=== PATIENT | female | born 1980 | race Caucasian/White ===

== ENCOUNTER 2023-08-18 09:13 | Outpatient (OUT) | payer BC, SELFPAY ==
--- NOTE | 2023-08-18 09:16 | MM_ITS ---
Patient Name: AFRICA DHILLON MR#: [id number] : 1980 Exam Date: 08/18/2023 Ordering Doctor: REJI DUNAWAY . RADIOLOGY REPORT PROCEDURE: MM TOMOSYNTHESIS SCREENING BI COMPARISON: MG MAMM SCREEN 3D YUDI CAD, 06/19/2022. INDICATIONS: screening Calculator Name NCI Breast Cancer Risk Assessment Tool 5 Year Breast Cancer Risk 0.70% Lifetime Breast Cancer Risk 10.90% Personal Breast Cancer No Personal Ovarian Cancer No Treatments None Family Cancers None LOCATION: [facility] BREAST COMPOSITION: Heterogeneously dense,which may obscure small masses. FINDINGS: DIAGNOSTIC CATEGORY 1--NEGATIVE. NO CHANGE FROM COMPARISON ASSESSMENT. RIGHT BREAST: No significant suspicious finding. LEFT BREAST: No significant suspicious finding. RECOMMENDATIONS: ROUTINE MAMMOGRAM AND CLINICAL EVALUATION IN 12 MONTHS. PLEASE NOTE: A NORMAL MAMMOGRAM DOES NOT EXCLUDE THE POSSIBILITY OF BREAST CANCER. A CLINICALLY SUSPICIOUS PALPABLE LUMP SHOULD BE BIOPSIED. Dictated by: Dennis Hinds MD on 08/18/2023 at 13:25 Approved by: Dennis Hinds MD on 08/18/2023 at 13:27
== END 2023-08-18 09:14 | disposition home or self-care (01) ==
LOC: MAMMO 09:13
PROVIDERS: PCP Nurse Practitioner; Visit Provider Nurse Practitioner
DX: Z12.31 Encounter for screening mammogram for malignant neoplasm of breast (principal)
CPT/HCPCS: 77063; 77067

== ENCOUNTER 2024-04-12 11:18 | Outpatient (OUT) | payer BC, SELFPAY ==
--- NOTE | 2024-04-12 11:29 | XR_ITS ---
The [address] [address] Patient Name: AFRICA DHILLON MRN: [id number] date: 1980 Sex: F Assigned Patient Location: [facility] Current Patient Location: [facility] Accession/Order Number: [id number] Exam Date: 04/12/2024 11:35 Report Date: 04/13/2024 15:05 At the request of: REJI DUNAWAY Procedure: XR cervical spine 5V EXAMINATION: XR cervical spine 5V HISTORY: Left Shoulder Pain , Left sided Neck Pain COMPARISON: No relevant comparison available. FINDINGS: BONES: Reversal of normal cervical lordosis. No acute fracture or spondylolisthesis. No significant degenerative change DISC SPACES: Normal. No significant disc height narrowing, subluxation, or endplate abnormality. PARASPINOUS: Negative. No paraspinous abnormality is seen. OTHER: Negative. XR/XR cervical spine 5V IMPRESSION: Reversal cervical lordosis Electronically authenticated by: TEE CARVER Date: 04/13/2024 15:05
--- NOTE | 2024-04-12 11:29 | XR_ITS ---
[address] [address] Patient Name: AFRICA DHILLON MRN: [id number] date: 1980 Sex: F Assigned Patient Location: [facility] Current Patient Location: Accession/Order Number: [id number] Exam Date: 04/12/2024 11:35 Report Date: 04/13/2024 15:03 At the request of: REJI DUNAWAY Procedure: XR shoulder LT min 2V PROCEDURE: XR shoulder LT min 2V COMPARISON: None. HISTORY: Left Shoulder Pain , Left sided Neck Pain FINDINGS: BONES:No acute fracture or dislocation. Mild acromioclavicular joint osteoarthropathy SOFT TISSUES:Negative. No visible soft tissue swelling. EFFUSION:None visible. OTHER: Negative. XR/XR shoulder LT min 2V IMPRESSION: Mild osteoarthritis Electronically authenticated by: TEE CARVER Date: 04/13/2024 15:03
== END 2024-04-12 11:19 | disposition home or self-care (01) ==
LOC: RAD 11:20
PROVIDERS: PCP Nurse Practitioner; Visit Provider Nurse Practitioner
DX: M25.512 Pain in left shoulder (principal); M54.2 Cervicalgia
CPT/HCPCS: 72050; 73030

== ENCOUNTER 2024-04-24 08:39 | Outpatient (OUT) | payer BC, SELFPAY ==
--- OUTSIDE RECORDS SUMMARY | 2024-04-24 08:43 | XMS_ITS | CCD ---
Author Organization [facility] [place] Clini[facility] Care Team Providers Care Dietary Cook Name Role Phone Gino Liang Unavailable ROCK, DR CHRISTIAN Attending Unavailable KUNJenny, DR CHRISTIAN Consulting Unavailable KUNJenny, DR CHRISTIAN Primary Care Unavailable KUNJenny, DR CHRISTIAN Admitting Unavailable RAFAEL ., DR VILLAR Attending Unavailable RAFAEL ., DR VILLAR Consulting Unavailable RAFAEL ., DR VILLAR Admitting Unavailable KUNS, DR CHRISTIAN Primary Care Unavailable RAFAEL ., DR VILLAR Attending Unavailable RAFAEL ., DR VILLAR Consulting Unavailable RAFAEL ., DR VILLAR Admitting Unavailable KUNS, DR CHRISTIAN Primary Care Unavailable RAFAEL ., DR VILLAR Consulting Unavailable RAFAEL ., DR VILLAR Admitting Unavailable KUNS, DR CHRISTIAN Primary Care Unavailable RAFAEL ., DR VILLAR Attending Unavailable ZIEBER, DR KASHMIR [place] Consulting Unavailable ROCK, DR CHRISTIAN Consulting Unavailable ROCK, DR CHRISTIAN Primary Care Unavailable ROCK, DR CHRISTIAN Admitting Unavailable ROCK, DR CHRISTIAN Attending Unavailable JOEL, DR MICAH [facility] Admitting Unavailable JOEL, DR MICAH Sanford Attending Unavailable JOEL, DR MICAH [place] Consulting Unavailable ROCK, DR CHRISTIAN Primary Care Unavailable ROCK, DR CHRISTIAN Primary Care Unavailable MATHEUS ., DR BLACK Attending Unavailable MATHEUS ., DR BLACK Consulting Unavailable MATHEUS ., DR LBACK Admitting Unavailable NELL PELAEZ Admitting Unavailable NELL PELAEZ Attending Unavailable ROCK, DR CHRISTIAN Primary Care Unavailable NELL PELAEZ Consulting Unavailable Gino Liang Unavailable Unavailable Unavailable Rock, Dr. Gino Sánchez Referring Unavailselene e Rock, Dr. Gino Sánchez Primary Care Unavailselene Velez, Dr. Oj Kuhn Attending Unavailable Nabila Du Primary Care Physician [phone] Ana Laura, Nabila L Attending Unavailable Ana Laura, Nabila L Attending Unavailable Ana Laura, Nabila L Attending Unavailable Ana Laura, Nabila L Attending Unavailable Ana Laura, Nabila L Attending Unavailable Ana Laura, Nabila L Attending Unavailable Ana Laura, Nabila L Attending Unavailable Ana Laura, Nabila L Attending Unavailable Ana Laura, Nabila L Attending Unavailable Ana Laura, Nabila L Admitting Unavailable Ana Laura, Nabila L Attending Unavailable Ana Laura, Nabila L Attending Unavailable Ana Laura, Nabila L Attending Unavailable Ana Laura, Nabila L Attending Unavailable Allergies Allergy Classification Reported Allergen(s) Allergy Type Date of Onset Reaction(s) Facility (2 sources) No Known Medication Allergies; Translations: [No Known Medication Allergies] Propensity to adverse reactions (disorder) [facility] Repository Medications Current Medications Medication Drug Class(es) Dates Sig (Normalized) Sig (Original) amoxicillin 875 mg / clavulanate 125 mg oral tablet (2 sources) Penicillin-class Antibacterial Start: 11-07-2021 take 1 tablet by mouth every twelve hours Amoxicillin-Pot Clavulanate 875-125 MG 1 tablet Orally every 12 hrs for 10 day(s) Nov, Active fluconazole 150 mg oral tablet (3 sources) Azole Antifungal Start: 11-04-2023 take 1 tablet by mouth once fluconazole 150 mg Tab 150 mg = 1 tab(s), Oral, Once, # 1 tab(s), Refills(s) 1, Pharmacy: [facility]/pharmacy #[id number], 159, cm, 11/04/23 8:43:00 EDT, Height/Length Dosing, 84.7, kg, 11/04/23 8:43:00 EDT, Weight Dosing Start Date: 11/04/23 Status: Ordered Start: 11-07-2021 Fluconazole 15 0 MG 1 tablet Orally every 3 days prn Nov, Active 1 ml ixekizumab 80 mg/ml auto-injector (1 source) Interleukin-17A Antagonist Start: 08-07-2023 Ozempic (1 mg dose) (1 source) Start: 01-28-2023 Ozempic (1 mg dose) See Instructions, once a week 1.8mg, Refills(s) 0 Start Date: 01/28/23 Status: Ordered Problems Active Problems Problem Classification Problem Date Documented Da te Episodic/Chronic Anxiety disorders (8 sources) Mixed anxiety and depressive disorder; Translations: [Other specified anxiety disorders] Chronic Diabetes mellitus without complication (8 sources) Hyperglycemia; Translations: [Hyperglycemia, unspecified] Episodic Disorders of lipid metabolism (16 sources) Hyperlipidemia; Translations: [Hyperlipidemia, unspecified] Onset: 04-16-2021 Resolved: 04-16-2021 Chronic E Codes: Fall (7 sources) Fall; Translations: [Unspecified fall, initial encounter] Onset: 10-16-2021 Resolved: 10-26-2021 Episodic Headache; including migraine (5 sources) Frontal headache ; Translations: [Frontal headache] Episodic Headache; including migraine (6 sources) Headache; including migraine; Translations: [HEADACHE UNSPECIFIED] Onset: 10-16-2021 Resolved: 10-26-2021 Immunizations and screening for infectious disease (1 source) Contact with and (suspected) exposure to infections with a predominantly sexual mode of transmission; Translations: [CONTCT W EXPOS INFECT SEXUAL TRNSMS] Onset: 07-29-2022 Episodic Inflammation; infection of eye (except that caused by tuberculosis or sexually transmitteddisease) (1 source) Allergic conjunctivitis 11-29-2022 Episodic Mycoses (1 source) Candidiasis of vagina 03-25-2023 Episodic Other circulatory disease (1 source) Feeling of lump in throat; Translations: [Other symptoms involving head and neck] Episodic Other female genital disorders (1 source) Other specified noninflammatory disorders of vagina; Translations: [OTH SPEC NONINFLAMMATORY D/O VAGINA] Onset: 07-29-2022 Episodic Other gastrointestinal disorders (1 source) Dysphagia; Translations: [Dysphagia, unspecified] Episodic Other gastrointestinal disorders (1 source) Dysphagia, unspecified Episodic Other gastrointestinal disorders (1 source) Heartburn Episodic Other inflammatory condition of skin (4 sources) Psoriasis vulgaris; Translations: [PSORIASIS VULGARIS] Onset: 09-09-2022 Chronic Other inflammatory condition of skin (1 source) Psoriasis 02-25-2023 Chronic Other inflammatory condition of skin (5 sources) Pruritus, unspecified; Translations: [PRURITUS UNSPECIFIED] Onset: 07-26-2022 Episodic Other inflammatory condition of skin (1 source) Pruritus of vagina 02-25-2023 Episodic Other non-traumatic joint disorders (8 sources) Shoulder joint pain; Translations: [Pain in left shoulder] Episodic Other non-traumatic joint disorders (8 sources) Pain in right hip joint; Translations: [Pain in right hip] Episodic Other non-traumatic joint disorders (5 sources) Arthralgia of the upper arm; Translations: [Pain in left elbow] Episodic Other nutritional; endocrine; and metabolic disorders (8 sources) Obesity; Translations: [Obesity, unspecified] Chronic Other nutritional; endocrine; and metabolic disorders (8 sources) Obese class II; Translations: [Body mass index (BMI) 38.0-38.9, adult] Chronic Other nutritional; endocrine; and metabolic disorders (1 source) Body mass index 30+ - obesity 11-06-2023 Chronic Other nutritional; endocrine; and metabolic disorders (1 source) Calorie overload 11-29-2022 Chronic Other nutritional; endocrine; and metabolic disorders (1 source) Weight gain 11-29-2022 Episodic Other screening for suspected conditions (not mental disorders or infectious disease) (8 sources) Encounter for screening for malignant neoplasm of cervix; Translations: [Encounter for screening mammogram for malignant neoplasm of breast] Onset: 06-19-2022 Episodic Other upper respiratory infections (20 sources) Sore throat symptom; Translations: [Acute pharyngitis, unspecified] Onset: 05-26-2022 Episodic Otitis media and related conditions (1 source) Finding of fluid behind tympanic membrane 03-25-2023 Episodic Spondylosis; intervertebral disc disorders; other back problems (8 sources) Sciatica; Translations: [Sciatica, right side] Episodic Unclassified (1 source) Cancer cervix screening status 11-06-2023 Unclassified (3 sources) Patient encounter status 12-25-2022 Past or Other Problems Problem Classification Problem Date Documented Da te Episodic/Chronic Acute bronchitis (1 source) Acute bronchitis, unspecified; Translations: [ACUTE BRONCHITIS UNSPECIFIED] Onset: 06-11-2022 Episodic Allergic reactions (1 source) Unspecified contact dermatitis, unspecified cause; Translations: [UNS CONTACT DERMATITIS UNS CAUSE] Onset: 03-12-2022 Episodic Chronic obstructive pulmonary disease and bronchiectasis (1 source) Bronchitis, not specified as acute or chronic; Translations: [BRONCHITIS NOT SPEC ACUTE/CHRON] Onset: 06-11-2022 Episodic Intracranial injury (1 source) Concussion without loss of consciousness, initial encounter Onset: 10-16-2021 Resolved: 10-16-2021 Episodic Other injuries and conditions due to external causes (2 sources) Unspecified injury of head, initial encounter; Translations: [UNSPECIFIED INJURY HEAD INITIAL ENC] Onset: 10-16-2021 Resolved: 10-16-2021 Episodic Other non-traumatic joint disorders (2 sources) Pain in left elbow Onset: 10-16-2021 Resolved: 10-26-2021 Episodic Other skin disorders (3 sources) Rash and other nonspecific skin eruption; Translations: [RASH OTH NONSPECIFIC SKIN ERUPTION] Onset: 03-08-2022 Episodic Results Test Name Value Interpretation Reference Range Facil ity Ambulatory Visit Summaryon 1 06-15-2023 Ambulatory Visit Summary Ambulatory Visit Summary AFRICA PARHAM :1980 Visit Date:04/15/2024 Ambulatory Visit Instructions Your Diagnosis Encounter for weight management BMI 31.0-31.9,adult Non-smoker Obesity (BMI 30-39.9) Your Care Team Attending Physician - Nabila Farley Primary Care Physician - Nabila Farley This Is Your Medications List fluconazole (fluconazole 150 mg Tab) semaglutide (Ozempic (1 mg dose)) Procedures Performed Hysterectomy (2018), Surgery (10/2015), LASIK (2011), Cholecystectomy (2008). Discharge Vitals Temperature (Tympanic) 36.1 ???C Heart Rate (Peripheral) 76 Respiratory Rate 18 Blood Pressure 128/74 Height 160 cm Height 63 in Weight 79.65 kg Weight 175.23 lb BMI 31.11 What to do next Scheduled Follow-Up Appointments Friday 4:40 PM EST With: Nabila Farley Where: [address] [address]- Medications What How Much When Instructions Unchanged fluconazole (fluconazole 150 mg Tab) 1 Tablets By Mouth Once Unchanged semaglutide (Ozempic (1 mg dose)) See instructions once a week 1.8mg Allergies No Known Medication Allergies Problems Ongoing - Any problem that you are currently receiving treatment for. Allergic conjunctivitis, left eye BMI 33.0-33.9,adult Breast cancer screening by mammogram Cervical cancer screening Encounter for weight management Excessive dietary caloric intake Fluid level behind tympanic membrane of both ears Left shoulder pain Neck pain Obesity (BMI 30-39.9) Psoriasis Sore throat Vaginal itching Vaginal yeast infection Weight gain Well woman exam Patient Survey You may receive a survey via text or e-mail asking about your office visit. Please share your experience with us by completing your survey. We appreciate your feedback and thank you for choosing us for your care. Olivier [facility] Family Medicine Office/Clini c Noteon 04-15-2024 Family Medicine Office/Clinic Note Family Medicine Office/Clinic Note Chief Complaint Weight Management & Pain follow up HPI Staff Pt presents today for follow up with labs Started on semaglutide 11/29/22 Sleeping well:Yes, 6-8 hours Chest pain:No Tremors:No Headaches:No Heart fluttering:No Blurred Vision:No Starting Weight:212.31 Weight last visit:179.8 Weight this visit: 175 SARAH 04/05/24- Ordered Xray [facility] for shoulder and cervical spine will order MRI if there is no improvement XRays are in chart for review Still having Lt shoulder/upper arm pain. or 11/16 Other concerns: Mood swings History of Present Illness pt presents today for weight management Review of Systems PHQ Score Initial Depression Screen Score: 0 SCORE Physical Exam Vitals & Measurements T: 36.1 ???C(Tympanic) HR: 76(Peripheral) RR: 18 BP: 128/74 SpO2: 96% HT: 63 in HT: 160 cm WT: 79.65 kg WT: 175.23 lb BMI: 31.11 General: alert, no acute distress ENMT: oral mucosa moist, no pharyngeal erythema or exudate Cardiovascular: regular rate and rhythm, normal peripheral perfusion Respiratory: Lungs CTA, respirations non labored Extremities: no deformity, no trauma Neurological: oriented x 4, LOC appropriate for age, CN II-XII intact, motor strength equal & normal bilaterally, speech normal Assessment/Plan 1. Encounter for weight management (Z76.89: Persons encountering health services in other specified circumstances) pt presents today for weight management. pt is down to 175lbs. would like to go up to highest dose. will send to [facility]. RTC 3 months Ordered: fluconazole, 150 mg = 1 tab(s), Oral, Once, take 1 tab on day one and 1 tab on day four, # 2 tab(s), Refills(s) 2, Pharmacy: [facility]/pharmacy #[id number], 160, cm, 02/03/24 9:52:00 EDT, Height/Length Dosing, 81.6, kg, 02/03/24 9:52:00 EDT, Weight Dosing 2. Hot flashes (R23.2: [place]) pt will buy estroven OTC to see if this helps 3. Decreased libido (R68.82: Decreased libido) will check labs today 4. BMI 31.0-31.9,adult (Z68.31: Body mass index [BMI] 31.0-31.9, adult) BMI education Ordered: fluconazole, 150 mg = 1 tab(s), Oral, Once, take 1 tab on day one and 1 tab on day four, # 2 tab(s), Refills(s) 2, [id number], 160, cm, 02/03/24 9:52:00 EDT, Height/Length Dosing, 81.6, kg, 02/03/24 9:52:00 EDT, Weight Dosing 5. Non-smoker (Z78.9: Other specified health status) continue not smoking Ordered: fluconazole, 150 mg = 1 tab(s), Oral, Once, take 1 tab on day one and 1 tab on day four, # 2 tab(s), Refills(s) 2, [id number], 160, cm, 02/03/24 9:52:00 EDT, Height/Length Dosing, 81.6, kg, 02/03/24 9:52:00 EDT, Weight Dosing 6. Obesity (BMI 30-39.9) (E66.9: Obesity, unspecified) see above 7. Left shoulder pain (M25.512: Pain in left shoulder) reviewed x ray resutls mild osteosrthritis. pt still having limited ROM when raising left arm laterally. has continued exercises at home. waas prescribed meloxicam and steroid at last visit. will order MRI at [facility] 8. Neck pain (M54.2: Cervicalgia) reviewed x ray results. reverse cervical lordosis Follow-up No qualifying data available Problem List/Past Medical History Ongoing Allergic conjunctivitis, left eye BMI 33.0-33.9,adult Breast cancer screening by mammogram Cervical cancer screening Decreased libido Encounter for weight management Excessive dietary caloric intake Fluid level behind tympanic membrane of both ears Hot flashes Left shoulder pain Neck pain Obesity (BMI 30-39.9) Psoriasis Sore throat Vaginal itching Vaginal yeast infection Weight gain Well woman exam Historical No qualifying data Procedure/Surgical History Hysterectomy (2018), Surgery (10/2015), LASIK (2011), Cholecystectomy (2009). Medications fluconazole 150 mg Tab, 150 mg= 1 tab(s), Oral, Once, 1 refills Ozempic (1 mg dose), See Instructions Allergies No Known Medication Allergies Social History Alcohol Never., 04/02/2024 Substance Abuse Never., 04/02/2024 Tobacco Never (less than 100 in lifetime) Tobacco Use:. Never Smokeless Tobacco Use:. Cigarettes, Ready to change: No. Household tobacco concerns: No. Yes, 04/15/2024 Family History Alcoholism: Mother. Cardiac arrhythmia: Mother. Diabetes mellitus type 2: Father. Immunizations Vaccine Date Status Comments influenza virus vaccine, inactivated 04/22/2023 Given influenza virus vaccine, inactivated - Not Given Postpone due to refusal influenza virus vaccine, inactivated 04/06/2021 Recorded influenza virus vaccine, inactivated 02/16/2020 Recorded influenza virus vaccine, inactivated 03/23/2019 Recorded influenza virus vaccine, inactivated 03/24/2018 Recorded diphtheria/pertussis , acel/tetanus adult 02/28/2017 Recorded influenza virus vaccine, inactivated 02/28/2017 Recorded influenza virus vaccine, inactivated 03/01/2016 Recorded Normal [facility] Comment on above: Result Comment: Elec tronically Signed By: Nabila Farley\.br\Date and Time Signed: 04/15/24 14:14 EST Ambulatory Visit Summaryon Ambulatory Visit Summary Ambulatory Visit Summary AFRICA PARHAM :1980 Visit Date:04/05/2024 Ambulatory Visit Instructions Your Diagnosis Non-smoker BMI 30.0-30.9,adult Exogenous obesity Your Care Team Attending Physician - Nabila Farley Primary Care Physician - Nabila Farley This Is Your Medications List azithromycin (azithromycin 250 mg Tab) azithromycin (azithromycin 250 mg Tab) fluconazole (Diflucan 150 mg Tab) fluconazole (fluconazole 150 mg Tab) semaglutide (Ozempic (1 mg dose)) Procedures Performed Hysterectomy (2018), Surgery (10/2015), LASIK (2012), Cholecystectomy (2009). Discharge Vitals Temperature (Temporal Artery) 36.4 ???C Heart Rate (Peripheral) 76 Respiratory Rate 20 Blood Pressure 124/84 Height 160.0 cm Height 63 in Weight 79.3 kg Weight 174.46 lb BMI 30.98 What to do next Scheduled Follow-Up Appointments Friday 8:40 AM EST With: Nabila Farley Where: [address] [address]- Medications What How Much When Why Instructions Unchanged azithromycin (azithromycin 250 mg Tab) 1 Packets By Mouth As Directed Unchanged azithromycin (azithromycin 250 mg Tab) 1 Packets By Mouth As Directed Unchanged fluconazole (Diflucan 150 mg Tab) 1 Tablets By Mouth Once Encounter for weight management Vaginal yeast infection Non-smoker BMI 31.0-31.9,adult Class 1 obesity due to excess calories in adult take 1 tab on day one and 1 tab on day four Unchanged fluconazole (fluconazole 150 mg Tab) 1 Tablets By Mouth Once Unchanged semaglutide (Ozempic (1 mg dose)) See instructions once a week 1.8mg Allergies No Known Medication Allergies Problems Ongoing - Any problem that you are currently receiving treatment for. Allergic conjunctivitis, left eye BMI 33.0-33.9,adult Breast cancer screening by mammogram Cervical cancer screening Encounter for weight management Excessive dietary caloric intake Fluid level behind tympanic membrane of both ears Psoriasis Sore throat Vaginal itching Vaginal yeast infection Weight gain Well woman exam Patient Survey You may receive a survey via text or e-mail asking about your office visit. Please share your experience with us by completing your survey. We appreciate your feedback and thank you for choosing us for your care. Normal [facility] Medicine Office/Clini c Noteon 04-05-2024 Family Medicine Office/Clinic Note Family Medicine Office/Clinic Note HPI Staff [place] is a 43 year old female presenting with left arm pain radiating from her neck Onset: for awhile, does not remember it pulling or Location: left arm Characteristics: feels like weight, shooting pain sometimes throbbing sometimes it pulls on the side of her neck Aggravated by: can not lift all the way Relieved by: nothing radiates from her neck History of Present Illness pt c/o left shoulder pain Review of Systems PHQ Score Initial Depression Screen Score: 0 SCORE Physical Exam Vitals & Measurements T: 36.4 ???C(Temporal Artery) HR: 76(Peripheral) RR: 20 BP: 124/84 SpO2: 97% HT: 63 in HT: 160.0 cm WT: 79.3 kg WT: 174.46 lb BMI: 30.98 General: alert, no acute distress ENMT: oral mucosa moist, no pharyngeal erythema or exudate Cardiovascular: regular rate and rhythm, normal peripheral perfusion Respiratory: Lungs CTA, respirations non labored Extremities: no deformity, no trauma Neurological: oriented x 4, LOC appropriate for age, CN II-XII intact, motor strength equal & normal bilaterally, speech normal limited ROM laterally pain start at about 90 degrees when raising arm laterally Assessment/Plan 1. Left shoulder pain (M25.512: Pain in left shoulder) pt c/o left shoulder pain. ROM limited when raising her arm laterally. pain starts at 90 degrees. pt has been doing stretches at home, taking OTC anti inflammatory. and using heat and ice. will order x ray. toradol and kenalog given in office today. x ray order sent to [facility] for shoulder and cervical spine. pt will continue doing exercises at home. RTC 2 weeks. may consider MRI if no improvement. 2. Neck pain (M54.2: Cervicalgia) x ray order of cervical spine ordered 3. Non-smoker (Z78.9: Other specified health status) continue not smoking Ordered: ketorolac, 30 mg = 1 mL, Injection, IntraMuscular, Once, Stop date 04/05/24 12:20:00 EDT, Routine, Start date 04/05/24 12:20:00 EDT, 04/05/24 12:20:00 EDT triamcinolone, 40 mg = 1 mL, Injection, IntraARTICULAR, Once, Stop date 04/05/24 12:19:00 EDT, Routine, Start date 04/05/24 12:19:00 EDT, 04/05/24 12:19:00 EDT 4. BMI 30.0-30.9,adult (Z68.30: Body mass index [BMI] 30.0-30.9, adult) BMI education given Ordered: ketorolac, 30 mg = 1 mL, Injection, IntraMuscular, Once, Stop date 04/05/24 12:20:00 EDT, Routine, Start date 04/05/24 12:20:00 EDT, 04/05/24 12:20:00 EDT triamcinolone, 40 mg = 1 mL, Injection, IntraARTICULAR, Once, Stop date 04/05/24 12:19:00 EDT, Routine, Start date 04/05/24 12:19:00 EDT, 04/05/24 12:19:00 EDT 5. Exogenous obesity (E66.09: Other obesity due to excess calories) see above Ordered: ketorolac, 30 mg = 1 mL, Injection, IntraMuscular, Once, Stop date 04/05/24 12:20:00 EDT, Routine, Start date 04/05/24 12:20:00 EDT, 04/05/24 12:20:00 EDT triamcinolone, 40 mg = 1 mL, Injection, IntraARTICULAR, Once, Stop date 04/05/24 12:19:00 EDT, Routine, Start date 04/05/24 12:19:00 EDT, 04/05/24 12:19:00 EDT Follow-up No qualifying data available Patient Education Shoulder Range of Motion Exercises Problem List/Past Medical History Ongoing Allergic conjunctivitis, left eye BMI 33.0-33.9,adult Breast cancer screening by mammogram Cervical cancer screening Encounter for weight management Excessive dietary caloric intake Fluid level behind tympanic membrane of both ears Left shoulder pain Neck pain Psoriasis Sore throat Vaginal itching Vaginal yeast infection Weight gain Well woman exam Historical No qualifying data Procedure/Surgical History Hysterectomy (2018), Surgery (10/2015), LASIK (2012), Cholecystectomy (2008). Medications azithromycin 250 mg Tab, 1 packet(s), Oral, As Directed azithromycin 250 mg Tab, 1 packet(s), Oral, As Directed Diflucan 150 mg Tab, 150 mg= 1 tab(s), Oral, Once, 2 refills fluconazole 150 mg Tab, 150 mg= 1 tab(s), Oral, Once, 1 refills Ozempic (1 mg dose), See Instructions Allergies No Known Medication Allergies Social History Alcohol Never., 04/02/2024 Substance Abuse Never., 04/02/2024 Tobacco Never (less than 100 in lifetime) Tobacco Use:. Never Smokeless Tobacco Use:. Cigarettes, 04/05/2024 Family History Alcoholism: Mother. Cardiac arrhythmia: Mother. Diabetes mellitus type 2: Father. Immunizations Vaccine Date Status Comments influenza virus vaccine, inactivated 04/22/2023 Given influenza virus vaccine, inactivated - Not Given Postpone due to refusal influenza virus vaccine, inactivated 04/06/2021 Recorded influenza virus vaccine, inactivated 02/16/2020 Recorded influenza virus vaccine, inactivated 03/23/2019 Recorded influenza virus vaccine, inactivated 03/24/2018 Recorded diphtheria/pertussis , acel/tetanus adult 02/28/2017 Recorded influenza virus vaccine, inactivated 02/28/2017 Recorded influenza virus vaccine, inactivated 03/01/2016 [address]ed [address] [facility] Comment on above: Result Comment: Elec tronically Signed By: Ana Laura العراقي, Nabila Wilks\.br\Date and Time Signed: 04/05/24 13:09 EDT Family Medicine Office/Clini c Noteon 02-03-2024 Family Medicine Office/Clinic Note Family Medicine Office/Clinic Note HPI Staff [place] is a 43 year old female presenting with Weight management Ozempic on 11/29/22 Sleeping well:Yes, 6-8 hours Chest pain:No Tremors:No Headaches:No Heart fluttering:No Blurred Vision:No Starting Weight: 212.31 Weight last visit: 184.9 Weight this visit: 179.8 History of Present Illness pt presents today for weight management Review of Systems PHQ Score Initial Depression Screen Score: 0 SCORE Physical Exam Vitals & Measurements T: 37.4 ?C(Oral) HR: 70(Peripheral) RR: 18 BP: 124/86 SpO2: 97% HT: 63 in HT: 160.0 cm WT: 81.6 kg WT: 179.52 lb BMI: 31.88 General: alert, no acute distress ENMT: oral mucosa moist, no pharyngeal erythema or exudate Cardiovascular: regular rate and rhythm, normal peripheral perfusion Respiratory: Lungs CTA, respirations non labored Extremities: no deformity, no trauma Neurological: oriented x 4, LOC appropriate for age, CN II-XII intact, motor strength equal & normal bilaterally, speech normal Assessment/Plan 1. Encounter for weight management (Z76.89: Persons encountering health services in other specified circumstances) pt is down 10 pounds. is doing well denies needs. [facility] 3 months Ordered: fluconazole, 150 mg = 1 tab(s), Oral, Once, take 1 tab on day one and 1 tab on day four, # 2 tab(s), Refills(s) 2, [id number] 160, cm, 02/03/24 9:52:00 EDT, Height/Length Dosing, 81.6, kg, 02/03/24 9:52:00 EDT, Weight Dosing 2. Vaginal yeast infection (B37.31: Acute candidiasis of vulva and vagina) diflucan sent to pharmacy Ordered: fluconazole, 150 mg = 1 tab(s), Oral, Once, take 1 tab on day one and 1 tab on day four, # 2 tab(s), Refills(s) 2, Pharmacy: [facility]/pharmacy #[id number], 160, cm, 02/03/24 9:52:00 EDT, Height/Length Dosing, 81.6, kg, 02/03/24 9:52:00 EDT, Weight Dosing 3. Non-smoker (Z78.9: Other specified health status) continue not smoking Ordered: fluconazole, 150 mg = 1 tab(s), Oral, Once, take 1 tab on day one and 1 tab on day four, # 2 tab(s), Refills(s) 2, Pharmacy: [facility]/pharmacy #[id number], 160, cm, 02/03/24 9:52:00 EDT, Height/Length Dosing, 81.6, kg, 02/03/24 9:52:00 EDT, Weight Dosing 4. BMI 31.0-31.9,adult (Z68.31: Body mass index [BMI] 31.0-31.9, adult) BMI education given Ordered: fluconazole, 150 mg = 1 tab(s), Oral, Once, take 1 tab on day one and 1 tab on day four, # 2 tab(s), Refills(s) 2, Pharmacy: [facility]/pharmacy #[id number], 160, cm, 02/03/24 9:52:00 EDT, Height/Length Dosing, 81.6, kg, 02/03/24 9:52:00 EDT, Weight Dosing 5. Class 1 obesity due to excess calories in adult (E66.09: Other obesity due to excess calories) see above Ordered: fluconazole, 150 mg = 1 tab(s), Oral, Once, take 1 tab on day one and 1 tab on day four, # 2 tab(s), Refills(s) 2, Pharmacy: [facility]/pharmacy #[id number], 160, cm, 02/03/24 9:52:00 EDT, Height/Length Dosing, 81.6, kg, 02/03/24 9:52:00 EDT, Weight Dosing Follow-up No qualifying data available Problem List/Past Medical History Ongoing Allergic conjunctivitis, left eye BMI 33.0-33.9,adult Breast cancer screening by mammogram Cervical cancer screening Encounter for weight management Excessive dietary caloric intake Fluid level behind tympanic membrane of both ears Psoriasis Sore throat Vaginal itching Vaginal yeast infection Weight gain Well woman exam Historical No qualifying data Procedure/Surgical History Hysterectomy (2018), Surgery (10/2015), LASIK (2011), Cholecystectomy (2008). Medications Diflucan 150 mg Tab, 150 mg= 1 tab(s), Oral, Once, 2 refills fluconazole 150 mg Tab, 150 mg= 1 tab(s), Oral, Once, 1 refills Ozempic (1 mg dose), See Instructions Tasha Autoinjector 80 mg/mL subcutaneous solution Allergies No Known Medication Allergies Social History Tobacco Never (less than 100 in lifetime) Tobacco Use:. Never Smokeless Tobacco Use:. Cigarettes, Household tobacco concerns: No. Yes, 02/03/2024 Family History Alcoholism: Mother. Cardiac arrhythmia: Mother. Diabetes mellitus type 2: Father. Immunizations Vaccine Date Status Comments influenza virus vaccine, inactivated 04/22/2023 Given influenza virus vaccine, inactivated - Not Given Postpone due to refusal influenza virus vaccine, inactivated 04/06/2021 Recorded influenza virus vaccine, inactivated 02/16/2020 Recorded influenza virus vaccine, inactivated 03/23/2019 Recorded influenza virus vaccine, inactivated 03/24/2018 Recorded diphtheria/pertussis , acel/tetanus adult 02/28/2017 Recorded influenza virus vaccine, inactivated 02/28/2017 Recorded influenza virus vaccine, inactivated 03/01/[address] [facility] Comment on above: Result Comment: Elec tronically Signed By: Nabila Farley\.br\Date and Time Signed: 02/03/24 11:05 EDT PAP [id number] 11-11-2023 Cytology report Cyto stain Doc (Cvx/Vag) Note Invalid Interpretation Code [facility] Comment on above: Result Comment: TEST S RESULT FLAG UNITS REF RANGE LAB Clinician Provided Cytology Information Source.............Cervix No. of containers..01 ThinPrep Vial DIAGNOSIS: 01 NEGATIVE FOR INTRAEPITHELIAL LESION OR MALIGNANCY. FUNGAL ORGANISMS MORPHOLOGICALLY CONSISTENT WITH SAIDA SPECIES ARE PRESENT. Specimen adequacy: 01 Satisfactory for evaluation. No endocervical component is identified. Performed by: 01 Sabina Campbell, Corn Picker ([facility]) . 01 Note: Note 01 The Pap smear is a screening test designed to aid in the detection of premalignant and malignant conditions of the uterine cervix. It is not a diagnostic procedure and should not be used as the sole means of detecting cervical cancer. Both false-positive and false-negative reports do occur. Test Methodology: Note 01 This liquid based ThinPrep(R) pap test was screened with the use of an image guided system. HPV Genotype Reflex Note 01 Criteria not met, HPV Genotype not performed. FLAG LEGEND: L-Low Normal,H-High Normal,LL-Alert Low,HH-Alert High <-Panic Low,>-Panic High,A-Abnormal,AA-Critical Abnormal Performed at: [address] [facility] [place] [address] Enid Miller MD, Performed By: #### 1 [id number] #### [facility] [address] [place] [address] HPV 16+18+31+33+35+39+4 5+51+52+56+58+59+66 +68 DNA Probe+sig amp Ql (Cvx) Negative Invalid Interpretation Code Negative [facility] Comment on above: Result Comment: This nucleic acid amplification test detects fourteen high-risk HPV types (16,18,31,33,35,39,45,51,52,56,58,59,66,68) without differentiation. Performed at: [facility] [address], [place] [id number] MD Paul Rossi Performed at: =[facility] [address], [place] [id number] MD Paul Rossi Performed By: #### 1 [id number] #### [facility] [address] [place] [address] Reminderson 11-11-2023 Reminders - From: Nabila Farley To: [facility] - Clinical; Sent: 11/11/2023 10:40:29 EDT Show up: 11/11/2023 10:41:00 EDT Subject: Ambulatory Reminder Due Date/Time: 11/12/2023 10:40:00 EDT Pap was negative. it did show yeast, which we are treating her for Results: Date Result Name Value Ref Range 11/06/2023 9:50 HPV Aptima Negative (Negative - ) 11/06/2023 9:50 PAP Note left detailed message for patient of message below Normal [facility] Ambulatory Visit Summaryon 0 11-06-2023 Ambulatory Visit Summary AFRICA PARHAM :1980 Visit Date:11/06/2023 Ambulatory Visit Instructions Your Diagnosis Well woman exam Breast cancer screening by mammogram Cervical cancer screening BMI 33.0-33.9,adult Your Care Team Attending Physician - Nabila Farley Primary Care Physician - Nabila Farley This Is Your Medications List fluconazole (fluconazole 150 mg Tab) ixekizumab (Taltz Autoinjector 80 mg/mL subcutaneous solution) semaglutide (Ozempic (1 mg dose)) Procedures Performed Hysterectomy (2018), Surgery (10/2015), LASIK (2012), Cholecystectomy (2008). Discharge Vitals Heart Rate (Peripheral) 72 Respiratory Rate 16 Blood Pressure 122/74 Height 160 cm Height 63 in Weight 86 kg Weight 189.2 lb BMI 33.59 What to do next Scheduled Follow-Up Appointments Friday 10:00 AM EDT With: Nabila Farley Where: [facility] Normal Cervical cancer screening, Print Label By Order Location, VAGINA, SPATULA-ALONE\. br\ Medications\.br \ What How Much When Instructions\.b r\ Unchanged fluconazole (fluconazole 150 mg Tab) 1 Tablets By Mouth Once\.br\ Unchanged ixekizumab (Taltz Autoinjector 80 mg/ mL subcutaneous solution) 3 Unspecified/ Unknown, 0 Refill(s) \.br\ Unchanged semaglutide (Ozempic (1 mg dose)) See instructions once a week 1.8mg \.br\ Allergies\.br\ No Known Medication Allergies\.br\ Problems\.br\ Ongoing - Any problem that you are currently receiving treatment for.\.br\ Allergic conjunctivitis, left eye\.br\ BMI 33.0-33.9,adult \.br\ Breast cancer screening by mammogram\.br\ Cervical cancer screening\.br\ Encounter for weight management\.br\ Excessive dietary caloric intake\.br\ Fluid level behind tympanic membrane of both ears\.br\ Psoriasis\.br\ Sore throat\.br\ Vaginal itching\.br\ Vaginal yeast infection\.br\ Weight gain\.br\ Well woman exam\.br\ Patient Survey\.br\ You may receive a survey via text or e-mail asking about your office visit. Please share your experience with us by completing your survey. We appreciate your feedback and thank you for choosing us for your care.\.br\ \.br\ [facility] Medicine Office/Clini c Noteon 11-06-2023 Family Medicine Office/Clinic Note Chief Complaint PAP HPI Staff [place] is a 43 year old female presenting for 3 month follow up Woman check up: Last pap: 07/2022 Last [place]: 06/2023 Results of lap pap: Where was it done: hx: # of pregnancies 4 abortions 0 live births 3 living children 3 menstrual cycle (normal,heavy,ect): Hysterectomy in 2019 History of STD: no Do you want tested for STD today: no Vaginal discharge, odor, itching: no Self breast exam at home? yes Hx of breast, cervical or uterine cancer in the family: no Weight management: Started Ozempic on 11/29/22 Sleeping well:Yes, 6-8 hours Chest pain:No Tremors:No Headaches:No Heart fluttering:No Blurred Vision:No Beginning weight: 212.31 Previous weight: 188.0 Today's weight: 184.9 Questions/Concerns: Swelling at injection site of Taltz. Would like to get it looked at today. History of Present Illness pt presents today for well woman exam Review of Systems PHQ Score Initial Depression Screen Score: 0 SCORE Physical Exam Vitals & Measurements HR: 72(Peripheral) RR: 16 BP: 122/74 HT: 63 in HT: 160 cm WT: 86 kg WT: 189.2 lb BMI: 33.59 General: alert, no acute distress ENMT: oral mucosa moist, no pharyngeal erythema or exudate Cardiovascular: regular rate and rhythm, normal peripheral perfusion Respiratory: Lungs CTA, respirations non labored Extremities: no deformity, no trauma Neurological: oriented x 4, LOC appropriate for age, CN II-XII intact, motor strength equal & normal bilaterally, speech normal Assessment/Plan 1. Well woman exam (Z01.419: Encounter for gynecological examination (general) (routine) without abnormal findings) pt present today for well woman exam. pap obtained. BSE discussed. mammogram was done in June. RTC as needed Ordered: Body Mass Index (BMI) documented 3008F Current tobacco non-user 1036F Depression Screening Negative 3352F Discharge medications reconciled with current medications in outpatient record 1111F Influenza immunization status assessed 1030F Medication list documented in medical record 1159F Most recent diastolic blood pressure <80 mm Hg 3078F PAP w/ HPV and Genotype rflx Patient screen for fall risk: no falls in last year or 1 fall with no injury in last year 1101F Review of all meds by a prescribing practitioner or clinical pharmacist documented in EHR 1160F Systolic BP <130 mm Hg (Most Recent) 3074F 2. Breast cancer screening by mammogram (Z12.31: Encounter for screening mammogram for malignant neoplasm of breast) mammogram in June 2023 3. Cervical cancer screening (Z12.4: Encounter for screening for malignant neoplasm of cervix) pap obtained. pt had hyst so only spatula was used Ordered: PAP w/ HPV and Genotype rflx 4. BMI 33.0-33.9,adult (Z68.33: Body mass index [BMI] 33.0-33.9, adult) BMI education Follow-up No qualifying data available Problem List/Past Medical History Ongoing Allergic conjunctivitis, left eye BMI 33.0-33.9,adult Breast cancer screening by mammogram Cervical cancer screening Encounter for weight management Excessive dietary caloric intake Fluid level behind tympanic membrane of both ears Psoriasis Sore throat Vaginal itching Vaginal yeast infection Weight gain Well woman exam Historical No qualifying data Procedure/Surgical History Hysterectomy (2018), Surgery (10/2015), LASIK (2011), Cholecystectomy (2008). Medications fluconazole 150 mg Tab, 150 mg= 1 tab(s), Oral, Once, 1 refills Ozempic (1 mg dose), See Instructions Tasha Autoinjector 80 mg/mL subcutaneous solution Allergies No Known Medication Allergies Social History Tobacco Never (less than 100 in lifetime) Tobacco Use:. Never Smokeless Tobacco Use:. Household tobacco concerns: No. Yes, 11/06/2023 Family History Alcoholism: Mother. Cardiac arrhythmia: Mother. Diabetes mellitus type 2: Father. Immunizations Vaccine Date Status Comments influenza virus vaccine, inactivated 04/22/2023 Given influenza virus vaccine, inactivated - Not Given Postpone due to refusal influenza virus vaccine, inactivated 04/06/2021 Recorded influenza virus vaccine, inactivated 02/16/2020 Recorded influenza virus vaccine, inactivated 03/23/2019 Recorded influenza virus vaccine, inactivated 03/24/2018 Recorded diphtheria/pertussis , acel/tetanus adult 02/28/2017 Recorded influenza virus vaccine, inactivated 02/28/2017 Recorded influenza virus vaccine, inactivated 03/01/2016 Recorded Normal [facility] Comment on above: Result Comment: Elec tronically Signed By: Nabila Farley\.br\Date and Time Signed: 11/06/23 11:13 EDT PAP [id number] 11-06-2023 Gynecological Body Site CERVIX Normal [facility] Comment on above: Performed By: #### 1 [id number] #### [facility] [address] [place] [address] Family Medicine Office/Clini c Noteon 11-04-2023 Family Medicine Office/Clinic Note HPI Staff [place] is a 43 year old female presenting for 3 month follow up Weight management: Started on Ozempic 11/30/23 Sleeping well:Yes, 6-8 hours Chest pain:No Tremors:No Headaches:No Heart fluttering:No Blurred Vision:No Beginning weight: 212.3 Previous weight: 183 Today's weight: 186 Questions/Concerns: Pt states she has yeast infection would like rx for Diflucan. History of Present Illness pt presents for weight management. also has yeast infection Review of Systems PHQ Score Initial Depression Screen Score: 0 SCORE Physical Exam Vitals & Measurements HR: 78(Peripheral) RR: 18 BP: 126/80 SpO2: 99% HT: 63 in HT: 159.0 cm WT: 84.70 kg WT: 186.34 lb BMI: 33.5 General: alert, no acute distress ENMT: oral mucosa moist, no pharyngeal erythema or exudate Cardiovascular: regular rate and rhythm, normal peripheral perfusion Respiratory: Lungs CTA, respirations non labored Extremities: no deformity, no trauma Neurological: oriented x 4, LOC appropriate for age, CN II-XII intact, motor strength equal & normal bilaterally, speech normal Assessment/Plan 1. Encounter for weight management (Z76.89: Persons encountering health services in other specified circumstances) pt is up 3 pounds but is still happy with her weight. will send refill to [facility]. [facility] 3 months 2. Vaginal yeast infection (B37.31: Acute candidiasis of vulva and vagina) Diflucan sent to pharmacy 3. BMI 33.0-33.9,adult (Z68.33: Body mass index [BMI] 33.0-33.9, adult) bmi education complete 4. Non-smoker (Z78.9: Other specified health status) continue not smoking Ordered: fluconazole, 150 mg = 1 tab(s), Oral, Once, # 1 tab(s), Refills(s) 0, Pharmacy: [facility]/pharmacy #[id number], 159, cm, 09/08/23 11:39:00 EDT, Height/Length Dosing, 83.3, kg, 09/08/23 11:39:00 EDT, Weight Dosing Orders: fluconazole, 150 mg = 1 tab(s), Oral, Once, # 1 tab(s), Refills(s) 1, Pharmacy: [facility]/pharmacy #[id number], 159, cm, 11/04/23 8:43:00 EDT, Height/Length Dosing, 84.7, kg, 11/04/23 8:43:00 EDT, Weight Dosing Follow-up No qualifying data available Problem List/Past Medical History Ongoing Allergic conjunctivitis, left eye Encounter for weight management Excessive dietary caloric intake Fluid level behind tympanic membrane of both ears Psoriasis Sore throat Vaginal itching Vaginal yeast infection Weight gain Historical No qualifying data Procedure/Surgical History Hysterectomy (2018), Surgery (10/2015), LASIK (2011), Cholecystectomy (2008). Medications fluconazole 150 mg Tab, 150 mg= 1 tab(s), Oral, Once, 1 refills Ozempic (1 mg dose), See Instructions Tasha Autoinjector 80 mg/mL subcutaneous solution Allergies No Known Medication Allergies Social History Tobacco Never (less than 100 in lifetime) Tobacco Use:. Never Smokeless Tobacco Use:. Household tobacco concerns: No., 11/04/2023 Family History Alcoholism: Mother. Cardiac arrhythmia: Mother. Diabetes mellitus type 2: Father. Immunizations Vaccine Date Status Comments influenza virus vaccine, inactivated 04/22/2023 Given influenza virus vaccine, inactivated - Not Given Postpone due to refusal influenza virus vaccine, inactivated 04/06/2021 Recorded influenza virus vaccine, inactivated 02/16/2020 Recorded influenza virus vaccine, inactivated 03/23/2019 Recorded influenza virus vaccine, inactivated 03/24/2018 Recorded diphtheria/pertussis , acel/tetanus adult 02/28/2017 Recorded influenza virus vaccine, inactivated 02/28/2017 Recorded influenza virus vaccine, inactivated 03/01/2016 Recorded Normal [facility] Comment on above: Result Comment: Elec tronically Signed By: Nabila Farley\.tanya\Date and Time Signed: 11/04/23 09:11 EDT Retail - Clinical Noteon Retail - Clinical Note [id number] #1.00TIFF Normal [facility] [place] 09-08-2023 Consent [id number] #1.00TIFF Normal [facility] Family Medicine Office/Clini c Noteon 09-08-2023 Family Medicine Office/Clinic Note HPI Staff [place] is a 43 year old female presenting for acute sick visit Respiratory C/O: Onset: 6 days Body aches: no Chest congestion: yes Chills: no Cough: no Sputum production: yes Sore throat: yes started , thick post nasals drainage Ear complaints: yes bilateral ears hurt dull pain outside Eye itching/watering: no Fever: no Headache: no Nasal congestion: no Nasal discharge: no Poor appetite: no Reduced activity: yes Sinus pain/pressure: no Sneezing: no Wheezing: no Ill contacts: no Remedies tried: Questions/Concerns: started with body aches, high fever. Lymph node of left side swelled. History of Present Illness pt presents today with sore throat, ear pressure swollen lymph node Review of Systems PHQ Score Initial Depression Screen Score: 0 SCORE Physical Exam Vitals & Measurements T: 36.7 ?C(Oral) HR: 78(Peripheral) RR: 18 BP: 122/80 SpO2: 98% HT: 63 in HT: 159.0 cm WT: 83.3 kg WT: 183.26 lb BMI: 32.95 General: alert, no acute distress ENMT: oral mucosa moist, no pharyngeal erythema or exudate, YUDI TM full of clear fluid, left lymph node sweollen under ear Cardiovascular: regular rate and rhythm, normal peripheral perfusion Respiratory: Lungs CTA, respirations non labored Extremities: no deformity, no trauma Neurological: oriented x 4, LOC appropriate for age, CN II-XII intact, motor strength equal & normal bilaterally, speech normal Assessment/Plan 1. Sore throat (J02.9: Acute pharyngitis, unspecified) throat is very red and painful, left lymph node of neck is swollen. Ordered: amoxicillin, 800 mg = 10 mL, Oral, q12hr, X 7 day(s), # 140 mL, Refills(s) 0, Pharmacy: [id number], 159, cm, 09/08/23 11:39:00 EDT, Height/Length Dosing, 83.3, kg, 09/08/23 11:39:00 EDT, Weight Dosing fluconazole, 150 mg = 1 tab(s), Oral, Once, # 1 tab(s), Refills(s) 0, [id number], cm, 09/08/23 11:39:00 EDT, Height/Length Dosing, 83.3, kg, 09/08/23 11:39:00 EDT, Weight Dosing triamcinolone, 40 mg = 1 mL, Injection, IntraMuscular, Once, Stop date 09/08/23 12:36:00 EDT, Routine, Start date 09/08/23 12:36:00 EDT, 09/08/23 12:36:00 EDT 2. Fluid level behind tympanic membrane of both ears (H65.93: Unspecified nonsuppurative otitis media, bilateral) YUDI TM full of clear fluid Ordered: amoxicillin, 800 mg = 10 mL, Oral, q12hr, X 7 day(s), # 140 mL, Refills(s) 0, [id number] 159, cm, 09/08/23 11:39:00 EDT, Height/Length Dosing, 83.3, kg, 09/08/23 11:39:00 EDT, Weight Dosing fluconazole, 150 mg = 1 tab(s), Oral, Once, # 1 tab(s), Refills(s) 0, [id number] 159, cm, 09/08/23 11:39:00 EDT, Height/Length Dosing, 83.3, kg, 09/08/23 11:39:00 EDT, Weight Dosing triamcinolone, 40 mg = 1 mL, Injection, IntraMuscular, Once, Stop date 09/08/23 12:36:00 EDT, Routine, Start date 09/08/23 12:36:00 EDT, 09/08/23 12:36:00 EDT 3. BMI 34.0-34.9,adult (Z68.34: Body mass index [BMI] 34.0-34.9, adult) BMI education complete Ordered: amoxicillin, 800 mg = 10 mL, Oral, q12hr, X 7 day(s), # 140 mL, Refills(s) 0, [id number], 159, cm, 09/08/23 11:39:00 EDT, Height/Length Dosing, 83.3, kg, 09/08/23 11:39:00 EDT, Weight Dosing fluconazole, 150 mg = 1 tab(s), Oral, Once, # 1 tab(s), Refills(s) 0, [id number], 159, cm, 09/08/23 11:39:00 EDT, Height/Length Dosing, 83.3, kg, 09/08/23 11:39:00 EDT, Weight Dosing triamcinolone, 40 mg = 1 mL, Injection, IntraMuscular, Once, Stop date 09/08/23 12:36:00 EDT, Routine, Start date 09/08/23 12:36:00 EDT, 09/08/23 12:36:00 EDT 4. Non-smoker (Z78.9: Other specified health status) continue not smoking Ordered: amoxicillin, 800 mg = 10 mL, Oral, q12hr, X 7 day(s), # 140 mL, Refills(s) 0, [id number] 159, cm, 09/08/23 11:39:00 EDT, Height/Length Dosing, 83.3, kg, 09/08/23 11:39:00 EDT, Weight Dosing fluconazole, 150 mg = 1 tab(s), Oral, Once, # 1 tab(s), Refills(s) 0, [id number], 159, cm, 09/08/23 11:39:00 EDT, Height/Length Dosing, 83.3, kg, 09/08/23 11:39:00 EDT, Weight Dosing triamcinolone, 40 mg = 1 mL, Injection, IntraMuscular, Once, Stop date 09/08/23 12:36:00 EDT, Routine, Start date 09/08/23 12:36:00 EDT, 09/08/23 12:36:00 EDT Orders: fluconazole, 150 mg = 1 tab(s), Oral, Once, # 1 tab(s), Refills(s) 0, Pharmacy: [facility]/pharmacy #[id number], 159, cm, 05/20/23 10:45:00 EST, Height/Length Dosing, 86.3, kg, 05/20/23 10:45:00 EST, Weight Dosing Follow-up No qualifying data available Problem List/Past Medical History Ongoing Allergic conjunctivitis, left eye Encounter for weight management Excessive dietary caloric intake Fluid level behind tympanic membrane of both ears Psoriasis Sore throat Vaginal itching Vaginal yeast infection Weight gain Historical No qualifying data Procedure/Surgical History Hysterectomy (2019), Surgery (10/2015), LASIK (2011), Cholecystectomy (2009). Medications amoxicillin 400 mg/5 mL Oral Li (more content not included)... Normal [facility] Comment on above: Result Comment: Elec tronically Signed By: Nabila Farley\.br\Date and Time Signed: 09/08/23 12:39 EDT Ambulatory Visit Summaryon 0 08-07-2023 Ambulatory Visit Summary AFRICA PARHAM :1980 Visit Date:08/07/2023 Ambulatory Visit Instructions Your Diagnosis Encounter for weight management BMI 33.0-33.9,adult Non-smoker Your Care Team Attending Physician - Nabila Farley Primary Care Physician - Nabila Farley This Is Your Medications List fluconazole (Diflucan 150 mg Tab) ixekizumab (Taltz Autoinjector 80 mg/mL subcutaneous solution) semaglutide (Ozempic (1 mg dose)) Procedures Performed Hysterectomy (2018), Surgery (10/2015), LASIK (2011), Cholecystectomy (2009). Discharge Vitals Heart Rate (Peripheral) 72 Respiratory Rate 18 Blood Pressure 112/68 Height 159 cm Height 63 in Weight 85.6 kg Weight 188.32 lb BMI 33.86 What to do next Scheduled Follow-Up Appointments Friday 8:40 AM EDT With: Nabila Farley Where: [facility] Family Medicine Office/Clini c Noteon 08-07-2023 Family Medicine Office/Clinic Note HPI Staff [place] is a 43 year old female presenting weight check Weight management: Started Ozempic on 11/29/22 Sleeping well:Yes, 6-8 hours Chest pain:No Tremors:No Headaches:No Heart fluttering:No Blurred Vision:No Beginning weight: 212.31 Previous weight: 189.86 Ibs Today's weight: 188Ibs Questions/Concerns: none History of Present Illness pt presents today for weight management. Review of Systems PHQ Score Initial Depression Screen Score: 0 SCORE ROS - Provider Constitutional: no fever, no chills, no sweats, no fatigue Respiratory: no shortness of breath, no cough, no orthopnea, no wheezing. Cardiovascular: no chest pain, no palpitations, no edema. Neurologic: no headache, no dizziness, no numbness, no weakness. Physical Exam Vitals & Measurements HR: 72(Peripheral) RR: 18 BP: 112/68 SpO2: 98% HT: 63 in HT: 159 cm WT: 85.6 kg WT: 188.32 lb BMI: 33.86 General: alert, no acute distress ENMT: oral mucosa moist, no pharyngeal erythema or exudate Cardiovascular: regular rate and rhythm, normal peripheral perfusion Respiratory: Lungs CTA, respirations non labored Extremities: no deformity, no trauma Neurological: oriented x 4, LOC appropriate for age, CN II-XII intact, motor strength equal & normal bilaterally, speech normal Assessment/Plan 1. Encounter for weight management (Z76.89: Persons encountering health services in other specified circumstances) pt presents today for weight management. will refill ozempic through [facility] for another 3 months 2. BMI 33.0-33.9,adult (Z68.33: Body mass index [BMI] 33.0-33.9, adult) pt is hoping to start walking again with nicer weather coming 3. Non-smoker (Z78.9: Other specified health status) continue not smoking Follow-up No qualifying data available Problem List/Past Medical History Ongoing Allergic conjunctivitis, left eye Encounter for weight management Excessive dietary caloric intake Fluid level behind tympanic membrane of both ears Psoriasis Vaginal itching Vaginal yeast infection Weight gain Historical No qualifying data Procedure/Surgical History Hysterectomy (2018), Surgery (10/2015), LASIK (2012), Cholecystectomy (2008). Medications Diflucan 150 mg Tab, 150 mg= 1 tab(s), Oral, Once Ozempic (1 mg dose), See Instructions Tasha Autoinjector 80 mg/mL subcutaneous solution Allergies No Known Medication Allergies Social History Tobacco Never (less than 100 in lifetime) Tobacco Use:. Never Smokeless Tobacco Use:. Household tobacco concerns: No., 08/07/2023 Family History Alcoholism: Mother. Cardiac arrhythmia: Mother. Diabetes mellitus type 2: Father. Immunizations Vaccine Date Status Comments influenza virus vaccine, inactivated 04/22/2023 Given influenza virus vaccine, inactivated - Not Given Postpone due to refusal influenza virus vaccine, inactivated 04/06/2021 Recorded influenza virus vaccine, inactivated 02/16/2020 Recorded influenza virus vaccine, inactivated 03/23/2019 Recorded influenza virus vaccine, inactivated 03/24/2018 Recorded diphtheria/pertussis , acel/tetanus adult 02/28/2017 Recorded influenza virus vaccine, inactivated 02/28/2017 Recorded influenza virus vaccine, inactivated 03/01/2016 Recorded [facility] Comment on above: Result Comment: Elec tronically Signed By: Ana Laura العراقي, Nabila Wilks\.br\Date and Time Signed: 08/07/23 10:36 EST Retail - Clinical Noteon Retail - Clinical Note [id number] #1.00TIFF [facility] Family Medicine Office/Clini c Noteon 05-20-2023 Family Medicine Office/Clinic Note HPI Staff [place] is a 42 year old female presenting for 1 month follow up Weight management: Started Ozempic on 11/29/22 , SARAH 04/22/23 dose increased to 1.8mg [facility] Sleeping well:Yes, 6-8 hours Chest pain:No Tremors:No Headaches:No Heart fluttering:No Blurred Vision:No Beginning weight: 212.3Ibs/96.8Kg Previous weight: 195.5Ibs/88.90Kg Today's weight: 86.3kg/ Questions/Concerns: denies any side effects from increased History of Present Illness pt presents today for weight management Review of Systems PHQ Score Initial Depression Screen Score: 0 SCORE ROS - Provider Constitutional: no fever, no chills, no sweats, no fatigue Respiratory: no shortness of breath, no cough, no orthopnea, no wheezing. Cardiovascular: no chest pain, no palpitations, no edema. Neurologic: no headache, no dizziness, no numbness, no weakness. Physical Exam Vitals & Measurements HR: 80(Peripheral) RR: 18 BP: 138/78 SpO2: 98% HT: 63 in HT: 159 cm WT: 86.3 kg WT: 189.86 lb BMI: 34.14 General: alert, no acute distress ENMT: oral mucosa moist, no pharyngeal erythema or exudate Cardiovascular: regular rate and rhythm, normal peripheral perfusion Respiratory: Lungs CTA, respirations non labored Extremities: no deformity, no trauma Neurological: oriented x 4, LOC appropriate for age, CN II-XII intact, motor strength equal & normal bilaterally, speech normal Assessment/Plan 1. Encounter for weight management (Z76.89: Persons encountering health services in other specified circumstances) pt presents today for weight management. pt is down another 6 pounds. is doing well with increased dose of ozempic. no side effects. will send 3 months worth of refills to [facility]. all questions answered . RTC as needed 2. BMI 34.0-34.9,adult (Z68.34: Body mass index [BMI] 34.0-34.9, adult) bmi education complete 3. Non-smoker (Z78.9: Other specified health status) continue not smoking Follow-up No qualifying data available Problem List/Past Medical History Ongoing Allergic conjunctivitis, left eye Encounter for weight management Excessive dietary caloric intake Fluid level behind tympanic membrane of both ears Psoriasis Vaginal itching Vaginal yeast infection Weight gain Historical No qualifying data Procedure/Surgical History Hysterectomy (2018), Surgery (10/2015), LASIK (2011), Cholecystectomy (2008). Medications Ozempic (1 mg dose), See Instructions Allergies No Known Medication Allergies Social History Tobacco Never (less than 100 in lifetime) Tobacco Use:. Never Smokeless Tobacco Use:. Household tobacco concerns: No., 05/20/2023 Family History Alcoholism: Mother. Cardiac arrhythmia: Mother. Diabetes mellitus type 2: Father. Immunizations Vaccine Date Status Comments influenza virus vaccine, inactivated 04/22/2023 Given influenza virus vaccine, inactivated - Not Given Postpone due to refusal influenza virus vaccine, inactivated 04/06/2021 Recorded influenza virus vaccine, inactivated 02/16/2020 Recorded influenza virus vaccine, inactivated 03/23/2019 Recorded influenza virus vaccine, inactivated 03/24/2018 Recorded diphtheria/pertussis , acel/tetanus adult 02/28/2017 Recorded influenza virus vaccine, inactivated 02/28/2017 Recorded influenza virus vaccine, inactivated 03/01/2016 Recorded [facility] Comment on above: Result Comment: Elec tronically Signed By: Ana Laura INSURANCE ACCOUNT EXECUTIVE, Nabila L\.br\Date and Time Signed: 05/20/23 10:59 EST Physician Orderon 05-20-2023 Physician Order [id number] #1.00TIFF [facility] Retail - Clinical Noteon Retail - Clinical Note [id number] #1.00TIFF [facility] Ambulatory Visit Summaryon 1 06-22-2022 Ambulatory Visit Summary AFRICA PARHAM :1980 Visit Date:04/22/2023 Ambulatory Visit Instructions Your Diagnosis BMI 35.0-35.9,adult Non-smoker Your Care Team Attending Physician - Nabila Farley Primary Care Physician - Nabila Farley This Is Your Medications List semaglutide (Ozempic (1 mg dose)) Procedures Performed Hysterectomy (2018), Surgery (10/2015), LASIK (2011), Cholecystectomy (2008). Discharge Vitals Heart Rate (Peripheral) 68 Respiratory Rate 18 Blood Pressure 122/72 Height 159 cm Height 63 in Weight 88.90 kg Weight 195.58 lb BMI 35.16 What to do next Scheduled Follow-Up Appointments Friday 11:00 AM EST With: Nabila Farley Where: [facility] Consent for Flu Vaccineon Consent for Flu Vaccine [id number]# 1.00TIFF [facility] Family Medicine Office/Clini c Noteon 04-22-2023 Family Medicine Office/Clinic Note HPI Staff Africa is a 42yo f presenting for a weight check today. Weight management: Started Ozempic on 11/29/22 Sleeping well:Yes, 6-8 hours Beginning weight:212.3 lbs/96.8 kg Previous weight: 196.6lb/89.4kg Today's weight: 195.5Ibs/88.90ibs Flu shot today. Questions/Concerns: History of Present Illness pt presents today for weight management. Review of Systems PHQ Score Initial Depression Screen Score: 0 SCORE ROS - Provider Constitutional: no fever, no chills, no sweats, no fatigue Respiratory: no shortness of breath, no cough, no orthopnea, no wheezing. Cardiovascular: no chest pain, no palpitations, no edema. Neurologic: no headache, no dizziness, no numbness, no weakness. Physical Exam Vitals & Measurements HR: 68(Peripheral) RR: 18 BP: 122/72 SpO2: 98% HT: 63 in HT: 159 cm WT: 88.90 kg WT: 195.58 lb BMI: 35.16 General: alert, no acute distress ENMT: oral mucosa moist, no pharyngeal erythema or exudate Cardiovascular: regular rate and rhythm, normal peripheral perfusion Respiratory: Lungs CTA, respirations non labored Extremities: no deformity, no trauma Neurological: oriented x 4, LOC appropriate for age, CN II-XII intact, motor strength equal & normal bilaterally, speech normal Assessment/Plan 1. Encounter for weight management (Z76.89: Persons encountering health services in other specified circumstances) pt presents today for weight management. pt lost 1 pound. pt sttes she feels this dose is not helping with appetite suppression. will increase dose to 1.8mg. [facility] all questions answered. encouraged healthy food choices. RTC 4 weeks 2. BMI 35.0-35.9,adult (Z68.35: Body mass index [BMI] 35.0-35.9, adult) bmi education complete Ordered: fluconazole, 150 mg = 1 tab(s), Oral, Once, # 1 tab(s), Refills(s) 0, Pharmacy: [facility]/pharmacy #[id number], 159, cm, 03/25/23 8:53:00 EDT, Height/Length Dosing, 89.4, kg, 03/25/23 8:53:00 EDT, Weight Dosing influenza virus vaccine, inactivated, 0.5 mL, Injection, IntraMuscular, Once, Stop date 04/22/23 10:00:00 EST, Routine, Start date 04/22/23 10:00:00 EST 3. Non-smoker (Z78.9: Other specified health status) continue not smoking Ordered: influenza virus vaccine, inactivated, 0.5 mL, Injection, IntraMuscular, Once, Stop date 04/22/23 10:00:00 EST, Routine, Start date 04/22/23 10:00:00 EST Encounter for immunization (Z23: Encounter for immunization) flu vaccine given Ordered: FIRST VACCINE w/o Business Information Analyst Admin Charge [id number] Follow-up No qualifying data available Problem List/Past Medical History Ongoing Allergic conjunctivitis, left eye Encounter for weight management Excessive dietary caloric intake Fluid level behind tympanic membrane of both ears Psoriasis Vaginal itching Vaginal yeast infection Weight gain Historical No qualifying data Procedure/Surgical History Hysterectomy (2018), Surgery (10/2015), LASIK (2011), Cholecystectomy (2008). Medications Ozempic (1 mg dose), See Instructions Allergies No Known Medication Allergies Social History Tobacco Never (less than 100 in lifetime) Tobacco Use:. Never Smokeless Tobacco Use:. Household tobacco concerns: No., 04/22/2023 Family History Alcoholism: Mother. Cardiac arrhythmia: Mother. Diabetes mellitus type 2: Father. Immunizations Vaccine Date Status Comments influenza virus vaccine, inactivated 04/22/2023 Given influenza virus vaccine, inactivated - Not Given Postpone due to refusal influenza virus vaccine, inactivated 04/06/2021 Recorded influenza virus vaccine, inactivated 02/16/2020 Recorded influenza virus vaccine, inactivated 03/23/2019 Recorded influenza virus vaccine, inactivated 03/24/2018 Recorded diphtheria/pertussis , acel/tetanus adult 02/28/2017 Recorded influenza virus vaccine, inactivated 02/28/2017 Recorded influenza virus vaccine, inactivated 03/01/2016 Recorded [facility] Comment on above: Result Comment: Elec tronically Signed By: Nabila Farley\.br\Date and Time Signed: 04/22/23 10:42 EST Retail - Clinical Noteon Retail - Clinical Note [id number]# 1.00TIFF [facility] Ambulatory Visit Summaryon 1 Ambulatory Visit Summary AFRICA PARHAM :1980 Visit Date:03/25/2023 Ambulatory Visit Instructions Your Diagnosis BMI 35.0-35.9,adult Class 1 obesity due to excess calories in adult Your Care Team Attending Physician - Nabila Farley Primary Care Physician - Nabila Farley This Is Your Medications List semaglutide (Ozempic (1 mg dose)) Procedures Performed Hysterectomy (2018), Surgery (10/2015), LASIK (2012), Cholecystectomy (2008). Discharge Vitals Temperature (Oral) 36.6 ?C Heart Rate (Peripheral) 72 Respiratory Rate 14 Blood Pressure 122/80 Height 159 cm Height 63 in Weight 89.4 kg Weight 196.68 lb BMI 35.36 What to do next Scheduled Follow-Up Appointments Friday 9:00 AM EST With: Nabila Farley Where: [facility] Consenton 03-25-2023 Consent [id number] #1.00TIFF Normal [facility] Medicine Office/Clini c Noteon 03-25-2023 Family Medicine Office/Clinic Note HPI Staff [place] is a 42 year old female presenting for 1 month follow up Weight management: Started Ozempic on 11/29/22 Sleeping well:Yes, 6-8 hours Chest pain:No Tremors:No Headaches:No Heart fluttering:No Blurred Vision:No Beginning weight: 212.3ibs/96.8kg Previous weight: 201.52Ibs/91.6Kg Today's weight: 196.6lbs/89.4kg flu: refused will do at next visit Questions/Concerns: none will need her ozempic refilled History of Present Illness pt presents today for weight management Review of Systems PHQ Score Initial Depression Screen Score: 0 ROS - Provider Constitutional: no fever, no chills, no sweats, no fatigue Respiratory: no shortness of breath, no cough, no orthopnea, no wheezing. Cardiovascular: no chest pain, no palpitations, no edema. Neurologic: no headache, no dizziness, no numbness, no weakness. Physical Exam Vitals & Measurements T: 36.6 ?C(Oral) HR: 72(Peripheral) RR: 14 BP: 122/80 SpO2: 98% HT: 63 in HT: 159 cm WT: 89.4 kg WT: 196.68 lb BMI: 35.36 General: alert, no acute distress ENMT: oral mucosa moist, no pharyngeal erythema or exudate Cardiovascular: regular rate and rhythm, normal peripheral perfusion Respiratory: Lungs CTA, respirations non labored Extremities: no deformity, no trauma Neurological: oriented x 4, LOC appropriate for age, CN II-XII intact, motor strength equal & normal bilaterally, speech normal Assessment/Plan 1. Encounter for weight management (Z76.89: Persons encountering health services in other specified circumstances) pt present for weight management. total weight loss 16 pounds. pt is doing well. denies complaints. will send order to [facility]. RTC 4 weeks 2. Vaginal yeast infection (B37.31: Acute candidiasis of vulva and vagina) diflucan sent to pharmacy 3. BMI 35.0-35.9,adult (Z68.35: Body mass index [BMI] 35.0-35.9, adult) BMI education complete Ordered: fluconazole, 150 mg = 1 tab(s), Oral, Once, # 1 tab(s), Refills(s) 0, [id number] 159, cm, 03/25/23 8:53:00 EDT, Height/Length Dosing, 89.4, kg, 03/25/23 8:53:00 EDT, Weight Dosing triamcinolone, 40 mg = 1 mL, Injection, IntraMuscular, Once, Stop date 03/25/23 9:12:00 EDT, Routine, Start date 03/25/23 9:12:00 EDT, 03/25/23 9:12:00 EDT 4. Class 1 obesity due to excess calories in adult (E66.09: Other obesity due to excess calories) see above Ordered: fluconazole, 150 mg = 1 tab(s), Oral, Once, # 1 tab(s), Refills(s) 0, [id number], 159, cm, 03/25/23 8:53:00 EDT, Height/Length Dosing, 89.4, kg, 03/25/23 8:53:00 EDT, Weight Dosing triamcinolone, 40 mg = 1 mL, Injection, IntraMuscular, Once, Stop date 03/25/23 9:12:00 EDT, Routine, Start date 03/25/23 9:12:00 EDT, 03/25/23 9:12:00 EDT 5. Fluid level behind tympanic membrane of both ears (H65.93: Unspecified nonsuppurative otitis media, bilateral) kenalog injection given in office today Orders: azithromycin, 250 mg, Oral, As Directed, # 6 tab(s), Refills(s) 0, Pharmacy: [facility]/pharmacy #[id number], 159, cm, 02/25/23 8:58:00 EDT, Height/Length Dosing, 91.6, kg, 02/25/23 8:58:00 EDT, Weight Dosing Follow-up No qualifying data available Problem List/Past Medical History Ongoing Allergic conjunctivitis, left eye Encounter for weight management Excessive dietary caloric intake Fluid level behind tympanic membrane of both ears Psoriasis Vaginal itching Vaginal yeast infection Weight gain Historical No qualifying data Procedure/Surgical History Hysterectomy (2018), Surgery (10/2015), LASIK (2011), Cholecystectomy (2008). Medications Diflucan 150 mg Tab, 150 mg= 1 tab(s), Oral, Once Ozempic (1 mg dose), See Instructions Allergies No Known Medication Allergies Social History Tobacco Never (less than 100 in lifetime) Tobacco Use:. Never Smokeless Tobacco Use:. Household tobacco concerns: No., 03/25/2023 Family History Alcoholism: Mother. Cardiac arrhythmia: Mother. Diabetes mellitus type 2: Father. Immunizations Vaccine Date Status Comments influenza virus vaccine, inactivated - Not Given Postpone due to refusal influenza virus vaccine, inactivated 04/06/2021 Recorded influenza virus vaccine, inactivated 02/16/2020 Recorded influenza virus vaccine, inactivated 03/23/2019 Recorded influenza virus vaccine, inactivated 03/24/2018 Recorded diphtheria/pertussis , acel/tetanus adult 02/28/2017 Recorded influenza virus vaccine, inactivated 02/28/2017 Recorded influenza virus vaccine, inactivated 03/01/2016 Recorded [facility] Comment on above: Result Comment: Elec tronically Signed By: Nabila Farley\.br\Date and Time Signed: 03/25/23 11:01 EDT Retail - Clinical Noteon Retail - Clinical Note [id number] #1.00TIFF [facility] Ambulatory Visit Summaryon 0 02-25-2023 Ambulatory Visit Summary AFRICA PARHAM :1980 Visit Date:02/25/2023 Ambulatory Visit Instructions Your Diagnosis BMI 36.0-36.9,adult Non-smoker Your Care Team Attending Physician - Nabila Farley Primary Care Physician - Nabila Farley This Is Your Medications List semaglutide (Ozempic (1 mg dose)) Procedures Performed Hysterectomy (2018), Surgery (10/2015), LASIK (2011), Cholecystectomy (2008). Discharge Vitals Heart Rate (Peripheral) 70 Respiratory Rate 18 Blood Pressure 124/72 Height 159 cm Height 63 in Weight 91.6 kg Weight 201.52 lb BMI 36.23 What to do next Scheduled Follow-Up Appointments Friday 9:00 AM EDT With: Nabila Farley Where: [facility] Family Medicine Office/Clini c Noteon 02-25-2023 Family Medicine Office/Clinic Note HPI Staff [place] is a 42 year old female presenting for 1 month follow up Started Ozempic 11/29/22 OV 01/28/23 weight 94.7kg/208.34Ibs Todays weight: 91.6kg/ Weight management: Today's weight: Sleeping well:Yes, 6-8 hours Chest pain:No Tremors:No Headaches:No Heart fluttering:No Blurred Vision:No History of Present Illness pt presents today for weight management Review of Systems PHQ Score Initial Depression Screen Score: 0 ROS - Provider Constitutional: no fever, no chills, no sweats, no fatigue Respiratory: no shortness of breath, no cough, no orthopnea, no wheezing. Cardiovascular: no chest pain, no palpitations, no edema. Neurologic: no headache, no dizziness, no numbness, no weakness. Physical Exam Vitals & Measurements HR: 70(Peripheral) RR: 18 BP: 124/72 SpO2: 98% HT: 63 in HT: 159 cm WT: 91.6 kg WT: 201.52 lb BMI: 36.23 General: alert, no acute distress ENMT: oral mucosa moist, no pharyngeal erythema or exudate Cardiovascular: regular rate and rhythm, normal peripheral perfusion Respiratory: Lungs CTA, respirations non labored Extremities: no deformity, no trauma Neurological: oriented x 4, LOC appropriate for age, CN II-XII intact, motor strength equal & normal bilaterally, speech normal Assessment/Plan 1. Encounter for weight management (Z76.89: Persons encountering health services in other specified circumstances) pt is doing well with weight loss. down 7 pound this month down a total of 11 pounds all together. pt states she does have some constipation but is taking stool softeners. pt will continue current dose. will fax order to [facility]. all questions answered. RTC 4 weeks 2. Excessive dietary caloric intake (R63.2: Polyphagia) see above 3. Psoriasis (L40.9: Psoriasis, unspecified) pt c/o having issue with psoriasis that is worsening. she was being seen by [facility] but feels like the provider was not listening to her. she has a list of creams her insurance will cover. she will call office with that list. we will send rx to pharmacy. if cream doesn't help will refer to [facility] 4. Vaginal itching (N89.8: Other specified noninflammatory disorders of vagina) will order vaginal estriol/estradial from [facility] 5. BMI 36.0-36.9,adult (Z68.36: Body mass index [BMI] 36.0-36.9, adult) BMI education complete 6. Non-smoker (Z78.9: Other specified health status) continue not smoking Follow-up No qualifying data available Problem List/Past Medical History Ongoing Allergic conjunctivitis, left eye Encounter for weight management Excessive dietary caloric intake Psoriasis Vaginal itching Weight gain Historical No qualifying data Procedure/Surgical History Hysterectomy (2018), Surgery (10/2015), LASIK (2011), Cholecystectomy (2008). Medications Ozempic (1 mg dose), See Instructions Allergies No Known Medication Allergies Social History Tobacco Never (less than 100 in lifetime) Tobacco Use:. Never Smokeless Tobacco Use:. Household tobacco concerns: No., 02/25/2023 Family History Alcoholism: Mother. Cardiac arrhythmia: Mother. Diabetes mellitus type 2: Father. [facility] Comment on above: Result Comment: Elec tronically Signed By: Nabila Farley\.br\Date and Time Signed: 02/25/23 09:47 EDT Retail - Clinical Noteon Retail - Clinical Note [id number] #1.00CD:[address] [facility] Initial Visit (Otolaryngolog y)on 09-16-2022 Initial Visit (Otolaryngology) Diagnoses/Problems Globus sensation (784.99) (R09.89) Orders Tobacco Use Screening; Status:Complete; Done: 16Sep2022 Patient Discussion/Summary History of globus sensation. May very well be at the level of the vallecula but reassurance provided. There is no concern here for mass tumor etc. Favor observation and see me back with any worrisome issues. All questions were answered in this regard accordingly. Provider Impressions History of globus sensation. May very well be at the level of the vallecula but reassurance provided. There is no concern here for mass tumor etc. Favor observation and see me back with any worrisome issues. All questions were answered in this regard accordingly. Thank you again for allowing us to participate in the care of this patient. This note was created with voice recognition software and has not been corrected for typographical or grammatical errors. Chief Complaint DYSPHAGIA DR. GINO GONZALES History of Present IllnessPatient is a pleasant 42-year-old female seen today through the kind request of DR. GINO GONZALES for evaluation of her throat. The patient believes she gets food caught on a shelf in the back of her throat. She does not have any pain with this. No change in voice or swallow otherwise. She states that this can occur with both solids and liquids. Remaining ENT inquiry clear. The patient's intake form incorporating patient medical history, social history, family history, and review of systems was reviewed by me today in the office and signed on this date and entered into the EMR system. Social History Never smoker Allergies No Known Drug Allergies Recorded By: Oj Velez; 09/16/2022 10:41:37 AM Vitals Vital Signs Recorded: 16Sep2022 10:39AM Height5 ft 3 in Ceeagg178 lb BMI Choraoiwdg86.49 kg/m2 BSA Calculated1.96 Tobacco Useb) No Physical Exam General appearance: No acute distress. Normal facies. Symmetric facial movement. No gross lesions of the face are noted. The external ear structures appear normal. The ear canals patent and the tympanic membranes are intact without evidence of air-fluid levels, retraction, or congenital defects. Anterior rhinoscopy notes essentially a midline nasal septum. Examination is noted for normal healthy mucosal membranes without any evidence of lesions, polyps, or exudate. The tongue is normally mobile. There are no lesions on the gingiva, buccal, or oral mucosa. There are no oral cavity masses. The neck is negative for mass lymphadenopathy. The trachea and parotid are clear. The thyroid bed is grossly unremarkable. The salivary gland structures are grossly unremarkable. In order to assess the larynx, flexible laryngoscopy was performed based on the patient's history. Procedure After topical anesthesia, a very complete flexible laryngoscopy was performed. This examination reveals a normal appearance to the laryngeal structures including the true cords, false cords, epiglottis, base of tongue, and piriform sinus, except as noted. There is some slight prominence to the vallecula where food may get caught but nothing more worrisome. 'Scores and Scales' Signatures Electronically signed by : Oj Velez MD; Sep 16 2022 1:14PM EST (Author) Normal [employer] Tobacco Screening.on 023 Tobacco use status CP b) No MP-Otolaryngo [facility] Work Phone: QUANTIFERON TB GOLD PLUSon 0 09-11-2022 QuantiFERON Criteria Comment Normal [facility] Comment on above: Result Comment: Kirk tiFERON-TB Gold Plus is a qualitative indirect test for M tuberculosis infection (including disease) and is intended for use in conjunction with risk assessment, radiography, and other medical and diagnostic evaluations. The QuantiFERON-TB Gold Plus result is determined by subtracting the Nil value from either TB antigen (Ag) value. The Mitogen tube serves as a control for the test. Performed By: #### Q NTTB #### [facility] [address] [place] [address] Dr. Kobe Fabian QuantiFERON Incubation Incubation performed. Normal [facility] Comment on above: Performed By: #### Q NTTB #### [facility] [address] [place] [address] Dr. Kobe Fabian QuantiFERON Mitogen Value 4.81 IU/mL Normal [facility] Comment on above: Performed By: #### Q NTTB #### [facility] [address] [place] [address] Dr. Kobe Fabian QuantiFERON Nil Value 0.01 IU/mL Normal [facility] Comment on above: Performed By: #### Q NTTB #### [facility] [address] [place] [address] Dr. Kobe Fabian QuantiFERON TB1 Ag Value 0.01 IU/mL Normal [facility] Comment on above: Performed By: #### Q NTTB #### [facility] [address] [place] [address] Dr. Kobe Fabian QuantiFERON TB2 Ag Value 0.01 IU/mL Normal [facility] Comment on above: Performed By: #### Q NTTB #### [facility] [address] [place] [address] Dr. Kobe Fabian QuantiFERON-TB Gold Plus Negative Normal Negative [facility] Comment on above: Result Comment: No r esponse to M tuberculosis antigens detected. Infection with M tuberculosis is unlikely, but high risk individuals should be considered for additional testing (ATS/IDSA/CDC Clinical Practice Guidelines, 2017). The reference range is an Antigen minus Nil result of <0.35 IU/mL. Chemiluminescence immunoassay methodology Performed By: #### Q NTTB #### [facility] [address] [place] [address] Dr. Kobe Fabian CBC AUTO DIFFon 09-09-2022 BASO # 0.0 103/ul Normal 0.0-0.1 [facility] Comment on above: Performed By: #### C BC #### [facility] [address] [place] [address] Dr. Kobe Fabian Basophils/100 WBC (Bld) 0.5 % Normal 0.2-2.0 [facility] Comment on above: Performed By: #### C BC #### [facility] [address] [place] [address] Dr. Kobe Fabian EO # 0.3 103/ul Normal 0.0-0.7 [facility] Comment on above: Performed By: #### C BC #### [facility] [address] [place] [address] Dr. Kobe Fabian Eosinophils/100 WBC (Bld) 4.0 % Normal 0.9-7.0 [facility] Comment on above: Performed By: #### C BC #### [facility] [address] [place] [address] Dr. Kobe Fabian Erythrocyte distribution width (RBC) [Ratio] 12.3 % Normal 11.0-15.0 [facility] Comment on above: Performed By: #### C BC #### [facility] [address] [place] [address] Dr. Kobe Fabian Hematocrit (Bld) [Volume fraction] 40.9 % Normal 36.0-48.0 [facility] Comment on above: Performed By: #### C BC #### [facility] [address] [place] [address] Dr. Kobe Fabian Hemoglobin (Bld) [Mass/Vol] 14.1 g/dL Normal 12.0-16.0 [facility] Comment on above: Performed By: #### C BC #### [facility] [address] [place] [address] Dr. Kobe Fabian IG # 0.03 10e3/ul Normal 0.00-0.03 [facility] Comment on above: Performed By: #### C BC #### [facility] [address] [place] [address] Dr. Kobe Fabian IG % 0.5 % Normal 0.0-0.5 [facility] Comment on above: Performed By: #### C BC #### [facility] [address] [place] [address] Dr. Kobe Fabian LYMPH # 1.8 103/ul Normal 1.2-3.8 [facility] Comment on above: Performed By: #### C BC #### [facility] [address] [place] [address] Dr. Kobe Fabian Lymphocytes/100 WBC (Bld) 27.9 % Normal 20.5-60.0 [facility] Comment on above: Performed By: #### C BC #### [facility] [address] [place] [address] Dr. Kobe Fabian MANUAL DIFF REQ NO Normal [facility] Comment on above: Performed By: #### C BC #### [facility] [address] [address] [address] Kobe Fabian MCH (RBC) [Entitic mass] 28.8 pg Normal 26.7-34.0 [facility] Comment on above: Performed By: #### C BC #### [facility] [address] [address] [address] Kobe Fabian MCHC (RBC) [Mass/Vol] 34.5 g/dL Normal 29.9-35.2 [facility] Comment on above: Performed By: #### C BC #### [facility] [address] [address] [address] Kobe Fabian MCV (RBC) [Entitic vol] 83.5 fL Normal 81.0-99.0 [facility] Comment on above: Performed By: #### C BC #### [facility] [address] [place] [address] Dr. Kobe Fabian MONO # 0.3 103/ul Normal 0.3-0.8 [facility] Comment on above: Performed By: #### C BC #### [facility] [address] [place] [address] Dr. Kobe Fabian Monocytes/100 WBC (Bld) 5.2 % Normal 1.7-12.0 [facility] Comment on above: Performed By: #### C BC #### [facility] [address] [place] [address] Dr. Kobe Fabian NEUT # 4.0 103/ul Normal 1.4-6.5 [facility] Comment on above: Performed By: #### C BC #### [facility] [address] [place] [address] Dr. Kobe Fabian Neutrophils/100 WBC (Bld) 61.9 % Normal 43.0-75.0 [facility] Comment on above: Performed By: #### C BC #### [facility] [address] [place] [address] Dr. Kobe Fabian Platelet mean volume (Bld) [Entitic vol] 9.9 fL Normal 9.5-13.5 [facility] Comment on above: Performed By: #### C BC #### [facility] [address] [address] [address] Kobe Fabian PLT 176 103/ul Normal 150-450 [facility] Comment on above: Performed By: #### C BC #### [facility] [address] [address] [address] Kobe Fabian RBC 4.90 106/ul Normal 4.20-5.40 [facility] Comment on above: Performed By: #### C BC #### [facility] [address] [place] [address] Dr. Kobe Fabian WBC 6.5 103/ul Normal 4.0-11.0 [facility] Comment on above: Performed By: #### C BC #### [facility] [address] [place] [address] Dr. Kobe Fabian LIPID PROFILEon 09-09-2022 CHOL-HDL RATIO NORM SEE BELOW Normal [facility] Comment on above: Result Comment: 3.3 - 4.4 LOW RISK 4.4 - 7.1 AVERAGE RISK 7.1 - 11.0 MODERATE RISK >11.0 HIGH RISK Performed By: #### V AGINT #### [facility] [address] [place] [address] Dr. Kobe Fabian Cholesterol [Mass/Vol] 180 mg/dL Normal <=200 [facility] Comment on above: Performed By: #### V AGINT #### [facility] [address] [place] [address] Dr. Kobe Fabian Cholesterol in HDL [Mass/Vol] 47 mg/dL Normal 40-60 [facility] Comment on above: Performed By: #### V AGINT #### [facility] [address] [place] [address] Dr. Kobe Fabian Cholesterol in LDL [Mass/Vol] 98.6 mg/dL Normal [facility] Comment on above: Performed By: #### V AGINT #### [facility] [address] [place] [address] Dr. Kobe Fabian Cholesterol.total/C holesterol in HDL [Mass ratio] 3.8 {ratio} Normal [facility] Comment on above: Performed By: #### V AGINT #### [facility] [address] [place] [address] Dr. Kobe Fabian HDL NORMAL > or = 60 mg/dl - LOW CARDIOVASCULAR RISK <40 mg/dl - HIGH CARDIOVASCULAR RISK Normal [facility] Comment on above: Performed By: #### V AGINT #### [facility] [address] [place] [address] Dr. Kobe Fabian LDL CALC NORMAL SEE BELOW Normal [facility] Comment on above: Result Comment: <100 mg/dl OPTIMAL 100 - 129 mg/dl NEAR OR ABOVE OPTIMAL 130 - 159 mg/dl BORDERLINE HIGH 160 - 189 mg/dl HIGH >190 mg/dl VERY HIGH Performed By: #### V AGINT #### [facility] [address] [place] [address] Dr. Kobe Fabian Triglyceride [Mass/Vol] 172 mg/dL Critically high <=150 [facility] Comment on above: Performed By: #### V AGINT #### [facility] [address] [place] [address] Dr. Kobe Fabian VLDL CALC 34.4 mg/dL Normal [facility] Comment on above: Performed By: #### V AGINT #### [facility] [address] [place] [address] Dr. Kobe Fabian PROF 14(COMP METB)on 023 Albumin [Mass/Vol] 4.0 g/dL Normal 3.4-5.0 [facility] Comment on above: Performed By: #### V AGINT #### [facility] [address] [place] [address] Dr. Kobe Fabian Albumin/Globulin [Mass ratio] 1.1 {ratio} Normal [facility] Comment on above: Performed By: #### V AGINT #### [facility] [address] [place] [address] Dr. Kobe Fabian ALP [Catalytic activity/Vol] 51 U/L Normal 46-116 [facility] Comment on above: Performed By: #### V AGINT #### [facility] [address] [address] [address] Kobe Fabian ALT [Catalytic activity/Vol] 32 U/L Normal 14-59 [facility] Comment on above: Performed By: #### V AGINT #### [facility] [address] [place] [address] Dr. Kobe Fabian Anion gap [Moles/Vol] 8.9 mmol/L Normal [facility] Comment on above: Performed By: #### V AGINT #### [facility] [address] [address] [address] Kobe Fabian AST [Catalytic activity/Vol] 16 U/L Normal 15-37 [facility] Comment on above: Performed By: #### V AGINT #### [facility] [address] [place] [address] Dr. Kobe Fabian Bilirubin [Mass/Vol] 0.6 mg/dL Normal 0.2-1.0 [facility] Comment on above: Performed By: #### V AGINT #### [facility] [address] [place] [address] Dr. Kobe Fabian Calcium [Mass/Vol] 9.4 mg/dL Normal 8.5-10.1 [facility] Comment on above: Performed By: #### V AGINT #### [facility] [address] [place] [address] Dr. Kobe Fabian Chloride [Moles/Vol] 104 mmol/L Normal 98-107 [facility] Comment on above: Performed By: #### V AGINT #### [facility] [address] [place] [address] Dr. Kobe Fabian CO2 [Moles/Vol] 30.0 mmol/L Normal 21.0-32.[address] [facility] Comment on above: Performed By: #### V AGINT #### [facility] [address] [place] [address] Dr. Kobe Fabian Creatinine [Mass/Vol] 0.75 mg/dL Normal 0.55-1.02 [facility] Comment on above: Performed By: #### V AGINT #### [facility] [address] [address] [address] Kobe Fabian EGFR-AF MICRONESIAN >60 Normal >=[address] [facility] Comment on above: Performed By: #### V AGINT #### [facility] [address] [place] [address] Dr. Kobe Fabian EGFR-NON AF MICRONESIAN >60 Normal >=60 [facility] Comment on above: Performed By: #### V AGINT #### [facility] [address] [address] [address] Kobe Fabian Globulin (S) [Mass/Vol] 3.5 g/dL Normal [facility] Comment on above: Performed By: #### V AGINT #### [facility] [address] [place] [address] Dr. Kobe Fabian Glucose [Mass/Vol] 99 mg/dL Normal 74-106 [facility] Comment on above: Performed By: #### V AGINT #### [facility] [address] [place] [address] Dr. Kobe Fabian Potassium [Moles/Vol] 3.9 mmol/L Normal 3.5-5.1 [facility] Comment on above: Performed By: #### V AGINT #### [facility] [address] [place] [address] Dr. Kobe Fabian Protein [Mass/Vol] 7.5 g/dL Normal 6.4-8.2 [facility] Comment on above: Performed By: #### V AGINT #### [facility] [address] [place] [address] Dr. Kobe Fabian Sodium [Moles/Vol] 139 mmol/L Normal 136-145 [facility] Comment on above: Performed By: #### V AGINT #### [facility] [address] [place] [address] Dr. Kobe Fabian Urea nitrogen [Mass/Vol] 20.0 mg/dL Critically high 7.0-18.0 [facility] Comment on above: Performed By: #### V AGINT #### [facility] [address] [place] [address] Dr. Kobe Fabian Urea nitrogen/Creatinine [Mass ratio] 26.7 mg/mg Normal [facility] Comment on above: Performed By: #### V AGINT #### [facility] [address] [place] [address] Dr. Kobe Fabian PAP ACOG PANEL 2: 30 to 65on 08-01-2022 . . Normal [facility] Comment on above: Result Comment: Perf ormed at: WB Performed By: #### [id number] #### [facility] [address] [address] [address] Kobe Fabian Age Gdln ACOG Testing -66 [facility] Comment on above: Performed By: #### [id number] #### [facility] [address] [place] [address] Dr. Kobe Fabian DIAGNOSIS: Comment [facility] Comment on above: Result Comment: NEGA TIVE FOR INTRAEPITHELIAL LESION OR MALIGNANCY. Performed at: [facility] Performed By: #### [id number] #### [facility] [address] [place] [address] Dr. Kobe Fabian HPV Aptima Negative Normal Negative [facility] Comment on above: Result Comment: This nucleic acid amplification test detects fourteen high-risk HPV types (16,18,31,33,35,39,45,51,52,56,58,59,66,68) without differentiation. Performed at: =G Performed By: #### [id number] #### [facility] [address] [place] [address] Dr. Kobe Fabian HPV Genotype Reflex Comment Normal [facility] Comment on above: Result Comment: Crit eria not met, HPV Genotype not performed. Performed at: WB Performed By: #### [id number] #### [facility] [address] [place] [address] Dr. Kobe Fabian Methodology: Comment Normal [facility] Comment on above: Result Comment: This liquid based ThinPrep(R) pap test was screened with the use of an image guided system. Performed at: WB Performed By: #### [id number] #### [facility] [address] [place] [address] Dr. Kobe Fabian Note: Comment Normal [facility] Comment on above: Result Comment: The Pap smear is a screening test designed to aid in the detection of premalignant and malignant conditions of the uterine cervix. It is not a diagnostic procedure and should not be used as the sole means of detecting cervical cancer. Both false-positive and false-negative reports do occur. . Performed at: WB Performed By: #### [id number] #### [facility] [address] [place] [address] Dr. Kobe Fabian Performed by: Comment Normal [facility] Comment on above: Result Comment: Darrick Zayas [employer] (ASCP) Performed at: WB Performed By: #### [id number] #### [facility] [address] [place] [address] Dr. Kobe Fabian Specimen adequacy: Comment Normal [facility] Comment on above: Result Comment: Sati sfactory for evaluation. No endocervical component is identified. Performed at: WB Performed By: #### [id number] #### [facility] [address] [place] [address] Dr. Kobe Fabian CHLAMYDIA/GONOCOCCUS JOSE ( AB/URINE/PAPon 07-29-2022 Chlamydia trachomatis, JOSE Negative Normal Negative [facility] Comment on above: Performed By: #### V AGINT #### [facility] [address] [place] [address] Dr. Kobe Fabian Neisseria gonorrhoeae, JOSE Negative Normal Negative [facility] Comment on above: Performed By: #### V AGINT #### [facility] [address] [place] [address] Dr. Kobe Fabian ESTRADIOLon 07-27-2022 Estradiol 21.3 pg/mL [facility] Comment on above: Result Comment: Adul t Female: Follicular phase 12.5 - 166.0 Ovulation phase 85.8 - 498.0 Luteal phase 43.8 - 211.0 Postmenopausal <6.0 - 54.7 1st trimester 215.0 - >4300.0 Jacob ECLIA methodology Performed By: #### Enoch ABRAHAM #### [facility] [address] [place] [address] Dr. Kobe Fabian FSHon 07-27-2022 FSH 74.7 mIU/mL Normal [facility] Comment on above: Result Comment: Adul t Female: Follicular phase 3.5 - 12.5 Ovulation phase 4.7 - 21.5 Luteal phase 1.7 - 7.7 Postmenopausal 25.8 - 134.8 Performed By: #### C MP #### [facility] [address] [place] [address] Dr. Kobe Fabian LUTEINIZING HORMONE (LH)on 0 07-27-2022 LH 39.7 mIU/mL Normal [facility] Comment on above: Result Comment: Adul t Female: Follicular phase 2.4 - 12.6 Ovulation phase 14.0 - 95.6 Luteal phase 1.0 - 11.4 Postmenopausal 7.7 - 58.5 Performed By: #### C MP #### [facility] [address] [place] [address] Dr. Kobe Fabian PROGESTERONEon 07-27-2022 Progesterone 0.1 ng/mL Normal [facility] Comment on above: Result Comment: Foll icular phase 0.1 - 0.9 Luteal phase 1.8 - 23.9 Ovulation phase 0.1 - 12.0 First trimester 11.0 - 44.3 Second trimester 25.4 - 83.3 Third trimester 58.7 - 214.0 Postmenopausal 0.0 - 0.1 Performed By: #### P SHAYY #### [facility] [address] [place] [address] Dr. Kobe Fabian VAGINITIS/VAGINOSIS DNA PROB Jassi 07-27-2022 Saida species Negative Normal Negative [facility] Comment on above: Performed By: #### V AGINT #### [facility] [address] [place] [address] Dr. Kobe Fabian Gardnerella vaginalis Negative Normal Negative [facility] Comment on above: Performed By: #### V AGINT #### [facility] [address] [place] [address] Dr. Kobe Fabian Trichomonas vaginalis Negative Normal Negative [facility] Comment on above: Performed By: #### V AGINT #### [facility] [address] [place] [address] Dr. Kobe Fabian CBC AUTO DIFFon 07-26-2022 BASO # 0.0 103/ul Normal 0.0-0.1 [facility] Comment on above: Performed By: #### V AGINT #### [facility] [address] [place] [address] Dr. Kobe Fabian Basophils/100 WBC (Bld) 0.4 % Normal 0.2-2.0 [facility] Comment on above: Performed By: #### V AGINT #### [facility] [address] [place] [address] Dr. Kobe Fabian EO # 0.3 103/ul Normal 0.0-0.7 [facility] Comment on above: Performed By: #### V AGINT #### [facility] [address] [place] [address] Dr. Kobe Fabian Eosinophils/100 WBC (Bld) 3.9 % Normal 0.9-7.0 [facility] Comment on above: Performed By: #### V AGINT #### [facility] [address] [place] [address] Dr. Kobe Fabian Erythrocyte distribution width (RBC) [Ratio] 11.9 % Normal 11.0-15.0 [facility] Comment on above: Performed By: #### V AGINT #### [facility] [address] [place] [address] Dr. Kobe Fabian Hematocrit (Bld) [Volume fraction] 41.0 % Normal 36.0-48.0 [facility] Comment on above: Performed By: #### V AGINT #### [facility] [address] [place] [address] Dr. Kobe Fabian Hemoglobin (Bld) [Mass/Vol] 14.4 g/dL Normal 12.0-16.0 [facility] Comment on above: Performed By: #### V AGINT #### [facility] [address] [place] [address] Dr. Kobe Fabian IG # 0.03 10e3/ul Normal 0.00-0.03 [facility] Comment on above: Performed By: #### V AGINT #### [facility] [address] [place] [address] Dr. Kobe Fabian IG % 0.4 % Normal 0.0-0.5 [facility] Comment on above: Performed By: #### V AGINT #### [facility] [address] [place] [address] Dr. Kobe Fabian LYMPH # 1.7 103/ul Normal 1.2-3.8 [facility] Comment on above: Performed By: #### V AGINT #### [facility] [address] [place] [address] Dr. Kobe Fabian Lymphocytes/100 WBC (Bld) 24.7 % Normal 20.5-60.0 [facility] Comment on above: Performed By: #### V AGINT #### [facility] [address] [place] [address] Dr. Kobe Fabian MANUAL DIFF REQ NO Normal [facility] Comment on above: Performed By: #### V AGINT #### [facility] [address] [place] [address] Dr. Kobe Fabian MCH (RBC) [Entitic mass] 29.1 pg Normal 26.7-34.0 [facility] Comment on above: Performed By: #### V AGINT #### [facility] [address] [place] [address] Dr. Kobe Fabian MCHC (RBC) [Mass/Vol] 35.1 g/dL Normal 29.9-35.2 [facility] Comment on above: Performed By: #### V AGINT #### [facility] [address] [place] [address] Dr. Kobe Fabian MCV (RBC) [Entitic vol] 83.0 fL Normal 81.0-99.0 [facility] Comment on above: Performed By: #### V AGINT #### [facility] [address] [place] [address] Dr. Kobe Fabian MONO # 0.3 103/ul Normal 0.3-0.8 [facility] Comment on above: Performed By: #### V AGINT #### [facility] [address] [address] [address] Kobe Fabian Monocytes/100 WBC (Bld) 4.5 % Normal 1.7-12.0 [facility] Comment on above: Performed By: #### V AGINT #### [facility] [address] [address] [address] Kobe Fabian NEUT # 4.5 103/ul Normal 1.4-6.5 [facility] Comment on above: Performed By: #### V AGINT #### [facility] [address] [place] [address] Dr. Kobe Fabian Neutrophils/100 WBC (Bld) 66.1 % Normal 43.0-75.0 [facility] Comment on above: Performed By: #### V AGINT #### [facility] [address] [place] [address] Dr. Kobe Fabian Platelet mean volume (Bld) [Entitic vol] 10.1 fL Normal 9.5-13.5 [facility] Comment on above: Performed By: #### V AGINT #### [facility] [address] [place] [address] Dr. Kobe Fabian PLT 184 103/ul Normal 150-450 [facility] Comment on above: Performed By: #### V AGINT #### [facility] [address] [place] [address] Dr. Kobe Fabian RBC 4.94 106/ul Normal 4.20-5.40 [facility] Comment on above: Performed By: #### V AGINT #### [facility] [address] [place] [address] Dr. Kobe Fabian WBC 6.9 103/ul Normal 4.0-11.0 [facility] Comment on above: Performed By: #### V AGINT #### [facility] [address] [place] [address] Dr. Kobe Fabian GLYCOHEMOGLOBIN A1Con 2022 ADA RECOMMENDATION SEE BELOW Normal [facility] Comment on above: Result Comment: ADA RECOMMENDED LIMIT 4.0 - 6.0 ADA THERAPEUTIC TARGET < 7.0 ACTION SUGGESTED > 7.0 Performed By: #### V AGINT #### [facility] [address] [address] [address] Kobe Fabian Glucose [Mass/Vol] 97 mg/dL Normal [facility] Comment on above: Performed By: #### V AGINT #### [facility] [address] [address] [address] Kobe Fabian HbA1c (Bld) [Mass fraction] 5.0 % Normal 4.5-6.2 [facility] Comment on above: Performed By: #### V AGINT #### [facility] [address] [place] [address] Dr. Kobe Fabian LIPID PROFILEon 07-26-2022 CHOL-HDL RATIO NORM SEE BELOW Normal [facility] Comment on above: Result Comment: 3.3 - 4.4 LOW RISK 4.4 - 7.1 AVERAGE RISK 7.1 - 11.0 MODERATE RISK >11.0 HIGH RISK Performed By: #### V AGINT #### [facility] [address] [place] [address] Dr. Kobe Fabian Cholesterol [Mass/Vol] 196 mg/dL Normal <=200 [facility] Comment on above: Performed By: #### V AGINT #### [facility] [address] [place] [address] Dr. Kobe Fabian Cholesterol in HDL [Mass/Vol] 51 mg/dL Normal 40-60 [facility] Comment on above: Performed By: #### V AGINT #### [facility] [address] [address] [address] Kobe Fabian Cholesterol in LDL [Mass/Vol] 110.6 mg/dL Normal [facility] Comment on above: Performed By: #### V AGINT #### [facility] [address] [place] [address] Dr. Kobe Fabian Cholesterol.total/C holesterol in HDL [Mass ratio] 3.8 {ratio} Normal [facility] Comment on above: Performed By: #### V AGINT #### [facility] [address] [place] [address] Dr. Kobe Fabian HDL NORMAL > or = 60 mg/dl - LOW CARDIOVASCULAR RISK <40 mg/dl - HIGH CARDIOVASCULAR RISK Normal [facility] Comment on above: Performed By: #### V AGINT #### [facility] [address] [address] [address] Kobe Fabian LDL CALC NORMAL SEE BELOW Normal [facility] Comment on above: Result Comment: <100 mg/dl OPTIMAL 100 - 129 mg/dl NEAR OR ABOVE OPTIMAL 130 - 159 mg/dl BORDERLINE HIGH 160 - 189 mg/dl HIGH >190 mg/dl VERY HIGH Performed By: #### V AGINT #### [facility] [address] [address] [address] Kobe Fabian Triglyceride [Mass/Vol] 172 mg/dL Critically high <=150 [facility] Comment on above: Performed By: #### V AGINT #### [facility] [address] [address] [address] Kobe Fabian VLDL CALC 34.4 mg/dL Normal [facility] Comment on above: Performed By: #### V AGINT #### [facility] [address] [address] [address] Kobe Fabian PROF 14(COMP METB)on 023 Albumin [Mass/Vol] 4.3 g/dL Normal 3.4-5.0 [facility] Comment on above: Performed By: #### C MP #### [facility] [address] [address] [address] Kobe Fabian Albumin/Globulin [Mass ratio] 1.2 {ratio} Normal [facility] Comment on above: Performed By: #### C MP #### [facility] [address] [address] [address] Kobe Fabian ALP [Catalytic activity/Vol] 54 U/L Normal 46-116 [facility] Comment on above: Performed By: #### C MP #### [facility] [address] [address] [address] Kobe Fabian ALT [Catalytic activity/Vol] 68 U/L Critically high 14-59 [facility] Comment on above: Performed By: #### C MP #### [facility] [address] [address] [address] Kobe Fabian Anion gap [Moles/Vol] 11.5 mmol/L Normal [facility] Comment on above: Performed By: #### C MP #### [facility] [address] [place] [address] Dr. Kobe Fabian AST [Catalytic activity/Vol] 28 U/L Normal 15-37 [facility] Comment on above: Performed By: #### C MP #### [facility] [address] [address] [address] Kobe Fabian Bilirubin [Mass/Vol] 0.6 mg/dL Normal 0.2-1.0 [facility] Comment on above: Performed By: #### C MP #### [facility] [address] [place] [address] Dr. Kobe Fabian Calcium [Mass/Vol] 9.6 mg/dL Normal 8.5-10.1 [facility] Comment on above: Performed By: #### C MP #### [facility] [address] [place] [address] Dr. Kobe Fabian Chloride [Moles/Vol] 106 mmol/L Normal 98-107 [facility] Comment on above: Performed By: #### C MP #### [facility] [address] [place] [address] Dr. Kobe Fabian CO2 [Moles/Vol] 28.3 mmol/L Normal 21.0-32.[address] [facility] Comment on above: Performed By: #### C MP #### [facility] [address] [place] [address] Dr. Kobe Fabian Creatinine [Mass/Vol] 0.72 mg/dL Normal 0.55-1.02 [facility] Comment on above: Performed By: #### C MP #### [facility] [address] [place] [address] Dr. Kobe Fabian EGFR-AF MICRONESIAN >60 Normal >=[address] [facility] Comment on above: Performed By: #### C MP #### [facility] [address] [place] [address] Dr. Kobe Fabian EGFR-NON AF MICRONESIAN >60 Normal >=60 [facility] Comment on above: Performed By: #### C MP #### [facility] [address] [place] [address] Dr. Kobe Fabian Globulin (S) [Mass/Vol] 3.7 g/dL Normal [facility] Comment on above: Performed By: #### C MP #### [facility] [address] [address] [address] Kobe Fabian Glucose [Mass/Vol] 89 mg/dL Normal 74-106 [facility] Comment on above: Performed By: #### C MP #### [facility] [address] [place] [address] Dr. Kobe Fabian Potassium [Moles/Vol] 3.8 mmol/L Normal 3.5-5.1 [facility] Comment on above: Performed By: #### C MP #### [facility] [address] [place] [address] Dr. Kboe Fabian Protein [Mass/Vol] 8.0 g/dL Normal 6.4-8.2 [facility] Comment on above: Performed By: #### C MP #### [facility] [address] [place] [address] Dr. Kobe Fabian Sodium [Moles/Vol] 142 mmol/L Normal 136-145 [facility] Comment on above: Performed By: #### C MP #### [facility] [address] [place] [address] Dr. Kobe Fabian Urea nitrogen [Mass/Vol] 17.0 mg/dL Normal 7.0-18.0 [facility] Comment on above: Performed By: #### C MP #### [facility] [address] [address] [address] Kobe Fabian Urea nitrogen/Creatinine [Mass ratio] 23.6 mg/mg Normal [facility] Comment on above: Performed By: #### C MP #### [facility] [address] [place] [address] Dr. Kobe Fabian TSHon 07-26-2022 TSH 1.819 uIU/mL Normal 0.358-3.740 [facility] Comment on above: Performed By: #### V AGINT #### [facility] [address] [address] [address] Kobe Fabian MG MAMM SCREEN 3D YUDI CADon 06-19-2022 MG MAMM SCREEN 3D YUDI CAD Patient: AFRICA PARHAM Exam Date: 06/19/2022 : 1980 Gender:F Ordering : DR JIAN ROYAL . Admission #: [id number] Family : Order #: [id number] CLICK HERE TO VIEW EXAM RADIOLOGY REPORT PROCEDURE: MAMMOGRAM SCREENING 3D BILATERAL CAD COMPARISON: None. INDICATIONS: Screening mammography Calculator Name NCI Breast Cancer Risk Assessment Tool 5 Year Breast Cancer Risk 0.70% Lifetime Breast Cancer Risk 11.00% Personal Breast Cancer No Personal Ovarian Cancer No Treatments None Family Cancers None LOCATION: [facility] BREAST COMPOSITION: Heterogeneously dense,which may obscure small masses. FINDINGS: DIAGNOSTIC CATEGORY 1--NEGATIVE. RIGHT BREAST: No significant suspicious finding. LEFT BREAST: No significant suspicious finding. RECOMMENDATIONS: ROUTINE MAMMOGRAM AND CLINICAL EVALUATION IN 12 MONTHS. PLEASE NOTE: A NORMAL MAMMOGRAM DOES NOT EXCLUDE THE POSSIBILITY OF BREAST CANCER. A CLINICALLY SUSPICIOUS PALPABLE LUMP SHOULD BE BIOPSIED. Dictated by: Kashmir Cooper M.D. on 06/21/2022 at 08:54 Approved by: Kashmir Cooper M.D. on 06/21/2022 at 08:56 Normal [facility] GROUP A STREP CULTUREon 05-09 S. pyogenes Ag Ql (Unsp spec) Culture Observations: NEGATIVE FOR GROUP A STREPTOCOCCUS. Normal [facility] Comment on above: Performed By: #### G RASTCX, SSCRN #### [facility] [address] [place], [place] [address] Dr. Kobe Fabian STREPT SCREENon 05-26-2022 STREP SCREEN A Negative Normal NEGATIVE [facility] Comment on above: Performed By: #### G RASTCX, SSCRN #### [facility] [address] [place], [place] [address] head/brain wo/w con CT head/brain wo/w con [facility] [place] [address] [place] [address] CT Scan Report Signed Patient: Africa Parham MR#: [id number] : 1980 Acct:[id number] Age/Sex: 41 / F ADM Date: 10/26/21 Loc: [facility] Room: Type: [facility] Attending Dr: Gino Liang DO Ordering Provider: Gino Liang DO Date of Service: 10/26/21 CT/CT head/brain wo/w con: Frontal headache;Injury of head, initial encounter;Concussio Copies to: Gino Liang DO Enhanced and unenhanced head CT TECHNIQUE: Contiguous axial imaging of the head.A 93 cc of Isovue-300The CT exam was performed using one or more the following dose reduction techniques: Automated exposure control, adjustment of the MA and/or Kv according to patient size, or use of the iterative reconstruction technique. COMPARISON:None HISTORY:Fell 2 weeks ago. The ventricles are normal in size and position. Adequate hung-white matter differentiation identified. No intracranial hemorrhage, mass effect or herniation is identified. No recent vascular distribution infarction is seen. No abnormal extra-axial fluid collections identified. Sinuses, orbits and mastoid air cells are unremarkable. Bony structures are intact. No pathologic enhancement identified. CT/CT head/brain wo/w con IMPRESSION: No acute intracranial findings. Impression dictated by: Sage Frank M.D.10/26/2021 2:59 PM Dictation Location: [place] [address] Transcribed By: [facility] 10/26/21 1459 Dictated By: Sage Frank DO 10/26/21 1455 Signed By: 10/26/21 1459 Normal [facility] CBC AUTO DIFFon 10-23-2021 BASO # 0.0 103/ul Normal 0.0-0.1 [facility] Comment on above: Performed By: #### V AGINT #### [facility] [address] [address] [address] Kobe Fabian Basophils/100 WBC (Bld) 0.5 % Normal 0.2-2.0 [facility] Comment on above: Performed By: #### V AGINT #### [facility] [address] [place] [address] Dr. Kobe Fabian EO # 0.3 103/ul Normal 0.0-0.7 [facility] Comment on above: Performed By: #### V AGINT #### [facility] [address] [place] [address] Dr. Kobe Fabian Eosinophils/100 WBC (Bld) 5.3 % Normal 0.9-7.0 [facility] Comment on above: Performed By: #### V AGINT #### [facility] [address] [place] [address] Dr. Kobe Fabian Erythrocyte distribution width (RBC) [Ratio] 12.4 % Normal 11.0-15.0 [facility] Comment on above: Performed By: #### V AGINT #### [facility] [address] [place] [address] Dr. Kobe Fabian Hematocrit (Bld) [Volume fraction] 41.1 % Normal 36.0-48.0 [facility] Comment on above: Performed By: #### V AGINT #### [facility] [address] [place] [address] Dr. Kobe Fabian Hemoglobin (Bld) [Mass/Vol] 13.6 g/dL Normal 12.0-16.0 [facility] Comment on above: Performed By: #### V AGINT #### [facility] [address] [place] [address] Dr. Kobe Fabian IG # 0.02 10e3/ul Normal 0.00-0.03 [facility] Comment on above: Performed By: #### V AGINT #### [facility] [address] [place] [address] Dr. Kobe Fabian IG % 0.3 % Normal 0.0-0.5 [facility] Comment on above: Performed By: #### V AGINT #### [facility] [address] [place] [address] Dr. Kobe Fabian LYMPH # 1.5 103/ul Normal 1.2-3.8 [facility] Comment on above: Performed By: #### V AGINT #### [facility] [address] [place] [address] Dr. Kobe Fabian Lymphocytes/100 WBC (Bld) 24.8 % Normal 20.5-60.0 [facility] Comment on above: Performed By: #### V AGINT #### [facility] [address] [place] [address] Dr. Kobe Fabian MANUAL DIFF REQ NO Normal [facility] Comment on above: Performed By: #### V AGINT #### [facility] [address] [place] [address] Dr. Kobe Fabian MCH (RBC) [Entitic mass] 29.2 pg Normal 26.7-34.0 [facility] Comment on above: Performed By: #### V AGINT #### [facility] [address] [place] [address] Dr. Kobe Fabian MCHC (RBC) [Mass/Vol] 33.1 g/dL Normal 29.9-35.2 [facility] Comment on above: Performed By: #### V AGINT #### [facility] [address] [place] [address] Dr. Kobe Fabian MCV (RBC) [Entitic vol] 88.2 fL Normal 81.0-99.0 [facility] Comment on above: Performed By: #### V AGINT #### [facility] [address] [place] [address] Dr. Kobe Fabian MONO # 0.3 103/ul Normal 0.3-0.8 [facility] Comment on above: Performed By: #### V AGINT #### [facility] [address] [place] [address] Dr. Kobe Fabian Monocytes/100 WBC (Bld) 5.4 % Normal 1.7-12.0 [facility] Comment on above: Performed By: #### V AGINT #### [facility] [address] [place] [address] Dr. Kobe Fabian NEUT # 3.9 103/ul Normal 1.4-6.5 [facility] Comment on above: Performed By: #### V AGINT #### [facility] [address] [place] [address] Dr. Kobe Fabian Neutrophils/100 WBC (Bld) 63.7 % Normal 43.0-75.0 [facility] Comment on above: Performed By: #### V AGINT #### [facility] [address] [place] [address] Dr. Kobe Fabian Platelet mean volume (Bld) [Entitic vol] 10.4 fL Normal 9.5-13.5 [facility] Comment on above: Performed By: #### V AGINT #### [facility] [address] [place] [address] Dr. Kobe Fabian PLT 203 103/ul Normal 150-450 [facility] Comment on above: Performed By: #### V AGINT #### [facility] [address] [place] [address] Dr. Kobe Fabian RBC 4.66 106/ul Normal 4.20-5.40 [facility] Comment on above: Performed By: #### V AGINT #### [facility] [address] [place] [address] Dr. Kobe Fabian WBC 6.1 103/ul Normal 4.0-11.0 [facility] Comment on above: Performed By: #### V AGINT #### [facility] [address] [place] [address] Dr. Kobe Fabian PROF 14(COMP METB)on 022 Albumin [Mass/Vol] 3.7 g/dL Normal 3.4-5.0 [facility] Comment on above: Performed By: #### C MP #### [facility] [address] [place] [address] Dr. Kobe Fabian Albumin/Globulin [Mass ratio] 1.1 {ratio} Normal [facility] Comment on above: Performed By: #### C MP #### [facility] [address] [place] [address] Dr. Kobe Fabian ALP [Catalytic activity/Vol] 60 U/L Normal 46-116 [facility] Comment on above: Performed By: #### C MP #### [facility] [address] [address] [address] Kobe Fabian ALT [Catalytic activity/Vol] 42 U/L Normal 14-59 [facility] Comment on above: Performed By: #### C MP #### [facility] [address] [address] [address] Kobe Fabian Anion gap [Moles/Vol] 12.0 mmol/L Normal [facility] Comment on above: Performed By: #### C MP #### [facility] [address] [address] [address] Kobe Fabian AST [Catalytic activity/Vol] 28 U/L Normal 15-37 [facility] Comment on above: Performed By: #### C MP #### [facility] [address] [place] [address] Dr. Kobe Fabian Bilirubin [Mass/Vol] 0.4 mg/dL Normal 0.2-1.0 [facility] Comment on above: Performed By: #### C MP #### [facility] [address] [place] [address] Dr. Kobe Fabian Calcium [Mass/Vol] 8.6 mg/dL Normal 8.5-10.1 [facility] Comment on above: Performed By: #### C MP #### [facility] [address] [place] [address] Dr. Kobe Fabian Chloride [Moles/Vol] 106 mmol/L Normal 98-107 [facility] Comment on above: Performed By: #### C MP #### [facility] [address] [place] [address] Dr. Kobe Fabian CO2 [Moles/Vol] 28.4 mmol/L Normal 21.0-32.[address] [facility] Comment on above: Performed By: #### C MP #### [facility] [address] [place] [address] Dr. Kobe Fabian Creatinine [Mass/Vol] 0.81 mg/dL Normal 0.55-1.02 [facility] Comment on above: Performed By: #### C MP #### [facility] [address] [address] [address] Kobe Fabian EGFR-AF MICRONESIAN >60 Normal >=[address] [facility] Comment on above: Performed By: #### C MP #### [facility] [address] [address] [address] Kobe Fabian EGFR-NON AF MICRONESIAN >60 Normal >=60 [facility] Comment on above: Performed By: #### C MP #### [facility] [address] [address] [address] Kobe Fabian Globulin (S) [Mass/Vol] 3.5 g/dL Normal [facility] Comment on above: Performed By: #### C MP #### [facility] [address] [place] [address] Dr. Kobe Fabian Glucose [Mass/Vol] 94 mg/dL Normal 74-106 [facility] Comment on above: Performed By: #### C MP #### [facility] [address] [place] [address] Dr. Kobe Fabian Potassium [Moles/Vol] 4.4 mmol/L Normal 3.5-5.1 [facility] Comment on above: Performed By: #### C MP #### [facility] [address] [place] [address] Dr. Kobe Fabian Protein [Mass/Vol] 7.2 g/dL Normal 6.4-8.2 [facility] Comment on above: Performed By: #### C MP #### [facility] [address] [place] [address] Dr. Kobe Fabian Sodium [Moles/Vol] 142 mmol/L Normal 136-145 [facility] Comment on above: Performed By: #### C MP #### [facility] [address] [place] [address] Dr. Kobe Fabian Urea nitrogen [Mass/Vol] 13.0 mg/dL Normal 7.0-18.0 [facility] Comment on above: Performed By: #### C MP #### [facility] [address] [place] [address] Dr. Kobe Fabian Urea nitrogen/Creatinine [Mass ratio] 16.0 mg/mg Normal [facility] Comment on above: Performed By: #### C MP #### [facility] [address] [address] [address] Kobe Fabian SED RATE [facility] 2021 SED RATE 7 mm/hr Normal <=20 [facility] Comment on above: Performed By: #### V AGINT #### [facility] [address] [address] [address] Kobe Fabian Vital Signs Date Time Vital Sign Value Performing Clinician Facility 09-16-2022 10:39-0400 Body height 160.02 cm Gino R DFines Work Phone: [facility] Work Phone: 09-16-2022 10:39-0400 Body mass index (BMI) [Ratio] 36.49 kg/m2 Gino R DFines Work Phone: [facility] Work Phone: 09-16-2022 10:39-0400 Body surface area Derived from formula 1.96 m2 Gino R DFines Work Phone: [facility]rb[facility]mdjdx[facility]Ytj [facility] Work Phone: 09-16-2022 10:39-0400 Body weight 93.44 kg Gino R DFines Work Phone: [facility] Work Phone: 07-25-2022 13:30-0500 Body height 160.02 cm Gino DFines Other [facility] Other 07-25-2022 13:30-0500 Body mass index (BMI) [Ratio] 36.49 kg/m2 Gino DFines Other [facility] Other 07-25-2022 13:30-0500 Body weight 93.44 kg Gino DFines Other [facility] Other 07-25-2022 13:30-0500 Diastolic blood pressure 80 mm[Hg] Gino Kuns Other [facility] Other 07-25-2022 13:30-0500 Respiratory rate 18 /min Gino Kuns Other [facility] Other 07-25-2022 13:30-0500 SaO2% (BldA) [Mass fraction] 99 % Gino Kuns Other [facility] Other 07-25-2022 13:30-0500 Systolic blood pressure 118 mm[Hg] Gino Kuns Other [facility] Other 10-26-2021 13:45-0400 Body height 160.02 cm Gino Kuns Other [facility] Other 10-26-2021 13:45-0400 Body mass index (BMI) [Ratio] 36.49 kg/m2 Gino Kuns Other [facility] Other 10-26-2021 13:45-0400 Body weight 93.44 kg Gino Kuns Other [facility] Other 10-26-2021 13:45-0400 Diastolic blood pressure 60 mm[Hg] Gino Kuns Other [facility] Other 10-26-2021 13:45-0400 Respiratory rate 16 /min Gino Kuns Other [facility] Other 10-26-2021 13:45-0400 SaO2% (BldA) [Mass fraction] 99 % Gino Kuns Other [facility] Other 10-26-2021 13:45-0400 Systolic blood pressure 110 mm[Hg] Gino Kuns Other [facility] Other 10-16-2021 14:30-0400 Body height 160.02 cm Gino Kuns Other [facility] Other 10-16-2021 14:30-0400 Body mass index (BMI) [Ratio] 36.49 kg/m2 Gino Kuns Other [facility] Other 10-16-2021 14:30-0400 Body weight 93.44 kg Gino Kuns Other [facility] Other 10-16-2021 14:30-0400 Diastolic blood pressure 82 mm[Hg] Gino Kuns Other [facility] Other 10-16-2021 14:30-0400 Respiratory rate 18 /min Gino Kuns Other [facility] Other 10-16-2021 14:30-0400 SaO2% (BldA) [Mass fraction] 98 % Gino Kuns Other [facility] Other 10-16-2021 14:30-0400 Systolic blood pressure 126 mm[Hg] Gino Kuns Other [facility] Other 04-16-2021 12:00-0500 Body height 160.02 cm Gino Kuns Other [facility] Other 03-26-2021 11:15-0400 Body height 160.02 cm Gino Kuns Other [facility] Other 03-26-2021 11:15-0400 Body mass index (BMI) [Ratio] 35.25 kg/m2 Gion Zachariahs Other [facility] Other 03-26-2021 11:15-0400 Body weight 90.27 kg Ginolaura Sonis Other [facility] Other 03-26-2021 11:15-0400 Diastolic blood pressure 80 mm[Hg] Gino Zachariahs Other [facility] Other 03-26-2021 11:15-0400 Respiratory rate 18 /min Gino Sonis Other [facility] Other 03-26-2021 11:15-0400 SaO2% (BldA) [Mass fraction] 98 % Ginolaura Liang Other [facility] Other 03-26-2021 11:15-0400 Systolic blood pressure 124 mm[Hg] Gino Zachariahs Other [facility] Other Encounters Encounter Date Encounter Type Care Provider Facility Start: 07-14-2024 ambulatory Nabila L Ana Laura Facility: [facility] Ernesto Start: 04-15-2024 End: 04-15-2024 ambulatory Nabila L Ana Laura Facility:[facility] [place] Start: 04-05-2024 End: 04-05-2024 ambulatory Nabila L Ana Laura Facility:[facility] [place] donna Start: 02-03-2024 End: 02-03-2024 ambulatory Nabila L Ana Laura Facility:[facility] [place] Start: 11-06-2023 End: 11-06-2023 ambulatory Nabila L Ana Laura Facility:[facility] Start: 11-06-2023 End: 05-30-2024 Lab Drop off Nabila L Ana Laura [facility] Start: 11-06-2023 End: 11-06-2023 ambulatory Nabila L Ana Laura Facility:[facility] [place] Start: 11-04-2023 End: 11-04-2023 ambulatory Nabila L Ana Laura Facility:[facility] [place] Start: 09-08-2023 End: 09-08-2023 ambulatory Nabila L Ana Laura Facility:[facility] [place] Start: 08-07-2023 End: 08-07-2023 ambulatory Nabila L Ana Laura Facility:[facility] [place] Start: 05-20-2023 End: 05-20-2023 ambulatory Nabila L Ana Laura Facility:[facility] [place] Start: 04-22-2023 End: 04-22-2023 ambulatory Nabila L Ana Laura Facility:[facility] [place] Start: 03-25-2023 End: 03-25-2023 ambulatory Nabila L Ana Laura Facility:[facility] [place] Start: 02-25-2023 End: 02-25-2023 ambulatory Nabila L Ana Laura Facility:[facility] [place] Start: 09-16-2022 Office consultation new/estab patient 30 min Gino Liang Work Phone: [facility]nt[facility]ufpkherpsp-Xbjrb ield Work Phone: Start: 09-16-[address] Gino Liang Facility:[id number] Start: 09-09-2022 End: 09-10-2022 ambulatory NELL PELAEZ Facility:H1 Start: 07-29-2022 Encounter for gynecological examination (general) (routine) without abnormal findings DR JIAN ROYAL . [facility] Start: 07-26-2022 End: 07-27-[address] GINO LIANG Facility:[facility]1 Start: 07-25-2022 End: 07-25-[address] JIAN ROYAL . [place] [facility] Other Start: 07-25-2022 Office outpatient vi sit 25 minutes Gino Liang [facility] Start: 06-19-2022 End: 06-20-[address] JIAN ROYAL . Facility:[facility]1 Start: 05-26-2022 End: 05-27-[address] MICAH MALDONADO Facility:[facility]1 Start: 03-18-2022 End: 03-18-2022 ambulatory Gino Liang Other [facility] Other Start: 03-18-2022 Telephone encounter Gino Liang [facility] Start: 03-08-2022 End: 03-08-[address] GINO LIANG Facility:[facility]1 Start: 11-07-2021 End: 11-07-2021 ambulatory Gino Liang Other [facility] Other Start: 11-07-2021 Telephone encounter Gino Liang [facility] Start: 10-26-2021 End: 10-26-2021 ambulatory Gino Liang Other [facility] Other Start: 10-26-2021 Office outpatient vi sit 15 minutes Gino Liang [facility] Start: 10-23-2021 End: 10-24-[address] GINO LIANG Facility:[facility]1 Start: 10-16-2021 End: 10-16-2021 ambulatory Gino Liang Other [facility] Other Start: 10-16-2021 Office outpatient vi sit 25 minutes Gino Liang [facility] Start: 04-16-2021 End: 04-16-2021 ambulatory Gino Liang Other [facility] Other Start: 04-16-2021 Office outpatient vi sit 15 minutes Gino Liang [facility] Start: 03-28-2021 Encounter for genera l adult medical examination without abnormal findings Gino Liang [facility] Start: 03-28-2021 Telephone encounter Gino Liang [facility] Start: 03-26-2021 Encounter for genera l adult medical examination without abnormal findings Gino Liang [facility] Start: 03-26-2021 Periodic preventive med est patient 18-39 yrs Gino Liang [facility] Procedures Date Procedure Procedure Detail Performing Clinician Start: 06-09-2018 Hysterectomy Nabila Schwa b Start: 10-08-2015 Surgical procedure Nabila Ana Laura Comment on above: D and C x2 Start: 06-09-2011 Laser assisted in si tu keratomileusis Nabila Ana Laura Start: 06-09-2008 Cholecystectomy Nabila Sc hwab H/O: hysterectomy Gino Kuns Other Immunizations Immunization Date Immunization Notes Care Provider [facility] 04-22-2023 influenza, injectable, quadrivalent, preservative free Nabila Ana Laura [facility] 04-06-2021 influenza virus vaccine, unspecified formulation Nabila Ana Laura [facility] 02-16-2020 influenza virus vaccine, unspecified formulation Nabila Ana Laura [facility] 03-23-2019 influenza virus vaccine, unspecified formulation Nabila Ana Laura [facility] 03-23-2019 influenza, injectable, quadrivalent, preservative free Gino Kuns Other [facility] Other 03-24-2018 influenza virus vaccine, unspecified formulation Nabila Ana Laura [facility] 02-28-2017 tetanus toxoid, reduced diphtheria toxoid, and acellular pertussis vaccine, adsorbed Gino Kuns Other [facility] 02-28-2017 influenza virus vaccine, unspecified formulation Nabila Ana Laura [facility] 03-01-2016 influenza, injectable, quadrivalent, contains preservative Gino Liang Other [facility] Other 03-01-2016 influenza virus vaccine, unspecified formulation Nabila Ana Laura [facility] NEGATED: Highlighted row has not occurred!03-25-2023 influenza virus vaccine, unspecified formulation Nabila Ana Laura [facility] Payers Date Payer Category Payer Unknown [id number] 2.16.84 [id number] 1980 Unknown [id number] 2.16.84 0.1.370047.3.579.2.593 1980 Unknown [id number] 2.16.84 0.1.224712.3.579.2.593 1980 Unknown [id number] 2.16.84 0.1.511272.3.579.2.593 1980 Unknown [id number] 2.16.84 0.1.646510.3.579.2.593 1980 Unknown [id number] 2.16.84 0.1.655511.3.579.2.593 1980 Unknown [id number] 2.16.84 0.1.811014.3.579.2.593 1980 Unknown [id number] 2.16.84 0.1.379772.3.579.2.593 1980 Unknown [id number] 2.16. 840.1.518602.3.579.2.356 1980 Unknown [id number] 2.16.8 40.1.442365.3.579.2.727 1980 Unknown [id number] 2.16.8 40.1.853562.3.579.2.727 1980 Unknown [id number] 2.16.8 40.1.166159.3.579.2.727 1980 Unknown [id number] 2.16.8 40.1.544250.3.579.2.727 1981 Unknown [id number] 2.16.8 40.1.470117.3.579.2.727 1981 Unknown [id number] 2.16.8 40.1.881242.3.579.2.727 1980 Unknown [id number] 2.16.8 40.1.346201.3.579.2.727 1981 Unknown [id number] 2.16.8 40.1.643055.3.579.2.727 1981 Unknown [id number] 2.16.8 40.1.650485.3.579.2.727 1981 Unknown [id number] 2.16.8 40.1.922172.3.579.2.727 1981 Unknown [id number] 2.16.8 40.1.902636.3.579.2.727 1981 Unknown [id number] 2.16.8 40.1.548587.3.579.2.727 1980 Unknown [id number] 2.16.8 40.1.070707.3.579.2.727 1958 [id number] 2.16.840.1.389334.19 Unknown ANTHEM Social History Date Type Detail Facility Sex Assigned At [facility] Never smoker Never smoker [facility] Work Phone: Start: 11-06-2023 Tobacco smoking status Never s moked tobacco (finding) [facility] Tobacco smoking status Never [facility] Clinical Notes 09-16-2012 to 04-05-2024 Note Date & Type Note Facility 04-05-2024 Note Patient Education Orthopedics Shoulder Range of Motion Exercises Shoulder range of motion (ROM) exercises are done to keep the shoulder moving freely or to increase movement. They are recommended for people who have shoulder pain or stiffness or who are recovering from a shoulder surgery. Ask your health care provider which exercises are safe for you. Do exercises exactly as told by your health care provider and adjust them as directed. It is normal to feel mild stretching, pulling, tightness, or discomfort as you do these exercises. Stop right away if you feel sudden pain or your pain gets worse. Do not begin these exercises until told by your health care provider. Phase 1 exercise When you are able, do this exercise 1?2 times a day for 30?60 seconds in each direction, or as directed by your health care provider. Pendulum exercise To do this exercise while sittin. Sit in a chair or at the edge of your bed with your feet flat on the floor. 2. Let your affected arm hang down in front of you over the edge of the bed or chair. 3. Relax your shoulder, arm, and hand. 4. Rock your body so your arm gently swings in small circles. You can also use your unaffected arm to start the motion. 5. Repeat, changing the direction of the circles, swinging your arm left and right, and swinging your arm forward and back. To do this exercise while standin. Stand next to a sturdy chair or table, and hold on to it with your hand on your unaffected side. 2. Bend forward at the waist. 3. Bend your knees slightly. 4. Relax your shoulder, arm, and hand. 5. While keeping your shoulder relaxed, use body motion to swing your arm in small circles. 6. Repeat, changing the direction of the circles, swinging your arm left and right, and swinging your arm forward and back. 7. Between exercises, stand up tall and take a short break to relax your lower back. Phase 2 exercises Do these exercises 1?2 times a day or as told by your health care provider. Hold each stretch for 30 seconds, and repeat 3 times. Do the exercises with one or both arms as instructed by your health care provider. For these exercises, sit at a table with your hand and arm supported by the table. A chair that slides easily or has wheels can be helpful. External rotation 1. Turn your chair so that your affected side is nearest to the table. 2. Place your forearm on the table to your side. Bend your arm to about a 90-degree angle (right angle) at the elbow, and place your hand palm-down on the table. Your elbow should be about 6 inches (15 cm) away from your side. 3. Keeping your arm on the table, lean your body forward. Abduction 1. Turn your chair so that your affected side is nearest to the table. 2. Place your forearm and hand on the table so that your thumb points toward the ceiling and your arm is straight out to your side. 3. Slide your hand out to the side and away from you. 4. To increase the stretch, you can slide your chair away from the table. Flexion: forward stretch 1. Sit facing the table. Place your hand and elbow on the table in front of you. 2. Slide your hand forward and away from you, using your unaffected arm to do the work. 3. To increase the stretch, you can slide your chair backward. Phase 3 exercises Do these exercises 1?2 times a day or as told by your health care provider. Hold each stretch for 30 seconds, and repeat 3 times. Do the exercises with one or both arms as instructed by your health care provider. You will need a cane, a piece of PVC pipe, or a sturdy wooden dowel for the wand exercises. Cross-body stretch: posterior capsule stretch 1. Lift your arm straight out in front of you. 2. Bend your arm in a 90-degree angle (right angle) at the elbow so your forearm moves across your body. 3. Use your other arm to gently pull the elbow across your body, toward your other shoulder. Wall climbs 1. Stand with your affected arm extended out to the side with your hand resting on a door frame. 2. Slide your hand slowly up the door frame. 3. To increase the stretch, step through the door frame. Keep your body upright and do not lean. Flexion To do this exercise while standin. Hold the wand with both of your hands, palms-down. 2. Lift the wand up and over your head, if able. Lift mostly with your affected arm, and use the other arm to help. 3. Push upward with your other arm to gently increase the stretch. To do this exercise while lying down: 1. Lie on your back with your elbows resting on the floor and the wand in both your hands. Your hands will be palm-down, or pointing toward your feet. 2. Lif (more content not included)... [facility] 07-25-2022 Evaluation note Encounter Date Diagnosis Assessment Notes Jul, Dysphagia, unspecified type (ICD-10 - R13.10) Patient has had a sensation of something being stuck in her throat ongoing for quite some time now that is recently becoming worse. I did not appreciate any fullness in her neck. Discuss was had regarding the possibility of Zenker's Diverticulum and the process with determining whether this is the cause of her symptoms. I believe she should discuss further evaluation with ENT, she is agreeable. Referral initiated to Dr. Oj Velez per her request. She will try OTC PPI's in the meantime to see if this helps alleviate her symptoms. Jul, Hyperlipidemia (ICD-10 - E78.5) Encouraged patient to have ordered labs done. Jul, Itching (ICD-10 - L29.9) Patient does have a history of cholestasis during and recently has noticed her bilateral feet have been itching quite a bit. Dr. Royal ordered blood work on her but only had a BMP therefore I did order a CMP to check her liver enzymes for any abnormalities. Jul, Heartburn (ICD-10 - R12) Patient does have heartburn/reflu x symptoms at times, I did advise her that this could be contributing to the difficulty swallowing. Referral initiated to ENT for further evaluation. 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 [facility] Other 05-20-2022 Evaluation note* Encounter Date Diagnosis Assessment Notes Treatment Notes Treatment Clinical Notes October, Frontal headache (ICD-10 - R51.9) Head CT was preformed this morning but not results available yet. I advised the patient to call on Friday for the results. Reviewed blood work results with patient, no abnormalities noted. October, Fall (ICD-10 - W19.XXXA) Awaiting head/jacqueline CT results. Patient is to call friday with the results. We will continue to monitor. October, Left elbow pain (ICD-10 - M25.522) We will continue to monitor. [facility] Other 05-10-2022 Evaluation note* Encounter Date Diagnosis Assessment Notes Treatment Notes Treatment Clinical Notes October, Fall (ICD-10 - W19.XXXA) recent fall October, Left elbow pain (ICD-10 - M25.522) Left elbow pain since fall. Will get imaging and follow up October, Frontal headache (ICD-10 - R51.9) Patient reports she gets sharp, jolty pains in the right caodaism area since her recent fall. Patient states this is random. No consistency to the pain. Denies any right sided jaw pain. Denies dizziness at this time. Will get CT of the head and Sed rate to evaluate. Patient advised she may use Aleve 2 daily and ES tylenol 1 tab. May use this BID October, Injury of head, initial encounter (ICD-10 - S09.90XA) Patient fell one week ago and struck the back of her head. Since then she has been having sharp pain in the right caodaism area. This could be a concussion and I suggest that patient should have a CT of head with contrast to get this checked out. Patient is in agreement and will proceed. October, Concussion without loss of consciousness, initial encounter (ICD-10 - S06.0X0A) Neuro checks have been completed on patient. Need to rule out and CT of the head has been ordered. Will follow up [facility] Other 11-08-2021 Evaluation note* Encounter Date Diagnosis Assessment Notes Treatment Notes Treatment Clinical Notes Apr, Hypertriglyceridemia (ICD-10 - E78.1) Reviewed blood work with patient. Cholesterol triglycerides continue to be elevated but has improved from last check. We will continue to monitor. [facility] Other 10-20-2021 Evaluation note* Encounter Date Diagnosis Assessment Notes Treatment Notes Treatment Clinical Notes Mar, Wellness examination (ICD-10 - Z00.00) [facility] Other 10-18-2021 Evaluation note* Encounter Date Diagnosis Assessment Notes Treatment Notes Treatment Clinical Notes Mar, Wellness examination (ICD-10 - Z00.00) Personalized health advice was given to the beneficiary with a referral, if appropriate, to health education of preventative counseling services or programs aimed at reducing identified risk factors and improving self-management or community-based lifestyle interventions to reduce health risks and promote self-management and wellness, including weight loss, physical activity, smoking cessation, fall prevention and nutrition. A written plan for screenings discussed, including colonoscopy, mammography, flu vaccination, other vaccinations if at risk, routine lab studies, eye exams, glaucoma screening, skin checks, risk factors for medical problems discussed, including BP control, obesity, and need for consistent exercise. Counseling was provided here today - specifically in regard to any positively answered questions as noted above. [facility] Other 04-10-2013 History general Narrative - Reported* Type Description Date Medical History 09/16/12 Left foot x-ray [facility] Medical History 09/08/14 Chest X-ray Surgical History D & C 2006 Surgical History cholecystectomy Surgical History D&C 2015 Surgical History Hysterectomy (still has ovaries ) 05/2019 Hospitalization History Vaginal x1 (male)/ Gestational Diabetes 03/22/14 Hospitalization History Vaginal x1 (female ) 06/03/06 Hospitalization History Vaginal X1 (male) gestational diabetes 03/2017 [facility] Other Evaluation + Plan note Future Appointments Appointment Date:02/03/2024 10:00:00 AM Scheduled Provider:Nabila Farley Location:[facility] Appointment Type: Open Diagnostic Tests Pending * PAP [id number] w/ HPV and Genotype rflx [facility]23 [facility] History of Present illness Narrative* Patient is a pleasant 42-year-old female seen today through the kind request of DR. GINO GONZALES forevaluation of her throat. The patient believes she gets food caught on a shelf in the back of her throat. She does not have any pain with this. No change in voice or swallow otherwise. She states that this can occur with both solids and liquids. * Remaining ENT inquiry clear. * The patient's intake form incorporating patient medical history, social history, family history, and review of systems was reviewed by me today in the office and signed on this date and entered into the EMR system. [facility] Work Phone: Hospital course Narrative No data available for this section [facility] No data available for this section [facility] No data available for this section [facility] Summary Purpose Family History No Family History Records FoundNo Family History Records FoundNo Family History Records FoundNo Family History Records Found No data available for this section No Family History Records FoundNo Family History Records Found Advance Directives No Advanced Directives Records FoundNo Advanced Directives Records FoundNo Advanced Directives Records FoundNo Advanced Directives Records FoundNo Advanced Directives Records FoundNo Advanced Directives Records Found Reason for Referral Reason * 08/23 consult and treat;; feeling of lump in throat worse with swallowing reflux Diagnosis 1 Dysphagia, unspecifi ed type (R13.10) Referral Organization [facility] Referring Provider First Name Gino Referring Provider Last Name Rock Referring Provider Specialty Family Prac saqib Referred Organization [facility] Referred Provider OJ VELEZ Referred Address [address] [place] [address] ,[place], [place],[address] Referred Provider Specialty Otolaryngolo gy Referral Priority Routine General Notes 023 10:57:19 AM >Received today and fax referral. The Central Team at will call patient and schedule Desire 08/02/2022 09:02:19 AM >Fax letter for appt update [facility] 08/02/2022 12:10:39 PM >Received letter back and they have the referral but patient is not scheduled yet [facility] 08/08/2022 09:59:37 AM >Fax letter for appt update [facility] 08/08/2022 11:54:00 AM >Received letter back and patient is not scheduled yet [facility]/16[facility]22 07:28:30 AM >Fax letter for appt update Clinical Notes Office [phone] Chief Complaint * DYSPHAGIA * DR. GINO GONZALES Additional Source Comments INFORMATION SOURCE (unrecogn ized section and content) DATE CREATED AUTHOR 10/28/2021 [facility] DATE CREATED AUTHOR AUTHOR'S ORGANIZ ATION 09/14/2022 [facility] DATE CREATED AUTHOR AUTHOR'S ORGANIZ ATION 09/17/2022 [facility] DATE CREATED AUTHOR AUTHOR'S ORGANIZ ATION 09/18/2022 [facility] DATE CREATED AUTHOR AUTHOR'S ORGANIZ ATION 02/04/2024 [facility] DATE CREATED AUTHOR AUTHOR'S ORGANIZ ATION 04/17/2024 [facility] REASON FOR VISIT (unrecogniz ed section and content) wellnessClinicalreview labsh ead painreview labs /testingclinicalClinicalFeels like something stuck in throat Patient Care team informatio n (unrecognized section and content) Personnel Name: Nabila Farley Address: Address: [address] [place] [address]- FOR RECORDS PERTAINING TO PATIENTS WHO ARE OR HAVE BEEN ENROLLED IN A CHEMICAL DEPENDENCY/SUBSTANCEABUSE PROGRAM, SOME INFORMATION MAY BE OMITTED. This clinical summary was aggregated from multiple sources. Caution should be exercised in using it in the provision of clinical care. This summary normalizes information from multiple sources, and as a consequence, information in this document may materially change the coding, format and clinical context of patient data. In addition, data may be omitted in some cases. CLINICAL DECISIONS SHOULD BE BASED ON THE PRIMARY CLINICAL RECORDS. [facility] [employer] [facility]. provides no warranty or guarantee of the accuracy or completeness of information in this document.
[2024-04-24 09:16] LABS: Basophils Percent Auto 0.3 % (0.2-2.0); Eosinophils Absolute Auto 0.2 10^3/uL (0.0-0.7); Eosinophils Percent Auto 2.9 % (0.9-7.0); Hemoglobin 14.5 g/dL (12.0-16.0); Immature Granulocytes Abs Auto 0.03 10^3/uL (0.00-0.03); Immature Granulocytes Pct Auto 0.5 % (0.0-0.5); Lymphocytes Absolute Auto 1.7 10^3/uL (1.2-3.8); Lymphocytes Percent Auto 26.1 % (20.5-60.0); Mean Corpuscular HGB Conc 33.7 g/dL (29.9-35.2); Mean Corpuscular Hemoglobin 29.1 pg (26.7-34.0); Mean Corpuscular Volume 86.2 fL (81.0-99.0); Mean Platelet Volume 10.4 fL (9.5-13.5); Monocytes Absolute Auto 0.4 10^3/uL (0.3-0.8); Monocytes Percent Auto 5.3 % (1.7-12.0); Neutrophils Absolute Auto 4.3 10^3/uL (1.4-6.5); Neutrophils Percent Auto 64.9 % (43.0-75.0); Platelet Count 208 10^3/uL (150-450); Red Blood Count 4.99 10^6/uL (4.20-5.40); Red Cell Distribution Width 11.8 % (11.0-15.0); White Blood Count 6.6 10^3/uL (4.0-11.0)
[2024-04-24 09:55] LABS: Alanine Aminotransferase 26 U/L (14-59); Albumin Globulin Ratio 1.1; Alkaline Phosphatase 52 U/L (46-116); Anion Gap 12.9; Aspartate Amino Transferase 18 U/L (15-37); BUN Creatinine Ratio 16.3; Bilirubin Total 0.8 mg/dL (0.2-1.0); Calcium 9.2 mg/dL (8.5-10.1); Carbon Dioxide 29.2 mmol/L (21.0-32.0); Chloride 106 mmol/L (98-107); Chol HDL Ratio 2.5; Cholesterol 171 mg/dL (<=200); Estimated GFR (African America >60 (>=60 mL/min/1.73m^2); Estimated GFR (Non-African Ame >60 (>=60 mL/min/1.73m^2); Globulin 3.6 g/dL; Glucose 83 mg/dL (74-106); HDL Cholesterol 68 mg/dL (40-60); Potassium 4.1 mmol/L (3.5-5.1); Sodium 144 mmol/L (136-145); Total Protein 7.6 g/dL (6.4-8.2); Triglycerides 73 mg/dL (<=150); VLDL CHOLESTEROL 14.6 mg/dL
[2024-04-25 08:08] LABS: DHEA-Sulfate 80.9 ug/dL (57.3-279.2); Estradiol <5.0 pg/mL (.); FSH 95.7 mIU/mL (.); Luteinizing Hormone(LH) 69.7 mIU/mL (.); Testosterone 5 ng/dL (4-50)
== END 2024-04-24 08:40 | disposition home or self-care (01) ==
LOC: LAB 08:41
PROVIDERS: PCP Nurse Practitioner; Visit Provider Nurse Practitioner
DX: Z00.00 Encounter for general adult medical examination without abnormal findings (principal); R61 Generalized hyperhidrosis; R68.82 Decreased libido; E88.818 Other insulin resistance
CPT/HCPCS: 36415; 80053; 80061; 82533; 82627; 82670; 83001; 83002; 84403; 84443; 85025

== ENCOUNTER 2024-05-31 07:54 | Outpatient (OUT) | payer BC, SELFPAY ==
--- NOTE | 2024-05-31 07:56 | MR_ITS ---
[place] [id number] Patient Name: AFRICA DHILLON MRN: [id number] date: 1980 Sex: F Assigned Patient Location: MRI Current Patient Location: MRI Accession/Order Number: [id number] Exam Date: 05/31/2024 08:00 Report Date: 05/31/2024 23:17 At the request of: REJI DUNAWAY Procedure: MR shoulder LT wo con EXAMINATION: MR shoulder LT wo con HISTORY: Left Shoulder Pain COMPARISON: No relevant comparison available. TECHNIQUE: A variety of imaging planes and parameters were utilized for visualization of suspected pathology. Imaging was performed without or with contrast as indicated by examination type. FINDINGS: ROTATOR CUFF REGION CUFF TENDONS: Moderate increased signal intensity in the supraspinatus tendon indicates tendon degeneration and/or tendinitis. Mild tendinitis of the subscapularis tendon.. CUFF MUSCLES: Normal appearing muscles. DELTOID: Normal. No significant atrophy or tear. LONG BICEPS TENDON: Normal. No abnormal signal, attrition, or tear. LABRUM/BICEPS ANCHOR SUPERIOR: Nonspecific T2 signal within superior labrum; suspect mild tear. ANTERIOR/INFERIOR: Normal. No visible tear or attrition. POSTERIOR: Normal. No posterior labrum abnormality. CAPSULE Normal. No visible capsular laxity or thickening. AC JOINT REGION AC JOINT: Moderate osteoarthropathy with mild-moderate narrowing of the underlying coracoacromial arch. AC LIGAMENTS: Normal acromioclavicular ligament. CC LIGAMENTS: Normal coracoclavicular ligaments. ACROMION: Normal horizontal (Type I) configuration. SUBACROMIAL BURSA: Normal. No significant effusion. HYALINE CARTILAGE: Normal. No visible cartilage narrowing or focal defect. OTHER BONES: Normal proximal humerus, glenoid, and coracoid. OTHER OBSERVATIONS: Negative. No other significant findings or glenohumeral effusion. MR/MR shoulder LT wo con IMPRESSION: 1. Tendinitis/tendinopathy of the supraspinatus and infraspinatus tendons. No appreciable tear. 2. Moderate degenerative changes of acromioclavicular joint with mild narrowing of the underlying acromial arch. 3. T2 signal within the superior labrum suspicious for mild tear. Electronically authenticated by: HARSHIL JARRETT Date: 05/31/2024 23:17
--- OUTSIDE RECORDS SUMMARY | 2024-05-31 08:14 | XMS_ITS | CCD ---
Author Organization [facility] CliniSyga Care Team Providers Care Finish Painter Name Role Phone Gino Liang Unavailable ROCK, [...] DR BLACK Consulting Unavailable MATHEUS ., DR BLACK Admitting Unavailable NELL PELAEZ Admitting Unavailable NELL PELAEZ Attending Unavailable ROCK, DR CHRISTIAN Primary Care Unavailable NELL PELAEZ Consulting Unavailable Gino Liang Unavailable Unavailable Unavailable Rock, Dr. Gino Sánchez Referring Unavailselene e Rock, Dr. Gino Sánchez Primary Care Unavailselene Velez, Dr. Oj Kuhn Attending Unavailable Nabila Du Primary Care Physician Ana Laura, Nabila L Attending Unavailable Ana [...] Medication Allergies] Propensity to adverse reactions (disorder) [facility] Repository Medications Current Medications Medication Drug [...] Once, # 1 tab(s), Refills(s) 1, Pharmacy: [facility]/pharmacy #[id number], 159, cm, 11/04/23 8:43:00 EDT, Height/Length [...] 06-15-2023 Ambulatory Visit Summary Ambulatory Visit Summary AFIRCA PARHAM :1980 Visit Date:04/15/2024 Ambulatory Visit Instructions [...] 4:40 PM EST With: Nabila Farley Where: [address] [address]- Medications What How Much When Instructions Unchanged [...] up to highest dose. will send to [facility]. RTC 3 months Ordered: fluconazole, 150 mg = 1 tab(s), Oral, Once, take 1 tab on day one and 1 tab on day four, # 2 tab(s), Refills(s) 2, Pharmacy: [facility]/pharmacy #[id number], 160, cm, 02/03/24 9:52:00 EDT, Height/Length [...] four, # 2 tab(s), Refills(s) 2, Pharmacy: [id number], 160, cm, 02/03/24 9:52:00 EDT, Height/Length Dosing, 81.6, kg, 02/03/24 9:52:00 EDT, Weight Dosing 5. Non-smoker (Z78.9: Other specified health status) continue not smoking Ordered: fluconazole, 150 mg = 1 tab(s), Oral, Once, take 1 tab on day one and 1 tab on day four, # 2 tab(s), Refills(s) 2, Pharmacy: [id number], 160, cm, 02/03/24 9:52:00 EDT, Height/Length [...] at last visit. will order MRI at [facility] 8. Neck pain (M54.2: Cervicalgia) reviewed [...] 8:40 AM EST With: Nabila Farley Where: [address] [address]- Medications What How Much When Why Instructions [...] for choosing us for your care. Normal [facility] Medicine Office/Clini c Noteon 04-05-2024 Family [...] office today. x ray order sent to [facility] for shoulder and cervical spine. pt [...] denies needs. [facility]. RTC 3 months Ordered: fluconazole, 150 mg = 1 tab(s), Oral, Once, take 1 tab on day one and 1 tab on day four, # 2 tab(s), Refills(s) 2, [id number] 160, cm, 02/03/24 9:52:00 EDT, Height/Length Dosing, 81.6, kg, 02/03/24 9:52:00 EDT, Weight Dosing 2. Vaginal yeast infection (B37.31: Acute candidiasis of vulva and vagina) diflucan sent to pharmacy Ordered: fluconazole, 150 mg = 1 tab(s), Oral, Once, take 1 tab on day one and 1 tab on day four, # 2 tab(s), Refills(s) 2, Pharmacy: [facility]/pharmacy #[id number], 160, cm, 02/03/24 9:52:00 EDT, Height/Length Dosing, 81.6, kg, 02/03/24 9:52:00 EDT, Weight Dosing 3. Non-smoker (Z78.9: Other specified health status) continue not smoking Ordered: fluconazole, 150 mg = 1 tab(s), Oral, Once, take 1 tab on day one and 1 tab on day four, # 2 tab(s), Refills(s) 2, Pharmacy: [facility]/pharmacy #[id number], 160, cm, 02/03/24 9:52:00 EDT, Height/Length Dosing, 81.6, kg, 02/03/24 9:52:00 EDT, Weight Dosing 4. BMI 31.0-31.9,adult (Z68.31: Body mass index [BMI] 31.0-31.9, adult) BMI education given Ordered: fluconazole, 150 mg = 1 tab(s), Oral, Once, take 1 tab on day one and 1 tab on day four, # 2 tab(s), Refills(s) 2, Pharmacy: [facility]/pharmacy #[id number], 160, cm, 02/03/24 9:52:00 EDT, Height/Length Dosing, 81.6, kg, 02/03/24 9:52:00 EDT, Weight Dosing 5. Class 1 obesity due to excess calories in adult (E66.09: Other obesity due to excess calories) see above Ordered: fluconazole, 150 mg = 1 tab(s), Oral, Once, take 1 tab on day one and 1 tab on day four, # 2 tab(s), Refills(s) 2, Pharmacy: [facility]/pharmacy #[id number], 160, cm, 02/03/24 9:52:00 EDT, Height/Length [...] and Time Signed: 02/03/24 11:05 EDT PAP [id number] 11-11-2023 Cytology report Cyto stain Doc (Cvx/Vag) [...] is identified. Performed by: 01 Sabina Campbell, Wrapper Stemmer Operator ([facility]) . 01 Note: Note 01 The Pap [...] Low,>-Panic High,A-Abnormal,AA-Critical Abnormal Performed at: [address] [facility] [place] [address] Enid Miller MD, Performed By: #### 1 [id number] #### [facility] [address] [place] [address] HPV 16+18+31+33+35+39+4 5+51+52+56+58+59+66 +68 DNA Probe+sig amp Ql (Cvx) Negative Invalid Interpretation Code Negative [facility] Comment on above: Result Comment: This nucleic acid amplification test detects fourteen high-risk HPV types (16,18,31,33,35,39,45,51,52,56,58,59,66,68) without differentiation. Performed at: [facility] [address] [place], [place] [id number] MD Paul Rossi Performed at: =[facility] [address], [place] [id number] MD Paul Rossi Performed By: #### 1 [id number] #### [facility] [address] [place] [address] Reminderson 11-11-2023 Reminders - From: Nabila Farley [...] message for patient of message below Normal [facility] Ambulatory Visit Summaryon 0 11-06-2023 Ambulatory [...] 10:00 AM EDT With: Nabila Farley Where: [facility] Medicine [place] Normal Cervical cancer screening, Print Label By [...] for choosing us for your care.\.br\ \.br\ [facility] Medicine Office/Clini c Noteon 11-06-2023 Family [...] influenza virus vaccine, inactivated 03/01/[address] [facility] Comment on above: Result Comment: Elec tronically Signed By: Nabila Farley\.br\Date and Time Signed: 11/06/23 11:13 EDT PAP [id number] 11-06-2023 Gynecological Body Site CERVIX Normal [facility] Comment on above: Performed By: #### 1 [id number] #### [facility] [address] [place] [address] Family Medicine Office/Clini c Noteon 11-04-2023 Family [...] with her weight. will send refill to [facility]. [facility] 3 months 2. Vaginal yeast infection (B37.31: Acute candidiasis of vulva and vagina) Diflucan sent to pharmacy 3. BMI 33.0-33.9,adult (Z68.33: Body mass index [BMI] 33.0-33.9, adult) bmi education complete 4. Non-smoker (Z78.9: Other specified health status) continue not smoking Ordered: fluconazole, 150 mg = 1 tab(s), Oral, Once, # 1 tab(s), Refills(s) 0, Pharmacy: [facility]/pharmacy #[id number], 159, cm, 09/08/23 11:39:00 EDT, Height/Length Dosing, 83.3, kg, 09/08/23 11:39:00 EDT, Weight Dosing Orders: fluconazole, 150 mg = 1 tab(s), Oral, Once, # 1 tab(s), Refills(s) 1, Pharmacy: [facility]/pharmacy #[id number], 159, cm, 11/04/23 8:43:00 EDT, Height/Length [...] influenza virus vaccine, inactivated 03/01/[address] [facility] Comment on above: Result Comment: Elec tronically Signed By: Nabila Farley\.tanya\Date and Time Signed: 11/04/23 09:11 EDT Retail - Clinical Noteon Retail - Clinical Note [id number] #1.00TIFF Normal [facility] Consenton 09-08-2023 Consent [id number] #1.00TIFF Normal [facility] [...] Once, # 1 tab(s), Refills(s) 0, [id number], 159, cm, 09/08/23 11:39:00 EDT, Height/Length [...] day(s), # 140 mL, Refills(s) 0, [id number], 159, cm, 09/08/23 11:39:00 EDT, Height/Length Dosing, 83.3, kg, 09/08/23 11:39:00 EDT, Weight Dosing fluconazole, 150 mg = 1 tab(s), Oral, Once, # 1 tab(s), Refills(s) 0, [id number], 159, cm, 09/08/23 11:39:00 EDT, Height/Length [...] day(s), # 140 mL, Refills(s) 0, [id number], 159, cm, 09/08/23 11:39:00 EDT, Height/Length Dosing, 83.3, kg, 09/08/23 11:39:00 EDT, Weight Dosing fluconazole, 150 mg = 1 tab(s), Oral, Once, # 1 tab(s), Refills(s) 0, [id number], 159, cm, 09/08/23 11:39:00 EDT, Height/Length [...] day(s), # 140 mL, Refills(s) 0, [id number], 159, cm, 09/08/23 11:39:00 EDT, Height/Length Dosing, 83.3, kg, 09/08/23 11:39:00 EDT, Weight Dosing fluconazole, 150 mg = 1 tab(s), Oral, Once, # 1 tab(s), Refills(s) 0, [id number], 159, cm, 09/08/23 11:39:00 EDT, Height/Length Dosing, 83.3, kg, 09/08/23 11:39:00 EDT, Weight Dosing triamcinolone, 40 mg = 1 mL, Injection, IntraMuscular, Once, Stop date 09/08/23 12:36:00 EDT, Routine, Start date 09/08/23 12:36:00 EDT, 09/08/23 12:36:00 EDT Orders: fluconazole, 150 mg = 1 tab(s), Oral, Once, # 1 tab(s), Refills(s) 0, Pharmacy: [facility]/pharmacy #[id number], 159, cm, 05/20/23 10:45:00 EST, Height/Length [...] Oral Li (more content not included)... Normal [facility] Comment on above: Result Comment: Elec [...] 8:40 AM EDT With: Nabila Farley Where: [facility] Family Medicine [place] Normal [facility] Family Medicine Office/Clini c Noteon 08-07-2023 [...] influenza virus vaccine, inactivated 03/01/[address] [facility] Comment on above: Result Comment: Elec tronically Signed By: Ana Laura العراقي, Nabila Wilks\.br\Date and Time Signed: 08/07/23 10:36 EST Retail - Clinical Noteon Retail - Clinical Note [id number] #1.00TIFF Normal [facility] Family Medicine Office/Clini c Noteon 05-20-2023 Family Medicine Office/Clinic Note HPI Staff [place] is a 42 year old female presenting for 1 month follow up Weight management: Started Ozempic on 11/29/22 , SARAH 04/22/23 dose increased to 1.8mg [facility] Sleeping well:Yes, 6-8 hours Chest pain:No [...] send 3 months worth of refills to [facility]. all questions answered . RTC as needed [...] influenza virus vaccine, inactivated 03/01/[address] [facility] Comment on above: Result Comment: Elec tronically Signed By: Ana Laura OCEAN FISHING GUIDE, Nabila L\.br\Date and Time Signed: 05/20/23 10:59 EST Physician Orderon 05-20-2023 Physician Order [id number] #1.00TIFF [facility] Retail - Clinical Noteon Retail - Clinical Note [id number] #1.00TIFF [facility] Ambulatory Visit Summaryon 1 06-22-2022 Ambulatory Visit Summary AFRICA PARHAM :1980 Visit Date:04/22/2023 Ambulatory Visit Instructions Your Diagnosis BMI 35.0-35.9,adult Non-smoker Your Care Team Attending Physician - Nablia Farley Primary Care Physician - Nabila Farley [...] 11:00 AM EST With: Nabila Farley Where: [facility] Consent for Flu Vaccineon Consent for Flu Vaccine [id number]# 1.00TIFF [facility] Family Medicine Office/Clini c Noteon 04-22-2023 Family [...] increase dose to 1.8mg. [facility] all questions answered. encouraged healthy food choices. RTC 4 weeks 2. BMI 35.0-35.9,adult (Z68.35: Body mass index [BMI] 35.0-35.9, adult) bmi education complete Ordered: fluconazole, 150 mg = 1 tab(s), Oral, Once, # 1 tab(s), Refills(s) 0, Pharmacy: [facility]/pharmacy #[id number], 159, cm, 03/25/23 8:53:00 EDT, Height/Length [...] flu vaccine given Ordered: FIRST VACCINE w/o Electronic Assembler Admin Charge 40511 Follow-up No qualifying data available Problem List/Past [...] influenza virus vaccine, inactivated 03/01/[address] [facility] Comment on above: Result Comment: Elec tronically Signed By: Nabila Farley\.br\Date and Time Signed: 04/22/23 10:42 EST Retail - Clinical Noteon Retail - Clinical Note [id number]# 1.00TIFF Normal [facility] Ambulatory Visit Summaryon 1 Ambulatory Visit [...] 9:00 AM EST With: Nabila Farley Where: [facility] Normal [facility] Consenton 03-25-2023 Consent [id number] #1.00TIFF Normal [facility] Medicine Office/Clini c Noteon 03-25-2023 Family [...] well. denies complaints. will send order to [facility] pharmacy. RTC 4 weeks 2. Vaginal yeast infection (B37.31: Acute candidiasis of vulva and vagina) diflucan sent to pharmacy 3. BMI 35.0-35.9,adult (Z68.35: Body mass index [BMI] 35.0-35.9, adult) BMI education complete Ordered: fluconazole, 150 mg = 1 tab(s), Oral, Once, # 1 tab(s), Refills(s) 0, [id number] 159, cm, 03/25/23 8:53:00 EDT, Height/Length [...] Once, # 1 tab(s), Refills(s) 0, [facility], 159, cm, 03/25/23 8:53:00 EDT, Height/Length [...] Directed, # 6 tab(s), Refills(s) 0, Pharmacy: [facility]/pharmacy #[id number], 159, cm, 02/25/23 8:58:00 EDT, Height/Length [...] influenza virus vaccine, inactivated 03/01/[address] [facility] Comment on above: Result Comment: Elec tronically Signed By: Nabila Farley\.br\Date and Time Signed: 03/25/23 11:01 EDT Retail - Clinical Noteon Retail - Clinical Note [id number] #1.00TIFF Normal [facility] Ambulatory Visit Summaryon 0 02-25-2023 Ambulatory [...] 9:00 AM EDT With: Nabila Farley Where: [facility] Family Medicine Office/Clini c Noteon 02-25-2023 [...] Mother. Diabetes mellitus type 2: Father. Normal [facility] Comment on above: Result Comment: Elec tronically Signed By: Nabila Farley\.br\Date and Time Signed: 02/25/23 09:47 EDT Retail - Clinical Noteon Retail - Clinical Note [id number] #1.00CD:[address] [facility] [...] Recorded: 16Sep2022 10:39AM Height5 ft 3 in Wvxzjk375 lb BMI Yviustgrbd82.49 kg/m2 BSA Calculated1.96 Tobacco Useb) No Physical [...] Sep 16 2022 1:14PM EST (Author) Normal [employer] Screening.on 023 Tobacco use status CP b) No MP-Otolaryngo alcony-[facility] Work Phone: QUANTIFERON TB GOLD PLUSon 0 09-11-2022 QuantiFERON Criteria Comment Normal [facility] Comment on above: Result Comment: Kirk tiFERON-TB [...] test. Performed By: #### Q NTTB #### [facility] [address] [place] [address] Dr. Kobe Fabian QuantiFERON Incubation Incubation performed. Normal [facility] Comment on above: Performed By: #### Q NTTB #### [facility] [address] [place] [address] Dr. Kobe Fabian QuantiFERON Mitogen Value 4.81 IU/mL Normal [facility] Comment on above: Performed By: #### Q NTTB #### [facility] [address] [place] [address] Dr. Kobe Fabian QuantiFERON Nil Value 0.01 IU/mL Normal [facility] Comment on above: Performed By: #### Q NTTB #### [facility] [address] [place] [address] Dr. Kobe Fabian QuantiFERON TB1 Ag Value 0.01 IU/mL Normal [facility] Comment on above: Performed By: #### Q NTTB #### [facility] [address] [place] [address] Dr. Kobe Fabian QuantiFERON TB2 Ag Value 0.01 IU/mL Normal [facility] Comment on above: Performed By: #### Q NTTB #### [facility] [address] [place] [address] Dr. Kobe Fabian QuantiFERON-TB Gold Plus Negative Normal Negative [facility] Comment on above: Result Comment: No r esponse to M tuberculosis antigens detected. Infection with M tuberculosis is unlikely, but high risk individuals should be considered for additional testing (ATS/IDSA/CDC Clinical Practice Guidelines, 2017). The reference range is an Antigen minus Nil result of <0.35 IU/mL. Chemiluminescence immunoassay methodology Performed By: #### Q NTTB #### [facility] [address] [place] [address] Dr. Kobe Fabian CBC AUTO DIFFon 09-09-2022 BASO # 0.0 103/ul Normal 0.0-0.1 [facility] Comment on above: Performed By: #### C BC #### [facility] [address] [place] [address] Dr. Kobe Fabian Basophils/100 WBC (Bld) 0.5 % Normal 0.2-2.0 [facility] Comment on above: Performed By: #### C BC #### [facility] [address] [place] [address] Dr. Kobe Fabian EO # 0.3 103/ul Normal 0.0-0.7 [facility] Comment on above: Performed By: #### C BC #### [facility] [address] [place] [address] Dr. Kobe Fabian Eosinophils/100 WBC (Bld) 4.0 % Normal 0.9-7.0 [facility] Comment on above: Performed By: #### C BC #### [facility] [address] [place] [address] Dr. Kobe Fabian Erythrocyte distribution width (RBC) [Ratio] 12.3 % Normal 11.0-15.0 [facility] Comment on above: Performed By: #### C BC #### [facility] [address] [place] [address] Dr. Kobe Fabian Hematocrit (Bld) [Volume fraction] 40.9 % Normal 36.0-48.0 [facility] Comment on above: Performed By: #### C BC #### [facility] [address] [place] [address] Dr. Kobe Fabian Hemoglobin (Bld) [Mass/Vol] 14.1 g/dL Normal 12.0-16.0 [facility] Comment on above: Performed By: #### C BC #### [facility] [address] [place] [address] Dr. Kobe Fabian IG # 0.03 10e3/ul Normal 0.00-0.03 [facility] Comment on above: Performed By: #### C BC #### [facility] [address] [place] [address] Dr. Kobe Fabian IG % 0.5 % Normal 0.0-0.5 [facility] Comment on above: Performed By: #### C BC #### [facility] [address] [place] [address] Dr. Kobe Fabian LYMPH # 1.8 103/ul Normal 1.2-3.8 [facility] Comment on above: Performed By: #### C BC #### [facility] [address] [place] [address] Dr. Kobe Fabian Lymphocytes/100 WBC (Bld) 27.9 % Normal 20.5-60.0 [facility] Comment on above: Performed By: #### C BC #### [facility] [address] [place] [address] Dr. Kobe Fabian MANUAL DIFF REQ NO Normal [facility] Comment on above: Performed By: #### C BC #### [facility] [address] [address] [address] Kobe Fabian MCH (RBC) [Entitic mass] 28.8 pg Normal 26.7-34.0 [facility] Comment on above: Performed By: #### C BC #### [facility] [address] [address] [address] Kobe Fabian MCHC (RBC) [Mass/Vol] 34.5 g/dL Normal 29.9-35.2 [facility] Comment on above: Performed By: #### C BC #### [facility] [address] [address] [address] Kobe Fabian MCV (RBC) [Entitic vol] 83.5 fL Normal 81.0-99.0 [facility] Comment on above: Performed By: #### C BC #### [facility] [address] [place] [address] Dr. Kobe Fabian MONO # 0.3 103/ul Normal 0.3-0.8 [facility] Comment on above: Performed By: #### C BC #### [facility] [address] [place] [address] Dr. Kobe Fabian Monocytes/100 WBC (Bld) 5.2 % Normal 1.7-12.0 [facility] Comment on above: Performed By: #### C BC #### [facility] [address] [place] [address] Dr. Kobe Fabian NEUT # 4.0 103/ul Normal 1.4-6.5 [facility] Comment on above: Performed By: #### C BC #### [facility] [address] [place] [address] Dr. Kobe Fabian Neutrophils/100 WBC (Bld) 61.9 % Normal 43.0-75.0 [facility] Comment on above: Performed By: #### C BC #### [facility] [address] [place] [address] Dr. Kobe Fabian Platelet mean volume (Bld) [Entitic vol] 9.9 fL Normal 9.5-13.5 [facility] Comment on above: Performed By: #### C BC #### [facility] [address] [address] [address] Kobe Fabian PLT 176 103/ul Normal 150-450 [facility] Comment on above: Performed By: #### C BC #### [facility] [address] [address] [address] Kobe Fabian RBC 4.90 106/ul Normal 4.20-5.40 [facility] Comment on above: Performed By: #### C BC #### [facility] [address] [place] [address] Dr. Kobe Fabian WBC 6.5 103/ul Normal 4.0-11.0 [facility] Comment on above: Performed By: #### C BC #### [facility] [address] [place] [address] Dr. Kobe Fabian LIPID PROFILEon 09-09-2022 CHOL-HDL RATIO NORM SEE BELOW Normal [facility] Comment on above: Result Comment: 3.3 - 4.4 LOW RISK 4.4 - 7.1 AVERAGE RISK 7.1 - 11.0 MODERATE RISK >11.0 HIGH RISK Performed By: #### V AGINT #### [facility] [address] [place] [address] Dr. Kobe Fabian Cholesterol [Mass/Vol] 180 mg/dL Normal <=200 [facility] Comment on above: Performed By: #### V AGINT #### [facility] [address] [place] [address] Dr. Kobe Fabian Cholesterol in HDL [Mass/Vol] 47 mg/dL Normal 40-60 [facility] Comment on above: Performed By: #### V AGINT #### [facility] [address] [place] [address] Dr. Kobe Fabian Cholesterol in LDL [Mass/Vol] 98.6 mg/dL Normal [facility] Comment on above: Performed By: #### V AGINT #### [facility] [address] [place] [address] Dr. Kobe Fabian Cholesterol.total/C holesterol in HDL [Mass ratio] 3.8 {ratio} Normal [facility] Comment on above: Performed By: #### V AGINT #### [facility] [address] [place] [address] Dr. Kobe Fabian HDL NORMAL > or = 60 mg/dl - LOW CARDIOVASCULAR RISK <40 mg/dl - HIGH CARDIOVASCULAR RISK Normal [facility] Comment on above: Performed By: #### V AGINT #### [facility] [address] [place] [address] Dr. Kobe Fabian LDL CALC NORMAL SEE BELOW Normal [facility] Comment on above: Result Comment: <100 mg/dl OPTIMAL 100 - 129 mg/dl NEAR OR ABOVE OPTIMAL 130 - 159 mg/dl BORDERLINE HIGH 160 - 189 mg/dl HIGH >190 mg/dl VERY HIGH Performed By: #### V AGINT #### [facility] [address] [place] [address] Dr. Kobe Fabian Triglyceride [Mass/Vol] 172 mg/dL Critically high <=150 [facility] Comment on above: Performed By: #### V AGINT #### [facility] [address] [place] [address] Dr. Kobe Fabian VLDL CALC 34.4 mg/dL Normal [facility] Comment on above: Performed By: #### V AGINT #### [facility] [address] [place] [address] Dr. Kobe Fabian PROF 14(COMP METB)on 023 Albumin [Mass/Vol] 4.0 g/dL Normal 3.4-5.0 [facility] Comment on above: Performed By: #### V AGINT #### [facility] [address] [place] [address] Dr. Kobe Fabian Albumin/Globulin [Mass ratio] 1.1 {ratio} Normal [facility] Comment on above: Performed By: #### V AGINT #### [facility] [address] [place] [address] Dr. Kobe Fabian ALP [Catalytic activity/Vol] 51 U/L Normal 46-116 [facility] Comment on above: Performed By: #### V AGINT #### [facility] [address] [address] [address] Kobe Fabian ALT [Catalytic activity/Vol] 32 U/L Normal 14-59 [facility] Comment on above: Performed By: #### V AGINT #### [facility] [address] [place] [address] Dr. Kobe Fabian Anion gap [Moles/Vol] 8.9 mmol/L Normal [facility] Comment on above: Performed By: #### V AGINT #### [facility] [address] [address] [address] Kobe Fabian AST [Catalytic activity/Vol] 16 U/L Normal 15-37 [facility] Comment on above: Performed By: #### V AGINT #### [facility] [address] [place] [address] Dr. Kobe Fabian Bilirubin [Mass/Vol] 0.6 mg/dL Normal 0.2-1.0 [facility] Comment on above: Performed By: #### V AGINT #### [facility] [address] [place] [address] Dr. Kobe Fabian Calcium [Mass/Vol] 9.4 mg/dL Normal 8.5-10.1 [facility] Comment on above: Performed By: #### V AGINT #### [facility] [address] [place] [address] Dr. Kobe Fabian Chloride [Moles/Vol] 104 mmol/L Normal 98-107 [facility] Comment on above: Performed By: #### V AGINT #### [facility] [address] [place] [address] Dr. Kobe Fabian CO2 [Moles/Vol] 30.0 mmol/L Normal 21.0-32.0 [facility] Comment on above: Performed By: #### V AGINT #### [facility] [address] [place] [address] Dr. Kobe Fabian Creatinine [Mass/Vol] 0.75 mg/dL Normal 0.55-1.02 [facility] Comment on above: Performed By: #### V AGINT #### [facility] [address] [address] [address] Kobe Fabian EGFR-AF BRUNEIAN >60 Normal >=60 [facility] Comment on above: Performed By: #### V AGINT #### [facility] [address] [place] [address] Dr. Kobe Fabian EGFR-NON AF BRUNEIAN >60 Normal >=60 [facility] Comment on above: Performed By: #### V AGINT #### [facility] [address] [address] [address] Kobe Fabian Globulin (S) [Mass/Vol] 3.5 g/dL Normal [facility] Comment on above: Performed By: #### V AGINT #### [facility] [address] [place] [address] Dr. Kobe Fabian Glucose [Mass/Vol] 99 mg/dL Normal 74-106 [facility] Comment on above: Performed By: #### V AGINT #### [facility] [address] [place] [address] Dr. Kobe Fabian Potassium [Moles/Vol] 3.9 mmol/L Normal 3.5-5.1 [facility] Comment on above: Performed By: #### V AGINT #### [facility] [address] [place] [address] Dr. Kobe Fabian Protein [Mass/Vol] 7.5 g/dL Normal 6.4-8.2 [facility] Comment on above: Performed By: #### V AGINT #### [facility] [address] [place] [address] Dr. Kobe Fabian Sodium [Moles/Vol] 139 mmol/L Normal 136-145 [facility] Comment on above: Performed By: #### V AGINT #### [facility] [address] [place] [address] Dr. Kobe Fabian Urea nitrogen [Mass/Vol] 20.0 mg/dL Critically high 7.0-18.0 [facility] Comment on above: Performed By: #### V AGINT #### [facility] [address] [place] [address] Dr. Kobe Fabian Urea nitrogen/Creatinine [Mass ratio] 26.7 mg/mg Normal [facility] Comment on above: Performed By: #### V AGINT #### [facility] [address] [place] [address] Dr. Kobe Fabian PAP ACOG PANEL 2: 30 to 65on 08-01-2022 . . Normal [facility] Comment on above: Result Comment: Perf ormed at: WB Performed By: #### [id number] #### [facility] [address] [address] [address] Kobe Fabian Age Gdln ACOG Testing -66 [facility] Comment on above: Performed By: #### [id number] #### [facility] [address] [place] [address] Dr. Kobe Fabian DIAGNOSIS: Comment [facility] Comment on above: Result Comment: NEGA TIVE FOR INTRAEPITHELIAL LESION OR MALIGNANCY. Performed at: [facility] Performed By: #### [id number] #### [facility] [address] [place] [address] Dr. Kobe Fabian HPV Aptima Negative Normal Negative [facility] Comment on above: Result Comment: This nucleic acid amplification test detects fourteen high-risk HPV types (16,18,31,33,35,39,45,51,52,56,58,59,66,68) without differentiation. Performed at: =G Performed By: #### [id number] #### [facility] [address] [place] [address] Dr. Kobe Fabian HPV Genotype Reflex Comment Normal [facility] Comment on above: Result Comment: Crit eria not met, HPV Genotype not performed. Performed at: WB Performed By: #### [id number] #### [facility] [address] [place] [address] Dr. Kobe Fabian Methodology: Comment Normal [facility] Comment on above: Result Comment: This liquid based ThinPrep(R) pap test was screened with the use of an image guided system. Performed at: WB Performed By: #### [id number] #### [facility] [address] [place] [address] Dr. Kobe Fabian Note: Comment Normal [facility] Comment on above: Result Comment: The Pap smear is a screening test designed to aid in the detection of premalignant and malignant conditions of the uterine cervix. It is not a diagnostic procedure and should not be used as the sole means of detecting cervical cancer. Both false-positive and false-negative reports do occur. . Performed at: WB Performed By: #### [id number] #### [facility] [address] [place] [address] Dr. Kobe Fabian Performed by: Comment Normal [facility] Comment on above: Result Comment: Darrick Zayas Wrapper Stemmer Operator (ASCP) Performed at: WB Performed By: #### [id number] #### [facility] [address] [place] [address] Dr. Kobe Fabian Specimen adequacy: Comment Normal [facility] Comment on above: Result Comment: Sati sfactory for evaluation. No endocervical component is identified. Performed at: WB Performed By: #### [id number] #### [facility] [address] [place] [address] Dr. Kobe Fabian CHLAMYDIA/GONOCOCCUS JOSE ( AB/URINE/PAPon 07-29-2022 Chlamydia trachomatis, JOSE Negative Normal Negative [facility] Comment on above: Performed By: #### V AGINT #### [facility] [address] [place] [address] Dr. Kobe Fabian Neisseria gonorrhoeae, JOSE Negative Normal Negative [facility] Comment on above: Performed By: #### V AGINT #### [facility] [address] [place] [address] Dr. Kobe Fabian ESTRADIOLon 07-27-2022 Estradiol 21.3 pg/mL [facility] Comment on above: Result Comment: Adul t Female: Follicular phase 12.5 - 166.0 Ovulation phase 85.8 - 498.0 Luteal phase 43.8 - 211.0 Postmenopausal <6.0 - 54.7 1st trimester 215.0 - >4300.0 Jacob ECLIA methodology Performed By: #### Enoch ABRAHAM #### [facility] [address] [place] [address] Dr. Kobe Fabian FSHon 07-27-2022 FSH 74.7 mIU/mL Normal [facility] Comment on above: Result Comment: Adul t Female: Follicular phase 3.5 - 12.5 Ovulation phase 4.7 - 21.5 Luteal phase 1.7 - 7.7 Postmenopausal 25.8 - 134.8 Performed By: #### C MP #### [facility] [address] [place] [address] Dr. Kobe Fabian LUTEINIZING HORMONE (LH)on 0 07-27-2022 LH 39.7 mIU/mL Normal [facility] Comment on above: Result Comment: Adul t Female: Follicular phase 2.4 - 12.6 Ovulation phase 14.0 - 95.6 Luteal phase 1.0 - 11.4 Postmenopausal 7.7 - 58.5 Performed By: #### C MP #### [facility] [address] [place] [address] Dr. Kobe Fabian PROGESTERONEon 07-27-2022 Progesterone 0.1 ng/mL Normal [facility] Comment on above: Result Comment: Foll icular phase 0.1 - 0.9 Luteal phase 1.8 - 23.9 Ovulation phase 0.1 - 12.0 First trimester 11.0 - 44.3 Second trimester 25.4 - 83.3 Third trimester 58.7 - 214.0 Postmenopausal 0.0 - 0.1 Performed By: #### P SHAYY #### [facility] [address] [place] [address] Dr. Kobe Fabian VAGINITIS/VAGINOSIS DNA PROB Jassi 07-27-2022 Saida species Negative Normal Negative [facility] Comment on above: Performed By: #### V AGINT #### [facility] [address] [place] [address] Dr. Kobe Fabian Gardnerella vaginalis Negative Normal Negative [facility] Comment on above: Performed By: #### V AGINT #### [facility] [address] [place] [address] Dr. Kobe Fabian Trichomonas vaginalis Negative Normal Negative [facility] Comment on above: Performed By: #### V AGINT #### [facility] [address] [place] [address] Dr. Kobe Fabian CBC AUTO DIFFon 07-26-2022 BASO # 0.0 103/ul Normal 0.0-0.1 [facility] Comment on above: Performed By: #### V AGINT #### [facility] [address] [place] [address] Dr. Kobe Fabian Basophils/100 WBC (Bld) 0.4 % Normal 0.2-2.0 [facility] Comment on above: Performed By: #### V AGINT #### [facility] [address] [place] [address] Dr. Kobe Fabian EO # 0.3 103/ul Normal 0.0-0.7 [facility] Comment on above: Performed By: #### V AGINT #### [facility] [address] [place] [address] Dr. Kobe Fabian Eosinophils/100 WBC (Bld) 3.9 % Normal 0.9-7.0 [facility] Comment on above: Performed By: #### V AGINT #### [facility] [address] [place] [address] Dr. Kobe Fabian Erythrocyte distribution width (RBC) [Ratio] 11.9 % Normal 11.0-15.0 [facility] Comment on above: Performed By: #### V AGINT #### [facility] [address] [place] [address] Dr. Kobe Fabian Hematocrit (Bld) [Volume fraction] 41.0 % Normal 36.0-48.0 [facility] Comment on above: Performed By: #### V AGINT #### [facility] [address] [place] [address] Dr. Kobe Fabian Hemoglobin (Bld) [Mass/Vol] 14.4 g/dL Normal 12.0-16.0 [facility] Comment on above: Performed By: #### V AGINT #### [facility] [address] [place] [address] Dr. Kobe Fabian IG # 0.03 10e3/ul Normal 0.00-0.03 [facility] Comment on above: Performed By: #### V AGINT #### [facility] [address] [place] [address] Dr. Kobe Fabian IG % 0.4 % Normal 0.0-0.5 [facility] Comment on above: Performed By: #### V AGINT #### [facility] [address] [place] [address] Dr. Kobe Fabian LYMPH # 1.7 103/ul Normal 1.2-3.8 [facility] Comment on above: Performed By: #### V AGINT #### [facility] [address] [place] [address] Dr. Kobe Fabian Lymphocytes/100 WBC (Bld) 24.7 % Normal 20.5-60.0 [facility] Comment on above: Performed By: #### V AGINT #### [facility] [address] [place] [address] Dr. Kobe Fabian MANUAL DIFF REQ NO Normal [facility] Comment on above: Performed By: #### V AGINT #### [facility] [address] [place] [address] Dr. Kobe Fabian MCH (RBC) [Entitic mass] 29.1 pg Normal 26.7-34.0 [facility] Comment on above: Performed By: #### V AGINT #### [facility] [address] [place] [address] Dr. Kobe Fabian MCHC (RBC) [Mass/Vol] 35.1 g/dL Normal 29.9-35.2 [facility] Comment on above: Performed By: #### V AGINT #### [facility] [address] [place] [address] Dr. Kobe Fabian MCV (RBC) [Entitic vol] 83.0 fL Normal 81.0-99.0 [facility] Comment on above: Performed By: #### V AGINT #### [facility] [address] [place] [address] Dr. Kobe Fabian MONO # 0.3 103/ul Normal 0.3-0.8 [facility] Comment on above: Performed By: #### V AGINT #### [facility] [address] [address] [address] Kobe Fabian Monocytes/100 WBC (Bld) 4.5 % Normal 1.7-12.0 [facility] Comment on above: Performed By: #### V AGINT #### [facility] [address] [address] [address] Kobe Fabian NEUT # 4.5 103/ul Normal 1.4-6.5 [facility] Comment on above: Performed By: #### V AGINT #### [facility] [address] [place] [address] Dr. Kobe Fabian Neutrophils/100 WBC (Bld) 66.1 % Normal 43.0-75.0 [facility] Comment on above: Performed By: #### V AGINT #### [facility] [address] [place] [address] Dr. Kobe Fabian Platelet mean volume (Bld) [Entitic vol] 10.1 fL Normal 9.5-13.5 [facility] Comment on above: Performed By: #### V AGINT #### [facility] [address] [place] [address] Dr. Kobe Fabian PLT 184 103/ul Normal 150-450 [facility] Comment on above: Performed By: #### V AGINT #### [facility] [address] [place] [address] Dr. Kobe Fabian RBC 4.94 106/ul Normal 4.20-5.40 [facility] Comment on above: Performed By: #### V AGINT #### [facility] [address] [place] [address] Dr. Kobe Fabian WBC 6.9 103/ul Normal 4.0-11.0 [facility] Comment on above: Performed By: #### V AGINT #### [facility] [address] [place] [address] Dr. Kobe Fabian GLYCOHEMOGLOBIN A1Con 2022 ADA RECOMMENDATION SEE BELOW Normal [facility] Comment on above: Result Comment: ADA RECOMMENDED LIMIT 4.0 - 6.0 ADA THERAPEUTIC TARGET < 7.0 ACTION SUGGESTED > 7.0 Performed By: #### V AGINT #### [facility] [address] [address] [address] Kobe Fabian Glucose [Mass/Vol] 97 mg/dL Normal [facility] Comment on above: Performed By: #### V AGINT #### [facility] [address] [address] [address] Kobe Fabian HbA1c (Bld) [Mass fraction] 5.0 % Normal 4.5-6.2 [facility] Comment on above: Performed By: #### V AGINT #### [facility] [address] [place] [address] Dr. Kobe Fabian LIPID PROFILEon 07-26-2022 CHOL-HDL RATIO NORM SEE BELOW Normal [facility] Comment on above: Result Comment: 3.3 - 4.4 LOW RISK 4.4 - 7.1 AVERAGE RISK 7.1 - 11.0 MODERATE RISK >11.0 HIGH RISK Performed By: #### V AGINT #### [facility] [address] [place] [address] Dr. Koeb Fabian Cholesterol [Mass/Vol] 196 mg/dL Normal <=200 [facility] Comment on above: Performed By: #### V AGINT #### [facility] [address] [place] [address] Dr. Kobe Fabian Cholesterol in HDL [Mass/Vol] 51 mg/dL Normal 40-60 [facility] Comment on above: Performed By: #### V AGINT #### [facility] [address] [address] [address] Kobe Fabian Cholesterol in LDL [Mass/Vol] 110.6 mg/dL Normal [facility] Comment on above: Performed By: #### V AGINT #### [facility] [address] [place] [address] Dr. Kobe Fabian Cholesterol.total/C holesterol in HDL [Mass ratio] 3.8 {ratio} Normal [facility] Comment on above: Performed By: #### V AGINT #### [facility] [address] [place] [address] Dr. Kobe Fabian HDL NORMAL > or = 60 mg/dl - LOW CARDIOVASCULAR RISK <40 mg/dl - HIGH CARDIOVASCULAR RISK Normal [facility] Comment on above: Performed By: #### V AGINT #### [facility] [address] [address] [address] Kobe Fabian LDL CALC NORMAL SEE BELOW Normal [facility] Comment on above: Result Comment: <100 mg/dl OPTIMAL 100 - 129 mg/dl NEAR OR ABOVE OPTIMAL 130 - 159 mg/dl BORDERLINE HIGH 160 - 189 mg/dl HIGH >190 mg/dl VERY HIGH Performed By: #### V AGINT #### [facility] [address] [address] [address] Kobe Fabian Triglyceride [Mass/Vol] 172 mg/dL Critically high <=150 [facility] Comment on above: Performed By: #### V AGINT #### [facility] [address] [address] [address] Kobe Fabian VLDL CALC 34.4 mg/dL Normal [facility] Comment on above: Performed By: #### V AGINT #### [facility] [address] [address] [address] Kobe Fabian PROF 14(COMP METB)on 023 Albumin [Mass/Vol] 4.3 g/dL Normal 3.4-5.0 [facility] Comment on above: Performed By: #### C MP #### [facility] [address] [address] [address] Kobe Fabian Albumin/Globulin [Mass ratio] 1.2 {ratio} Normal [facility] Comment on above: Performed By: #### C MP #### [facility] [address] [address] [address] Kobe Fabian ALP [Catalytic activity/Vol] 54 U/L Normal 46-116 [facility] Comment on above: Performed By: #### C MP #### [facility] [address] [address] [address] Kobe Fabian ALT [Catalytic activity/Vol] 68 U/L Critically high 14-59 [facility] Comment on above: Performed By: #### C MP #### [facility] [address] [address] [address] Kobe Fabian Anion gap [Moles/Vol] 11.5 mmol/L Normal [facility] Comment on above: Performed By: #### C MP #### [facility] [address] [place] [address] Dr. Kobe Fabian AST [Catalytic activity/Vol] 28 U/L Normal 15-37 [facility] Comment on above: Performed By: #### C MP #### [facility] [address] [address] [address] Kobe Fabian Bilirubin [Mass/Vol] 0.6 mg/dL Normal 0.2-1.0 [facility] Comment on above: Performed By: #### C MP #### [facility] [address] [place] [address] Dr. Kobe Fabian Calcium [Mass/Vol] 9.6 mg/dL Normal 8.5-10.1 [facility] Comment on above: Performed By: #### C MP #### [facility] [address] [place] [address] Dr. Kobe Fabian Chloride [Moles/Vol] 106 mmol/L Normal 98-107 [facility] Comment on above: Performed By: #### C MP #### [facility] [address] [place] [address] Dr. Kobe Fabian CO2 [Moles/Vol] 28.3 mmol/L Normal 21.0-32.0 [facility] Comment on above: Performed By: #### C MP #### [facility] [address] [place] [address] Dr. Kobe Fabian Creatinine [Mass/Vol] 0.72 mg/dL Normal 0.55-1.02 [facility] Comment on above: Performed By: #### C MP #### [facility] [address] [place] [address] Dr. Kobe Fabian EGFR-AF BRUNEIAN >60 Normal >=60 [facility] Comment on above: Performed By: #### C MP #### [facility] [address] [place] [address] Dr. Kobe Fabian EGFR-NON AF BRUNEIAN >60 Normal >=60 [facility] Comment on above: Performed By: #### C MP #### [facility] [address] [place] [address] Dr. Kobe Fabian Globulin (S) [Mass/Vol] 3.7 g/dL Normal [facility] Comment on above: Performed By: #### C MP #### [facility] [address] [address] [address] Kobe Fabian Glucose [Mass/Vol] 89 mg/dL Normal 74-106 [facility] Comment on above: Performed By: #### C MP #### [facility] [address] [place] [address] Dr. Kobe Fabian Potassium [Moles/Vol] 3.8 mmol/L Normal 3.5-5.1 [facility] Comment on above: Performed By: #### C MP #### [facility] [address] [place] [address] Dr. Kobe Fabian Protein [Mass/Vol] 8.0 g/dL Normal 6.4-8.2 [facility] Comment on above: Performed By: #### C MP #### [facility] [address] [place] [address] Dr. Kobe Fabian Sodium [Moles/Vol] 142 mmol/L Normal 136-145 [facility] Comment on above: Performed By: #### C MP #### [facility] [address] [place] [address] Dr. Kobe Fabian Urea nitrogen [Mass/Vol] 17.0 mg/dL Normal 7.0-18.0 [facility] Comment on above: Performed By: #### C MP #### [facility] [address] [address] [address] Kobe Fabian Urea nitrogen/Creatinine [Mass ratio] 23.6 mg/mg Normal [facility] Comment on above: Performed By: #### C MP #### [facility] [address] [place] [address] Dr. Kobe Fabian TSHon 07-26-2022 TSH 1.819 uIU/mL Normal 0.358-3.740 [facility] Comment on above: Performed By: #### V AGINT #### [facility] [address] [address] [address] Kobe Fabian MG MAMM SCREEN 3D YUDI CADon 06-19-2022 MG MAMM SCREEN 3D YUDI CAD Patient: AFRICA PARHAM Exam Date: 06/19/2022 : 1980 Gender:F Ordering : DR JIAN ROYAL . Admission #: [id number] Family : Order #: [id number] CLICK HERE TO VIEW EXAM RADIOLOGY REPORT PROCEDURE: MAMMOGRAM SCREENING 3D BILATERAL CAD COMPARISON: None. INDICATIONS: Screening mammography Calculator Name NCI Breast Cancer Risk Assessment Tool 5 Year Breast Cancer Risk 0.70% Lifetime Breast Cancer Risk 11.00% Personal Breast Cancer No Personal Ovarian Cancer No Treatments None Family Cancers None LOCATION: [facility] BREAST COMPOSITION: Heterogeneously dense,which may obscure small [...] Cooper M.D. on 06/21/2022 at 08:56 Normal [facility] GROUP A STREP CULTUREon 05-09 S. pyogenes Ag Ql (Unsp spec) Culture Observations: NEGATIVE FOR GROUP A STREPTOCOCCUS. Normal [facility] Comment on above: Performed By: #### G RASTCX, SSCRN #### [facility] [address] [place], [place] [address] Dr. Kobe Fabian STREPT SCREENon 05-26-2022 STREP SCREEN A Negative Normal NEGATIVE [facility] Comment on above: Performed By: #### G RASTCX, SSCRN #### [facility] [address] [place], [place] [address] head/brain wo/w con CT head/brain wo/w con [place] [facility] [place] [address] [place] [address] CT Scan Report Signed Patient: Africa Parham MR#: [id number] : 1980 Acct:[id number] Age/Sex: 41 / F ADM Date: 10/26/21 Loc: [facility] Room: Type: [facility] Attending Dr: Gino Liang DO Ordering Provider: [...] Sage Frank M.D.10/26/2021 2:59 PM Dictation Location: [place] [address] Transcribed By: [facility] 10/26/21 1459 Dictated By: Sage Frank DO 10/26/21 1455 Signed By: 10/26/21 1459 Normal [facility] CBC AUTO DIFFon 10-23-2021 BASO # 0.0 103/ul Normal 0.0-0.1 [facility] Comment on above: Performed By: #### V AGINT #### [facility] [address] [address] [address] Kobe Fabian Basophils/100 WBC (Bld) 0.5 % Normal 0.2-2.0 [facility] Comment on above: Performed By: #### V AGINT #### [facility] [address] [place] [address] Dr. Kobe Fabian EO # 0.3 103/ul Normal 0.0-0.7 [facility] Comment on above: Performed By: #### V AGINT #### [facility] [address] [place] [address] Dr. Kobe Fabian Eosinophils/100 WBC (Bld) 5.3 % Normal 0.9-7.0 [facility] Comment on above: Performed By: #### V AGINT #### [facility] [address] [place] [address] Dr. Kobe Fabain Erythrocyte distribution width (RBC) [Ratio] 12.4 % Normal 11.0-15.0 [facility] Comment on above: Performed By: #### V AGINT #### [facility] [address] [place] [address] Dr. Kobe Fabian Hematocrit (Bld) [Volume fraction] 41.1 % Normal 36.0-48.0 [facility] Comment on above: Performed By: #### V AGINT #### [facility] [address] [place] [address] Dr. Kobe Fabian Hemoglobin (Bld) [Mass/Vol] 13.6 g/dL Normal 12.0-16.0 [facility] Comment on above: Performed By: #### V AGINT #### [facility] [address] [place] [address] Dr. Kobe Fabian IG # 0.02 10e3/ul Normal 0.00-0.03 [facility] Comment on above: Performed By: #### V AGINT #### [facility] [address] [place] [address] Dr. Kobe Fabian IG % 0.3 % Normal 0.0-0.5 [facility] Comment on above: Performed By: #### V AGINT #### [facility] [address] [place] [address] Dr. Kobe Fabian LYMPH # 1.5 103/ul Normal 1.2-3.8 [facility] Comment on above: Performed By: #### V AGINT #### [facility] [address] [place] [address] Dr. Kobe Fabian Lymphocytes/100 WBC (Bld) 24.8 % Normal 20.5-60.0 [facility] Comment on above: Performed By: #### V AGINT #### [facility] [address] [place] [address] Dr. Kobe Fabian MANUAL DIFF REQ NO Normal [facility] Comment on above: Performed By: #### V AGINT #### [facility] [address] [place] [address] Dr. Kobe Fabian MCH (RBC) [Entitic mass] 29.2 pg Normal 26.7-34.0 [facility] Comment on above: Performed By: #### V AGINT #### [facility] [address] [place] [address] Dr. Kobe Fabian MCHC (RBC) [Mass/Vol] 33.1 g/dL Normal 29.9-35.2 [facility] Comment on above: Performed By: #### V AGINT #### [facility] [address] [place] [address] Dr. Kobe Fabian MCV (RBC) [Entitic vol] 88.2 fL Normal 81.0-99.0 [facility] Comment on above: Performed By: #### V AGINT #### [facility] [address] [place] [address] Dr. Kobe Fabian MONO # 0.3 103/ul Normal 0.3-0.8 [facility] Comment on above: Performed By: #### V AGINT #### [facility] [address] [place] [address] Dr. Kobe Fabian Monocytes/100 WBC (Bld) 5.4 % Normal 1.7-12.0 [facility] Comment on above: Performed By: #### V AGINT #### [facility] [address] [place] [address] Dr. Kobe Fabian NEUT # 3.9 103/ul Normal 1.4-6.5 [facility] Comment on above: Performed By: #### V AGINT #### [facility] [address] [place] [address] Dr. Kobe Fabian Neutrophils/100 WBC (Bld) 63.7 % Normal 43.0-75.0 [facility] Comment on above: Performed By: #### V AGINT #### [facility] [address] [place] [address] Dr. Kobe Fabian Platelet mean volume (Bld) [Entitic vol] 10.4 fL Normal 9.5-13.5 [facility] Comment on above: Performed By: #### V AGINT #### [facility] [address] [place] [address] Dr. Kobe Fabian PLT 203 103/ul Normal 150-450 [facility] Comment on above: Performed By: #### V AGINT #### [facility] [address] [place] [address] Dr. Kobe Fabian RBC 4.66 106/ul Normal 4.20-5.40 [facility] Comment on above: Performed By: #### V AGINT #### [facility] [address] [place] [address] Dr. Kobe Fabian WBC 6.1 103/ul Normal 4.0-11.0 [facility] Comment on above: Performed By: #### V AGINT #### [facility] [address] [place] [address] Dr. Kobe Fabian PROF 14(COMP METB)on 022 Albumin [Mass/Vol] 3.7 g/dL Normal 3.4-5.0 [facility] Comment on above: Performed By: #### C MP #### [facility] [address] [place] [address] Dr. Kobe Fabian Albumin/Globulin [Mass ratio] 1.1 {ratio} Normal [facility] Comment on above: Performed By: #### C MP #### [facility] [address] [place] [address] Dr. Kobe Fabian ALP [Catalytic activity/Vol] 60 U/L Normal 46-116 [facility] Comment on above: Performed By: #### C MP #### [facility] [address] [address] [address] Kobe Fabian ALT [Catalytic activity/Vol] 42 U/L Normal 14-59 [facility] Comment on above: Performed By: #### C MP #### [facility] [address] [address] [address] Kobe Fabian Anion gap [Moles/Vol] 12.0 mmol/L Normal [facility] Comment on above: Performed By: #### C MP #### [facility] [address] [address] [address] Kobe Fabian AST [Catalytic activity/Vol] 28 U/L Normal 15-37 [facility] Comment on above: Performed By: #### C MP #### [facility] [address] [place] [address] Dr. Kobe Fabian Bilirubin [Mass/Vol] 0.4 mg/dL Normal 0.2-1.0 [facility] Comment on above: Performed By: #### C MP #### [facility] [address] [place] [address] Dr. Kobe Fabian Calcium [Mass/Vol] 8.6 mg/dL Normal 8.5-10.1 [facility] Comment on above: Performed By: #### C MP #### [facility] [address] [place] [address] Dr. Kobe Fabian Chloride [Moles/Vol] 106 mmol/L Normal 98-107 [facility] Comment on above: Performed By: #### C MP #### [facility] [address] [place] [address] Dr. Kobe Fabian CO2 [Moles/Vol] 28.4 mmol/L Normal 21.0-32.0 [facility] Comment on above: Performed By: #### C MP #### [facility] [address] [place] [address] Dr. Kobe Fabian Creatinine [Mass/Vol] 0.81 mg/dL Normal 0.55-1.02 [facility] Comment on above: Performed By: #### C MP #### [facility] [address] [address] [address] Kobe Fabian EGFR-AF BRUNEIAN >60 Normal >=60 [facility] Comment on above: Performed By: #### C MP #### [facility] [address] [address] [address] Kobe Fabian EGFR-NON AF BRUNEIAN >60 Normal >=60 [facility] Comment on above: Performed By: #### C MP #### [facility] [address] [address] [address] Kobe Fabian Globulin (S) [Mass/Vol] 3.5 g/dL Normal [facility] Comment on above: Performed By: #### C MP #### [facility] [address] [place] [address] Dr. Kobe Fabian Glucose [Mass/Vol] 94 mg/dL Normal 74-106 [facility] Comment on above: Performed By: #### C MP #### [facility] [address] [place] [address] Dr. Kobe Fabian Potassium [Moles/Vol] 4.4 mmol/L Normal 3.5-5.1 [facility] Comment on above: Performed By: #### C MP #### [facility] [address] [place] [address] Dr. Kobe Fabian Protein [Mass/Vol] 7.2 g/dL Normal 6.4-8.2 [facility] Comment on above: Performed By: #### C MP #### [facility] [address] [place] [address] Dr. Kobe Fabian Sodium [Moles/Vol] 142 mmol/L Normal 136-145 [facility] Comment on above: Performed By: #### C MP #### [facility] [address] [place] [address] Dr. Kobe Fabian Urea nitrogen [Mass/Vol] 13.0 mg/dL Normal 7.0-18.0 [facility] Comment on above: Performed By: #### C MP #### [facility] [address] [place] [address] Dr. Kobe Fabian Urea nitrogen/Creatinine [Mass ratio] 16.0 mg/mg Normal [facility] Comment on above: Performed By: #### C MP #### [facility] [address] [address] [address] Kobe Fabian SED RATE [facility] 2021 SED RATE 7 mm/hr Normal <=20 [facility] Comment on above: Performed By: #### V AGINT #### [facility] [address] [address] [address] Kobe Fabian Vital Signs Date Time Vital Sign Value Performing Clinician Facility 09-16-2022 10:39-0400 Body height 160.02 cm Gino R Heyos Work Phone: [facility] [employer] Work Phone: 09-16-2022 10:39-0400 Body mass index (BMI) [Ratio] 36.49 kg/m2 Gino R Heyos Work Phone: [facility] [employer] Work Phone: 09-16-2022 10:39-0400 Body surface area Derived from formula 1.96 m2 Gino R Heyos Work Phone: [facility] [employer] Work Phone: 09-16-2022 10:39-0400 Body weight 93.44 kg Gino R Heyos Work Phone: [facility] [employer] Work Phone: 07-25-2022 13:30-0500 Body height 160.02 cm Gino Heyos Other [facility] 07-25-2022 13:30-0500 Body mass index (BMI) [Ratio] 36.49 kg/m2 Gino Heyos Other [facility] 07-25-2022 13:30-0500 Body weight 93.44 kg Gino Heyos Other [facility] Other 07-25-2022 13:30-0500 Diastolic blood pressure 80 mm[Hg] Gino Kuns Other [facility] Other 07-25-2022 13:30-0500 Respiratory rate 18 /min Gino Kuns Other [facility] Other 07-25-2022 13:30-0500 SaO2% (BldA) [Mass fraction] 99 % Gino Kuns Other [facility] Other 07-25-2022 13:30-0500 Systolic blood pressure 118 mm[Hg] Gino Kuns Other [facility] Other 10-26-2021 13:45-0400 Body height 160.02 cm Gino Kuns Other [facility] Other 10-26-2021 13:45-0400 Body mass index (BMI) [Ratio] 36.49 kg/m2 Gino Kuns Other [facility] Other 10-26-2021 13:45-0400 Body weight 93.44 kg Gino Kuns Other [facility] Other 10-26-2021 13:45-0400 Diastolic blood pressure 60 mm[Hg] Gino Kuns Other [facility] Other 10-26-2021 13:45-0400 Respiratory rate 16 /min Gino Kuns Other [facility] Other 10-26-2021 13:45-0400 SaO2% (BldA) [Mass fraction] 99 % Gino Kuns Other [facility] Other 10-26-2021 13:45-0400 Systolic blood pressure 110 mm[Hg] Gino Kuns Other [facility] Other 10-16-2021 14:30-0400 Body height 160.02 cm Gino Kuns Other [facility] Other 10-16-2021 14:30-0400 Body mass index (BMI) [Ratio] 36.49 kg/m2 Gino Kuns Other [facility] Other 10-16-2021 14:30-0400 Body weight 93.44 kg Gino Kuns Other [facility] Other 10-16-2021 14:30-0400 Diastolic blood pressure 82 mm[Hg] Gino Kuns Other [facility] Other 10-16-2021 14:30-0400 Respiratory rate 18 /min Gino Kuns Other [facility] Other 10-16-2021 14:30-0400 SaO2% (BldA) [Mass fraction] 98 % Gino Kuns Other [facility] Other 10-16-2021 14:30-0400 Systolic blood pressure 126 mm[Hg] Gino Kuns Other [facility] Other 04-16-2021 12:00-0500 Body height 160.02 cm Gino Kuns Other [facility] Other 03-26-2021 11:15-0400 Body height 160.02 cm Gino Kuns Other [facility] Other 03-26-2021 11:15-0400 Body mass index (BMI) [Ratio] 35.25 kg/m2 Gino Zachariahs Other [facility] Other 03-26-2021 11:15-0400 Body weight 90.27 kg Ginolaura Sonis Other [facility] Other 03-26-2021 11:15-0400 Diastolic blood pressure 80 mm[Hg] Gino Zachariahs Other [facility] Other 03-26-2021 11:15-0400 Respiratory rate 18 /min Gino Sonis Other [facility] Other 03-26-2021 11:15-0400 SaO2% (BldA) [Mass fraction] 98 % Ginolaura Liang Other [facility] Other 03-26-2021 11:15-0400 Systolic blood pressure 124 mm[Hg] Gino Zachariahs Other [facility] Other Encounters Encounter Date Encounter Type Care Provider Facility Start: 07-14-2024 ambulatory Nabila L Ana Laura Facility: [facility] Ernesto Start: 04-15-2024 End: 04-15-2024 ambulatory Nabila L Ana Laura Facility:[facility] Gretna donna Start: 04-05-2024 End: 04-05-2024 ambulatory Nabila L Ana Laura Facility:[facility] Janet donna Start: 02-03-2024 End: 02-03-2024 ambulatory Nabila L Ana Laura Facility:[facility] [place] donna Start: 11-06-2023 End: 11-06-2023 ambulatory Nabila L Ana Laura [facility] Start: 11-06-2023 End: 05-30-2024 Lab Drop off Nabila L Ana Laura [facility] Start: 11-06-2023 End: 11-06-2023 ambulatory Nabila L Ana Laura Facility:[facility] [place] Start: 11-04-2023 End: 11-04-2023 ambulatory Nabila L Ana Laura Facility:[facility] [place] Start: 09-08-2023 End: 09-08-2023 ambulatory Nabila L Ana Laura Facility:[facility] [place] Start: 08-07-2023 End: 08-07-2023 ambulatory Nabila L Ana Laura Facility:[facility] [place] Start: 05-20-2023 End: 05-20-2023 ambulatory Nabila L Ana Laura Facility:[facility] [place] Start: 04-22-2023 End: 04-22-2023 ambulatory Nabila L Ana Laura Facility:[facility] [place] Start: 03-25-2023 End: 03-25-2023 ambulatory Nabila L Ana Laura Facility:[facility] [place] Start: 02-25-2023 End: 02-25-2023 ambulatory Nabila L Ana Laura Facility:[facility] [place] Start: 09-16-2022 Office consultation new/estab patient 30 min Gino Liang Work Phone: [facility] Work Phone: Start: 09-16-[address] Gino Liang Facility:[id number] Start: 09-09-2022 End: 09-10-2022 ambulatory NELL PELAEZ Facility:[facility] Start: 07-29-2022 Encounter for gynecological examination (general) (routine) without abnormal findings DR JIAN ROYAL . [facility] Start: 07-26-2022 End: 07-27-[address] GINO LIANG Facility:[facility] Start: 07-25-2022 End: 07-25-[address] JIAN ROYAL . [facility] Other Start: 07-25-2022 Office outpatient vi sit 25 minutes Gino Liang [facility] Start: 06-19-2022 End: 06-20-[address] JIAN ROYAL . Facility:[facility] Start: 05-26-2022 End: 05-27-[address] MICAH MALDONADO Facility:[facility] Start: 03-18-2022 End: 03-18-2022 ambulatory Gino Liang Other [facility] Other Start: 03-18-2022 Telephone encounter Gino Liang [facility] Start: 03-08-2022 End: 03-08-[address] GINO LIANG Facility:[facility] Start: 11-07-2021 End: 11-07-2021 ambulatory Gino Liang Other [facility] Other Start: 11-07-2021 Telephone encounter Gino Liang [facility] Start: 10-26-2021 End: 10-26-2021 ambulatory Gino Liang Other [facility] Other Start: 10-26-2021 Office outpatient vi sit 15 minutes Gino Liang [facility] Start: 10-23-2021 End: 10-24-[address] GINO LIANG Facility:[facility] Start: 10-16-2021 End: 10-16-2021 ambulatory Gino Liang Other [facility] Other Start: 10-16-2021 Office outpatient vi sit 25 minutes Gino Liang [facility] Start: 04-16-2021 End: 04-16-2021 ambulatory Gino Liang Other [facility] Other Start: 04-16-2021 Office outpatient vi sit 15 minutes Gino Liang [facility] Start: 03-28-2021 Encounter for genera l adult medical examination without abnormal findings Gino Liang [facility] Start: 03-28-2021 Telephone encounter Gino Liang [facility] Start: 03-26-2021 Encounter for genera l adult medical examination without abnormal findings Gino Liang [facility] Start: 03-26-2021 Periodic preventive med est patient 18-39 yrs Gino Liang [facility] Procedures Date Procedure Procedure Detail Performing Clinician Start: 06-09-2018 Hysterectomy Nabila Schwa b Start: 10-08-2015 Surgical procedure Nabila Ana Laura Comment on above: D and C x2 Start: 06-09-2011 Laser assisted in si tu keratomileusis Nabila Ana Laura Start: 06-09-2008 Cholecystectomy Nabila Sc hwab H/O: hysterectomy Gino Kuns Other Immunizations Immunization Date Immunization Notes Care Provider [facility] 04-22-2023 influenza, injectable, quadrivalent, preservative free Nabila Ana Laura [facility] 04-06-2021 influenza virus vaccine, unspecified formulation Nabila Ana Laura [facility] 02-16-2020 influenza virus vaccine, unspecified formulation Nabila Ana Laura [facility] 03-23-2019 influenza virus vaccine, unspecified formulation Nabila Ana Laura [facility] 03-23-2019 influenza, injectable, quadrivalent, preservative free Gino Kuns Other [facility] Other 03-24-2018 influenza virus vaccine, unspecified formulation Nabila Ana Laura [facility] 02-28-2017 tetanus toxoid, reduced diphtheria toxoid, and acellular pertussis vaccine, adsorbed Gino Kuns Other [facility] 02-28-2017 influenza virus vaccine, unspecified formulation Nabila Ana Laura [facility] 03-01-2016 influenza, injectable, quadrivalent, contains preservative Gino Liang Other [facility] Other 03-01-2016 influenza virus vaccine, unspecified formulation Nabila Ana Laura [facility] NEGATED: Highlighted row has not occurred!03-25-2023 influenza virus vaccine, unspecified formulation Nabila Ana Laura [facility] Payers Date Payer Category Payer Unknown [id number] 2.16.84 [id number] 1980 Unknown [id number] 2.16.84 0.1.432540.3.579.2.593 1980 Unknown [id number] 2.16.84 0.1.156272.3.579.2.593 1980 Unknown [id number] 2.16.84 0.1.257745.3.579.2.593 1980 Unknown [id number] 2.16.84 0.1.835067.3.579.2.593 1980 Unknown [id number] 2.16.84 0.1.579308.3.579.2.593 1980 Unknown [id number] 2.16.84 0.1.866591.3.579.2.593 1980 Unknown [id number] 2.16.84 0.1.564857.3.579.2.593 1980 Unknown [id number] 2.16. 840.1.507092.3.579.2.356 1980 Unknown [id number] 2.16.8 40.1.062084.3.579.2.727 1980 Unknown [id number] 2.16.8 40.1.822230.3.579.2.727 1980 Unknown [id number] 2.16.8 40.1.490101.3.579.2.727 1980 Unknown [id number] 2.16.8 40.1.682297.3.579.2.727 1980 Unknown [id number] 2.16.8 40.1.056532.3.579.2.727 1980 Unknown [id number] 2.16.8 40.1.416339.3.579.2.727 1980 Unknown [id number] 2.16.8 40.1.905925.3.579.2.727 1980 Unknown [id number] 2.16.8 40.1.636845.3.579.2.727 1980 Unknown [id number] 2.16.8 40.1.970805.3.579.2.727 1980 Unknown [id number] 2.16.8 40.1.836124.3.579.2.727 1980 Unknown [id number] 2.16.8 40.1.820319.3.579.2.727 1980 Unknown [id number] 2.16.8 40.1.224310.3.579.2.727 1980 Unknown [id number] 2.16.8 40.1.062092.3.579.2.727 1958 [facility] [id number] 2.16.840.1.371279.19 Unknown ANTHEM Social History Date Type Detail Facility Sex Assigned At [facility] Never smoker Never smoker [facility]-Otolaryngolo gy[facility] field Work Phone: Start: 11-06-2023 Tobacco smoking status Never s moked tobacco (finding) [facility] Tobacco smoking status Never [facility] Clinical Notes 09-16-2012 to 04-05-2024 Note [...] feet. 2. Lif (more content not included)... [facility] 07-25-2022 Evaluation note Encounter Date Diagnosis [...] ENT for further evaluation. 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 [facility] Other 05-20-2022 Evaluation note* Encounter Date Diagnosis [...] - M25.522) We will continue to monitor. [facility] Other 05-10-2022 Evaluation note* Encounter Date Diagnosis Assessment Notes Treatment Notes Treatment Clinical Notes October, Fall (ICD-10 - W19.XXXA) recent fall October, Left elbow pain (ICD-10 - M25.522) Left elbow pain since fall. Will get imaging and follow up October, Frontal headache (ICD-10 - R51.9) Patient reports she gets sharp, jolty pains in the right sabianism area since her recent fall. Patient states [...] been having sharp pain in the right sabianism area. This could be a concussion and [...] head has been ordered. Will follow up [facility] 11-08-2021 Evaluation note* Encounter Date Diagnosis Assessment Notes Treatment Notes Treatment Clinical Notes Apr, Hypertriglyceridemia (ICD-10 - E78.1) Reviewed blood work with patient. Cholesterol triglycerides continue to be elevated but has improved from last check. We will continue to monitor. [facility] Other 10-20-2021 Evaluation note* Encounter Date Diagnosis Assessment Notes Treatment Notes Treatment Clinical Notes Mar, Wellness examination (ICD-10 - Z00.00) [facility] 10-18-2021 Evaluation note* Encounter Date Diagnosis [...] any positively answered questions as noted above. [facility] Other 04-10-2013 History general Narrative - Reported* Type Description Date Medical History 09/16/12 Left foot x-ray [facility] Medical History 09/08/14 Chest X-ray Surgical History D & C 2006 Surgical History cholecystectomy Surgical History D&C 2015 Surgical History Hysterectomy (still has ovaries ) 05/2019 Hospitalization History Vaginal x1 (male)/ Gestational Diabetes 03/22/14 Hospitalization History Vaginal x1 (female ) 06/03/06 Hospitalization History Vaginal X1 (male) gestational diabetes 03/2017 [employer] Other Evaluation + Plan note Future Appointments Appointment Date:02/03/2024 10:00:00 AM Scheduled Provider:Nabila Farley Location:[facility] Appointment Type: Open Diagnostic Tests Pending * PAP [id number] w/ HPV and Genotype rflx [facility] InformationNort Bumpr Other History of Present illness Narrative* Patient [...] date and entered into the EMR system. EY-Spnljipcswmcul-Rmzblukgp Work Phone: Hospital course Narrative No data available for this section [facility] No data available for this section [facility] No data available for this section [facility] Summary Purpose Family History No Family History [...] Dysphagia, unspecifi ed type (R13.10) Referral Organization [facility] Quan Pearson Referring Provider First Name Gino Referring Provider Last Name Rock Referring Provider Specialty Family Prac saqib Referred Organization [facility] Referred Provider OJ VELEZ Referred Address [address] [place] [address] ,[place], [place],[address] Referred Provider Specialty Otolaryngolo gy Referral Priority Routine General Notes 023 10:57:19 AM >Received today and fax referral. The Central Team at will call patient and schedule Desire 08/02/2022 09:02:19 AM >Fax letter for appt update [facility] 08/02/2022 12:10:39 PM >Received letter back and they have the referral but patient is not scheduled yet [facility] 08/08/2022 09:59:37 AM >Fax letter for appt update [facility] 08/08/2022 11:54:00 AM >Received letter back and [facility] is not scheduled yet [facility]/16/2022 07:28:30 AM >Fax letter for appt update Clinical Notes Office [phone] Chief Complaint * DYSPHAGIA * DR. GINO GONZALES Additional Source Comments INFORMATION SOURCE (unrecogn ized section and content) DATE CREATED AUTHOR 10/28/2021 [facility] DATE CREATED AUTHOR AUTHOR'S ORGANIZ ATION 09/14/2022 [facility] DATE CREATED AUTHOR AUTHOR'S ORGANIZ ATION 09/17/2022 [facility] DATE CREATED AUTHOR AUTHOR'S ORGANIZ ATION 09/18/2022 [employer] DATE CREATED AUTHOR AUTHOR'S ORGANIZ ATION 02/04/2024 [facility] DATE CREATED AUTHOR AUTHOR'S ORGANIZ ATION 04/17/2024 [facility] REASON FOR VISIT (unrecogniz ed section and content) wellnessClinicalreview labsh ead painreview labs /testingclinicalClinicalFeels like something stuck in throat Patient Care team informatio n (unrecognized section and content) Personnel Name: Nabila Farley Address: Address: [address] [place] [address]- FOR RECORDS PERTAINING TO PATIENTS WHO ARE [...] BE BASED ON THE PRIMARY CLINICAL RECORDS. [facility] [employer] [facility]. provides no warranty or guarantee of the accuracy or completeness of information in this document.
== END 2024-05-31 07:55 | disposition home or self-care (01) ==
LOC: MRI 07:54
PROVIDERS: PCP Nurse Practitioner; Visit Provider Nurse Practitioner
DX: M25.512 Pain in left shoulder (principal); R68.82 Decreased libido; R61 Generalized hyperhidrosis; M77.8 Other enthesopathies, not elsewhere classified; M19.012 Primary osteoarthritis, left shoulder
CPT/HCPCS: 73221

== ENCOUNTER 2024-06-05 08:11 | Outpatient (OUT) | payer BC, SELFPAY ==
--- OUTSIDE RECORDS SUMMARY | 2024-06-05 08:14 | XMS_ITS | CCD ---
Author Organization [facility] Care Team Providers Care Identification Clerk Name Role Phone Gino Liang Unavailable ROCK, [...] ROCK, DR CHRISTIAN Consulting Unavailable ROCK, DR CHRISITAN Primary Care Unavailable ROCK, DR CHRISTIAN Admitting [...] Medication Allergies] Propensity to adverse reactions (disorder) [facility] Repository Medications Current Medications Medication Drug [...] Once, # 1 tab(s), Refills(s) 1, Pharmacy: [facility]/pharmacy #[id number], 159, cm, 11/04/23 8:43:00 EDT, Height/Length [...] 4:40 PM EST With: Nabila Farley Where: [address] [address]- Medications What How Much When Instructions Unchanged [...] choosing us for your care. Olivier Reyna [facility] Family Medicine Office/Clini c Noteon 04-15-2024 [...] up to highest dose. will send to [facility]. RTC 3 months Ordered: fluconazole, 150 mg = 1 tab(s), Oral, Once, take 1 tab on day one and 1 tab on day four, # 2 tab(s), Refills(s) 2, Pharmacy: [facility]/pharmacy #[id number], 160, cm, 02/03/24 9:52:00 EDT, Height/Length [...] four, # 2 tab(s), Refills(s) 2, [facility]acy: [id number], 160, cm, 02/03/24 9:52:00 EDT, Height/Length Dosing, 81.6, kg, 02/03/24 9:52:00 EDT, Weight Dosing 5. Non-smoker (Z78.9: Other specified health status) continue not smoking Ordered: fluconazole, 150 mg = 1 tab(s), Oral, Once, take 1 tab on day one and 1 tab on day four, # 2 tab(s), Refills(s) 2, [facility]acy: [id number], 160, cm, 02/03/24 9:52:00 EDT, Height/Length [...] at last visit. will order MRI at [facility] 8. Neck pain (M54.2: Cervicalgia) reviewed [...] virus vaccine, inactivated 03/01/2016 Recorded Normal [facility] Comment on above: Result Comment: Elec [...] 8:40 AM EST With: Nabila Farley Where: [address] [address]- Medications What How Much When Why Instructions [...] for choosing us for your care. Normal [facility] Medicine Office/Clini c Noteon 04-05-2024 Family Medicine [...] office today. x ray order sent to [facility] for shoulder and cervical spine. pt [...] virus vaccine, inactivated 03/01/2016 Recorded Normal Reyna [facility] Comment on above: Result Comment: Elec [...] denies needs. [facility] 3 months Ordered: fluconazole, 150 mg = 1 tab(s), Oral, Once, take 1 tab on day one and 1 tab on day four, # 2 tab(s), Refills(s) 2, [id number], 160, cm, 02/03/24 9:52:00 EDT, Height/Length Dosing, 81.6, kg, 02/03/24 9:52:00 EDT, Weight Dosing 2. Vaginal yeast infection (B37.31: Acute candidiasis of vulva and vagina) diflucan sent to pharmacy Ordered: fluconazole, 150 mg = 1 tab(s), Oral, Once, take 1 tab on day one and 1 tab on day four, # 2 tab(s), Refills(s) 2, Pharmacy: [facility]/pharmacy #[id number], 160, cm, 02/03/24 9:52:00 EDT, Height/Length Dosing, 81.6, kg, 02/03/24 9:52:00 EDT, Weight Dosing 3. Non-smoker (Z78.9: Other specified health status) continue not smoking Ordered: fluconazole, 150 mg = 1 tab(s), Oral, Once, take 1 tab on day one and 1 tab on day four, # 2 tab(s), Refills(s) 2, Pharmacy: [facility]/pharmacy #[id number], 160, cm, 02/03/24 9:52:00 EDT, Height/Length Dosing, 81.6, kg, 02/03/24 9:52:00 EDT, Weight Dosing 4. BMI 31.0-31.9,adult (Z68.31: Body mass index [BMI] 31.0-31.9, adult) BMI education given Ordered: fluconazole, 150 mg = 1 tab(s), Oral, Once, take 1 tab on day one and 1 tab on day four, # 2 tab(s), Refills(s) 2, Pharmacy: [facility]/pharmacy #[id number], 160, cm, 02/03/24 9:52:00 EDT, Height/Length Dosing, 81.6, kg, 02/03/24 9:52:00 EDT, Weight Dosing 5. Class 1 obesity due to excess calories in adult (E66.09: Other obesity due to excess calories) see above Ordered: fluconazole, 150 mg = 1 tab(s), Oral, Once, take 1 tab on day one and 1 tab on day four, # 2 tab(s), Refills(s) 2, Pharmacy: [facility]/pharmacy #[id number], 160, cm, 02/03/24 9:52:00 EDT, Height/Length [...] virus vaccine, inactivated 03/01/2016 Recorded Normal [facility] Comment on above: Result Comment: Elec tronically Signed By: Nabila Farley\.br\Date and Time Signed: 02/03/24 11:05 EDT PAP [id number] 11-11-2023 Cytology report Cyto stain Doc (Cvx/Vag) Note Invalid Interpretation Code [facility] Comment on above: Result Comment: TEST S RESULT FLAG UNITS REF RANGE LAB Clinician Provided Cytology Information Source.............Cervix No. of containers..01 ThinPrep Vial DIAGNOSIS: 01 NEGATIVE FOR INTRAEPITHELIAL LESION OR MALIGNANCY. FUNGAL ORGANISMS MORPHOLOGICALLY CONSISTENT WITH SAIDA SPECIES ARE PRESENT. Specimen adequacy: 01 Satisfactory for evaluation. No endocervical component is identified. Performed by: 01 Sabina Capmbell, Reconditioning Associate ([facility]) . 01 Note: Note 01 [...] Low,>-Panic High,A-Abnormal,AA-Critical Abnormal Performed at: [address] [facility] [place] [address] Enid Miller MD, Performed By: #### 1 [id number] #### [facility] [address] [place] [address] HPV 16+18+31+33+35+39+4 5+51+52+56+58+59+66 +68 DNA Probe+sig amp Ql (Cvx) Negative Invalid Interpretation Code Negative [facility] Comment on above: Result Comment: This nucleic acid amplification test detects fourteen high-risk HPV types (16,18,31,33,35,39,45,51,52,56,58,59,66,68) without differentiation. Performed at: [facility] [address] [place], [place] [id number] MD Paul Rossi Performed at: =[facility] [address] [place], [place] [id number] MD Paul Rossi Performed By: #### 1 [id number] #### [facility] [address] [place] [address] Reminderson 11-11-2023 Reminders - From: Nabila Farley [...] message for patient of message below Normal [facility] Ambulatory Visit Summaryon 0 11-06-2023 Ambulatory [...] Follow-Up Appointments Friday 10:00 AM EDT With: Nbaila Farley Where: [facility] Medicine [place] Normal Cervical cancer screening, Print Label By [...] for choosing us for your care.\.br\ \.br\ [facility] Medicine Office/Clini c Noteon 11-06-2023 Family Medicine [...] influenza virus vaccine, inactivated 03/01/2016 Recorded Normal [facility] Comment on above: Result Comment: Elec tronically Signed By: Nabila Farley\.br\Date and Time Signed: 11/06/23 11:13 EDT PAP [id number] 11-06-2023 Gynecological Body Site CERVIX Normal [facility] Comment on above: Performed By: #### 1 [id number] #### Reyna [facility] [address] [place] [address] Family Medicine Office/Clini c Noteon 11-04-2023 Family [...] with her weight. will send refill to [facility]. [facility] 3 months 2. Vaginal yeast infection (B37.31: Acute candidiasis of vulva and vagina) Diflucan sent to pharmacy 3. BMI 33.0-33.9,adult (Z68.33: Body mass index [BMI] 33.0-33.9, adult) bmi education complete 4. Non-smoker (Z78.9: Other specified health status) continue not smoking Ordered: fluconazole, 150 mg = 1 tab(s), Oral, Once, # 1 tab(s), Refills(s) 0, Pharmacy: [facility]/pharmacy #[id number], 159, cm, 09/08/23 11:39:00 EDT, Height/Length Dosing, 83.3, kg, 09/08/23 11:39:00 EDT, Weight Dosing Orders: fluconazole, 150 mg = 1 tab(s), Oral, Once, # 1 tab(s), Refills(s) 1, Pharmacy: [facility]/pharmacy #[id number], 159, cm, 11/04/23 8:43:00 EDT, Height/Length [...] influenza virus vaccine, inactivated 03/01/2016 Recorded Normal [facility] Comment on above: Result Comment: Elec tronically Signed By: Nabila Farlye\.tanya\Date and Time Signed: 11/04/23 09:11 EDT Retail - Clinical Noteon Retail - Clinical Note [id number] #1.00TIFF Normal [facility] 09-08-2023 Consent [id number] #1.00TIFF Normal [facility] Family Medicine Office/Clini c Noteon 09-08-2023 [...] Once, # 1 tab(s), Refills(s) 0, [facility], 159, cm, 09/08/23 11:39:00 EDT, Height/Length [...] day(s), # 140 mL, Refills(s) 0, [facility], 159, cm, 09/08/23 11:39:00 EDT, Height/Length Dosing, 83.3, kg, 09/08/23 11:39:00 EDT, Weight Dosing fluconazole, 150 mg = 1 tab(s), Oral, Once, # 1 tab(s), Refills(s) 0, [facility], 159, cm, 09/08/23 11:39:00 EDT, Height/Length [...] day(s), # 140 mL, Refills(s) 0, [facility], 159, cm, 09/08/23 11:39:00 EDT, Height/Length Dosing, 83.3, kg, 09/08/23 11:39:00 EDT, Weight Dosing fluconazole, 150 mg = 1 tab(s), Oral, Once, # 1 tab(s), Refills(s) 0, [facility], 159, cm, 09/08/23 11:39:00 EDT, Height/Length [...] day(s), # 140 mL, Refills(s) 0, [facility], 159, cm, 09/08/23 11:39:00 EDT, Height/Length Dosing, 83.3, kg, 09/08/23 11:39:00 EDT, Weight Dosing fluconazole, 150 mg = 1 tab(s), Oral, Once, # 1 tab(s), Refills(s) 0, [facility], 159, cm, 09/08/23 11:39:00 EDT, Height/Length Dosing, 83.3, kg, 09/08/23 11:39:00 EDT, Weight Dosing triamcinolone, 40 mg = 1 mL, Injection, IntraMuscular, Once, Stop date 09/08/23 12:36:00 EDT, Routine, Start date 09/08/23 12:36:00 EDT, 09/08/23 12:36:00 EDT Orders: fluconazole, 150 mg = 1 tab(s), Oral, Once, # 1 tab(s), Refills(s) 0, Pharmacy: [facility]/pharmacy #[id number], 159, cm, 05/20/23 10:45:00 EST, Height/Length [...] Oral Li (more content not included)... Normal [facility] Comment on above: Result Comment: Elec tronically Signed By: aNbila Farley\.br\Date and Time Signed: 09/08/23 12:39 EDT [...] 8:40 AM EDT With: Nabila Farley Where: [facility] Family Medicine [place] Normal [facility] Family Medicine Office/Clini c Noteon 08-07-2023 [...] influenza virus vaccine, inactivated 03/01/2016 Recorded Normal [facility] Comment on above: Result Comment: Elec tronically Signed By: Ana Laura العراقي, Nabila Wilks\.br\Date and Time Signed: 08/07/23 10:36 EST Retail - Clinical Noteon Retail - Clinical Note [id number] #1.00TIFF Normal [facility] Family Medicine Office/Clini c Noteon 05-20-2023 Family Medicine Office/Clinic Note HPI Staff [place] is a 42 year old female presenting for 1 month follow up Weight management: Started Ozempic on 11/29/22 , SARAH 04/22/23 dose increased to [facility] Sleeping well:Yes, 6-8 hours Chest pain:No Tremors:No [...] send 3 months worth of refills to [facility]. all questions answered . RTC as needed [...] influenza virus vaccine, inactivated 03/01/2016 Recorded Normal [facility] Comment on above: Result Comment: Elec tronically Signed By: Ana Laura BATCH TANK CONTROLLER, Nabila L\.br\Date and Time Signed: 05/20/23 10:59 EST Physician Orderon 05-20-2023 Physician Order [id number] #1.00TIFF [facility] Retail - Clinical Noteon Retail - Clinical Note [id number] #1.00TIFF [facility] Ambulatory Visit Summaryon 1 06-22-2022 Ambulatory [...] 11:00 AM EST With: Nabila Farley Where: [facility] Consent for Flu Vaccineon Consent for Flu Vaccine [id number]# 1.00TIFF [facility] Family Medicine Office/Clini c Noteon 04-22-2023 [...] increase dose to 1.8mg. [facility] all questions answered. encouraged healthy food choices. RTC 4 weeks 2. BMI 35.0-35.9,adult (Z68.35: Body mass index [BMI] 35.0-35.9, adult) bmi education complete Ordered: fluconazole, 150 mg = 1 tab(s), Oral, Once, # 1 tab(s), Refills(s) 0, Pharmacy: [facility]/pharmacy #[id number], 159, cm, 03/25/23 8:53:00 EDT, Height/Length [...] flu vaccine given Ordered: FIRST VACCINE w/o Marine Fisheries Technician Admin Charge 02668 Follow-up No qualifying data available Problem List/Past [...] influenza virus vaccine, inactivated 03/01/2016 Recorded Normal [facility] Comment on above: Result Comment: Elec tronically Signed By: Nabila Farley\.br\Date and Time Signed: 04/22/23 10:42 EST Retail - Clinical Noteon Retail - Clinical Note [id number]# 1.00TIFF Normal [facility] Ambulatory Visit Summaryon 1 Ambulatory Visit [...] 9:00 AM EST With: Nabila Farley Where: [facility] Normal [facility]enton 03-25-2023 Consent [id number] #1.00TIFF Normal [facility] Medicine Office/Clini c Noteon 03-25-2023 Family Medicine [...] well. denies complaints. will send order to [facility] pharmacy. RTC 4 weeks 2. Vaginal yeast infection (B37.31: Acute candidiasis of vulva and vagina) diflucan sent to pharmacy 3. BMI 35.0-35.9,adult (Z68.35: Body mass index [BMI] 35.0-35.9, adult) BMI education complete Ordered: fluconazole, 150 mg = 1 tab(s), Oral, Once, # 1 tab(s), Refills(s) 0, [facility] 159, cm, 03/25/23 8:53:00 EDT, Height/Length [...] Once, # 1 tab(s), Refills(s) 0, [facility], 159, cm, 03/25/23 8:53:00 EDT, Height/Length [...] Directed, # 6 tab(s), Refills(s) 0, Pharmacy: [facility]/pharmacy #6177, 159, cm, 02/25/23 8:58:00 EDT, Height/Length [...] influenza virus vaccine, inactivated 03/01/2016 Recorded Normal [facility] Comment on above: Result Comment: Elec tronically Signed By: Nabila Farley\.br\Date and Time Signed: 03/25/23 11:01 EDT Retail - Clinical Noteon Retail - Clinical Note [id number] #1.00TIFF Normal [facility] Ambulatory Visit Summaryon 0 02-25-2023 Ambulatory [...] 9:00 AM EDT With: Nabila Farley Where: [facility] Family Medicine Office/Clini c Noteon 02-25-2023 [...] Mother. Diabetes mellitus type 2: Father. Normal [facility] Comment on above: Result Comment: Elec tronically Signed By: Nabila Farley\.br\Date and Time Signed: 02/25/23 09:47 EDT Retail - Clinical Noteon Retail - Clinical Note [id number] #1.00CD:127 Normal [facility] Initial Visit (Otolaryngolog y)on 09-16-2022 Initial [...] Recorded: 16Sep2022 10:39AM Height5 ft 3 in Cciatq135 lb BMI Nyvvhlslco22.49 kg/m2 BSA Calculated1.96 Tobacco Useb) No Physical [...] Sep 16 2022 1:14PM EST (Author) Normal [facility] Tobacco Screening.on 023 Tobacco use status CP b) No MP-Otolaryngo [facility] Work Phone: QUANTIFERON TB GOLD PLUSon 0 09-11-2022 QuantiFERON Criteria Comment Normal [facility] Comment on above: Result Comment: Kirk tiFERON-TB [...] test. Performed By: #### Q NTTB #### [facility] [address] [place] [address] Dr. Kobe Fabian QuantiFERON Incubation Incubation performed. Normal [facility] Comment on above: Performed By: #### Q NTTB #### [facility] [address] [place] [address] Dr. Kobe Fabian QuantiFERON Mitogen Value 4.81 IU/mL Normal [facility] Comment on above: Performed By: #### Q NTTB #### [facility] [address] [place] [address] Dr. Kobe Fabian QuantiFERON Nil Value 0.01 IU/mL Normal [facility] Comment on above: Performed By: #### Q NTTB #### [facility] [address] [place] [address] Dr. Kobe Fabian QuantiFERON TB1 Ag Value 0.01 IU/mL Normal [facility] Comment on above: Performed By: #### Q NTTB #### [facility] [address] [place] [address] Dr. Kobe Fabian QuantiFERON TB2 Ag Value 0.01 IU/mL Normal [facility] Comment on above: Performed By: #### Q NTTB #### [facility] [address] [place] [address] Dr. Kobe Fabian QuantiFERON-TB Gold Plus Negative Normal Negative [facility] Comment on above: Result Comment: No r esponse to M tuberculosis antigens detected. Infection with M tuberculosis is unlikely, but high risk individuals should be considered for additional testing (ATS/IDSA/CDC Clinical Practice Guidelines, 2017). The reference range is an Antigen minus Nil result of <0.35 IU/mL. Chemiluminescence immunoassay methodology Performed By: #### Q NTTB #### [facility] [address] [place] [address] Dr. Kobe Fabian CBC AUTO DIFFon 09-09-2022 BASO # 0.0 103/ul Normal 0.0-0.1 [facility] Comment on above: Performed By: #### C BC #### [facility] [address] [place] [address] Dr. Kobe Fabian Basophils/100 WBC (Bld) 0.5 % Normal 0.2-2.0 [facility] Comment on above: Performed By: #### C BC #### [facility] [address] [place] [address] Dr. Kobe Fabian EO # 0.3 103/ul Normal 0.0-0.7 [facility] Comment on above: Performed By: #### C BC #### [facility] [address] [place] [address] Dr. Kobe Fabian Eosinophils/100 WBC (Bld) 4.0 % Normal 0.9-7.0 [facility] Comment on above: Performed By: #### C BC #### [facility] [address] [place] [address] Dr. Kobe Fabian Erythrocyte distribution width (RBC) [Ratio] 12.3 % Normal 11.0-15.0 [facility] Comment on above: Performed By: #### C BC #### [facility] [address] [place] [address] Dr. Kobe Fabian Hematocrit (Bld) [Volume fraction] 40.9 % Normal 36.0-48.0 [facility] Comment on above: Performed By: #### C BC #### [facility] [address] [place] [address] Dr. Kobe Fabian Hemoglobin (Bld) [Mass/Vol] 14.1 g/dL Normal 12.0-16.0 [facility] Comment on above: Performed By: #### C BC #### [facility] [address] [place] [address] Dr. Kobe Fabian IG # 0.03 10e3/ul Normal 0.00-0.03 [facility] Comment on above: Performed By: #### C BC #### [facility] [address] [place] [address] Dr. Kobe Fabian IG % 0.5 % Normal 0.0-0.5 [facility] Comment on above: Performed By: #### C BC #### [facility] [address] [place] [address] Dr. Kobe Fabian LYMPH # 1.8 103/ul Normal 1.2-3.8 [facility] Comment on above: Performed By: #### C BC #### [facility] [address] [place] [address] Dr. Kobe Fabian Lymphocytes/100 WBC (Bld) 27.9 % Normal 20.5-60.0 [facility] Comment on above: Performed By: #### C BC #### [facility] [address] [place] [address] Dr. Kobe Fabian MANUAL DIFF REQ NO Normal [facility] Comment on above: Performed By: #### C BC #### [facility] [address] [address] [address] Kobe Fabian MCH (RBC) [Entitic mass] 28.8 pg Normal 26.7-34.0 [facility] Comment on above: Performed By: #### C BC #### [facility] [address] [address] [address] Kobe Fabian MCHC (RBC) [Mass/Vol] 34.5 g/dL Normal 29.9-35.2 [facility] Comment on above: Performed By: #### C BC #### [facility] [address] [address] [address] Kobe Fabian MCV (RBC) [Entitic vol] 83.5 fL Normal 81.0-99.0 [facility] Comment on above: Performed By: #### C BC #### [facility] [address] [place] [address] Dr. Kobe Fabian MONO # 0.3 103/ul Normal 0.3-0.8 [facility] Comment on above: Performed By: #### C BC #### [facility] [address] [place] [address] Dr. Kobe Fabian Monocytes/100 WBC (Bld) 5.2 % Normal 1.7-12.0 [facility] Comment on above: Performed By: #### C BC #### [facility] [address] [place] [address] Dr. Kobe Fabian NEUT # 4.0 103/ul Normal 1.4-6.5 [facility] Comment on above: Performed By: #### C BC #### [facility] [address] [place] [address] Dr. Kobe Fabian Neutrophils/100 WBC (Bld) 61.9 % Normal 43.0-75.0 [facility] Comment on above: Performed By: #### C BC #### [facility] [address] [place] [address] Dr. Kobe Fabian Platelet mean volume (Bld) [Entitic vol] 9.9 fL Normal 9.5-13.5 [facility] Comment on above: Performed By: #### C BC #### [facility] [address] [address] [address] Kobe Fabian PLT 176 103/ul Normal 150-450 [facility] Comment on above: Performed By: #### C BC #### [facility] [address] [address] [address] Kobe Fabian RBC 4.90 106/ul Normal 4.20-5.40 [facility] Comment on above: Performed By: #### C BC #### [facility] [address] [place] [address] Dr. Kobe Fabian WBC 6.5 103/ul Normal 4.0-11.0 [facility] Comment on above: Performed By: #### C BC #### [facility] [address] [place] [address] Dr. Kobe Fabian LIPID PROFILEon 09-09-2022 CHOL-HDL RATIO NORM SEE BELOW Normal [facility] Comment on above: Result Comment: 3.3 - 4.4 LOW RISK 4.4 - 7.1 AVERAGE RISK 7.1 - 11.0 MODERATE RISK >11.0 HIGH RISK Performed By: #### V AGINT #### [facility] [address] [place] [address] Dr. Kobe Fabian Cholesterol [Mass/Vol] 180 mg/dL Normal <=200 [facility] Comment on above: Performed By: #### V AGINT #### [facility] [address] [place] [address] Dr. Kobe Fabian Cholesterol in HDL [Mass/Vol] 47 mg/dL Normal 40-60 [facility] Comment on above: Performed By: #### V AGINT #### [facility] [address] [place] [address] Dr. Kobe Fabian Cholesterol in LDL [Mass/Vol] 98.6 mg/dL Normal [facility] Comment on above: Performed By: #### V AGINT #### [facility] [address] [place] [address] Dr. Kobe Fabian Cholesterol.total/C holesterol in HDL [Mass ratio] 3.8 {ratio} Normal [facility] Comment on above: Performed By: #### V AGINT #### [facility] [address] [place] [address] Dr. Kobe Fabian HDL NORMAL > or = 60 mg/dl - LOW CARDIOVASCULAR RISK <40 mg/dl - HIGH CARDIOVASCULAR RISK Normal [facility] Comment on above: Performed By: #### V AGINT #### [facility] [address] [place] [address] Dr. Kobe Fabian LDL CALC NORMAL SEE BELOW Normal [facility] Comment on above: Result Comment: <100 mg/dl OPTIMAL 100 - 129 mg/dl NEAR OR ABOVE OPTIMAL 130 - 159 mg/dl BORDERLINE HIGH 160 - 189 mg/dl HIGH >190 mg/dl VERY HIGH Performed By: #### V AGINT #### [facility] [address] [place] [address] Dr. Kobe Fabian Triglyceride [Mass/Vol] 172 mg/dL Critically high <=150 [facility] Comment on above: Performed By: #### V AGINT #### [facility] [address] [place] [address] Dr. Kobe Fabian VLDL CALC 34.4 mg/dL Normal [facility] Comment on above: Performed By: #### V AGINT #### [facility] [address] [place] [address] Dr. Kobe Fabian PROF 14(COMP METB)on 023 Albumin [Mass/Vol] 4.0 g/dL Normal 3.4-5.0 [facility] Comment on above: Performed By: #### V AGINT #### [facility] [address] [place], [place] [address] Dr. Kobe Fabian Albumin/Globulin [Mass ratio] 1.1 {ratio} Normal [facility] Comment on above: Performed By: #### V AGINT #### [facility] [address] [place] [address] Dr. Kobe Fabian ALP [Catalytic activity/Vol] 51 U/L Normal 46-116 [facility] Comment on above: Performed By: #### V AGINT #### [facility] [address] [address] [address] Kobe Fabian ALT [Catalytic activity/Vol] 32 U/L Normal 14-59 [facility] Comment on above: Performed By: #### V AGINT #### [facility] [address] [place] [address] Dr. Kobe Fabian Anion gap [Moles/Vol] 8.9 mmol/L Normal [facility] Comment on above: Performed By: #### V AGINT #### [facility] [address] [address] [address] Kobe Fabian AST [Catalytic activity/Vol] 16 U/L Normal 15-37 [facility] Comment on above: Performed By: #### V AGINT #### [facility] [address] [place] [address] Dr. Kobe Fabian Bilirubin [Mass/Vol] 0.6 mg/dL Normal 0.2-1.0 [facility] Comment on above: Performed By: #### V AGINT #### [facility] [address] [place] [address] Dr. Kobe Fabian Calcium [Mass/Vol] 9.4 mg/dL Normal 8.5-10.1 [facility] Comment on above: Performed By: #### V AGINT #### [facility] [address] [place] [address] Dr. Kobe Fabian Chloride [Moles/Vol] 104 mmol/L Normal 98-107 [facility] Comment on above: Performed By: #### V AGINT #### [facility] [address] [place] [address] Dr. Kobe Fabian CO2 [Moles/Vol] 30.0 mmol/L Normal 21.0-32.0 [facility] Comment on above: Performed By: #### V AGINT #### [facility] [address] [place] [address] Dr. Kobe Fabian Creatinine [Mass/Vol] 0.75 mg/dL Normal 0.55-1.02 [facility] Comment on above: Performed By: #### V AGINT #### [facility] [address] [address] [address] Kobe Fabian EGFR-AF GUAMANIAN >60 Normal >=60 [facility] Comment on above: Performed By: #### V AGINT #### [facility] [address] [place] [address] Dr. Kobe Fabian EGFR-NON AF GUAMANIAN >60 Normal >=60 [facility] Comment on above: Performed By: #### V AGINT #### [facility] [address] [address] [address] Kobe Fabian Globulin (S) [Mass/Vol] 3.5 g/dL Normal [facility] Comment on above: Performed By: #### V AGINT #### [facility] [address] [place] [address] Dr. Kobe Fabian Glucose [Mass/Vol] 99 mg/dL Normal 74-106 [facility] Comment on above: Performed By: #### V AGINT #### [facility] [address] [place] [address] Dr. Kobe Fabian Potassium [Moles/Vol] 3.9 mmol/L Normal 3.5-5.1 [facility] Comment on above: Performed By: #### V AGINT #### [facility] [address] [place] [address] Dr. Kobe Fabian Protein [Mass/Vol] 7.5 g/dL Normal 6.4-8.2 [facility] Comment on above: Performed By: #### V AGINT #### [facility] [address] [place] [address] Dr. Kobe Fabian Sodium [Moles/Vol] 139 mmol/L Normal 136-145 [facility] Comment on above: Performed By: #### V AGINT #### [facility] [address] [place] [address] Dr. Kobe Fabian Urea nitrogen [Mass/Vol] 20.0 mg/dL Critically high 7.0-18.0 [facility] Comment on above: Performed By: #### V AGINT #### [facility] [address] [place] [address] Dr. Kobe Fabian Urea nitrogen/Creatinine [Mass ratio] 26.7 mg/mg Normal [facility] Comment on above: Performed By: #### V AGINT #### [facility] [address] [place] [address] Dr. Kobe Fabian PAP ACOG PANEL 2: 30 to 65on 08-01-2022 . . Normal [facility] Comment on above: Result Comment: Perf ormed at: WB Performed By: #### [id number] #### [facility] [address] [address] [address] Kobe Fabian Age Gdln ACOG Testing -[address] [facility] Comment on above: Performed By: #### [id number] #### [facility] [address] [place] [address] Dr. Kobe Fabian DIAGNOSIS: Comment [facility] Comment on above: Result Comment: NEGA TIVE FOR INTRAEPITHELIAL LESION OR MALIGNANCY. Performed at: WB Performed By: #### [id number] #### [facility] [address] [place] [address] Dr. Kobe Fabian HPV Aptima Negative Normal Negative [facility] Comment on above: Result Comment: This nucleic acid amplification test detects fourteen high-risk HPV types (16,18,31,33,35,39,45,51,52,56,58,59,66,68) without differentiation. Performed at: =G Performed By: #### [id number] #### [facility] [address] [place] [address] Dr. Kobe Fabian HPV Genotype Reflex Comment Normal [facility] Comment on above: Result Comment: Crit eria not met, HPV Genotype not performed. Performed at: WB Performed By: #### [id number] #### [facility] [address] [place] [address] Dr. Kobe Fabian Methodology: Comment Normal [facility] Comment on above: Result Comment: This liquid based ThinPrep(R) pap test was screened with the use of an image guided system. Performed at: WB Performed By: #### [id number] #### [facility] [address] [place] [address] Dr. Kobe Fabian Note: Comment Normal [facility] Comment on above: Result Comment: The Pap smear is a screening test designed to aid in the detection of premalignant and malignant conditions of the uterine cervix. It is not a diagnostic procedure and should not be used as the sole means of detecting cervical cancer. Both false-positive and false-negative reports do occur. . Performed at: WB Performed By: #### [id number] #### [facility] [address] [place] [address] Dr. Kobe Fabian Performed by: Comment Normal [facility] Comment on above: Result Comment: Darrick Zayas Reconditioning Associate (ASCP) Performed at: WB Performed By: #### [id number] #### [facility] [address] [place] [address] Dr. Kobe Fabian Specimen adequacy: Comment Normal [facility] Comment on above: Result Comment: Sati sfactory for evaluation. No endocervical component is identified. Performed at: WB Performed By: #### [id number] #### [facility] [address] [place] [address] Dr. Kobe Fabian CHLAMYDIA/GONOCOCCUS JOSE ( AB/URINE/PAPon 07-29-2022 Chlamydia trachomatis, JOSE Negative Normal Negative [facility] Comment on above: Performed By: #### V AGINT #### [facility] [address] [place] [address] Dr. Kobe Fabian Neisseria gonorrhoeae, JOSE Negative Normal Negative [facility] Comment on above: Performed By: #### V AGINT #### [facility] [address] [place] [address] Dr. Kobe Fabian ESTRADIOLon 07-27-2022 Estradiol 21.3 pg/mL [facility] Comment on above: Result Comment: Adul t Female: Follicular phase 12.5 - 166.0 Ovulation phase 85.8 - 498.0 Luteal phase 43.8 - 211.0 Postmenopausal <6.0 - 54.7 1st trimester 215.0 - >4300.0 Jacob ECLIA methodology Performed By: #### Enoch ABRAHAM #### [facility] [address] [place] [address] Dr. Kobe Fabian FSHon 07-27-2022 FSH 74.7 mIU/mL Normal [facility] Comment on above: Result Comment: Adul t Female: Follicular phase 3.5 - 12.5 Ovulation phase 4.7 - 21.5 Luteal phase 1.7 - 7.7 Postmenopausal 25.8 - 134.8 Performed By: #### C MP #### [facility] [address] [place] [address] Dr. Kobe Fabian LUTEINIZING HORMONE (LH)on 0 07-27-2022 LH 39.7 mIU/mL Normal [facility] Comment on above: Result Comment: Adul t Female: Follicular phase 2.4 - 12.6 Ovulation phase 14.0 - 95.6 Luteal phase 1.0 - 11.4 Postmenopausal 7.7 - 58.5 Performed By: #### C MP #### [facility] [address] [place] [address] Dr. Kobe Fabian PROGESTERONEon 07-27-2022 Progesterone 0.1 ng/mL Normal [facility] Comment on above: Result Comment: Foll icular phase 0.1 - 0.9 Luteal phase 1.8 - 23.9 Ovulation phase 0.1 - 12.0 First trimester 11.0 - 44.3 Second trimester 25.4 - 83.3 Third trimester 58.7 - 214.0 Postmenopausal 0.0 - 0.1 Performed By: #### P SHAYY #### [facility] [address] [place] [address] Dr. Kobe Fabian VAGINITIS/VAGINOSIS DNA PROB Jassi 07-27-2022 Saida species Negative Normal Negative [facility] Comment on above: Performed By: #### V AGINT #### [facility] [address] [place] [address] Dr. Kobe Fabian Gardnerella vaginalis Negative Normal Negative [facility] Comment on above: Performed By: #### V AGINT #### [facility] [address] [place] [address] Dr. Kobe Fabian Trichomonas vaginalis Negative Normal Negative [facility] Comment on above: Performed By: #### V AGINT #### [facility] [address] [place] [address] Dr. Kobe Fabian CBC AUTO DIFFon 07-26-2022 BASO # 0.0 103/ul Normal 0.0-0.1 [facility] Comment on above: Performed By: #### V AGINT #### [facility] [address] [place] [address] Dr. Kobe Fabian Basophils/100 WBC (Bld) 0.4 % Normal 0.2-2.0 [facility] Comment on above: Performed By: #### V AGINT #### [facility] [address] [place] [address] Dr. Kobe Fabian EO # 0.3 103/ul Normal 0.0-0.7 [facility] Comment on above: Performed By: #### V AGINT #### [facility] [address] [place] [address] Dr. Kobe Fabian Eosinophils/100 WBC (Bld) 3.9 % Normal 0.9-7.0 [facility] Comment on above: Performed By: #### V AGINT #### [facility] [address] [place] [address] Dr. Kobe Fabian Erythrocyte distribution width (RBC) [Ratio] 11.9 % Normal 11.0-15.0 [facility] Comment on above: Performed By: #### V AGINT #### [facility] [address] [place] [address] Dr. Koeb Fabian Hematocrit (Bld) [Volume fraction] 41.0 % Normal 36.0-48.0 [facility] Comment on above: Performed By: #### V AGINT #### [facility] [address] [place] [address] Dr. Kobe Fabian Hemoglobin (Bld) [Mass/Vol] 14.4 g/dL Normal 12.0-16.0 [facility] Comment on above: Performed By: #### V AGINT #### [facility] [address] [place] [address] Dr. Kobe Fabian IG # 0.03 10e3/ul Normal 0.00-0.03 [facility] Comment on above: Performed By: #### V AGINT #### [facility] [address] [place] [address] Dr. Kobe Fabian IG % 0.4 % Normal 0.0-0.5 [facility] Comment on above: Performed By: #### V AGINT #### [facility] [address] [place] [address] Dr. Kobe Fabian LYMPH # 1.7 103/ul Normal 1.2-3.8 [facility] Comment on above: Performed By: #### V AGINT #### [facility] [address] [place] [address] Dr. Kobe Fabian Lymphocytes/100 WBC (Bld) 24.7 % Normal 20.5-60.0 [facility] Comment on above: Performed By: #### V AGINT #### [facility] [address] [place] [address] Dr. Kobe Fabian MANUAL DIFF REQ NO Normal [facility] Comment on above: Performed By: #### V AGINT #### [facility] [address] [place] [address] Dr. Kobe Fabian MCH (RBC) [Entitic mass] 29.1 pg Normal 26.7-34.0 [facility] Comment on above: Performed By: #### V AGINT #### [facility] [address] [place] [address] Dr. Kobe Fabian MCHC (RBC) [Mass/Vol] 35.1 g/dL Normal 29.9-35.2 [facility] Comment on above: Performed By: #### V AGINT #### [facility] [address] [place] [address] Dr. Kobe Fabian MCV (RBC) [Entitic vol] 83.0 fL Normal 81.0-99.0 [facility] Comment on above: Performed By: #### V AGINT #### [facility] [address] [place] [address] Dr. Kobe Fabian MONO # 0.3 103/ul Normal 0.3-0.8 [facility] Comment on above: Performed By: #### V AGINT #### [facility] [address] [address] [address] Kobe Fabian Monocytes/100 WBC (Bld) 4.5 % Normal 1.7-12.0 [facility] Comment on above: Performed By: #### V AGINT #### [facility] [address] [address] [address] Kobe Fabian NEUT # 4.5 103/ul Normal 1.4-6.5 [facility] Comment on above: Performed By: #### V AGINT #### [facility] [address] [place] [address] Dr. Kobe Fabian Neutrophils/100 WBC (Bld) 66.1 % Normal 43.0-75.0 [facility] Comment on above: Performed By: #### V AGINT #### [facility] [address] [place] [address] Dr. Kobe Fabian Platelet mean volume (Bld) [Entitic vol] 10.1 fL Normal 9.5-13.5 [facility] Comment on above: Performed By: #### V AGINT #### [facility] [address] [place] [address] Dr. Kobe Fabian PLT 184 103/ul Normal 150-450 [facility] Comment on above: Performed By: #### V AGINT #### [facility] [address] [place] [address] Dr. Kobe Fabian RBC 4.94 106/ul Normal 4.20-5.40 [facility] Comment on above: Performed By: #### V AGINT #### [facility] [address] [place] [address] Dr. Kobe Fabian WBC 6.9 103/ul Normal 4.0-11.0 [facility] Comment on above: Performed By: #### V AGINT #### [facility] [address] [place] [address] Dr. Kobe Fabian GLYCOHEMOGLOBIN A1Con 2022 ADA RECOMMENDATION SEE BELOW Normal [facility] Comment on above: Result Comment: ADA RECOMMENDED LIMIT 4.0 - 6.0 ADA THERAPEUTIC TARGET < 7.0 ACTION SUGGESTED > 7.0 Performed By: #### V AGINT #### [facility] [address] [address] [address] Kobe Fabian Glucose [Mass/Vol] 97 mg/dL Normal [facility] Comment on above: Performed By: #### V AGINT #### [facility] [address] [address] [address] Kobe Fabian HbA1c (Bld) [Mass fraction] 5.0 % Normal 4.5-6.2 [facility] Comment on above: Performed By: #### V AGINT #### [facility] [address] [place] [address] Dr. Kobe Fabian LIPID PROFILEon 07-26-2022 CHOL-HDL RATIO NORM SEE BELOW Normal [facility] Comment on above: Result Comment: 3.3 - 4.4 LOW RISK 4.4 - 7.1 AVERAGE RISK 7.1 - 11.0 MODERATE RISK >11.0 HIGH RISK Performed By: #### V AGINT #### [facility] [address] [place] [address] Dr. Kobe Fabian Cholesterol [Mass/Vol] 196 mg/dL Normal <=200 [facility] Comment on above: Performed By: #### V AGINT #### [facility] [address] [place] [address] Dr. Kobe Fabian Cholesterol in HDL [Mass/Vol] 51 mg/dL Normal 40-60 [facility] Comment on above: Performed By: #### V AGINT #### [facility] [address] [address] [address] Kobe Fabian Cholesterol in LDL [Mass/Vol] 110.6 mg/dL Normal [facility] Comment on above: Performed By: #### V AGINT #### [facility] [address] [place] [address] Dr. Kobe Fabian Cholesterol.total/C holesterol in HDL [Mass ratio] 3.8 {ratio} Normal [facility] Comment on above: Performed By: #### V AGINT #### [facility] [address] [place] [address] Dr. Kobe Fabian HDL NORMAL > or = 60 mg/dl - LOW CARDIOVASCULAR RISK <40 mg/dl - HIGH CARDIOVASCULAR RISK Normal [facility] Comment on above: Performed By: #### V AGINT #### [facility] [address] [address] [address] Kobe Fabian LDL CALC NORMAL SEE BELOW Normal [facility] Comment on above: Result Comment: <100 mg/dl OPTIMAL 100 - 129 mg/dl NEAR OR ABOVE OPTIMAL 130 - 159 mg/dl BORDERLINE HIGH 160 - 189 mg/dl HIGH >190 mg/dl VERY HIGH Performed By: #### V AGINT #### [facility] [address] [address] [address] Kobe Fabian Triglyceride [Mass/Vol] 172 mg/dL Critically high <=150 [facility] Comment on above: Performed By: #### V AGINT #### [facility] [address] [address] [address] Kobe Fabian VLDL CALC 34.4 mg/dL Normal [facility] Comment on above: Performed By: #### V AGINT #### [facility] [address] [address] [address] Kobe Fabian PROF 14(COMP METB)on 023 Albumin [Mass/Vol] 4.3 g/dL Normal 3.4-5.0 [facility] Comment on above: Performed By: #### C MP #### [facility] [address] [address] [address] Kobe Fabian Albumin/Globulin [Mass ratio] 1.2 {ratio} Normal [facility] Comment on above: Performed By: #### C MP #### [facility] [address] [address] [address] Kobe Fabian ALP [Catalytic activity/Vol] 54 U/L Normal 46-116 [facility] Comment on above: Performed By: #### C MP #### [facility] [address] [address] [address] Kobe Fabian ALT [Catalytic activity/Vol] 68 U/L Critically high 14-59 [facility] Comment on above: Performed By: #### C MP #### [facility] [address] [address] [address] Kobe Fabian Anion gap [Moles/Vol] 11.5 mmol/L Normal [facility] Comment on above: Performed By: #### C MP #### [facility] [address] [place] [address] Dr. Kobe Fabian AST [Catalytic activity/Vol] 28 U/L Normal 15-37 [facility] Comment on above: Performed By: #### C MP #### [facility] [address] [address] [address] Kobe Fabian Bilirubin [Mass/Vol] 0.6 mg/dL Normal 0.2-1.0 [facility] Comment on above: Performed By: #### C MP #### [facility] [address] [place] [address] Dr. Kobe Fabian Calcium [Mass/Vol] 9.6 mg/dL Normal 8.5-10.1 [facility] Comment on above: Performed By: #### C MP #### [facility] [address] [place] [address] Dr. Kobe Fabian Chloride [Moles/Vol] 106 mmol/L Normal 98-107 [facility] Comment on above: Performed By: #### C MP #### [facility] [address] [place] [address] Dr. Kobe Fabian CO2 [Moles/Vol] 28.3 mmol/L Normal 21.0-32.0 [facility] Comment on above: Performed By: #### C MP #### [facility] [address] [place] [address] Dr. Kobe Fabian Creatinine [Mass/Vol] 0.72 mg/dL Normal 0.55-1.02 [facility] Comment on above: Performed By: #### C MP #### [facility] [address] [place] [address] Dr. Kobe Fabian EGFR-AF GUAMANIAN >60 Normal >=60 [facility] Comment on above: Performed By: #### C MP #### [facility] [address] [place] [address] Dr. Kobe Fabian EGFR-NON AF GUAMANIAN >60 Normal >=60 [facility] Comment on above: Performed By: #### C MP #### [facility] [address] [place] [address] Dr. Kobe Fabian Globulin (S) [Mass/Vol] 3.7 g/dL Normal [facility] Comment on above: Performed By: #### C MP #### [facility] [address] [address] [address] Kobe Fabian Glucose [Mass/Vol] 89 mg/dL Normal 74-106 [facility] Comment on above: Performed By: #### C MP #### [facility] [address] [place] [address] Dr. Kobe Fabian Potassium [Moles/Vol] 3.8 mmol/L Normal 3.5-5.1 [facility] Comment on above: Performed By: #### C MP #### [facility] [address] [place] [address] Dr. Kobe Fabian Protein [Mass/Vol] 8.0 g/dL Normal 6.4-8.2 [facility] Comment on above: Performed By: #### C MP #### [facility] [address] [place] [address] Dr. Kobe Fabian Sodium [Moles/Vol] 142 mmol/L Normal 136-145 [facility] Comment on above: Performed By: #### C MP #### [facility] [address] [place] [address] Dr. Kobe Fabian Urea nitrogen [Mass/Vol] 17.0 mg/dL Normal 7.0-18.0 [facility] Comment on above: Performed By: #### C MP #### [facility] [address] [address] [address] Kobe Fabian Urea nitrogen/Creatinine [Mass ratio] 23.6 mg/mg Normal [facility] Comment on above: Performed By: #### C MP #### [facility] [address] [place] [address] Dr. Kobe Fabian TSHon 07-26-2022 TSH 1.819 uIU/mL Normal 0.358-3.740 [facility] Comment on above: Performed By: #### V AGINT #### [facility] [address] [address] [address] Kobe Faiban MG MAMM SCREEN 3D YUDI CADon 06-19-2022 MG MAMM SCREEN 3D YUDI CAD Patient: AFRICA PARHAM Exam Date: 06/19/2022 : 1980 Gender:F Ordering : DR JIAN ROYAL . Admission #: [id number] Family : Order #: [id number] CLICK HERE TO VIEW EXAM RADIOLOGY REPORT PROCEDURE: MAMMOGRAM SCREENING 3D BILATERAL CAD COMPARISON: None. INDICATIONS: Screening mammography Calculator Name NCI Breast Cancer Risk Assessment Tool 5 Year Breast Cancer Risk 0.70% Lifetime Breast Cancer Risk 11.00% Personal Breast Cancer No Personal Ovarian Cancer No Treatments None Family Cancers None LOCATION: [facility] BREAST COMPOSITION: Heterogeneously dense,which may obscure small [...] Cooper M.D. on 06/21/2022 at 08:56 Normal [facility] GROUP A STREP CULTUREon 05-09 S. pyogenes Ag Ql (Unsp spec) Culture Observations: NEGATIVE FOR GROUP A STREPTOCOCCUS. Normal [facility] Comment on above: Performed By: #### G RASTCX, SSCRN #### [facility] [address] [place], [place] [address] Dr. Kobe Fabian STREPT SCREENon 05-26-2022 STREP SCREEN A Negative Normal NEGATIVE [facility] Comment on above: Performed By: #### G RASTCX, SSCRN #### [facility] [address] [place], [place] [address] head/brain wo/w con CT head/brain wo/w con [facility] [place] [address] [place] [address] CT Scan Report Signed Patient: Africa Parham MR#: [id number] : 1980 Acct:[id number] Age/Sex: 41 / F ADM Date: 10/26/21 Loc: [facility] Room: Type: [facility] Attending Dr: Gino Liang DO Ordering Provider: [...] Sage Frank M.D.10/26/2021 2:59 PM Dictation Location: [place] [address] Transcribed By: [facility] 10/26/21 1459 Dictated By: Sage Frank DO 10/26/21 1455 Signed By: 10/26/21 1459 Normal [facility] CBC AUTO DIFFon 10-23-2021 BASO # 0.0 103/ul Normal 0.0-0.1 [facility] Comment on above: Performed By: #### V AGINT #### [facility] [address] [address] [address] Kobe Fabian Basophils/100 WBC (Bld) 0.5 % Normal 0.2-2.0 [facility] Comment on above: Performed By: #### V AGINT #### [facility] [address] [place] [address] Dr. Kobe Fabian EO # 0.3 103/ul Normal 0.0-0.7 [facility] Comment on above: Performed By: #### V AGINT #### [facility] [address] [place] [address] Dr. Kobe Fabian Eosinophils/100 WBC (Bld) 5.3 % Normal 0.9-7.0 [facility] Comment on above: Performed By: #### V AGINT #### [facility] [address] [place] [address] Dr. Kobe Fabian Erythrocyte distribution width (RBC) [Ratio] 12.4 % Normal 11.0-15.0 [facility] Comment on above: Performed By: #### V AGINT #### [facility] [address] [place] [address] Dr. Kobe Fabian Hematocrit (Bld) [Volume fraction] 41.1 % Normal 36.0-48.0 [facility] Comment on above: Performed By: #### V AGINT #### [facility] [address] [place] [address] Dr. Kobe Fabian Hemoglobin (Bld) [Mass/Vol] 13.6 g/dL Normal 12.0-16.0 [facility] Comment on above: Performed By: #### V AGINT #### [facility] [address] [place] [address] Dr. Kobe Fabian IG # 0.02 10e3/ul Normal 0.00-0.03 [facility] Comment on above: Performed By: #### V AGINT #### [facility] [address] [place] [address] Dr. Kobe Fabian IG % 0.3 % Normal 0.0-0.5 [facility] Comment on above: Performed By: #### V AGINT #### [facility] [address] [place] [address] Dr. Kobe Fabian LYMPH # 1.5 103/ul Normal 1.2-3.8 [facility] Comment on above: Performed By: #### V AGINT #### [facility] [address] [place] [address] Dr. Kobe Fabian Lymphocytes/100 WBC (Bld) 24.8 % Normal 20.5-60.0 [facility] Comment on above: Performed By: #### V AGINT #### [facility] [address] [place] [address] Dr. Kobe Fabian MANUAL DIFF REQ NO Normal [facility] Comment on above: Performed By: #### V AGINT #### [facility] [address] [place] [address] Dr. Kobe Fabian MCH (RBC) [Entitic mass] 29.2 pg Normal 26.7-34.0 [facility] Comment on above: Performed By: #### V AGINT #### [facility] [address] [place] [address] Dr. Kobe Fabian MCHC (RBC) [Mass/Vol] 33.1 g/dL Normal 29.9-35.2 [facility] Comment on above: Performed By: #### V AGINT #### [facility] [address] [place] [address] Dr. Kobe Fabian MCV (RBC) [Entitic vol] 88.2 fL Normal 81.0-99.0 [facility] Comment on above: Performed By: #### V AGINT #### [facility] [address] [place] [address] Dr. Kobe Fabian MONO # 0.3 103/ul Normal 0.3-0.8 [facility] Comment on above: Performed By: #### V AGINT #### [facility] [address] [place] [address] Dr. Kobe Fabian Monocytes/100 WBC (Bld) 5.4 % Normal 1.7-12.0 [facility] Comment on above: Performed By: #### V AGINT #### [facility] [address] [place] [address] Dr. Kobe Fabian NEUT # 3.9 103/ul Normal 1.4-6.5 [facility] Comment on above: Performed By: #### V AGINT #### [facility] [address] [place] [address] Dr. Kobe Fabian Neutrophils/100 WBC (Bld) 63.7 % Normal 43.0-75.0 [facility] Comment on above: Performed By: #### V AGINT #### [facility] [address] [place] [address] Dr. Kobe Fabian Platelet mean volume (Bld) [Entitic vol] 10.4 fL Normal 9.5-13.5 [facility] Comment on above: Performed By: #### V AGINT #### [facility] [address] [place] [address] Dr. Kobe Fabian PLT 203 103/ul Normal 150-450 [facility] Comment on above: Performed By: #### V AGINT #### [facility] [address] [place] [address] Dr. Kobe Fabian RBC 4.66 106/ul Normal 4.20-5.40 [facility] Comment on above: Performed By: #### V AGINT #### [facility] [address] [place] [address] Dr. Kobe Fabian WBC 6.1 103/ul Normal 4.0-11.0 [facility] Comment on above: Performed By: #### V AGINT #### [facility] [address] [place] [address] Dr. Kobe Fabian PROF 14(COMP METB)on 022 Albumin [Mass/Vol] 3.7 g/dL Normal 3.4-5.0 [facility] Comment on above: Performed By: #### C MP #### [facility] [address] [place] [address] Dr. Kobe Fabian Albumin/Globulin [Mass ratio] 1.1 {ratio} Normal [facility] Comment on above: Performed By: #### C MP #### [facility] [address] [place] [address] Dr. Kobe Fabian ALP [Catalytic activity/Vol] 60 U/L Normal 46-116 [facility] Comment on above: Performed By: #### C MP #### [facility] [address] [address] [address] Kobe Fabian ALT [Catalytic activity/Vol] 42 U/L Normal 14-59 [facility] Comment on above: Performed By: #### C MP #### [facility] [address] [address] [address] Kobe Fabian Anion gap [Moles/Vol] 12.0 mmol/L Normal [facility] Comment on above: Performed By: #### C MP #### [facility] [address] [address] [address] Kobe Fabian AST [Catalytic activity/Vol] 28 U/L Normal 15-37 [facility] Comment on above: Performed By: #### C MP #### [facility] [address] [place] [address] Dr. Kobe Fabian Bilirubin [Mass/Vol] 0.4 mg/dL Normal 0.2-1.0 [facility] Comment on above: Performed By: #### C MP #### [facility] [address] [place] [address] Dr. Kobe Fabian Calcium [Mass/Vol] 8.6 mg/dL Normal 8.5-10.1 [facility] Comment on above: Performed By: #### C MP #### [facility] [address] [place] [address] Dr. Kobe Fabian Chloride [Moles/Vol] 106 mmol/L Normal 98-107 [facility] Comment on above: Performed By: #### C MP #### [facility] [address] [place] [address] Dr. Kobe Fabian CO2 [Moles/Vol] 28.4 mmol/L Normal 21.0-32.0 [facility] Comment on above: Performed By: #### C MP #### [facility] [address] [place] [address] Dr. Koeb Fabian Creatinine [Mass/Vol] 0.81 mg/dL Normal 0.55-1.02 [facility] Comment on above: Performed By: #### C MP #### [facility] [address] [address] [address] Kobe Fabian EGFR-AF GUAMANIAN >60 Normal >=60 [facility] Comment on above: Performed By: #### C MP #### [facility] [address] [address] [address] Kobe Fabian EGFR-NON AF GUAMANIAN >60 Normal >=60 [facility] Comment on above: Performed By: #### C MP #### [facility] [address] [address] [address] Kobe Fabian Globulin (S) [Mass/Vol] 3.5 g/dL Normal [facility] Comment on above: Performed By: #### C MP #### [facility] [address] [place] [address] Dr. Kobe aFbian Glucose [Mass/Vol] 94 mg/dL Normal 74-106 [facility] Comment on above: Performed By: #### C MP #### [facility] [address] [place] [address] Dr. Kobe Fabian Potassium [Moles/Vol] 4.4 mmol/L Normal 3.5-5.1 [facility] Comment on above: Performed By: #### C MP #### [facility] [address] [place] [address] Dr. Kobe Fabian Protein [Mass/Vol] 7.2 g/dL Normal 6.4-8.2 [facility] Comment on above: Performed By: #### C MP #### [facility] [address] [place] [address] Dr. Kobe Fabian Sodium [Moles/Vol] 142 mmol/L Normal 136-145 [facility] Comment on above: Performed By: #### C MP #### [facility] [address] [place] [address] Dr. Kobe Fabian Urea nitrogen [Mass/Vol] 13.0 mg/dL Normal 7.0-18.0 [facility] Comment on above: Performed By: #### C MP #### [facility] [address] [place] [address] Dr. Kobe Fabian Urea nitrogen/Creatinine [Mass ratio] 16.0 mg/mg Normal [facility] Comment on above: Performed By: #### C MP #### [facility] [address] [address] [address] Kobe Fabian SED RATE [facility] 2021 SED RATE 7 mm/hr Normal <=20 [facility] Comment on above: Performed By: #### V AGINT #### [facility] [address] [address] [address] Kobe Fabian Vital Signs Date Time Vital Sign Value Performing Clinician Facility 09-16-2022 10:39-0400 Body height 160.02 cm Gino R [facility] Work Phone: [facility] Work Phone: 09-16-2022 10:39-0400 Body mass index (BMI) [Ratio] 36.49 kg/m2 [facility]ino [facility] [employer] Work Phone: [facility] Work Phone: 09-16-2022 10:39-0400 Body surface area Derived from formula 1.96 m2 Gino R [employer] Work Phone: [facility] Work Phone: 09-16-2022 10:39-0400 Body weight 93.44 kg Gino R [employer] Work Phone: [facility] Work Phone: 07-25-2022 13:30-0500 Body height 160.02 cm Gino [facility] Other [facility] Other 07-25-2022 13:30-0500 Body mass index (BMI) [Ratio] 36.49 kg/m2 Gino [facility] Other [facility] Other 07-25-2022 13:30-0500 Body weight 93.44 kg Gino [facility] Other [facility] Other 07-25-2022 13:30-0500 Diastolic blood pressure 80 mm[Hg] Gino Kuns Other [facility] Other 07-25-2022 13:30-0500 Respiratory rate 18 /min Gino Kuns Other [facility] Other 07-25-2022 13:30-0500 SaO2% (BldA) [Mass fraction] 99 % Gino Kuns Other [facility] Other 07-25-2022 13:30-0500 Systolic blood pressure 118 mm[Hg] Gino Kuns Other [facility] Other 10-26-2021 13:45-0400 Body height 160.02 cm Gino Kuns Other [facility] Other 10-26-2021 13:45-0400 Body mass index (BMI) [Ratio] 36.49 kg/m2 Gino Kuns Other [facility] Other 10-26-2021 13:45-0400 Body weight 93.44 kg Gino Kuns Other [facility] Other 10-26-2021 13:45-0400 Diastolic blood pressure 60 mm[Hg] Gino Kuns Other [facility] Other 10-26-2021 13:45-0400 Respiratory rate 16 /min Gino Kuns Other [facility] Other 10-26-2021 13:45-0400 SaO2% (BldA) [Mass fraction] 99 % Gino Kuns Other [facility] Other 10-26-2021 13:45-0400 Systolic blood pressure 110 mm[Hg] Gino Kuns Other [facility] Other 10-16-2021 14:30-0400 Body height 160.02 cm Gino Kuns Other [facility] Other 10-16-2021 14:30-0400 Body mass index (BMI) [Ratio] 36.49 kg/m2 Gino Kuns Other [facility] Other 10-16-2021 14:30-0400 Body weight 93.44 kg Gino Kuns Other [facility] Other 10-16-2021 14:30-0400 Diastolic blood pressure 82 mm[Hg] Gino Kuns Other [facility] Other 10-16-2021 14:30-0400 Respiratory rate 18 /min Gino Kuns Other [facility] Other 10-16-2021 14:30-0400 SaO2% (BldA) [Mass fraction] 98 % Gino Kuns Other [facility] Other 10-16-2021 14:30-0400 Systolic blood pressure 126 mm[Hg] Gino Kuns Other [facility] Other 04-16-2021 12:00-0500 Body height 160.02 cm Gino Kuns Other [facility] Other 03-26-2021 11:15-0400 Body height 160.02 cm Gino Kuns Other [facility] Other 03-26-2021 11:15-0400 Body mass index (BMI) [Ratio] 35.25 kg/m2 Gino Zachariahs Other [facility] Other 03-26-2021 11:15-0400 Body weight 90.27 kg Ginolaura Sonis Other [facility] Other 03-26-2021 11:15-0400 Diastolic blood pressure 80 mm[Hg] Gino Zachariahs Other [facility] Other 03-26-2021 11:15-0400 Respiratory rate 18 /min Gino Sonis Other [facility] Other 03-26-2021 11:15-0400 SaO2% (BldA) [Mass fraction] 98 % Ginolaura Liang Other [facility] Other 03-26-2021 11:15-0400 Systolic blood pressure 124 mm[Hg] Gino Zachariahs Other [facility] Other Encounters Encounter Date Encounter Type Care Provider Facility Start: 07-14-2024 ambulatory Nabila L Ana Laura Facility: [facility] [place] Start: 04-15-2024 End: 04-15-2024 ambulatory Nabila L Ana Laura Facility:[facility] [place] Start: 04-05-2024 End: 04-05-2024 ambulatory Nabila L Ana Laura Facility:[facility] [place] don[place] Start: 02-03-2024 End: 02-03-2024 ambulatory Nabila L Ana Laura Facility:[facility] [place] don[place] Start: 11-06-2023 End: 11-06-2023 ambulatory Nabila L Ana Laura Facility:[facility] [place] Start: 11-06-2023 End: 05-30-2024 Lab Drop off Nabila L Ana Laura [facility] Start: 11-06-2023 End: 11-06-2023 ambulatory Nabila L Ana Laura Facility:[facility] [place] don[place] Start: 11-04-2023 End: 11-04-2023 ambulatory Nabila L Ana Laura Facility:[facility] [place] Start: 09-08-2023 End: 09-08-2023 ambulatory Nabila L Ana Laura Facility:[facility] [place] Start: 08-07-2023 End: 08-07-2023 ambulatory Nabila L Ana Laura Facility:[facility] [place] Start: 05-20-2023 End: 05-20-2023 ambulatory Nabila L Ana Laura Facility:[facility] [place] Start: 04-22-2023 End: 04-22-2023 ambulatory Nabila L Ana Laura Facility:[facility] [place] Start: 03-25-2023 End: 03-25-2023 ambulatory Nabila L Ana Laura Facility:[facility] [place] Start: 02-25-2023 End: 02-25-2023 ambulatory Nabila L Ana Laura Facility:[facility] [place] Start: 09-16-2022 Office consultation new/estab patient 30 min Gino Liang Work Phone: [facility] Work Phone: Start: 09-16-[address] Gino Liang Facility:[id number] Start: 09-09-2022 End: 09-10-2022 ambulatory NELL PELAEZ Facility:[facility] Start: 07-29-2022 Encounter for gynecological examination (general) (routine) without abnormal findings DR JINA ROYAL . [facility] Start: 07-26-2022 End: 07-27-[address] GINO LIANG Facility:[facility] Start: 07-25-2022 End: 07-25-[address] JIAN ROYAL . [employer] Other Start: 07-25-2022 Office outpatient vi sit 25 minutes Gino Liang [facility] [place] Start: 06-19-2022 End: 06-20-[address] JIAN ROYAL . Facility:[facility] Start: 05-26-2022 End: 05-27-[address] MICAH MALDONADO Facility:[facility] Start: 03-18-2022 End: 03-18-2022 ambulatory Gino Liang Other [facility] Other Start: 03-18-2022 Telephone encounter Gino Liang [facility] Start: 03-08-2022 End: 03-08-[address] GINO LIANG Facility:[facility] Start: 11-07-2021 End: 11-07-2021 ambulatory Gino Liang Other [facility] Other Start: 11-07-2021 Telephone encounter Gino Liang [facility] Start: 10-26-2021 End: 10-26-2021 ambulatory Gino Liang Other [facility] Other Start: 10-26-2021 Office outpatient vi sit 15 minutes Gino Liang [facility] Start: 10-23-2021 End: 10-24-[address] GINO LIANG Facility:[facility] Start: 10-16-2021 End: 10-16-2021 ambulatory Gino Liang Other [facility] Other Start: 10-16-2021 Office outpatient vi sit 25 minutes Gino Liang [facility] Start: 04-16-2021 End: 04-16-2021 ambulatory Gino Liang Other [facility] Other Start: 04-16-2021 Office outpatient vi sit 15 minutes Gino Liang [facility] Start: 03-28-2021 Encounter for genera l adult medical examination without abnormal findings Gino Liang [facility] Start: 03-28-2021 Telephone encounter Gino Liang [facility] Start: 03-26-2021 Encounter for genera l adult medical examination without abnormal findings Gino Liang [facility] Start: 03-26-2021 Periodic preventive med est patient 18-39 yrs Gino Liang [facility] Procedures Date Procedure Procedure Detail Performing Clinician Start: 06-09-2018 Hysterectomy Nabila Schwa b Start: 10-08-2015 Surgical procedure Nabila Ana Laura Comment on above: D and C x2 Start: 06-09-2011 Laser assisted in si tu keratomileusis Nabila Ana Laura Start: 06-09-2008 Cholecystectomy Nabila Sc hwab H/O: hysterectomy Gino Kuns Other Immunizations Immunization Date Immunization Notes Care Provider [facility] 04-22-2023 influenza, injectable, quadrivalent, preservative free Nabila Ana Laura [facility] 04-06-2021 influenza virus vaccine, unspecified formulation Nabila Ana Laura [facility] 02-16-2020 influenza virus vaccine, unspecified formulation Nabila Ana Laura [facility] 03-23-2019 influenza virus vaccine, unspecified formulation Nabila Ana Laura [facility] 03-23-2019 influenza, injectable, quadrivalent, preservative free Gino Kuns Other [facility] Other 03-24-2018 influenza virus vaccine, unspecified formulation Nabila Ana Laura [facility] 02-28-2017 tetanus toxoid, reduced diphtheria toxoid, and acellular pertussis vaccine, adsorbed Gino Kuns Other [facility] 02-28-2017 influenza virus vaccine, unspecified formulation Nabila Ana Laura [facility] 03-01-2016 influenza, injectable, quadrivalent, contains preservative Gino Liang Other [facility] Other 03-01-2016 influenza virus vaccine, unspecified formulation Nabila Ana Laura [facility] NEGATED: Highlighted row has not occurred!03-25-2023 influenza virus vaccine, unspecified formulation Nabila Ana Laura [facility] Payers Date Payer Category Payer Unknown [id number] 2.16.84 [id number] 1981 Unknown [id number] 2.16.84 [id number] 1981 Unknown [id number] 2.16.84 0.1.602549.3.579.2.593 1981 Unknown [id number] 2.16.84 0.1.961825.3.579.2.593 1981 Unknown [id number] 2.16.84 0.1.690815.3.579.2.593 1981 Unknown [id number] 2.16.84 0.1.444288.3.579.2.593 1981 Unknown [id number] 2.16.84 0.1.459236.3.579.2.593 1981 Unknown [id number] 2.16.84 0.1.048579.3.579.2.593 1981 Unknown [id number] 2.16. 840.1.517149.3.579.2.356 1981 Unknown [id number] 2.16.8 40.1.808528.3.579.2.727 1981 Unknown [id number] 2.16.8 40.1.113287.3.579.2.727 1981 Unknown [id number] 2.16.8 40.1.387725.3.579.2.727 1981 Unknown [id number] 2.16.8 40.1.547942.3.579.2.727 1981 Unknown [id number] 2.16.8 40.1.595910.3.579.2.727 1981 Unknown [id number] 2.16.8 40.1.915089.3.579.2.727 1981 Unknown [id number] 2.16.8 40.1.635910.3.579.2.727 1981 Unknown [id number] 2.16.8 40.1.952275.3.579.2.727 1981 Unknown [id number] 2.16.8 40.1.980866.3.579.2.727 1981 Unknown [id number] 2.16.8 40.1.028422.3.579.2.727 1981 Unknown [id number] 2.16.8 40.1.479914.3.579.2.727 1981 Unknown [id number] 2.16.8 40.1.000829.3.579.2.727 1981 Unknown [id number] 2.16.8 40.1.942466.3.579.2.727 1958 [facility] [id number] 2.16.840.1.740702.19 Unknown ANTHEM Social History Date Type Detail Facility Sex Assigned At [facility] Never smoker Never smoker 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 2. Lif (more content not included)... [facility] 07-25-2022 Evaluation note Encounter Date Diagnosis [...] ENT for further evaluation. Encouraged her to hand picker OTC prilosec or nexium to try in the meantime. [facility] Other 05-20-2022 Evaluation note* Encounter Date Diagnosis [...] - M25.522) We will continue to monitor. [facility] Other 05-10-2022 Evaluation note* Encounter Date Diagnosis Assessment Notes Treatment Notes Treatment Clinical Notes October, Fall (ICD-10 - W19.XXXA) recent fall October, Left elbow pain (ICD-10 - M25.522) Left elbow pain since fall. Will get imaging and follow up October, Frontal headache (ICD-10 - R51.9) Patient reports she gets sharp, jolty pains in the right zoroastrian area since her recent fall. Patient states [...] been having sharp pain in the right zoroastrian area. This could be a concussion and [...] head has been ordered. Will follow up [facility] Other 11-08-2021 Evaluation note* Encounter Date Diagnosis Assessment Notes Treatment Notes Treatment Clinical Notes Apr, Hypertriglyceridemia (ICD-10 - E78.1) Reviewed blood work with patient. Cholesterol triglycerides continue to be elevated but has improved from last check. We will continue to monitor. [facility] Other 10-20-2021 Evaluation note* Encounter Date Diagnosis Assessment Notes Treatment Notes Treatment Clinical Notes Mar, Wellness examination (ICD-10 - Z00.00) [facility] Other 10-18-2021 Evaluation note* Encounter Date Diagnosis [...] any positively answered questions as noted above. [facility] Other 04-10-2013 History general Narrative - Reported* Type Description Date Medical History 09/16/12 Left foot x[facility]ray [facility] History 09/08/14 Chest X-ray Surgical History D & C 2006 Surgical History cholecystectomy Surgical History D&C 2015 Surgical History Hysterectomy (still has ovaries ) 05/2019 Hospitalization History Vaginal x1 (male)/ Gestational Diabetes 03/22/14 Hospitalization History Vaginal x1 (female ) 06/03/06 Hospitalization History Vaginal X1 (male) gestational diabetes 03/2017 [facility] Other Evaluation + Plan note Future Appointments Appointment Date:02/03/2024 10:00:00 AM Scheduled Provider:Nabila Farley Location:[facility] Appointment Type: Open Diagnostic Tests Pending * PAP [id number] w/ HPV and Genotype rflx [facility]06/23 [facility] InformationN[facility] [employer] Other History of Present illness Narrative* Patient [...] date and entered into the EMR system. [facility]il[facility] Work Phone: Hospital course Narrative No data available for this section [facility] No data available for this section [facility] No data available for this section [facility] Summary Purpose Family History No Family History [...] Dysphagia, unspecifi ed type (R13.10) Referral Organization [facility] Quan Pearson Referring Provider First Name Gino Referring Provider Last Name Rock Referring Provider Specialty Family Prac saqib Referred Organization [facility] Referred Provider OJ VELEZ Referred Address [address] [place] [address] ,[place], [place],[address] Referred Provider Specialty Otolaryngolo gy Referral Priority Routine General Notes 023 10:57:19 AM >Received today and fax referral. The Central Team at will call patient and schedule Desire 08/02/2022 09:02:19 AM >Fax letter for appt update [facility] 08/02/2022 12:10:39 PM >Received letter back and they have the referral but patient is not scheduled yet [facility] 08/08/2022 09:59:37 AM >Fax letter for appt update [facility] 08/08/2022 11:54:00 AM >Received letter back and [facility] is not scheduled yet [facility]/16/2022 07:28:30 AM >Fax letter for appt update Clinical Notes Office [phone] Chief Complaint * DYSPHAGIA * DR. GINO GONZALES Additional Source Comments INFORMATION SOURCE (unrecogn ized section and content) DATE CREATED AUTHOR 10/28/2021 [facility] DATE CREATED AUTHOR AUTHOR'S ORGANIZ ATION 09/14/2022 [facility] DATE CREATED AUTHOR AUTHOR'S ORGANIZ ATION 09/17/2022 [facility] DATE CREATED AUTHOR AUTHOR'S ORGANIZ ATION 09/18/2022 [facility] DATE CREATED AUTHOR AUTHOR'S ORGANIZ ATION 02/04/2024 [facility] DATE CREATED AUTHOR AUTHOR'S ORGANIZ ATION 04/17/2024 The [facility] REASON FOR VISIT (unrecogniz ed section and content) wellnessClinicalreview labsh ead painreview labs /testingclinicalClinicalFeels like something stuck in throat Patient Care team informatio n (unrecognized section and content) Personnel Name: Nabila Farley Address: Address: [address] [place] [address]- FOR RECORDS PERTAINING TO PATIENTS WHO ARE [...] BE BASED ON THE PRIMARY CLINICAL RECORDS. [facility] [employer] [facility] provides no warranty or guarantee of the accuracy or completeness of information in this document.
[2024-06-05 08:51] LABS: Basophils Percent Auto 0.3 % (0.2-2.0); Eosinophils Absolute Auto 0.2 10^3/uL (0.0-0.7); Eosinophils Percent Auto 2.9 % (0.9-7.0); Hematocrit 43.5 % (36.0-48.0); Hemoglobin 14.6 g/dL (12.0-16.0); Immature Granulocytes Abs Auto 0.03 10^3/uL (0.00-0.03); Immature Granulocytes Pct Auto 0.4 % (0.0-0.5); Lymphocytes Absolute Auto 1.8 10^3/uL (1.2-3.8); Lymphocytes Percent Auto 26.2 % (20.5-60.0); Mean Corpuscular HGB Conc 33.6 g/dL (29.9-35.2); Mean Corpuscular Hemoglobin 29.1 pg (26.7-34.0); Mean Corpuscular Volume 86.8 fL (81.0-99.0); Mean Platelet Volume 10.5 fL (9.5-13.5); Monocytes Absolute Auto 0.4 10^3/uL (0.3-0.8); Monocytes Percent Auto 5.4 % (1.7-12.0); Neutrophils Absolute Auto 4.4 10^3/uL (1.4-6.5); Neutrophils Percent Auto 64.8 % (43.0-75.0); Platelet Count 188 10^3/uL (150-450); Red Blood Count 5.01 10^6/uL (4.20-5.40); Red Cell Distribution Width 11.9 % (11.0-15.0); White Blood Count 6.9 10^3/uL (4.0-11.0)
[2024-06-05 11:02] LABS: Alanine Aminotransferase 29 U/L (14-59); Albumin Globulin Ratio 1.1; Albumin Level 3.8 g/dL (3.4-5.0); Alkaline Phosphatase 47 U/L (46-116); Anion Gap 8.1; Aspartate Amino Transferase 14 U/L (15-37); BUN Creatinine Ratio 19.3; Bilirubin Total 0.6 mg/dL (0.2-1.0); Calcium 9.2 mg/dL (8.5-10.1); Carbon Dioxide 32.8 mmol/L (21.0-32.0); Chloride 106 mmol/L (98-107); Chol HDL Ratio 3.2; Cholesterol 200 mg/dL (<=200); Estimated GFR (African America >60 (>=60 mL/min/1.73m^2); Estimated GFR (Non-African Ame >60 (>=60 mL/min/1.73m^2); Globulin 3.4 g/dL; Glucose 84 mg/dL (74-106); HDL Cholesterol 63 mg/dL (40-60); Potassium 3.9 mmol/L (3.5-5.1); Sodium 143 mmol/L (136-145); Total Protein 7.2 g/dL (6.4-8.2); Triglycerides 142 mg/dL (<=150); VLDL CHOLESTEROL 28.4 mg/dL
[2024-06-08 07:09] LABS: QuantiFERON-TB Gold Plus Negative (Negative)
== END 2024-06-05 08:12 | disposition home or self-care (01) ==
LOC: LAB 08:12
PROVIDERS: PCP Nurse Practitioner
DX: L40.0 Psoriasis vulgaris (principal); Z79.899 Other long term (current) drug therapy; L71.8 Other rosacea
CPT/HCPCS: 36415; 80053; 80061; 85025; 86480

== ENCOUNTER 2024-09-04 07:10 | Outpatient (OUT) | payer BC, SELFPAY ==
--- OUTSIDE RECORDS SUMMARY | 2024-09-04 07:14 | XMS_ITS | CCD ---
Author Organization [facility] CliniSytn Care Team Providers Care Preprint Analyst Name Role Phone Gino Liang Unavailable ROCK, [...] Velez, Dr. Oj Kuhn Attending Unavailable Nabila Dunaway Primary Care Physician Ana Laura, Nabila L [...] Unavailable Ana Laura, Nabila L Attending Unavailable Gino Liang DO Primary Care Provider Sahil Dahl DO Attending Provider Gino Liang Primary Care Unavailable Sahil Dahl Attending Unavailable Sahil Dahl Admitting Unavailable Ana Laura, Nabila L Attending Unavailable Ana Laura, Nabila L Attending Unavailable Ana Laura, Nabila L Attending Unavailable Ana Laura, Nabila L Attending Unavailable Ana Laura, Nabila L Attending Unavailable Allergies Allergy Classification Reported Allergen(s) Allergy Type Date of Onset Reaction(s) Facility (2 sources) No Known Medication Allergies; Translations: [No Known Medication Allergies] Propensity to adverse reactions (disorder) [facility] Repository (1 source) Unable to Assess Drug allergy (disorder) [address] [place] [address] Repository Medications Current Medications Medication Drug Class(es) Dates Sig (Normalized) Sig (Original) amoxicillin 875 mg / clavulanate 125 mg oral tablet (2 sources) Penicillin-class Antibacterial Start: 11-07-2021 take 1 tablet by mouth every twelve hours Amoxicillin-Pot Clavulanate 875-125 MG 1 tablet Orally every 12 hrs for 10 day(s) Nov, Active Deucravacitinib (2 sources) Start: 06-17-2024 take 1 tablet by mouth once daily Deucravacitinib (Sotyktu) 6 mg tablet Active 6 MG PO Daily June 17, 2024 12:00am fluconazole 150 mg oral tablet (3 sources) Azole Antifungal Start: 11-04-2023 take 1 tablet by mouth once fluconazole 150 mg Tab 150 mg = 1 tab(s), Oral, Once, # 1 tab(s), Refills(s) 1, Pharmacy: [facility]/pharmacy #[id number], 159, cm, 11/04/23 8:43:00 EDT, Height/Length Dosing, 84.7, kg, 11/04/23 8:43:00 EDT, Weight Dosing Start Date: 11/04/23 Status: Ordered Start: 11-07-2021 Fluconazole 15 0 MG 1 tablet Orally every 3 days prn Nov, Active 1 ml ixekizumab 80 mg/ml auto-injector (1 source) Interleukin-17A Antagonist Start: 08-07-2023 meloxicam 15 mg oral tablet (2 sources) Nonsteroidal Anti-inflammatory Drug Start: 06-17-2024 take 1 tablet by mouth once daily Meloxicam 15 mg tablet Active 15 MG PO Daily June 17, 2024 12:00am Ozempic (1 mg dose) (1 source) Start: 01-28-2023 Ozempic (1 mg dose) See Instructions, once a week 1.8mg, Refills(s) 0 Start Date: 01/28/23 Status: Ordered Semaglutide (2 sources) Start: 06-17-2024 Semaglutide 0.25 mg or 0.5 mg (2 mg/3 mL) pen injector Active 0.25 MG SUBCUT every week June 17, 2024 12:00am for 4 weeks Problems Active Problems Problem Classification Problem Date [...] symptoms involving head and neck] Episodic Other connective tissue disease (2 sources) Biceps tendinitis; Translations: [Bicipital tendinitis, left shoulder] 06-17-2024 Episodic Other connective tissue disease (2 sources) Disorder of rotator cuff; Translations: [Unspecified rotator cuff tear or rupture of left shoulder, not specified as traumatic] 06-17-2024 Episodic Other connective tissue disease (2 sources) Bicipital tendinitis, left shoulder; Translations: [Bicipital tenosynovitis] 06-17-2024 Episodic Other connective tissue disease (2 sources) Unspecified rotator cuff tear or rupture of left shoulder, not specified as traumatic; Translations: [Disorders of bursae and tendons in shoulder region, unspecified] 06-17-2024 Episodic Other female genital disorders (1 source) [...] 09-09-2022 Chronic Other inflammatory condition of skin (3 sources) Psoriasis; Translations: [Psoriasis, unspecified] 02-25-2023 Chronic Other inflammatory condition of skin [...] Translations: [Pain in left elbow] Episodic Other non-traumatic joint disorders (3 sources) Pain in left shoulder; Translations: [Left shoulder pain] Onset: 06-17-2024 5 Episodic Other nutritional; endocrine; and metabolic disorders [...] neoplasm of breast] Onset: 06-19-2022 Episodic Other skin disorders (2 sources) Vitiligo; Translations: [Vitiligo] 06-17-2024 Episodic Other upper respiratory infections (20 sources) [...] Name Value Interpretation Reference Range Facil ity Family Medicine Office/Clini c Noteon 07-29-2024 Family Medicine Office/Clinic Note Family Medicine Office/Clinic Note HPI Staff Africa is a 44 year old female presenting for 3 month follow up Weight management: Started Phentermine on Sleeping well:Yes, 6-8 hours Chest pain:No Tremors:No Headaches:No Heart fluttering:No Blurred Vision:No Beginning weight: 212.31 Previous weight: 175 Today's weight: 171 Questions/Concerns: wants to talk about lab results, had labs done through dermatology in May 2024 at [facility] History of Present Illness get labs from [facility]. [facility] does not need refill on ozempic at this time Review of Systems PHQ Score Initial Depression Screen Score: 0 SCORE Physical Exam Vitals & Measurements HR: 68(Peripheral) RR: 18 BP: 122/80 SpO2: 96% HT: 63 in HT: 160.0 cm WT: 77.6 kg WT: 171.079 lb BMI: 30.31 General: alert, no acute distress ENMT: oral [...] in other specified circumstances) pt is down another 4 pounds. doing well. will send refill to [facility]. RTC 3 months 2. Menopausal symptoms (N95.1: Menopausal and female climacteric states) labs reviewed will send referral for consult for HRT through [facility] 3. Hot flashes (R23.2: Flushing) labs reviewed 4. BMI 31.0-31.9,adult (Z68.31: Body mass index [BMI] 31.0-31.9, adult) BMI education 5. Non-smoker (Z78.9: Other specified health status) continue not smoking Follow-up No qualifying data available Problem List/Past Medical History Ongoing Allergic conjunctivitis, left eye BMI 33.0-33.9,adult Breast cancer screening by mammogram Cervical cancer screening Decreased libido Encounter for weight management Excessive dietary caloric intake Fluid level behind tympanic membrane of both ears Hot flashes Left shoulder pain Menopausal symptoms Neck pain Obesity (BMI 30-39.9) Psoriasis Sore [...] virus vaccine, inactivated 03/01/2016 Recorded Normal [facility] Comment on above: Result Comment: Elec tronically Signed By: Nabila Farley\.br\Date and Time Signed: 07/29/24 13:23 EST X-ray reportOrdered By: Donell Sue on 06-17-2024 Study report [facility] [address] [place] [address] XRay Report Signed Patient: Africa Parham MR#: [id number] : 1980 Acct:[id number] Age/Sex: 44 / F ADM Date: 5 Loc: [facility] Room: Type: [facility] CLI Attending Dr: Sahil Dahl DO Copies to: Sahil Dahl DO~ Ordering Provider: Sahil Dahl DO Date of Service: 06/17/24 XR/XR shoulder LT min 2V*: M25.512 - Pain in left shoulder LEFT SHOULDER - - 5 views CLINICAL HISTORY: Left shoulder pain for months. COMPARISON: Left shoulder 04/12/2024 FINDINGS: Mild degenerative changes of the AC joint without acute bony process. Glenohumeral joint appears grossly unremarkable. XR/XR shoulder LT min 2V* IMPRESSION: MILD DEGENERATIVE CHANGES OF THE LEFT SHOULDER WITHOUT ACUTE BONY PROCESS. Impression dictated by: Hola Sue Jr., D.ORivera06/17/2024 4:20 PM Dictation Location: [place] [address] Transcribed By: [facility] 06/17/24 1620 Dictated By: Hola Sue Jr, DO 06/17/24 1619 Signed By: 06/17/24 1620 [facility] XR shoulder LT min 2V*on XR shoulder LT min 2V* [facility] [address] [place] [address] XRay Report Signed Patient: Africa Parham MR#: [id number] : 1980 Acct:[id number] Age/Sex: 44 / F ADM Date: 06/17/24 Loc: [facility] Room: Type: [facility] CLI Attending Dr: Sahil Dahl DO Copies to: Sahil Dahl DO Ordering Provider: Sahil Dahl DO Date of Service: 06/17/24 XR/XR shoulder LT min 2V*: M25.512 - Pain in left shoulder LEFT SHOULDER - - 5 views CLINICAL HISTORY: Left shoulder pain for months. COMPARISON: Left shoulder 04/12/2024 FINDINGS: Mild degenerative changes of the AC joint without acute bony process. Glenohumeral joint appears grossly unremarkable. XR/XR shoulder LT min 2V* IMPRESSION: MILD DEGENERATIVE CHANGES OF THE LEFT SHOULDER WITHOUT ACUTE BONY PROCESS. Impression dictated by: Hola Sue Jr., DRiveraORivera06/17/2024 4:20 PM Dictation Location: [place] [address] Transcribed By: [facility] 06/17/24 1620 Dictated By: Hola Sue Jr, DO 06/17/24 1619 Signed By: 06/17/24 1620 Normal [facility] Ambulatory Visit Summaryon 1 06-15-2023 Ambulatory Visit [...] 4:40 PM EST With: Nabila Farley Where: [place] [id number]- Medications What How Much When Instructions Unchanged [...] choosing us for your care. [facility] Family Medicine Office/Clini c Noteon 04-15-2024 [...] review Still having Lt shoulder/upper arm pain. 5 or 610 Other concerns: Mood swings History of Present [...] up to highest dose. will send to [facility]. RTC 3 months Ordered: fluconazole, 150 mg = 1 tab(s), Oral, Once, take 1 tab on day one and 1 tab on day four, # 2 tab(s), Refills(s) 2, Pharmacy: [facility]/pharmacy #[id number], 160, cm, 02/03/24 9:52:00 EDT, Height/Length Dosing, [...] four, # 2 tab(s), Refills(s) 2, Pharmacy: [id number], 160, cm, 02/03/24 9:52:00 EDT, Height/Length Dosing, 81.6, kg, 02/03/24 9:52:00 EDT, Weight Dosing 5. Non-smoker (Z78.9: Other specified health status) continue not smoking Ordered: fluconazole, 150 mg = 1 tab(s), Oral, Once, take 1 tab on day one and 1 tab on day four, # 2 tab(s), Refills(s) 2, Pharmacy: [id number], 160, cm, 02/03/24 9:52:00 EDT, Height/Length [...] at last visit. will order MRI at [facility] 8. Neck pain (M54.2: Cervicalgia) reviewed [...] virus vaccine, inactivated 03/01/2016 Recorded Normal [facility] Comment on above: Result Comment: Elec tronically Signed By: Nabila Farley\.br\Date and Time Signed: 04/15/24 14:14 EST Ambulatory Visit Summaryon 1 Ambulatory Visit Summary Ambulatory Visit Summary AFRICA [...] Follow-Up Appointments Friday 8:40 AM EST With: Ana Laura العراقي, Nabila Wilks Where: [address] [address]- Medications What How Much When Why Instructions [...] for choosing us for your care. Normal [facility] Medicine Office/Clini c Noteon 04-05-2024 [...] office today. x ray order sent to [facility] for shoulder and cervical spine. pt [...] Surgery (10/2015), LASIK (2011), Cholecystectomy (2008). Medications azithromycin 250 mg Tab, [...] virus vaccine, inactivated 03/01/2016 Recorded Normal [facility] Comment on above: Result Comment: Elec [...] denies needs. will send new rx to [facility]. RTC 3 months Ordered: fluconazole, 150 mg [...] four, # 2 tab(s), Refills(s) 2, Pharmacy: [facility]/pharmacy #[id number], 160, cm, 02/03/24 9:52:00 EDT, Height/Length [...] four, # 2 tab(s), Refills(s) 2, Pharmacy: [facility]/pharmacy #[id number], 160, cm, 02/03/24 9:52:00 EDT, Height/Length Dosing, 81.6, kg, 02/03/24 9:52:00 EDT, Weight Dosing 5. Class 1 obesity due to excess calories in adult (E66.09: Other obesity due to excess calories) see above Ordered: fluconazole, 150 mg = 1 tab(s), Oral, Once, take 1 tab on day one and 1 tab on day four, # 2 tab(s), Refills(s) 2, Pharmacy: [facility]/pharmacy #[id number], 160, cm, 02/03/24 9:52:00 EDT, Height/Length [...] refills Ozempic (1 mg dose), See Instructions Taltz Autoinjector 80 mg/mL subcutaneous solution Allergies No [...] influenza virus vaccine, inactivated 03/01/2016 Recorded Normal [facility] Comment on above: Result Comment: Elec tronically Signed By: Nabila Farley.tanya\Date and Time Signed: 02/03/24 11:05 EDT PAP [id number] 11-11-2023 Cytology report Cyto stain Doc (Cvx/Vag) Note Invalid Interpretation Code [facility] Comment on above: Result Comment: TEST S RESULT FLAG UNITS REF RANGE LAB Clinician Provided Cytology Information Source.............Cervix No. of containers..01 ThinPrep Vial DIAGNOSIS: 01 NEGATIVE FOR INTRAEPITHELIAL LESION OR MALIGNANCY. FUNGAL ORGANISMS MORPHOLOGICALLY CONSISTENT WITH SAIDA SPECIES ARE PRESENT. Specimen adequacy: 01 Satisfactory for evaluation. No endocervical component is identified. Performed by: 01 Sabina Campbell Account Collector (ASCP) . 01 Note: Note 01 The Pap [...] Low,>-Panic High,A-Abnormal,AA-Critical Abnormal Performed at: [address] [facility] [address] Enid Miller MD, Performed By: #### 1 [id number] #### [facility] [address] [place] [address] HPV 16+18+31+33+35+39+4 5+51+52+56+58+59+66 +68 DNA Probe+sig amp Ql (Cvx) Negative Invalid Interpretation Code Negative [facility] Comment on above: Result Comment: This nucleic acid amplification test detects fourteen high-risk HPV types (16,18,31,33,35,39,45,51,52,56,58,59,66,68) without differentiation. Performed at: [facility] [address] [place], [place] [id number] MD Paul Rossi Performed at: =[facility] [address] [place], [place] [id number] MD Paul Rossi Performed By: #### 1 [id number] #### [facility] [address] [place] [address] Reminderson 11-11-2023 Reminders - From: Nabila Farley [...] message for patient of message below Normal [facility] Ambulatory Visit Summaryon 0 11-06-2023 Ambulatory [...] (10/2015), LASIK (2012), Cholecystectomy (2009). Discharge Vitals Heart Rate (Peripheral) 72 Respiratory Rate 16 Blood Pressure 122/74 Height 160 cm Height 63 in Weight 86 kg Weight 189.2 lb BMI 33.59 What to do next Scheduled Follow-Up Appointments Friday 10:00 AM EDT With: Nabila Farley Where: [facility] Medicine Ernesto Normal Cervical cancer screening, Print Label By [...] for choosing us for your care.\.br\ \.br\ [facility] Medicine Office/Clini c Noteon 11-06-2023 [...] blood pressure <80 mm Hg 3078F PAP [id number] w/ HPV and Genotype rflx Patient screen [...] influenza virus vaccine, inactivated 03/01/2016 Recorded Normal [facility] Comment on above: Result Comment: Elec tronically Signed By: Nabila Farley\.br\Date and Time Signed: 11/06/23 11:13 EDT PAP [id number] 11-06-2023 Gynecological Body Site CERVIX Normal [facility] Comment on above: Performed By: #### 1 [id number] #### [facility] [address] [place] [address] Family Medicine Office/Clini c Noteon 11-04-2023 Family [...] with her weight. will send refill to [facility]. C 3 months 2. Vaginal yeast infection (B37.31: Acute candidiasis of vulva and vagina) Diflucan sent to pharmacy 3. BMI 33.0-33.9,adult (Z68.33: Body mass index [BMI] 33.0-33.9, adult) bmi education complete 4. Non-smoker (Z78.9: Other specified health status) continue not smoking Ordered: fluconazole, 150 mg = 1 tab(s), Oral, Once, # 1 tab(s), Refills(s) 0, Pharmacy: [facility]/pharmacy #[id number], 159, cm, 09/08/23 11:39:00 EDT, Height/Length Dosing, 83.3, kg, 09/08/23 11:39:00 EDT, Weight Dosing Orders: fluconazole, 150 mg = 1 tab(s), Oral, Once, # 1 tab(s), Refills(s) 1, Pharmacy: [facility]/pharmacy #[id number], 159, cm, 11/04/23 8:43:00 EDT, Height/Length [...] refills Ozempic (1 mg dose), See Instructions Taltz Autoinjector 80 mg/mL subcutaneous solution Allergies No [...] influenza virus vaccine, inactivated 03/01/2016 Recorded Normal [facility] Comment on above: Result Comment: Elec tronically Signed By: Nabila Farley\.br\Date and Time Signed: 11/04/23 09:11 EDT Retail - Clinical Noteon Retail - Clinical Note [id number] #1.00TIFF Normal [facility] [place] 09-08-2023 Consent [id number] #1.00TIFF [facility] Medicine Office/Clini c Noteon 09-08-2023 Family Medicine [...] [id number] 159, cm, 05/20/23 10:45:00 EST, Height/Length [...] Oral Li (more content not included)... Normal [facility] Comment on above: Result Comment: Elec [...] 8:40 AM EDT With: Nabila Farley Where: [facility] Family Medicine Ern[place] Normal [facility] Family Medicine Office/Clini c Noteon 08-07-2023 [...] influenza virus vaccine, inactivated 03/01/2016 Recorded Normal [facility] Comment on above: Result Comment: Elec tronically Signed By: Ana Laura العراقي, Nabila Wilks\.br\Date and Time Signed: 08/07/23 10:36 EST Retail - Clinical Noteon Retail - Clinical Note [id number] #1.00TIFF Normal [facility] Family Medicine Office/Clini c Noteon 05-20-2023 Family Medicine Office/Clinic Note HPI Staff Africa is a 42 year old female presenting for 1 month follow up Weight management: Started Ozempic on 11/29/22 , SARAH 04/22/23 dose increased to 1.8mg [facility] Sleeping well:Yes, 6-8 hours Chest pain:No Tremors:No [...] send 3 months worth of refills to [facility]. all questions answered . RTC as needed [...] virus vaccine, inactivated 03/01/2016 Recorded Normal [facility] Comment on above: Result Comment: Elec tronically Signed By: Ana Laura العراقي, Nabila Wilks\.br\Date and Time Signed: 05/20/23 10:59 EST Physician Orderon 05-20-2023 Physician Order [id number] #1.00TIFF [facility] Retail - Clinical Noteon Retail - Clinical Note [id number] #1.00TIFF [facility] Ambulatory Visit Summaryon 1 06-22-2022 [...] 11:00 AM EST With: Nabila Farley Where: [facility] Consent for Flu Vaccineon Consent for Flu Vaccine [id number]# 1.00TIFF [facility] Family Medicine Office/Clini c Noteon [...] increase dose to 1.8mg. will send to [facility]. all questions answered. encouraged healthy food choices. RTC 4 weeks 2. BMI 35.0-35.9,adult (Z68.35: Body mass index [BMI] 35.0-35.9, adult) bmi education complete Ordered: fluconazole, 150 mg = 1 tab(s), Oral, Once, # 1 tab(s), Refills(s) 0, Pharmacy: [facility]/pharmacy #[id number], 159, cm, 03/25/23 8:53:00 EDT, Height/Length Dosing, [...] flu vaccine given Ordered: FIRST VACCINE w/o Licensed Direct Entry Midwife Admin Charge 26503 Follow-up No qualifying data available Problem List/Past [...] influenza virus vaccine, inactivated 03/01/2016 Recorded Normal [facility] Comment on above: Result Comment: Elec tronically Signed By: Nabila Farley\.br\Date and Time Signed: 04/22/23 10:42 EST Retail - Clinical Noteon Retail - Clinical Note [id number]# 1.00TIFF Normal [facility] Ambulatory Visit Summaryon 1 Ambulatory Visit Summary AFRICA PARHAM Juvenal :1980 Visit Date:03/25/2023 Ambulatory Visit Instructions Your [...] 9:00 AM EST With: Nabila Farley [facility]: [facility] Normal [facility] [place] 03-25-2023 Consent [id number] #1.00TIFF Normal [facility] Office/Clini c Noteon 03-25-2023 Family Medicine Office/Clinic [...] well. denies complaints. will send order to [facility] pharmacy. RTC 4 weeks 2. Vaginal yeast infection (B37.31: Acute candidiasis of vulva and vagina) diflucan sent to pharmacy 3. BMI 35.0-35.9,adult (Z68.35: Body mass index [BMI] 35.0-35.9, adult) BMI education complete Ordered: fluconazole, 150 mg = 1 tab(s), Oral, Once, # 1 tab(s), Refills(s) 0, [id number], 159, cm, 03/25/23 8:53:00 EDT, Height/Length [...] Once, # 1 tab(s), Refills(s) 0, [id number], 159, cm, 03/25/23 8:53:00 EDT, Height/Length [...] Directed, # 6 tab(s), Refills(s) 0, Pharmacy: [facility]/pharmacy #[id number], 159, cm, 02/25/23 8:58:00 EDT, Height/Length [...] influenza virus vaccine, inactivated 03/01/2016 Recorded Normal [facility] Comment on above: Result Comment: Elec tronically Signed By: Nabila Farley\.tanya\Date and Time Signed: 03/25/23 11:01 EDT Retail - Clinical Noteon Retail - Clinical Note [id number] #1.00TIFF Normal [facility] Ambulatory Visit Summaryon 0 02-25-2023 Ambulatory [...] 9:00 AM EDT With: Nabila Farley Where: [facility] Family Medicine Office/Clini c Noteon 02-25-2023 [...] arrhythmia: Mother. Diabetes mellitus type 2: Father. [facility] Comment on above: Result Comment: Elec tronically Signed By: Nabila Farley\bozena\Date and Time Signed: 02/25/23 09:47 EDT Retail - Clinical Noteon Retail - Clinical Note [id number] #1.00CD:127 [facility] Initial Visit (Otolaryngolog y)on 09-16-2022 Initial Visit [...] Recorded: 16Sep2022 10:39AM Height5 ft 3 in Trwoud387 lb BMI Curpetpvct77.49 kg/m2 BSA Calculated1.96 Tobacco Useb) No Physical [...] Sep 16 2022 1:14PM EST (Author) Normal [facility] Tobacco Screening.on 023 Tobacco use status CPHS b) No -Otolaryngo [facility] Work Phone: QUANTIFERON TB GOLD PLUSon 0 09-11-2022 QuantiFERON Criteria Comment Normal [facility] Comment on above: Result Comment: Kirk [...] test. Performed By: #### Q NTTB #### [facility] [address] [place] [address] Dr. Kobe Fabian QuantiFERON Incubation Incubation performed. Normal [facility] Comment on above: Performed By: #### Q NTTB #### [facility] [address] [place] [address] Dr. Kobe Fabian QuantiFERON Mitogen Value 4.81 IU/mL Normal [facility] Comment on above: Performed By: #### Q NTTB #### [facility] [address] [place] [address] Dr. Kobe Fabian QuantiFERON Nil Value 0.01 IU/mL Normal [facility] Comment on above: Performed By: #### Q NTTB #### [facility] [address] [place] [address] Dr. Kobe Fabian QuantiFERON TB1 Ag Value 0.01 IU/mL Normal [facility] Comment on above: Performed By: #### Q NTTB #### [facility] [address] [place] [address] Dr. Kobe Fabian QuantiFERON TB2 Ag Value 0.01 IU/mL Normal [facility] Comment on above: Performed By: #### Q NTTB #### [facility] [address] [place] [address] Dr. Kobe Fabian QuantiFERON-TB Gold Plus Negative Normal Negative [facility] Comment on above: Result Comment: No r esponse to M tuberculosis antigens detected. Infection with M tuberculosis is unlikely, but high risk individuals should be considered for additional testing (ATS/IDSA/CDC Clinical Practice Guidelines, 2017). The reference range is an Antigen minus Nil result of <0.35 IU/mL. Chemiluminescence immunoassay methodology Performed By: #### Q NTTB #### [facility] [address] [place] [address] Dr. Kobe Fabian CBC AUTO DIFFon 09-09-2022 BASO # 0.0 103/ul Normal 0.0-0.1 [facility] Comment on above: Performed By: #### C BC #### [facility] [address] [place] [address] Dr. Kobe Fabian Basophils/100 WBC (Bld) 0.5 % Normal 0.2-2.0 [facility] Comment on above: Performed By: #### C BC #### [facility] [address] [place] [address] Dr. Kobe Fabian EO # 0.3 103/ul Normal 0.0-0.7 [facility] Comment on above: Performed By: #### C BC #### [facility] [address] [place] [address] Dr. Kobe Fabian Eosinophils/100 WBC (Bld) 4.0 % Normal 0.9-7.0 [facility] Comment on above: Performed By: #### C BC #### [facility] [address] [place] [address] Dr. Kobe Fabian Erythrocyte distribution width (RBC) [Ratio] 12.3 % Normal 11.0-15.0 [facility] Comment on above: Performed By: #### C BC #### [facility] [address] [place] [address] Dr. Kobe Fabian Hematocrit (Bld) [Volume fraction] 40.9 % Normal 36.0-48.0 [facility] Comment on above: Performed By: #### C BC #### [facility] [address] [place] [address] Dr. Kobe Fabian Hemoglobin (Bld) [Mass/Vol] 14.1 g/dL Normal 12.0-16.0 [facility] Comment on above: Performed By: #### C BC #### [facility] [address] [place] [address] Dr. Kobe Fabian IG # 0.03 10e3/ul Normal 0.00-0.03 [facility] Comment on above: Performed By: #### C BC #### [facility] [address] [place] [address] Dr. Kobe Fabian IG % 0.5 % Normal 0.0-0.5 [facility] Comment on above: Performed By: #### C BC #### [facility] [address] [place] [address] Dr. Kobe Fabian LYMPH # 1.8 103/ul Normal 1.2-3.8 [facility] Comment on above: Performed By: #### C BC #### [facility] [address] [place] [address] Dr. Kobe Fabian Lymphocytes/100 WBC (Bld) 27.9 % Normal 20.5-60.0 [facility] Comment on above: Performed By: #### C BC #### [facility] [address] [place] [address] Dr. Kobe Fabian MANUAL DIFF REQ NO Normal [facility] Comment on above: Performed By: #### C BC #### [facility] [address] [place] [address] Dr. Kobe Fabian MCH (RBC) [Entitic mass] 28.8 pg Normal 26.7-34.0 [facility] Comment on above: Performed By: #### C BC #### [facility] [address] [place] [address] Dr. Kobe Fabian MCHC (RBC) [Mass/Vol] 34.5 g/dL Normal 29.9-35.2 [facility] Comment on above: Performed By: #### C BC #### [facility] [address] [place] [address] Dr. Kobe Fabian MCV (RBC) [Entitic vol] 83.5 fL Normal 81.0-99.0 [facility] Comment on above: Performed By: #### C BC #### [facility] [address] [place] [address] Dr. Kobe Fabian MONO # 0.3 103/ul Normal 0.3-0.8 [facility] Comment on above: Performed By: #### C BC #### [facility] [address] [place] [address] Dr. Kobe Fabian Monocytes/100 WBC (Bld) 5.2 % Normal 1.7-12.0 [facility] Comment on above: Performed By: #### C BC #### [facility] [address] [place] [address] Dr. Kobe Fabian NEUT # 4.0 103/ul Normal 1.4-6.5 [facility] Comment on above: Performed By: #### C BC #### [facility] [address] [place] [address] Dr. Kobe Fabian Neutrophils/100 WBC (Bld) 61.9 % Normal 43.0-75.0 [facility] Comment on above: Performed By: #### C BC #### [facility] [address] [place] [address] Dr. Kobe Fabian Platelet mean volume (Bld) [Entitic vol] 9.9 fL Normal 9.5-13.5 [facility] Comment on above: Performed By: #### C BC #### [facility] [address] [address] [address] Kobe Fabian PLT 176 103/ul Normal 150-450 [facility] Comment on above: Performed By: #### C BC #### [facility] [address] [address] [address] Kobe Fabian RBC 4.90 106/ul Normal 4.20-5.40 [facility] Comment on above: Performed By: #### C BC #### [facility] [address] [place] [address] Dr. Kobe Fabian WBC 6.5 103/ul Normal 4.0-11.0 [facility] Comment on above: Performed By: #### C BC #### [facility] [address] [place] [address] Dr. Kobe Fabian LIPID PROFILEon 09-09-2022 CHOL-HDL RATIO NORM SEE BELOW Normal [facility] Comment on above: Result Comment: 3.3 - 4.4 LOW RISK 4.4 - 7.1 AVERAGE RISK 7.1 - 11.0 MODERATE RISK >11.0 HIGH RISK Performed By: #### V AGINT #### [facility] [address] [place] [address] Dr. Kobe Fabian Cholesterol [Mass/Vol] 180 mg/dL Normal <=200 [facility] Comment on above: Performed By: #### V AGINT #### [facility] [address] [place] [address] Dr. Kobe Fabian Cholesterol in HDL [Mass/Vol] 47 mg/dL Normal 40-60 [facility] Comment on above: Performed By: #### V AGINT #### [facility] [address] [place] [address] Dr. Kobe Fabian Cholesterol in LDL [Mass/Vol] 98.6 mg/dL Normal [facility] Comment on above: Performed By: #### V AGINT #### [facility] [address] [place] [address] Dr. Kobe Fabian Cholesterol.total/C holesterol in HDL [Mass ratio] 3.8 {ratio} Normal [facility] Comment on above: Performed By: #### V AGINT #### [facility] [address] [address] [address] Kobe Fabian HDL NORMAL > or = 60 mg/dl - LOW CARDIOVASCULAR RISK <40 mg/dl - HIGH CARDIOVASCULAR RISK Normal [facility] Comment on above: Performed By: #### V AGINT #### [facility] [address] [address] [address] Kobe Fabian LDL CALC NORMAL SEE BELOW Normal [facility] Comment on above: Result Comment: <100 mg/dl OPTIMAL 100 - 129 mg/dl NEAR OR ABOVE OPTIMAL 130 - 159 mg/dl BORDERLINE HIGH 160 - 189 mg/dl HIGH >190 mg/dl VERY HIGH Performed By: #### V AGINT #### [facility] [address] [place] [address] Dr. Kobe Fabian Triglyceride [Mass/Vol] 172 mg/dL Critically high <=150 [facility] Comment on above: Performed By: #### V AGINT #### [facility] [address] [place] [address] Dr. Kobe Fabian VLDL CALC 34.4 mg/dL Normal [facility] Comment on above: Performed By: #### V AGINT #### [facility] [address] [place] [address] Dr. Kobe Fabian PROF 14(COMP METB)on 023 Albumin [Mass/Vol] 4.0 g/dL Normal 3.4-5.0 [facility] Comment on above: Performed By: #### V AGINT #### [facility] [address] [place] [address] Dr. Kobe Fabian Albumin/Globulin [Mass ratio] 1.1 {ratio} Normal [facility] Comment on above: Performed By: #### V AGINT #### [facility] [address] [place] [address] Dr. Kobe Fabian ALP [Catalytic activity/Vol] 51 U/L Normal 46-116 [facility] Comment on above: Performed By: #### V AGINT #### [facility] [address] [place] [address] Dr. Kobe Fabian ALT [Catalytic activity/Vol] 32 U/L Normal 14-59 [facility] Comment on above: Performed By: #### V AGINT #### [facility] [address] [address] [address] Kobe Fabian Anion gap [Moles/Vol] 8.9 mmol/L Normal [facility] Comment on above: Performed By: #### V AGINT #### [facility] [address] [address] [address] Kobe Fabian AST [Catalytic activity/Vol] 16 U/L Normal 15-37 [facility] Comment on above: Performed By: #### V AGINT #### [facility] [address] [address] [address] Kobe Fabian Bilirubin [Mass/Vol] 0.6 mg/dL Normal 0.2-1.0 [facility] Comment on above: Performed By: #### V AGINT #### [facility] [address] [address] [address] Kobe Fabian Calcium [Mass/Vol] 9.4 mg/dL Normal 8.5-10.1 [facility] Comment on above: Performed By: #### V AGINT #### [facility] [address] [place] [address] Dr. Kobe Fabian Chloride [Moles/Vol] 104 mmol/L Normal 98-107 [facility] Comment on above: Performed By: #### V AGINT #### [facility] [address] [address] [address] Kobe Fabian CO2 [Moles/Vol] 30.0 mmol/L Normal 21.0-32.0 [facility] Comment on above: Performed By: #### V AGINT #### [facility] [address] [address] [address] Kobe Fabian Creatinine [Mass/Vol] 0.75 mg/dL Normal 0.55-1.02 [facility] Comment on above: Performed By: #### V AGINT #### [facility] [address] [address] [address] Kobe Fabian EGFR-AF JAMAICAN >60 Normal >=60 [facility] Comment on above: Performed By: #### V AGINT #### [facility] [address] [place] [address] Dr. Kobe Fabian EGFR-NON AF J[place]ICAN >60 Normal >=60 [facility] Comment on above: Performed By: #### V AGINT #### [facility] [address] [address] [address] Kobe Fabian Globulin (S) [Mass/Vol] 3.5 g/dL Normal [facility] Comment on above: Performed By: #### V AGINT #### [facility] [address] [address] [address] Kobe Fabian Glucose [Mass/Vol] 99 mg/dL Normal 74-106 [facility] Comment on above: Performed By: #### V AGINT #### [facility] [address] [place] [address] Dr. Kobe Fabian Potassium [Moles/Vol] 3.9 mmol/L Normal 3.5-5.1 [facility] Comment on above: Performed By: #### V AGINT #### [facility] [address] [place] [address] Dr. Kobe Fabian Protein [Mass/Vol] 7.5 g/dL Normal 6.4-8.2 [facility] Comment on above: Performed By: #### V AGINT #### [facility] [address] [address] [address] Kobe Fabian Sodium [Moles/Vol] 139 mmol/L Normal 136-145 [facility] Comment on above: Performed By: #### V AGINT #### [facility] [address] [address] [address] Kobe Fabian Urea nitrogen [Mass/Vol] 20.0 mg/dL Critically high 7.0-18.0 [facility] Comment on above: Performed By: #### V AGINT #### [facility] [address] [address] [address] Kobe Fabian Urea nitrogen/Creatinine [Mass ratio] 26.7 mg/mg Normal [facility] Comment on above: Performed By: #### V AGINT #### [facility] [address] [place] [address] Dr. Kobe Fabian PAP ACOG PANEL 2: 30 to 65on 08-01-2022 . . Normal [facility] Comment on above: Result Comment: Perf ormed at: WB Performed By: #### [id number] #### [facility] [address] [address] [address] Kobe Fabian Age Gdln ACOG Testing - [facility] Comment on above: Performed By: #### [id number] #### [facility] [address] [place] [address] Dr. Kobe Fabian DIAGNOSIS: Comment [facility] Comment on above: Result Comment: NEGA TIVE FOR INTRAEPITHELIAL LESION OR MALIGNANCY. Performed at: WB Performed By: #### [id number] #### [facility] [address] [place] [address] Dr. Kobe Fabian HPV Aptima Negative Normal Negative [facility] Comment on above: Result Comment: This nucleic acid amplification test detects fourteen high-risk HPV types (16,18,31,33,35,39,45,51,52,56,58,59,66,68) without differentiation. Performed at: =G Performed By: #### [id number] #### [facility] [address] [place] [address] Dr. Kobe Fabian HPV Genotype Reflex Comment Normal [facility] Comment on above: Result Comment: Crit eria not met, HPV Genotype not performed. Performed at: WB Performed By: #### [id number] #### [facility] [address] [place] [address] Dr. Kobe Fabian Methodology: Comment [facility] Comment on above: Result Comment: This liquid based ThinPrep(R) pap test was screened with the use of an image guided system. Performed at: WB Performed By: #### [id number] #### [facility] [address] [place] [address] Dr. Kobe Fabian Note: Comment Normal [facility] Comment on above: Result Comment: The Pap smear is a screening test designed to aid in the detection of premalignant and malignant conditions of the uterine cervix. It is not a diagnostic procedure and should not be used as the sole means of detecting cervical cancer. Both false-positive and false-negative reports do occur. . Performed at: WB Performed By: #### [id number] #### [facility] [address] [place] [address] Dr. Kobe Fabian Performed by: Comment Normal [facility] Comment on above: Result Comment: Darrick Zayas Account Collector (ASCP) Performed at: WB Performed By: #### [id number] #### [facility] [address] [place] [address] Dr. Kobe Fabian Specimen adequacy: Comment Normal [facility] Comment on above: Result Comment: Sati sfactory for evaluation. No endocervical component is identified. Performed at: WB Performed By: #### [id number] #### [facility] [address] [place] [address] Dr. Kobe Fabian CHLAMYDIA/GONOCOCCUS JOSE ( AB/URINE/PAPon 07-29-2022 Chlamydia trachomatis, JOSE Negative Normal Negative [facility] Comment on above: Performed By: #### V AGINT #### [facility] [address] [place] [address] Dr. Kobe Fabian Neisseria gonorrhoeae, JOSE Negative Normal Negative [facility] Comment on above: Performed By: #### V AGINT #### [facility] [address] [place] [address] Dr. Kobe Fabian ESTRADIOLon 07-27-2022 Estradiol 21.3 pg/mL [facility] Comment on above: Result Comment: Adul t Female: Follicular phase 12.5 - 166.0 Ovulation phase 85.8 - 498.0 Luteal phase 43.8 - 211.0 Postmenopausal <6.0 - 54.7 1st trimester 215.0 - >4300.0 Jacob ECLIA methodology Performed By: #### E STRADI #### [facility] [address] [place] [address] Dr. Kobe Fabian FSHon 07-27-2022 FSH 74.7 mIU/mL Normal [facility] Comment on above: Result Comment: Adul t Female: Follicular phase 3.5 - 12.5 Ovulation phase 4.7 - 21.5 Luteal phase 1.7 - 7.7 Postmenopausal 25.8 - 134.8 Performed By: #### C MP #### [facility] [address] [place] [address] Dr. Kobe Fabian LUTEINIZING HORMONE (LH)on 0 07-27-2022 LH 39.7 mIU/mL Normal [facility] Comment on above: Result Comment: Adul t Female: Follicular phase 2.4 - 12.6 Ovulation phase 14.0 - 95.6 Luteal phase 1.0 - 11.4 Postmenopausal 7.7 - 58.5 Performed By: #### C MP #### [facility] [address] [place] [address] Dr. Kobe Fabian PROGESTERONEon 07-27-2022 Progesterone 0.1 ng/mL Normal [facility] Comment on above: Result Comment: Foll icular phase 0.1 - 0.9 Luteal phase 1.8 - 23.9 Ovulation phase 0.1 - 12.0 First trimester 11.0 - 44.3 Second trimester 25.4 - 83.3 Third trimester 58.7 - 214.0 Postmenopausal 0.0 - 0.1 Performed By: #### P SHAYY #### [facility] [address] [place] [address] Dr. Kobe Fabian VAGINITIS/VAGINOSIS DNA PROB Jassi 07-27-2022 Saida species Negative Normal Negative [facility] Comment on above: Performed By: #### V AGINT #### [facility] [address] [place] [address] Dr. Kobe Fabian Gardnerella vaginalis Negative Normal Negative [facility] Comment on above: Performed By: #### V AGINT #### [facility] [address] [place] [address] Dr. Kobe Fabian Trichomonas vaginalis Negative Normal Negative [facility] Comment on above: Performed By: #### V AGINT #### [facility] [address] [place] [address] Dr. Kobe Fabian CBC AUTO DIFFon 07-26-2022 BASO # 0.0 103/ul Normal 0.0-0.1 [facility] Comment on above: Performed By: #### V AGINT #### [facility] [address] [place] [address] Dr. Kobe Fabian Basophils/100 WBC (Bld) 0.4 % Normal 0.2-2.0 [facility] Comment on above: Performed By: #### V AGINT #### [facility] [address] [place] [address] Dr. Kobe Fabian EO # 0.3 103/ul Normal 0.0-0.7 [facility] Comment on above: Performed By: #### V AGINT #### [facility] [address] [place] [address] Dr. Kobe Fabian Eosinophils/100 WBC (Bld) 3.9 % Normal 0.9-7.0 [facility] Comment on above: Performed By: #### V AGINT #### [facility] [address] [place] [address] Dr. Kobe Fabian Erythrocyte distribution width (RBC) [Ratio] 11.9 % Normal 11.0-15.0 [facility] Comment on above: Performed By: #### V AGINT #### [facility] [address] [place] [address] Dr. Kobe Fabian Hematocrit (Bld) [Volume fraction] 41.0 % Normal 36.0-48.0 [facility] Comment on above: Performed By: #### V AGINT #### [facility] [address] [place] [address] Dr. Kobe Fabian Hemoglobin (Bld) [Mass/Vol] 14.4 g/dL Normal 12.0-16.0 [facility] Comment on above: Performed By: #### V AGINT #### [facility] [address] [place] [address] Dr. Kobe Fabian IG # 0.03 10e3/ul Normal 0.00-0.03 [facility] Comment on above: Performed By: #### V AGINT #### [facility] [address] [place] [address] Dr. Kobe Fabian IG % 0.4 % Normal 0.0-0.5 [facility] Comment on above: Performed By: #### V AGINT #### [facility] [address] [place] [address] Dr. Kobe Fabian LYMPH # 1.7 103/ul Normal 1.2-3.8 [facility] Comment on above: Performed By: #### V AGINT #### [facility] [address] [place] [address] Dr. Kobe Fabian Lymphocytes/100 WBC (Bld) 24.7 % Normal 20.5-60.0 [facility] Comment on above: Performed By: #### V AGINT #### [facility] [address] [place] [address] Dr. Kobe Fabian MANUAL DIFF REQ NO Normal [facility] Comment on above: Performed By: #### V AGINT #### [facility] [address] [place] [address] Dr. Kobe Fabian MCH (RBC) [Entitic mass] 29.1 pg Normal 26.7-34.0 [facility] Comment on above: Performed By: #### V AGINT #### [facility] [address] [place] [address] Dr. Kobe Fabian MCHC (RBC) [Mass/Vol] 35.1 g/dL Normal 29.9-35.2 [facility] Comment on above: Performed By: #### V AGINT #### [facility] [address] [place] [address] Dr. Kobe Fabian MCV (RBC) [Entitic vol] 83.0 fL Normal 81.0-99.0 [facility] Comment on above: Performed By: #### V AGINT #### [facility] [address] [place] [address] Dr. Kobe Fabian MONO # 0.3 103/ul Normal 0.3-0.8 [facility] Comment on above: Performed By: #### V AGINT #### [facility] [address] [place] [address] Dr. Kobe Fabian Monocytes/100 WBC (Bld) 4.5 % Normal 1.7-12.0 [facility] Comment on above: Performed By: #### V AGINT #### [facility] [address] [place] [address] Dr. Kobe Fabian NEUT # 4.5 103/ul Normal 1.4-6.5 [facility] Comment on above: Performed By: #### V AGINT #### [facility] [address] [place] [address] Dr. Kobe Fabian Neutrophils/100 WBC (Bld) 66.1 % Normal 43.0-75.0 [facility] Comment on above: Performed By: #### V AGINT #### [facility] [address] [place] [address] Dr. Kobe Fabian Platelet mean volume (Bld) [Entitic vol] 10.1 fL Normal 9.5-13.5 [facility] Comment on above: Performed By: #### V AGINT #### [facility] [address] [place] [address] Dr. Kobe Fabian PLT 184 103/ul Normal 150-450 [facility] Comment on above: Performed By: #### V AGINT #### [facility] [address] [place] [address] Dr. Kobe Fabian RBC 4.94 106/ul Normal 4.20-5.40 [facility] Comment on above: Performed By: #### V AGINT #### [facility] [address] [place] [address] Dr. Kobe Fabian WBC 6.9 103/ul Normal 4.0-11.0 [facility] Comment on above: Performed By: #### V AGINT #### [facility] [address] [place] [address] Dr. Kobe Fabian GLYCOHEMOGLOBIN A1Con 2022 ADA RECOMMENDATION SEE BELOW Normal [facility] Comment on above: Result Comment: ADA RECOMMENDED LIMIT 4.0 - 6.0 ADA THERAPEUTIC TARGET < 7.0 ACTION SUGGESTED > 7.0 Performed By: #### V AGINT #### [facility] [address] [address] [address] Kobe Fabian Glucose [Mass/Vol] 97 mg/dL Normal [facility] Comment on above: Performed By: #### V AGINT #### [facility] [address] [address] [address] Kobe Fabian HbA1c (Bld) [Mass fraction] 5.0 % Normal 4.5-6.2 [facility] Comment on above: Performed By: #### V AGINT #### [facility] [address] [address] [address] Kobe Fabian LIPID PROFILEon 07-26-2022 CHOL-HDL RATIO NORM SEE BELOW Normal [facility] Comment on above: Result Comment: 3.3 - 4.4 LOW RISK 4.4 - 7.1 AVERAGE RISK 7.1 - 11.0 MODERATE RISK >11.0 HIGH RISK Performed By: #### V AGINT #### [facility] [address] [place] [address] Dr. Kobe Fabian Cholesterol [Mass/Vol] 196 mg/dL Normal <=200 [facility] Comment on above: Performed By: #### V AGINT #### [facility] [address] [place] [address] Dr. Kobe Fabian Cholesterol in HDL [Mass/Vol] 51 mg/dL Normal 40-60 [facility] Comment on above: Performed By: #### V AGINT #### [facility] [address] [address] [address] Kobe Fabian Cholesterol in LDL [Mass/Vol] 110.6 mg/dL Normal [facility] Comment on above: Performed By: #### V AGINT #### [facility] [address] [address] [address] Kobe Fabian Cholesterol.total/C holesterol in HDL [Mass ratio] 3.8 {ratio} Normal [facility] Comment on above: Performed By: #### V AGINT #### [facility] [address] [address] [address] Kobe Fabian HDL NORMAL > or = 60 mg/dl - LOW CARDIOVASCULAR RISK <40 mg/dl - HIGH CARDIOVASCULAR RISK Normal [facility] Comment on above: Performed By: #### V AGINT #### [facility] [address] [place] [address] Dr. Kobe Fabian LDL CALC NORMAL SEE BELOW Normal [facility] Comment on above: Result Comment: <100 mg/dl OPTIMAL 100 - 129 mg/dl NEAR OR ABOVE OPTIMAL 130 - 159 mg/dl BORDERLINE HIGH 160 - 189 mg/dl HIGH >190 mg/dl VERY HIGH Performed By: #### V AGINT #### [facility] [address] [place] [address] Dr. Kobe Fabian Triglyceride [Mass/Vol] 172 mg/dL Critically high <=150 [facility] Comment on above: Performed By: #### V AGINT #### [facility] [address] [place] [address] Dr. Kobe Fabian VLDL CALC 34.4 mg/dL Normal [facility] Comment on above: Performed By: #### V AGINT #### [facility] [address] [place] [address] Dr. Kobe Fabian PROF 14(COMP METB)on 023 Albumin [Mass/Vol] 4.3 g/dL Normal 3.4-5.0 [facility] Comment on above: Performed By: #### C MP #### [facility] [address] [place] [address] Dr. Kobe Fabian Albumin/Globulin [Mass ratio] 1.2 {ratio} Normal [facility] Comment on above: Performed By: #### C MP #### [facility] [address] [place] [address] Dr. Kobe Fabian ALP [Catalytic activity/Vol] 54 U/L Normal 46-116 [facility] Comment on above: Performed By: #### C MP #### [facility] [address] [place] [address] Dr. Kobe Fabian ALT [Catalytic activity/Vol] 68 U/L Critically high 14-59 [facility] Comment on above: Performed By: #### C MP #### [facility] [address] [address] [address] Kobe Fabian Anion gap [Moles/Vol] 11.5 mmol/L Normal [facility] Comment on above: Performed By: #### C MP #### [facility] [address] [address] [address] Kobe Fabian AST [Catalytic activity/Vol] 28 U/L Normal 15-37 [facility] Comment on above: Performed By: #### C MP #### [facility] [address] [address] [address] Kobe Fabian Bilirubin [Mass/Vol] 0.6 mg/dL Normal 0.2-1.0 [facility] Comment on above: Performed By: #### C MP #### [facility] [address] [address] [address] Kobe Fabian Calcium [Mass/Vol] 9.6 mg/dL Normal 8.5-10.1 [facility] Comment on above: Performed By: #### C MP #### [facility] [address] [place] [address] Dr. Kobe Fbaian Chloride [Moles/Vol] 106 mmol/L Normal 98-107 [facility] Comment on above: Performed By: #### C MP #### [facility] [address] [address] [address] Kobe Fabian CO2 [Moles/Vol] 28.3 mmol/L Normal 21.0-32.0 [facility] Comment on above: Performed By: #### C MP #### [facility] [address] [address] [address] Kobe Fabian Creatinine [Mass/Vol] 0.72 mg/dL Normal 0.55-1.02 [facility] Comment on above: Performed By: #### C MP #### [facility] [address] [address] [address] Kobe Fabian EGFR-AF JAMAICAN >60 Normal >=60 [facility] Comment on above: Performed By: #### C MP #### [facility] [address] [address] [address] Kobe Fabian EGFR-NON AF JAMAICAN >60 Normal >=60 [facility] Comment on above: Performed By: #### C MP #### [facility] [address] [address] [address] Kobe Fabian Globulin (S) [Mass/Vol] 3.7 g/dL Normal [facility] Comment on above: Performed By: #### C MP #### [facility] [address] [address] [address] Kobe Fabian Glucose [Mass/Vol] 89 mg/dL Normal 74-106 [facility] Comment on above: Performed By: #### C MP #### [facility] [address] [address] [address] Kobe Fabian Potassium [Moles/Vol] 3.8 mmol/L Normal 3.5-5.1 [facility] Comment on above: Performed By: #### C MP #### [facility] [address] [address] [address] Kobe Fabian Protein [Mass/Vol] 8.0 g/dL Normal 6.4-8.2 [facility] Comment on above: Performed By: #### C MP #### [facility] [address] [address] [address] Kobe Fabian Sodium [Moles/Vol] 142 mmol/L Normal 136-145 [facility] Comment on above: Performed By: #### C MP #### [facility] [address] [address] [address] Kobe Fabian Urea nitrogen [Mass/Vol] 17.0 mg/dL Normal 7.0-18.0 [facility] Comment on above: Performed By: #### C MP #### [facility] [address] [address] [address] Kobe Fabian Urea nitrogen/Creatinine [Mass ratio] 23.6 mg/mg Normal [facility] Comment on above: Performed By: #### C MP #### [facility] [address] [address] [address] Kobe Fabian TSHon 07-26-2022 TSH 1.819 uIU/mL Normal 0.358-3.740 [facility] Comment on above: Performed By: #### V AGINT #### [facility] [address] [address] [address] Kobe Fabian MG MAMM SCREEN 3D YUDI CADon 06-19-2022 MG MAMM SCREEN 3D YUDI CAD Patient: AFRICA PARHAM Exam Date: 06/19/2022 : 1980 Gender:F Ordering : DR JIAN ROYAL . Admission #: [id number] Family : Order #: [id number] CLICK HERE TO VIEW EXAM RADIOLOGY REPORT PROCEDURE: MAMMOGRAM SCREENING 3D BILATERAL CAD COMPARISON: None. INDICATIONS: Screening mammography Calculator Name NCI Breast Cancer Risk Assessment Tool 5 Year Breast Cancer Risk 0.70% Lifetime Breast Cancer Risk 11.00% Personal Breast Cancer No Personal Ovarian Cancer No Treatments None Family Cancers None LOCATION: [facility] BREAST COMPOSITION: Heterogeneously dense,which may obscure small [...] M.D. on 06/21/2022 at 08:56 Normal [facility] GROUP A STREP CULTUREon 05-09 S. pyogenes Ag Ql (Unsp spec) Culture Observations: NEGATIVE FOR GROUP A STREPTOCOCCUS. Normal [facility] Comment on above: Performed By: #### G RASTCX, SSCRN #### [facility] [address] [address] [address] Kobe Fabian STREPT SCREENon 05-26-2022 STREP SCREEN A Negative Normal NEGATIVE [facility] Comment on above: Performed By: #### G RASTCX, SSCRN #### [facility] [address] [address] [address] Kobe Fabian CBC AUTO DIFFon 10-23-2021 BASO # 0.0 103/ul Normal 0.0-0.1 [facility] Comment on above: Performed By: #### V AGINT #### [facility] [address] [address] [address] Kobe Fabian Basophils/100 WBC (Bld) 0.5 % Normal 0.2-2.0 [facility] Comment on above: Performed By: #### V AGINT #### [facility] [address] [place] [address] Dr. Kobe Fabian EO # 0.3 103/ul Normal 0.0-0.7 [facility] Comment on above: Performed By: #### V AGINT #### [facility] [address] [place] [address] Dr. Kobe Fabian Eosinophils/100 WBC (Bld) 5.3 % Normal 0.9-7.0 [facility] Comment on above: Performed By: #### V AGINT #### [facility] [address] [place] [address] Dr. Kobe Fabian Erythrocyte distribution width (RBC) [Ratio] 12.4 % Normal 11.0-15.0 [facility] Comment on above: Performed By: #### V AGINT #### [facility] [address] [place] [address] Dr. Kobe Fabian Hematocrit (Bld) [Volume fraction] 41.1 % Normal 36.0-48.0 [facility] Comment on above: Performed By: #### V AGINT #### [facility] [address] [place] [address] Dr. Kobe Fabian Hemoglobin (Bld) [Mass/Vol] 13.6 g/dL Normal 12.0-16.0 [facility] Comment on above: Performed By: #### V AGINT #### [facility] [address] [place] [address] Dr. Kboe Fabian IG # 0.02 10e3/ul Normal 0.00-0.03 [facility] Comment on above: Performed By: #### V AGINT #### [facility] [address] [place] [address] Dr. Kobe Fabian IG % 0.3 % Normal 0.0-0.5 [facility] Comment on above: Performed By: #### V AGINT #### [facility] [address] [place] [address] Dr. Kobe Fabian LYMPH # 1.5 103/ul Normal 1.2-3.8 [facility] Comment on above: Performed By: #### V AGINT #### [facility] [address] [place] [address] Dr. Kobe Fabian Lymphocytes/100 WBC (Bld) 24.8 % Normal 20.5-60.0 [facility] Comment on above: Performed By: #### V AGINT #### [facility] [address] [place] [address] Dr. Kobe Fabian MANUAL DIFF REQ NO Normal [facility] Comment on above: Performed By: #### V AGINT #### [facility] [address] [place] [address] Dr. Kobe Fabian MCH (RBC) [Entitic mass] 29.2 pg Normal 26.7-34.0 [facility] Comment on above: Performed By: #### V AGINT #### [facility] [address] [place] [address] Dr. Kobe Fabian MCHC (RBC) [Mass/Vol] 33.1 g/dL Normal 29.9-35.2 [facility] Comment on above: Performed By: #### V AGINT #### [facility] [address] [place] [address] Dr. Kobe Fabian MCV (RBC) [Entitic vol] 88.2 fL Normal 81.0-99.0 [facility] Comment on above: Performed By: #### V AGINT #### [facility] [address] [place] [address] Dr. Kobe Fabian MONO # 0.3 103/ul Normal 0.3-0.8 [facility] Comment on above: Performed By: #### V AGINT #### [facility] [address] [place] [address] Dr. Kobe Fabian Monocytes/100 WBC (Bld) 5.4 % Normal 1.7-12.0 [facility] Comment on above: Performed By: #### V AGINT #### [facility] [address] [address] [address] Kobe Fabian NEUT # 3.9 103/ul Normal 1.4-6.5 [facility] Comment on above: Performed By: #### V AGINT #### [facility] [address] [address] [address] Kobe Fabian Neutrophils/100 WBC (Bld) 63.7 % Normal 43.0-75.0 [facility] Comment on above: Performed By: #### V AGINT #### [facility] [address] [address] [address] Kobe Fabian Platelet mean volume (Bld) [Entitic vol] 10.4 fL Normal 9.5-13.5 [facility] Comment on above: Performed By: #### V AGINT #### [facility] [address] [place] [address] Dr. Kobe Fabian PLT 203 103/ul Normal 150-450 [facility] Comment on above: Performed By: #### V AGINT #### [facility] [address] [address] [address] Kobe Fabian RBC 4.66 106/ul Normal 4.20-5.40 [facility] Comment on above: Performed By: #### V AGINT #### [facility] [address] [place] [address] Dr. Kobe Fabian WBC 6.1 103/ul Normal 4.0-11.0 [facility] Comment on above: Performed By: #### V AGINT #### [facility] [address] [place] [address] Dr. Kobe Fabian PROF 14(COMP METB)on 022 Albumin [Mass/Vol] 3.7 g/dL Normal 3.4-5.0 [facility] Comment on above: Performed By: #### C MP #### [facility] [address] [place] [address] Dr. Kobe Fabian Albumin/Globulin [Mass ratio] 1.1 {ratio} Normal [facility] Comment on above: Performed By: #### C MP #### [facility] [address] [address] [address] Kobe Fabian ALP [Catalytic activity/Vol] 60 U/L Normal 46-116 [facility] Comment on above: Performed By: #### C MP #### [facility] [address] [address] [address] Kobe Fabian ALT [Catalytic activity/Vol] 42 U/L Normal 14-59 [facility] Comment on above: Performed By: #### C MP #### [facility] [address] [place] [address] Dr. Kobe Fabian Anion gap [Moles/Vol] 12.0 mmol/L Normal [facility] Comment on above: Performed By: #### C MP #### [facility] [address] [place] [address] Dr. Kobe Fabian AST [Catalytic activity/Vol] 28 U/L Normal 15-37 [facility] Comment on above: Performed By: #### C MP #### [facility] [address] [place] [address] Dr. Kobe Fabian Bilirubin [Mass/Vol] 0.4 mg/dL Normal 0.2-1.0 [facility] Comment on above: Performed By: #### C MP #### [facility] [address] [place] [address] Dr. Kobe Fabian Calcium [Mass/Vol] 8.6 mg/dL Normal 8.5-10.1 [facility] Comment on above: Performed By: #### C MP #### [facility] [address] [place] [address] Dr. Kobe Fabian Chloride [Moles/Vol] 106 mmol/L Normal 98-107 [facility] Comment on above: Performed By: #### C MP #### [facility] [address] [place] [address] Dr. Kobe Fabian CO2 [Moles/Vol] 28.4 mmol/L Normal 21.0-32.0 [facility] Comment on above: Performed By: #### C MP #### [facility] [address] [address] [address] Kobe Fabian Creatinine [Mass/Vol] 0.81 mg/dL Normal 0.55-1.02 [facility] Comment on above: Performed By: #### C MP #### [facility] [address] [address] [address] Kobe Fabian EGFR-AF JAMAICAN >60 Normal >=60 [facility] Comment on above: Performed By: #### C MP #### [facility] [address] [address] [address] Kobe Fabian EGFR-NON AF JAMAICAN >60 Normal >=60 [facility] Comment on above: Performed By: #### C MP #### [facility] [address] [place] [address] Dr. Kobe Fabian Globulin (S) [Mass/Vol] 3.5 g/dL Normal [facility] Comment on above: Performed By: #### C MP #### [facility] [address] [place] [address] Dr. Kobe Fabian Glucose [Mass/Vol] 94 mg/dL Normal 74-106 [facility] Comment on above: Performed By: #### C MP #### [facility] [address] [place] [address] Dr. Kobe Fabian Potassium [Moles/Vol] 4.4 mmol/L Normal 3.5-5.1 [facility] Comment on above: Performed By: #### C MP #### [facility] [address] [place] [address] Dr. Kobe Fabian Protein [Mass/Vol] 7.2 g/dL Normal 6.4-8.2 [facility] Comment on above: Performed By: #### C MP #### [facility] [address] [place] [address] Dr. Kobe Fabian Sodium [Moles/Vol] 142 mmol/L Normal 136-145 [facility] Comment on above: Performed By: #### C MP #### [facility] [address] [place] [address] Dr. Kobe Fabian Urea nitrogen [Mass/Vol] 13.0 mg/dL Normal 7.0-18.0 [facility] Comment on above: Performed By: #### C MP #### [facility] [address] [place] [address] Dr. Kobe Fabian Urea nitrogen/Creatinine [Mass ratio] 16.0 mg/mg Normal [facility] Comment on above: Performed By: #### C MP #### [facility] [address] [address] [address] Kobe Fabian SED RATE [facility] 2021 SED RATE 7 mm/hr Normal <=20 [facility] Comment on above: Performed By: #### V AGINT #### [facility] [address] [place] [address] Dr. Kobe Fabian Vital Signs Date Time Vital Sign Value Performing Clinician Facility 06-17-2024 13:09-0500 Body height 160.02 cm Gnio SinDelantal Work Phone: [facility] 06-17-2024 13:09-0500 Body mass index (BMI) [Ratio] 30.4 kg/m2 [employer] Work Phone: [facility] 06-17-2024 13:09-0500 Body weight 78.01 kg Gino OfferLounges DO Work Phone: [facility] 09-16-2022 10:39-0400 Body height 160.02 cm Gino R OfferLounges Work Phone: [facility] [employer] Work Phone: 09-16-2022 10:39-0400 Body mass index (BMI) [Ratio] 36.49 kg/m2 Gino R [employer] Work Phone: [facility] [employer] Work Phone: 09-16-2022 10:39-0400 Body surface area Derived from formula 1.96 m2 Gino R [employer] Work Phone: [facility] [employer] Work Phone: 09-16-2022 10:39-0400 Body weight 93.44 kg Gino R Zachariahs Work Phone: [facility] Work Phone: 07-25-2022 13:30-0500 Body height 160.02 cm Gino Kuns Other [employer] Other 07-25-2022 13:30-0500 Body mass index (BMI) [Ratio] 36.49 kg/m2 Gino Kuns Other [employer] Other 07-25-2022 13:30-0500 Body weight 93.44 kg Gino Kuns Other [employer] Other 07-25-2022 13:30-0500 Diastolic blood pressure 80 mm[Hg] Gino Kuns Other [employer] Other 07-25-2022 13:30-0500 Respiratory rate 18 /min Gino Kuns Other [employer] Other 07-25-2022 13:30-0500 SaO2% (BldA) [Mass fraction] 99 % Gino Kuns Other [employer] Other 07-25-2022 13:30-0500 Systolic blood pressure 118 mm[Hg] Gino Kuns Other [employer] Other 10-26-2021 13:45-0400 Body height 160.02 cm Gino Kuns Other [employer] Other 10-26-2021 13:45-0400 Body mass index (BMI) [Ratio] 36.49 kg/m2 Gino Kuns Other [employer] Other 10-26-2021 13:45-0400 Body weight 93.44 kg Igno Kuns Other [employer] Other 10-26-2021 13:45-0400 Diastolic blood pressure 60 mm[Hg] Gino Kuns Other [employer] Other 10-26-2021 13:45-0400 Respiratory rate 16 /min Gino Kuns Other [employer] Other 10-26-2021 13:45-0400 SaO2% (BldA) [Mass fraction] 99 % Gino Kuns Other [employer] Other 10-26-2021 13:45-0400 Systolic blood pressure 110 mm[Hg] Gino Kuns Other [employer] Other 10-16-2021 14:30-0400 Body height 160.02 cm Gnio Kuns Other [employer] Other 10-16-2021 14:30-0400 Body mass index (BMI) [Ratio] 36.49 kg/m2 Gino Kuns Other [employer] Other 10-16-2021 14:30-0400 Body weight 93.44 kg Gino Kuns Other [employer] Other 10-16-2021 14:30-0400 Diastolic blood pressure 82 mm[Hg] Gino Kuns Other [employer] Other 10-16-2021 14:30-0400 Respiratory rate 18 /min Gino Kuns Other [employer] Other 10-16-2021 14:30-0400 SaO2% (BldA) [Mass fraction] 98 % Gino Kuns Other [employer] Other 10-16-2021 14:30-0400 Systolic blood pressure 126 mm[Hg] Gino Kuns Other [employer] Other 04-16-2021 12:00-0500 Body height 160.02 cm Gino Kuns Other [employer] Other 03-26-2021 11:15-0400 Body height 160.02 cm Gino Kuns Other [employer] Other 03-26-2021 11:15-0400 Body mass index (BMI) [Ratio] 35.25 kg/m2 Gino Kuns Other [employer] Other 03-26-2021 11:15-0400 Body weight 90.27 kg Gino Kuns Other [employer] Other 03-26-2021 11:15-0400 Diastolic blood pressure 80 mm[Hg] Gino Kuns Other [employer] Other 03-26-2021 11:15-0400 Respiratory rate 18 /min Gino Kuns Other [employer] Other 03-26-2021 11:15-0400 SaO2% (BldA) [Mass fraction] 98 % Gino Kuns Other [employer] Other 03-26-2021 11:15-0400 Systolic blood pressure 124 mm[Hg] Gino Liang Other [facility] [employer] Other Encounters Encounter Date Encounter Type Care Provider Facility Start: 10-25-2024 ambulatory Nabila L Ana Laura Facility: [facility] Start: 07-28-2024 End: 07-28-2024 ambulatory Nabila L Ana Laura Facility:[facility] [place] Start: 07-14-2024 End: 07-14-2024 ambulatory Nabila L Ana Laura Facility:[facility] [place] Start: 06-17-2024 End: 06-17-2024 ambulatory Ginolaura Liang DO Work Phone: [facility] Work Phone: Start: 06-17-2024 End: 06-17-2024 Patient encounter procedure Gino Liang DO [facility] Work Phone: Start: 04-15-2024 End: 04-15-2024 ambulatory Nabila L Ana Laura Facility:[facility] [place] Start: 04-05-2024 End: 04-05-2024 ambulatory Nabila L Ana Laura Facility:[facility] [place] Start: 02-03-2024 End: 02-03-2024 ambulatory Nabila L Ana Laura Facility:[facility] [place] Start: 11-06-2023 End: 11-06-2023 ambulatory Nabila L Ana Laura [facility] Start: 11-06-2023 End: 11-06-2023 Lab Drop off Nabila L Ana [facility] Start: 11-06-2023 End: 11-06-2023 ambulatory Nabila L Ana Laura Facility:[facility] [place] Start: 11-04-2023 End: 11-04-2023 ambulatory Nabila L Ana Laura Facility:[facility] [place] Start: 09-08-2023 End: 09-08-2023 ambulatory Nabila L Ana Laura Facility:[facility] [place] Start: 08-07-2023 End: 08-07-2023 ambulatory Nabila L Ana Laura Facility: [facility] Start: 05-20-2023 End: 05-20-2023 ambulatory Nabila L Ana Laura Facility: [facility] [place] [facility] Start: 04-22-2023 End: 04-22-2023 ambulatory Nabila L Ana Laura Facility: [facility] [place] [facility] Start: 03-25-2023 End: 03-25-2023 ambulatory Nabila L Ana Laura Facility: [facility] Start: 02-25-2023 End: 02-25-2023 ambulatory Nabila L Ana Laura Facility: [facility] Start: 09-16-2022 Office consultation new/estab patient 30 min Gino Liang Work Phone: [facility] Work Phone: Start: 09-16-[address] Gino Liang Facility:[id number] Start: 09-09-2022 End: 09-10-2022 ambulatory NELL PELAEZ Facility:[facility] Start: 07-29-2022 Encounter for gynecological examination (general) (routine) without abnormal findings DR JIAN ROYAL . [facility] Start: 07-26-2022 End: 07-27-[address] GINO LIANG Facility:[facility] Start: 07-25-2022 End: 07-25-[address] JIAN ROYAL . [employer] Other Start: 07-25-2022 Office outpatient vi sit 25 minutes Gino Liang [facility] Start: 06-19-2022 End: 06-20-[address] JIAN ROYAL . Facility:[facility] Start: 05-26-2022 End: 05-27-[address] MICAH MALDONADO Facility:[facility] Start: 03-18-2022 End: 03-18-2022 ambulatory Gino Liang Other [employer] Other Start: 03-18-2022 Telephone encounter Gino Liang [facility] Start: 03-08-2022 End: 03-08-[address] GINO LIANG Facility:[facility] Start: 11-07-2021 End: 11-07-2021 ambulatory Gino Liang Other [employer] Other Start: 11-07-2021 Telephone encounter Gino Liang [facility] [place] Start: 10-26-2021 End: 10-26-2021 ambulatory Gino Liang Other [employer] Other Start: 10-26-2021 Office outpatient vi sit 15 minutes Gino Liang [facility] [place] Start: 10-23-2021 End: 10-24-[address] GINO LIANG Facility:[facility] Start: 10-16-2021 End: 10-16-2021 ambulatory Gino Liang Other [employer] Other Start: 10-16-2021 Office outpatient vi sit 25 minutes Gino Liang [facility] [place] Start: 04-16-2021 End: 04-16-2021 ambulatory Gino Liang Other [employer] Other Start: 04-16-2021 Office outpatient vi sit 15 minutes Gino Kuns [facility] [place] Start: 03-28-2021 Encounter for genera l adult medical examination without abnormal findings Ginolaura Sonis [facility] [place] Start: 03-28-2021 Telephone encounter Ginolaura Sonis [facility] [place] Start: 03-26-2021 Encounter for genera l adult medical examination without abnormal findings Gino Zachariahs [facility] [place] Start: 03-26-2021 Periodic preventive med est patient 18-39 yrs Gino Liang [facility] [place] Procedures Date Procedure Procedure Detail Performing Clinician Start: 06-17-2024 Plain X-ray of left shoulder Gino Liang DO Work Phone: Start: 06-09-2018 Hysterectomy Nabila Hansen b Start: 10-08-2015 Surgical procedure Nabila Dunaway Comment on above: D and C x2 Start: 06-09-2011 Laser assisted in si tu keratomileusis Nabila Ana Laura Start: 06-09-2008 Cholecystectomy Nabila Sc hwab H/O: hysterectomy Gino Kuns Other Plan of Treatment Date Care Activity Detail Author Start: 06-17-2024 Plain X-ray of left shoulder XR shoulder LT min 2V* [facility] Start: 06-17-2024 XR Shoulder - left Views [facility] Immunizations Immunization Date Immunization Notes Care Provider Fa [facility] 04-22-2023 influenza, injectable, quadrivalent, preservative free Nabila Ana Laura [facility] 04-06-2021 influenza virus vaccine, unspecified formulation Nabila Ana Laura [facility] 02-16-2020 influenza virus vaccine, unspecified formulation Nabila Ana Laura [facility] 03-23-2019 influenza virus vaccine, unspecified formulation Nabila Ana Laura [facility] 03-23-2019 influenza, injectable, quadrivalent, preservative free Gino Kuns Other [facility] 03-24-2018 influenza virus vaccine, unspecified formulation Nabila Ana Laura [facility] 02-28-2017 tetanus toxoid, reduced diphtheria toxoid, and acellular pertussis vaccine, adsorbed Gino Kuns Other [facility] 02-28-2017 influenza virus vaccine, unspecified formulation Nabila Ana Laura [facility] 03-01-2016 influenza, injectable, quadrivalent, contains preservative Gino Kuns Other [employer] Other 03-01-2016 influenza virus vaccine, unspecified formulation Nabila Dunaway [facility] 03-01-2016 influenza, injectable, quadrivalent, preservative free Gino Liang DO Work Phone: [facility] NEGATED: Highlighted row has not occurred!03-25-2023 influenza virus vaccine, unspecified formulation Nabila Dunaway [facility] Payers Date Payer Category Payer Self-pay 1980 Unknown [id number] 2.16.84 [id number] 1980 Unknown [id number] 2.16.84 [id number] 1980 Unknown [id number] 2.16.84 0.1.476184.3.579.2.593 1980 Unknown [id number] 2.16.84 0.1.535411.3.579.2.593 1980 Unknown [id number] 2.16.84 0.1.255219.3.579.2.593 1980 Unknown [id number] 2.16.84 0.1.912153.3.579.2.593 1980 Unknown [id number] 2.16.84 0.1.994504.3.579.2.593 1980 Unknown [id number] 2.16.84 0.1.029389.3.579.2.593 1980 Unknown [id number] 2.16. 840.1.848740.3.579.2.356 1980 Unknown [id number] 2.16.8 40.1.981220.3.579.2.727 1980 Unknown [id number] 2.16.8 40.1.401497.3.579.2.727 1980 Unknown [id number] 2.16.8 40.1.079362.3.579.2.727 1980 Unknown [id number] 2.16.8 40.1.167371.3.579.2. 1981 Unknown [id number] 2.16.8 40.1.631607.3.579.2.727 1980 Unknown [id number] 2.16.8 40.1.836224.3.579.2. 1980 Unknown [id number] 2.16.8 40.1.395525.3.579.2. 1981 Unknown [id number] 2.16.8 40.1.035956.3.579.2. 1981 Unknown [id number] 2.16.8 40.1.257200.3.579.2. 1981 Unknown [id number] 2.16.8 40.1.653489.3.579.2. 1980 Unknown [id number] 2.16.8 [id number]. 1980 Unknown [id number] 2.16.8 [id number]. 1981 Unknown [id number] 2.16.8 [id number]. 1981 Unknown [id number] 2.16.8 [id number]. 1981 Unknown [id number] 2.16.8 [id number] 1958 [employer] Shield [id number] Unknown ANTHEM Unknown [id number] 2.16.8 [id number] Social History Date Type Detail Facility Sex Assigned At [facility] Never smoker Never smoker -Otolaryngolo gy-Jamie clark Work Phone: Start: 11-06-2023 End: 06-03-2024 Tobacco smoking status Never smoked tobacco (finding) [facility]: 06-17-2024 End: 06-18-2024 Sex Female (finding) [facility] Start: 1980 Sex Assigned At Female F [facility] Clinical Notes 09-16-2012 to 06-17-2024 Note Date & Type Note Facility 06-17-2024 Evaluation note Diagnosis Onset Date Resolution Bicipital tendinitis, left shoulder acute June 17 12:45pm Rotator cuff syndrome of left shoulder acute June 17 12:45pm [facility] Work Phone: 1([phone] 100-362110-28-2024 NotePatient Education Orthopedics Shoulder Range of Motion Exercises Shoulder range of motion (ROM) exercises are done to keep the shoulder moving freely or to increasemovement. They are recommended for people who have shoulder pain or stiffness or who are recoveringfrom a shoulder surgery. Ask your health care [...] side. Bend your arm to about a 90- degree angle (right angle) at the elbow, and [...] your feet. 2. Lif (more content not included)...[facility]02-16-2023 Evaluation note* Encounter Date Diagnosis Assessment Notes Treatment Notes Treatment Clinical Notes Jul, Dysphagia, unspecified type (ICD-10 - [...] Heartburn (ICD-10 - R12) Patient does have heartburn/reflux symptoms at times, I did advise her that this could be contributing to the difficulty swallowing. Referral initiated to ENT for further evaluation. 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 [facility] Other 05-20-2022 Evaluation note* Encounter Date Diagnosis [...] - M25.522) We will continue to monitor. [facility] Other 05-10-2022 Evaluation note* Encounter Date Diagnosis [...] head has been ordered. Will follow up [facility] Other 11-08-2021 Evaluation note* Encounter Date Diagnosis Assessment Notes Treatment Notes Treatment Clinical Notes Apr, Hypertriglyceridemia (ICD-10 - E78.1) Reviewed blood work with patient. Cholesterol triglycerides continue to be elevated but has improved from last check. We will continue to monitor. [facility] Other 10-20-2021 Evaluation note* Encounter Date Diagnosis Assessment Notes Treatment Notes Treatment Clinical Notes Mar, Wellness examination (ICD-10 - Z00.00) [facility] Other 10-18-2021 Evaluation note* Encounter Date Diagnosis [...] any positively answered questions as noted above. [facility] Other 04-10-2013 History general Narrative - Reported* Type Description Date Medical History 09/16/12 Left foot x-ray [facility] Medical History 09/08/14 Chest X-ray Surgical History D & C 2006 Surgical History cholecystectomy Surgical History D&C 2015 Surgical History Hysterectomy (still has ovaries ) 05/2019 Hospitalization History Vaginal x1 (male)/ Gestational Diabetes 03/22/14 Hospitalization History Vaginal x1 (female ) 06/03/06 Hospitalization History Vaginal X1 (male) gestational diabetes 03/2017 [facility] Other Evaluation + Plan note Future Appointments Appointment Date:02/03/2024 10:00:00 AM Scheduled Provider:Nabila Farley Location:[facility] Appointment Type: Open Diagnostic Tests Pending * PAP [id number] w/ HPV and Genotype rflx [facility] Other Evaluation note* Diagnosis Onset Date Resolution Status Admit Date Bicipital tendinitis, left shoulder acute June 17 12:45pm Rotator cuff syndrome of lef t shoulder acute June 17 12:45pm [facility] Work Phone: History of Present illness Narrative* Patient is [...] date and entered into the EMR system. [facility] Work Phone: Hospital course Narrative No data available for this section [facility] No data available for this section [facility] No data available for this section [facility] Reason for Referral Reason *FU 08/23 consult and treat;; feeling of lump in throat worse with swallowing reflux Diagnosis 1 Dysphagia, unspecifi ed type (R13.10) Referral Organization [facility] Family Medicin e [place] Referring Provider First Name Gino Referring Provider Last Name Rock Referring Provider Specialty Family Prac saqib Referred Organization [facility] Referred Provider OJ VELEZ Referred Address [address] [place], [place] Referred Provider Specialty Otolaryngolo gy Referral Priority Routine General Notes Desire Rivas 023 10:57:19 AM >Received today and fax referral. The Central Team at will call patient and schedule Desire Rivas 08/02/2022 09:02:19 AM >Fax letter for appt update Desire Rivas 08/02/2022 12:10:39 PM >Received letter back and they have the referral but patient is not scheduled yet Desire Rivas 08/08/2022 09:59:37 AM >Fax letter for appt update Desire Rivas 08/08/2022 11:54:00 AM >Received letter back and patient is not scheduled yet Desire Rivas 08/16/2022 07:28:30 AM >Fax letter for appt update Clinical Notes Office [phone] Summary Purpose Family History No Family History Records Found Relationship Condition Age at Onset Recorded Date/T fabrice father Diabetes mellitus Unknown Advance Directives No Advanced Directives Records Found Advance Directive Response Recorded Date/ Time Advance Directives No December 14 3:59pm Chief Complaint * DYSPHAGIA * DR. GINO GONZALES Chief Complaint and Reason for Visit Chief Complaint Admit Date CONSULT NABILA DUNAWAY LT SHOULDER PAIN, WX June 17, 2024 12:45pm M25.512 - Pain in left shoulder June 17, 2024 12:48pm Reason for Visit Admit Date Bicipital tendinitis, left shoulder Johnny rahat 2024 12:45pm Rotator cuff syndrome of left shoulder J anuary 2024 12:45pm Additional Source Comments REASON FOR VISIT (unrecogniz ed section and content) wellnessClinicalreview labsh ead painreview labs /testingclinicalClinicalFeels like something stuck in throat INFORMATION SOURCE (unrecogn ized section and content) DATE CREATED AUTHOR 09/14/2022 [facility] DATE CREATED AUTHOR AUTHOR'S ORGANIZ ATION 09/17/2022 [facility] DATE CREATED AUTHOR AUTHOR'S ORGANIZ ATION 09/18/2022 [employer] DATE CREATED AUTHOR AUTHOR'S ORGANIZ ATION 02/04/2024 [facility] DATE CREATED AUTHOR AUTHOR'S ORGANIZ ATION 06/22/2024 [facility] DATE CREATED AUTHOR AUTHOR'S ORGANIZ ATION 07/30/2024 [facility] Patient Care team informatio n (unrecognized section and content) Team Status: Active Member Role Status Dates Gino Liang DO Primary Care Provider Active Team Status: Inactive Member Role Status Dates Gino Liang DO Primary Care Provider Active Sta rt: June 17, 2024 End: June 17, 2024 Sahil Dahl DO Attending Provider Active St art: June 17, 2024 End: June 17, 2024 Team Status: Active Member Role Status Dates Gino Liang DO Primary Care Provider Active Sta rt: June 17, 2024 Sahil Dahl DO Attending Provider Active St art: June 17, 2024 Goals (unrecognized section and content) Goals may be documented in a n alternate section FOR RECORDS PERTAINING TO PATIENTS WHO ARE [...] BE BASED ON THE PRIMARY CLINICAL RECORDS. [facility]. provides no warranty or guarantee of the accuracy or completeness of information in this document.
[2024-09-05 08:08] LABS: Progesterone 0.2 ng/mL (.)
[2024-09-07 18:08] LABS: Estrone, Serum 17 pg/mL (.)
== END 2024-09-04 07:11 | disposition home or self-care (01) ==
LOC: LAB 07:12
PROVIDERS: PCP Nurse Practitioner; Visit Provider Nurse Practitioner
DX: R53.83 Other fatigue (principal); N95.1 Menopausal and female climacteric states; R23.2 Flushing
CPT/HCPCS: 36415; 82679; 84144

== ENCOUNTER 2024-10-16 07:31 | Outpatient (OUT) | payer BC, SELFPAY ==
--- OUTSIDE RECORDS SUMMARY | 2024-10-16 07:35 | XMS_ITS | CCD ---
Author Organization [facility] Care Team Providers Care Quarter Section Ironer Name Role Phone Gino Liang Unavailable ROCK, DR CHRISTIAN Attending Unavailable KUNJenny, DR CHRISTIAN Consulting Unavailable KUNJenny, DR CHRISTIAN Primary Care Unavailable KUNS, DR CHRISTIAN Admitting Unavailable RAFAEL ., DR [...] [place] Primary Care Physician Ana Laura, Nabila Wilks Attending Unavailable Ana Laura, Nabila L Attending Unavailable Ana Laura, Nabila L Attending Unavailable Ana Laura, Nabila L Attending Unavailable Ana Laura, Nabila L Attending Unavailable Ana Laura, Nabila L Attending Unavailable Ana Laura, Nabila L Attending Unavailable Ana Laura, Nabila L Attending Unavailable Ana Laura, Nabila L Attending Unavailable Ana Laura, Nabial L Admitting Unavailable Ana Laura, Nabila L Attending Unavailable Gino Liang DO Primary Care Provider Sahil Dahl DO Attending Provider Gino Liang Primary Care Unavailable Sahil Dahl Attending Unavailable Nabila, Sahil Garcia Admitting Unavailable Ana Laura, Nabila L Attending Unavailable Ana Laura, Nabila L Attending Unavailable Ana Laura, Nabila L Attending Unavailable Ana Laura, Nabila L Attending Unavailable Ana Laura, Nabila L Attending Unavailable Unavailable Primary Care Provider UnavailAPARNA Cano Attending Unavailable Allergies Allergy Classification Reported Allergen(s) Allergy Type Date of Onset Reaction(s) Facility (2 sources) No Known Medication Allergies; Translations: [No Known Medication Allergies] Propensity to adverse reactions (disorder) [facility] Repository (1 source) Unable to Assess Drug allergy (disorder) [address] [place] [address] Repository Medications Current Medications Medication Drug Class(es) Dates Sig (Normalized) Sig (Original) amoxicillin 875 mg / clavulanate 125 mg oral tablet (2 sources) Penicillin-class Antibacterial Start: 11-07-2021 take 1 tablet by mouth every twelve hours Amoxicillin-Pot Clavulanate 875-125 MG 1 tablet Orally every 12 hrs for 10 day(s) Nov, Active clobetasol propionate 0.5 mg/ml medicated shampoo (2 sources) Corticosteroid Start: 09-24-2024 Clobetasol Propionate 0.05 % shampoo Indications: Psoriasis vulgaris (CMS/HCC) Apply to scalp, leave on 5 min the rinse, 2-3 x week, 30 day supply 118 mL 11 09/24/2024 Active Deucravacitinib (2 sources) Start: 06-17-2024 take 1 tablet by mouth once daily Deucravacitinib (Sotyktu) 6 mg tablet Active 6 MG PO Daily June 17, 2024 12:00am fluconazole 150 mg oral tablet (3 sources) Azole Antifungal Start: 11-04-2023 take 1 tablet by mouth once fluconazole 150 mg Tab 150 mg = 1 tab(s), Oral, Once, # 1 tab(s), Refills(s) 1, Pharmacy: [facility]/pharmacy #[id number], 159, cm, 11/04/23 8:43:00 EDT, [...] June 17, 2024 12:00am for 4 weeks semaglutide (Ozempic) 4 MG/3ML solution pen-injector (2 sources) semaglutide (Ozempic) 4 MG/3ML solution pen-injector Inject 1 mg under the skin Active Problems Active Problems Problem Classification Problem Date [...] source) Candidiasis of vagina 03-25-2023 Episodic Other aftercare (2 sources) Taking high risk medication; Translations: [Other termite helper (current) drug therapy] 09-24-2024 Episodic Other circulatory disease (1 source) Feeling [...] 02-25-2023 Chronic Other inflammatory condition of skin (2 sources) Rosacea; Translations: [Other rosacea] 09-24-2024 Chronic Other inflammatory condition of skin (2 sources) Psoriasis vulgaris; Translations: [Psoriasis vulgaris] 09-24-2024 Chronic Other inflammatory condition of skin (5 [...] shoulder; Translations: [Left shoulder pain] Onset: 06-17-2024 06-16-2024 Episodic Other nutritional; endocrine; and metabolic disorders [...] Results Test Name Value Interpretation Reference Range [facility] Family Medicine Office/Clini c Noteon 07-29-2024 Family [...] done through dermatology in May 2024 at [facility] History of Present Illness get labs from [facility]. send consult to [facility]. does not need refill on ozempic at [...] Surgery (10/2015), LASIK (2012), Cholecystectomy (2008). Medications Ozempic (1 mg dose), [...] virus vaccine, inactivated 03/01/2016 Recorded Normal [facility] Comment on above: Result Comment: Elec tronically Signed By: Nabila Farley\.br\Date and Time Signed: 07/29/24 13:23 EST X-ray reportOrdered By: Donell Sue on 06-17-2024 Study report [facility] [address] [place] [address] XRay Report Signed Patient: Africa Parham MR#: [id number] : 1980 Acct:[id number] Age/Sex: 44 / F ADM Date: 5 Loc: [facility] Room: Type: [facility] Attending Dr: Sahil Dahl DO Copies to: [...] PROCESS. Impression dictated by: Hola Sue Jr., D.O.06/17/2024 4:20 PM Dictation Location: [place] [address] Transcribed By: [facility] 06/17/24 1620 Dictated By: Hola Sue Jr, DO 06/17/24 1619 Signed By: 06/17/24 1620 [facility] XR shoulder LT min 2V*on XR shoulder LT min 2V* [facility] [address] [place] [address] XRay Report Signed Patient: Africa Parham MR#: [id number] : 1980 Acct:[id number] Age/Sex: 44 / F ADM Date: 06/17/24 Loc: [facility] Room: Type: [facility] CLI Attending Dr: Sahil Dahl DO [...] PROCESS. Impression dictated by: Hola Sue Jr., D.O.06/17/2024 4:20 PM Dictation Location: [place] [address] Transcribed By: [facility] 06/17/24 1620 Dictated By: Hola Sue Jr, DO 06/17/24 1619 Signed By: 06/17/24 1620 Normal [facility] Ambulatory Visit Summaryon 1 06-15-2023 [...] 4:40 PM EST With: Nabila Farley Where: [place] [id number]- Medications What How Much When Instructions Unchanged [...] for choosing us for your care. Normal [facility] Medicine Office/Clini c Noteon 04-15-2024 Family Medicine [...] having Lt shoulder/upper arm pain. 5 or 6/10 Other concerns: Mood swings History of Present [...] up to highest [facility] Ordered: fluconazole, 150 mg = 1 tab(s), Oral, Once, take 1 tab on day one and 1 tab on day four, # 2 tab(s), Refills(s) 2, [id number], 160, cm, 02/03/24 9:52:00 EDT, Height/Length [...] four, # 2 tab(s), Refills(s) 2, [facility]acy[facility] #[id number], 160, cm, 02/03/24 9:52:00 EDT, Height/Length Dosing, 81.6, kg, 02/03/24 9:52:00 EDT, Weight Dosing 5. Non-smoker (Z78.9: Other specified health status) continue not smoking Ordered: fluconazole, 150 mg = 1 tab(s), Oral, Once, take 1 tab on day one and 1 tab on day four, # 2 tab(s), Refills(s) 2, Pharmacy: [facility]/pharmacy #[id number], 160, cm, 02/03/24 9:52:00 EDT, [...] at last visit. will order MRI at [facility] 8. Neck pain (M54.2: Cervicalgia) reviewed x [...] influenza virus vaccine, inactivated 03/01/2016 Recorded Normal [facility] Comment on above: Result Comment: Elec [...] LASIK (2011), Cholecystectomy (2008). Discharge Vitals Temperature (Temporal Artery) 36.4 ???C Heart Rate (Peripheral) 76 Respiratory Rate 20 Blood Pressure 124/84 Height 160.0 cm Height 63 in Weight 79.3 kg Weight 174.46 lb BMI 30.98 What to do next Scheduled Follow-Up Appointments Friday 8:40 AM EST With: Nabila Farley Where: [place] [id number]- Medications What How Much When Why Instructions [...] for choosing us for your care. Normal [facility] Family Medicine Office/Clini c Noteon 04-05-2024 Family Medicine [...] office today. x ray order sent to [facility] for shoulder and cervical spine. pt will [...] virus vaccine, inactivated 03/01/2016 Recorded Normal [facility] Comment on above: Result Comment: Elec tronically Signed By: Nabila Farley\.br\Date and Time Signed: 04/05/24 13:09 EDT Family [...] denies needs. will send new rx to [facility] 3 months Ordered: fluconazole, 150 mg = 1 tab(s), Oral, Once, take 1 tab on day one and 1 tab on day four, # 2 tab(s), Refills(s) 2, Pharmacy: [facility]/pharmacy #[id number], 160, cm, 02/03/24 9:52:00 EDT, Height/Length Dosing, 81.6, kg, 02/03/24 9:52:00 EDT, Weight Dosing 2. Vaginal yeast infection (B37.31: Acute candidiasis of vulva and vagina) diflucan sent to pharmacy Ordered: fluconazole, 150 mg = 1 tab(s), Oral, Once, take 1 tab on day one and 1 tab on day four, # 2 tab(s), Refills(s) 2, Pharmacy: [facility] #[id number], 160, cm, 02/03/24 9:52:00 EDT, Height/Length Dosing, 81.6, kg, 02/03/24 9:52:00 EDT, Weight Dosing 3. Non-smoker (Z78.9: Other specified health status) continue not smoking Ordered: fluconazole, 150 mg = 1 tab(s), Oral, Once, take 1 tab on day one and 1 tab on day four, # 2 tab(s), Refills(s) 2, Pharmacy: [facility]/pharmacy #[id number], 160, cm, 02/03/24 9:52:00 EDT, Height/Length Dosing, 81.6, kg, 02/03/24 9:52:00 EDT, Weight Dosing 4. BMI 31.0-31.9,adult (Z68.31: Body mass index [BMI] 31.0-31.9, adult) BMI education given Ordered: fluconazole, 150 mg = 1 tab(s), Oral, Once, take 1 tab on day one and 1 tab on day four, # 2 tab(s), Refills(s) 2, Pharmacy: [facility]/pharmacy #[id number], 160, cm, 02/03/24 9:52:00 EDT, Height/Length Dosing, 81.6, kg, 02/03/24 9:52:00 EDT, Weight Dosing 5. Class 1 obesity due to excess calories in adult (E66.09: Other obesity due to excess calories) see above Ordered: fluconazole, 150 mg = 1 tab(s), Oral, Once, take 1 tab on day one and 1 tab on day four, # 2 tab(s), Refills(s) 2, Pharmacy: [facility]/pharmacy #[id number], 160, cm, 02/03/24 9:52:00 EDT, [...] (2018), Surgery (10/2015), LASIK (2012), Cholecystectomy (2009). Medications Diflucan 150 mg Tab, 150 mg= [...] influenza virus vaccine, inactivated 03/01/2016 Recorded Normal [facility] Comment on above: Result Comment: Elec tronically Signed By: Nabila Farley.br\Date and Time Signed: 02/03/24 11:05 EDT PAP [id number] 11-11-2023 Cytology report Cyto stain Doc (Cvx/Vag) Note Invalid Interpretation Code [facility] Comment on above: Result Comment: TEST S RESULT FLAG UNITS REF RANGE LAB Clinician Provided Cytology Information Source.............Cervix No. of containers..01 ThinPrep Vial DIAGNOSIS: 01 NEGATIVE FOR INTRAEPITHELIAL LESION OR MALIGNANCY. FUNGAL ORGANISMS MORPHOLOGICALLY CONSISTENT WITH SAIDA SPECIES ARE PRESENT. Specimen adequacy: 01 Satisfactory for evaluation. No endocervical component is identified. Performed by: 01 Sabina Campbell Chief Business Development Officer (ASCP) . 01 Note: Note 01 The [...] <-Panic Low,>-Panic High,A-Abnormal,AA-Critical Abnormal Performed at: [address] [id number] Enid Miller MD, Performed By: #### 1 [id number] #### [facility] [address] [place] [address] HPV 16+18+31+33+35+39+4 5+51+52+56+58+59+66 +68 DNA Probe+sig amp Ql (Cvx) Negative Invalid Interpretation Code Negative [facility] Comment on above: Result Comment: This nucleic acid amplification test detects fourteen high-risk HPV types (16,18,31,33,35,39,45,51,52,56,58,59,66,68) without differentiation. Performed at: [address] [id number] MD Paul Rossi Performed at: =G [address] [id number] MD Paul Rossi Performed By: #### 1 [id number] #### [facility] [address] [place] [address] Reminderson 11-11-2023 Reminders - From: Nabila Farley [...] message for patient of message below Normal [facility] Ambulatory Visit Summaryon 0 11-06-2023 Ambulatory Visit [...] 10:00 AM EDT With: Nabila Farley Where: [facility] [place] Normal Cervical cancer screening, Print Label By [...] for choosing us for your care.\.br\ \.br\ [facility] Family Medicine Office/Clini c Noteon 11-06-2023 Family Medicine [...] Surgery (10/2015), LASIK (2012), Cholecystectomy (2008). Medications fluconazole 150 mg Tab, [...] influenza virus vaccine, inactivated 03/01/2016 Recorded Normal [facility] Comment on above: Result Comment: Elec tronically Signed By: Nabila Farley\.br\Date and Time Signed: 11/06/23 11:13 EDT PAP [id number] 11-06-2023 Gynecological Body Site CERVIX Normal [facility] Comment on above: Performed By: #### 1 [id number] #### [facility] [address] [place] [address] Family Medicine Office/Clini c Noteon 11-04-2023 Family [...] with her weight. will send refill to [facility]. RTC 3 months 2. Vaginal yeast infection (B37.31: Acute candidiasis of vulva and vagina) Diflucan sent to pharmacy 3. BMI 33.0-33.9,adult (Z68.33: Body mass index [BMI] 33.0-33.9, adult) bmi education complete 4. Non-smoker (Z78.9: Other specified health status) continue not smoking Ordered: fluconazole, 150 mg = 1 tab(s), Oral, Once, # 1 tab(s), Refills(s) 0, Pharmacy: [facility]/pharmacy #[id number], 159, cm, 09/08/23 11:39:00 EDT, Height/Length Dosing, 83.3, kg, 09/08/23 11:39:00 EDT, Weight Dosing Orders: fluconazole, 150 mg = 1 tab(s), Oral, Once, # 1 tab(s), Refills(s) 1, Pharmacy: [facility]/pharmacy #[id number], 159, cm, 11/04/23 8:43:00 EDT, [...] influenza virus vaccine, inactivated 03/01/2016 Recorded Normal [facility] Comment on above: Result Comment: Elec tronically Signed By: Ana Laura العراقي, Nabila Wilks\.br\Date and Time Signed: 11/04/23 09:11 EDT Retail - Clinical Noteon Retail - Clinical Note [id number] #1.00TIFF [facility] 09-08-2023 Consent [id number] #1.00TIFF [facility] Family Medicine Office/Clini c Noteon 09-08-2023 Family [...] day(s), # 140 mL, Refills(s) 0, Pharmacy: [facility]/pharmacy #[id number], 159, cm, 09/08/23 11:39:00 EDT, Height/Length Dosing, 83.3, kg, 09/08/23 11:39:00 EDT, Weight Dosing fluconazole, 150 mg = 1 tab(s), Oral, Once, # 1 tab(s), Refills(s) 0, Pharmacy: [facility]/pharmacy #6177, 159, cm, 09/08/23 11:39:00 EDT, [...] day(s), # 140 mL, Refills(s) 0, Pharmacy: [facility]/pharmacy #6177, 159, cm, 09/08/23 11:39:00 EDT, Height/Length Dosing, 83.3, kg, 09/08/23 11:39:00 EDT, Weight Dosing fluconazole, 150 mg = 1 tab(s), Oral, Once, # 1 tab(s), Refills(s) 0, [facility], cm, 09/08/23 11:39:00 EDT, [...] day(s), # 140 mL, Refills(s) 0, [facility], 159, cm, 09/08/23 11:39:00 EDT, Height/Length Dosing, 83.3, kg, 09/08/23 11:39:00 EDT, Weight Dosing fluconazole, 150 mg = 1 tab(s), Oral, Once, # 1 tab(s), Refills(s) 0, [facility], 159, cm, 09/08/23 11:39:00 EDT, [...] day(s), # 140 mL, Refills(s) 0, [facility], 159, cm, 09/08/23 11:39:00 EDT, Height/Length Dosing, 83.3, kg, 09/08/23 11:39:00 EDT, Weight Dosing fluconazole, 150 mg = 1 tab(s), Oral, Once, # 1 tab(s), Refills(s) 0, [facility], 159, cm, 09/08/23 11:39:00 EDT, Height/Length Dosing, 83.3, kg, 09/08/23 11:39:00 EDT, Weight Dosing triamcinolone, 40 mg = 1 mL, Injection, IntraMuscular, Once, Stop date 09/08/23 12:36:00 EDT, Routine, Start date 09/08/23 12:36:00 EDT, 09/08/23 12:36:00 EDT Orders: fluconazole, 150 mg = 1 tab(s), Oral, Once, # 1 tab(s), Refills(s) 0, [id number] 159, cm, 05/20/23 10:45:00 EST, [...] Surgery (10/2015), LASIK (2011), Cholecystectomy (2008). Medications amoxicillin 400 mg/5 mL Oral Li (more content not included)... Normal [facility] Comment on above: Result Comment: Elec tronically Signed By: Nabila Farley\.br\Date and Time Signed: 09/08/23 12:39 EDT Ambulatory Visit Summaryon 0 08-07-2023 Ambulatory Visit Summary AFRICA PARHAM Juvenal :1980 Visit Date:08/07/2023 Ambulatory Visit Instructions Your [...] AM EDT With: Nabila Farley Where: [facility] [place] Normal [facility] Medicine Office/Clini c Noteon 08-07-2023 Family Medicine [...] influenza virus vaccine, inactivated 03/01/2016 Recorded Normal [facility] Comment on above: Result Comment: Elec tronically Signed By: Nabila Farley\.tanya\Date and Time Signed: 08/07/23 10:36 EST Retail - Clinical Noteon Retail - Clinical Note [id number] #1.00TIFF Normal [facility] Family Medicine Office/Clini c Noteon 05-20-2023 Family Medicine Office/Clinic Note HPI Staff Africa is a 42 year old female presenting for 1 month follow up Weight management: Started Ozempic on 11/29/22 , SARAH 04/22/23 dose increased to 1.8mg and sent to [facility] Sleeping well:Yes, 6-8 hours Chest pain:No Tremors:No [...] send 3 months worth of refills to [facility]. all questions answered . RTC as needed [...] Surgery (10/2015), LASIK (2011), Cholecystectomy (2009). Medications Ozempic (1 mg dose), See Instructions [...] influenza virus vaccine, inactivated 03/01/2016 Recorded Normal [facility] Comment on above: Result Comment: Elec tronically Signed By: Nabila Farley\.br\Date and Time Signed: 05/20/23 10:59 EST Physician Orderon 05-20-2023 Physician Order [id number] #1.00TIFF [facility] Retail - Clinical Noteon Retail - Clinical Note [id number] #1.00TIFF [facility] Ambulatory Visit Summaryon 1 06-22-2022 Ambulatory Visit Summary AFRICA PARHAM :1980 Visit Date:04/22/2023 Ambulatory Visit Instructions Your Diagnosis BMI 35.0-35.9,adult Non-smoker Your Care Team Attending Physician - Nabila Farley Primary Care Physician - Nabila Farley This Is Your Medications List semaglutide (Ozempic (1 mg dose)) Procedures Performed Hysterectomy (2018), Surgery (10/2015), LASIK (2011), Cholecystectomy (2009). Discharge Vitals Heart Rate (Peripheral) 68 Respiratory Rate 18 Blood Pressure 122/72 Height 159 cm Height 63 in Weight 88.90 kg Weight 195.58 lb BMI 35.16 What to do next Scheduled Follow-Up Appointments Friday 11:00 AM EST With: Nabila Farley Where: [facility] Normal [facility] Consent for Flu Vaccineon Consent for Flu Vaccine [id number]# 1.00TIFF Normal [facility] Office/Clini c Noteon 04-22-2023 Family Medicine Office/Clinic [...] increase dose to 1.8mg. will send to [facility]. all questions answered. encouraged healthy food choices. RTC 4 weeks 2. BMI 35.0-35.9,adult (Z68.35: Body mass index [BMI] 35.0-35.9, adult) bmi education complete Ordered: fluconazole, 150 mg = 1 tab(s), Oral, Once, # 1 tab(s), Refills(s) 0, Pharmacy: [facility]/pharmacy #[id number], 159, cm, 03/25/23 8:53:00 EDT, Height/Length [...] flu vaccine given Ordered: FIRST VACCINE w/o [employer] Sawyer Admin Charge 77644 Follow-up No qualifying data available Problem List/Past [...] influenza virus vaccine, inactivated 03/01/2016 Recorded Normal [facility] Comment on above: Result Comment: Elec tronically Signed By: Nabila Farley\.br\Date and Time Signed: 04/22/23 10:42 EST Retail - Clinical Noteon Retail - Clinical Note [id number]# 1.00TIFF Normal [facility] Ambulatory Visit Summaryon 1 Ambulatory Visit Summary [...] LASIK (2011), Cholecystectomy (2008). Discharge Vitals Temperature (Oral) 36.6 ?C Heart Rate (Peripheral) 72 Respiratory Rate 14 Blood Pressure 122/80 Height 159 cm Height 63 in Weight 89.4 kg Weight 196.68 lb BMI 35.36 What to do next Scheduled Follow-Up Appointments Friday 9:00 AM EST With: Nabila Farley Where: [facility] Normal [facility] [place] 03-25-2023 Consent [id number] #1.00TIFF Normal [facility] Family Medicine Office/Clini c Noteon 03-25-2023 Family Medicine [...] well. denies complaints. will send order to [facility] pharmacy. RTC 4 weeks 2. Vaginal yeast infection (B37.31: Acute candidiasis of vulva and vagina) diflucan sent to pharmacy 3. BMI 35.0-35.9,adult (Z68.35: Body mass index [BMI] 35.0-35.9, adult) BMI education complete Ordered: fluconazole, 150 mg = 1 tab(s), Oral, Once, # 1 tab(s), Refills(s) 0, Pharmacy: [facility]/pharmacy #[id number], 159, cm, 03/25/23 8:53:00 EDT, Height/Length [...] Once, # 1 tab(s), Refills(s) 0, Pharmacy: [facility]/pharmacy #6177, 159, cm, 03/25/23 8:53:00 EDT, Height/Length [...] Directed, # 6 tab(s), Refills(s) 0, Pharmacy: [facility]/pharmacy #6177, 159, cm, 02/25/23 8:58:00 EDT, [...] (2018), Surgery (10/2015), LASIK (2012), Cholecystectomy (2009). Medications Diflucan 150 mg Tab, 150 mg= [...] Recorded influenza virus vaccine, inactivated 03/01/2016 Recorded [facility] Comment on above: Result Comment: Elec tronically Signed By: Nabila Farley\.br\Date and Time Signed: 03/25/23 11:01 EDT Retail - Clinical Noteon Retail - Clinical Note [id number] #1.00TIFF [facility] Ambulatory Visit Summaryon 0 02-25-2023 Ambulatory [...] 9:00 AM EDT With: Nabila Farley Where: [facility] Family Medicine Office/Clini c Noteon 02-25-2023 [...] (2018), Surgery (10/2015), LASIK (2012), Cholecystectomy (2009). Medications Ozempic (1 mg dose), See Instructions Allergies No Known Medication Allergies Social History Tobacco Never (less than 100 in lifetime) Tobacco Use:. Never Smokeless Tobacco Use:. Household tobacco concerns: No., 02/25/2023 Family History Alcoholism: Mother. Cardiac arrhythmia: Mother. Diabetes mellitus type 2: Father. [facility] Comment on above: Result Comment: Elec tronically Signed By: Nabila Farley\.br\Date and Time Signed: 02/25/23 09:47 EDT Retail - Clinical Noteon Retail - Clinical Note [id number] #1.00CD:127 [facility] Initial Visit (Otolaryngolog y)on 09-16-2022 Initial Visit (Otolaryngology) Diagnoses/Problems Globus sensation (784.99) (R09.89) Orders Tobacco Use Screening; Status:Complete; Done: [id number] Patient Discussion/Summary History of globus sensation. May [...] 09/16/2022 10:41:37 AM Vitals Vital Signs Recorded: [id number] 10:39AM Height5 ft 3 in Ujkabi853 lb BMI Iojdhmmisn24.49 kg/m2 BSA Calculated1.96 Tobacco Useb) No Physical [...] Sep 16 2022 1:14PM EST (Author) Normal [facility] Tobacco Screening.on 023 Tobacco use status CPHS b) No MP-Otolaryngo logy-[facility] Work Phone: QUANTIFERON TB GOLD PLUSon 0 09-11-2022 QuantiFERON Criteria Comment Normal [facility] Comment on above: Result Comment: Kirk [...] test. Performed By: #### Q NTTB #### [facility] [address] [place] [address] Dr. Kobe Fabian QuantiFERON Incubation Incubation performed. Normal [facility] Comment on above: Performed By: #### Q NTTB #### [facility] [address] [place] [address] Dr. Kobe Fabian QuantiFERON Mitogen Value 4.81 IU/mL Normal [facility] Comment on above: Performed By: #### Q NTTB #### [facility] [address] [place] [address] Dr. Kobe Fabian QuantiFERON Nil Value 0.01 IU/mL Normal [facility] Comment on above: Performed By: #### Q NTTB #### [facility] [address] [place] [address] Dr. Kobe Fabian QuantiFERON TB1 Ag Value 0.01 IU/mL Normal [facility] Comment on above: Performed By: #### Q NTTB #### [facility] [address] [place] [address] Dr. Kobe Fabian QuantiFERON TB2 Ag Value 0.01 IU/mL Normal [facility] Comment on above: Performed By: #### Q NTTB #### [facility] [address] [place] [address] Dr. Kobe Fabian QuantiFERON-TB Gold Plus Negative Normal Negative [facility] Comment on above: Result Comment: No r esponse to M tuberculosis antigens detected. Infection with M tuberculosis is unlikely, but high risk individuals should be considered for additional testing (ATS/IDSA/CDC Clinical Practice Guidelines, 2017). The reference range is an Antigen minus Nil result of <0.35 IU/mL. Chemiluminescence immunoassay methodology Performed By: #### Q NTTB #### [facility] [address] [address] [address] Kobe Fabian CBC AUTO DIFFon 09-09-2022 BASO # 0.0 103/ul Normal 0.0-0.1 [facility] Comment on above: Performed By: #### C BC #### [facility] [address] [address] [address] Kobe Fabian Basophils/100 WBC (Bld) 0.5 % Normal 0.2-2.0 [facility] Comment on above: Performed By: #### C BC #### [facility] [address] [place] [address] Dr. Kobe Fabian EO # 0.3 103/ul Normal 0.0-0.7 [facility] Comment on above: Performed By: #### C BC #### [facility] [address] [place] [address] Dr. Kobe Fabian Eosinophils/100 WBC (Bld) 4.0 % Normal 0.9-7.0 [facility] Comment on above: Performed By: #### C BC #### [facility] [address] [place] [address] Dr. Kobe Fabian Erythrocyte distribution width (RBC) [Ratio] 12.3 % Normal 11.0-15.0 [facility] Comment on above: Performed By: #### C BC #### [facility] [address] [place] [address] Dr. Kobe Fabian Hematocrit (Bld) [Volume fraction] 40.9 % Normal 36.0-48.0 [facility] Comment on above: Performed By: #### C BC #### [facility] [address] [place] [address] Dr. Kobe Fabian Hemoglobin (Bld) [Mass/Vol] 14.1 g/dL Normal 12.0-16.0 [facility] Comment on above: Performed By: #### C BC #### [facility] [address] [place] [address] Dr. Kobe Fabian IG # 0.03 10e3/ul Normal 0.00-0.03 [facility] Comment on above: Performed By: #### C BC #### [facility] [address] [place] [address] Dr. Kobe Fabian IG % 0.5 % Normal 0.0-0.5 [facility] Comment on above: Performed By: #### C BC #### [facility] [address] [place] [address] Dr. Kobe Fabian LYMPH # 1.8 103/ul Normal 1.2-3.8 [facility] Comment on above: Performed By: #### C BC #### [facility] [address] [place] [address] Dr. Kobe Fabian Lymphocytes/100 WBC (Bld) 27.9 % Normal 20.5-60.0 [facility] Comment on above: Performed By: #### C BC #### [facility] [address] [place] [address] Dr. Kobe Fabian MANUAL DIFF REQ NO Normal [facility] Comment on above: Performed By: #### C BC #### [facility] [address] [place] [address] Dr. Kobe Fabian MCH (RBC) [Entitic mass] 28.8 pg Normal 26.7-34.0 [facility] Comment on above: Performed By: #### C BC #### [facility] [address] [place] [address] Dr. Kobe Fabian MCHC (RBC) [Mass/Vol] 34.5 g/dL Normal 29.9-35.2 [facility] Comment on above: Performed By: #### C BC #### [facility] [address] [place] [address] Dr. Kobe Fabian MCV (RBC) [Entitic vol] 83.5 fL Normal 81.0-99.0 [facility] Comment on above: Performed By: #### C BC #### [facility] [address] [place] [address] Dr. Kobe Fabian MONO # 0.3 103/ul Normal 0.3-0.8 [facility] Comment on above: Performed By: #### C BC #### [facility] [address] [place] [address] Dr. Kobe Fabian Monocytes/100 WBC (Bld) 5.2 % Normal 1.7-12.0 [facility] Comment on above: Performed By: #### C BC #### [facility] [address] [address] [address] Kobe Fabian NEUT # 4.0 103/ul Normal 1.4-6.5 [facility] Comment on above: Performed By: #### C BC #### [facility] [address] [place] [address] Dr. Kobe Fabian Neutrophils/100 WBC (Bld) 61.9 % Normal 43.0-75.0 [facility] Comment on above: Performed By: #### C BC #### [facility] [address] [place] [address] Dr. Kobe Fabian Platelet mean volume (Bld) [Entitic vol] 9.9 fL Normal 9.5-13.5 [facility] Comment on above: Performed By: #### C BC #### [facility] [address] [place] [address] Dr. Kobe Fabian PLT 176 103/ul Normal 150-450 [facility] Comment on above: Performed By: #### C BC #### [facility] [address] [place] [address] Dr. Kobe Fabian RBC 4.90 106/ul Normal 4.20-5.40 [facility] Comment on above: Performed By: #### C BC #### [facility] [address] [place] [address] Dr. Kobe Fabian WBC 6.5 103/ul Normal 4.0-11.0 [facility] Comment on above: Performed By: #### C BC #### [facility] [address] [place] [address] Dr. Kobe Fabian LIPID PROFILEon 09-09-2022 CHOL-HDL RATIO NORM SEE BELOW Normal [facility] Comment on above: Result Comment: 3.3 - 4.4 LOW RISK 4.4 - 7.1 AVERAGE RISK 7.1 - 11.0 MODERATE RISK >11.0 HIGH RISK Performed By: #### V AGINT #### [facility] [address] [address] [address] Kobe Fabian Cholesterol [Mass/Vol] 180 mg/dL Normal <=200 [facility] Comment on above: Performed By: #### V AGINT #### [facility] [address] [address] [address] Kobe Fabian Cholesterol in HDL [Mass/Vol] 47 mg/dL Normal 40-60 [facility] Comment on above: Performed By: #### V AGINT #### [facility] [address] [address] [address] Kobe Fabian Cholesterol in LDL [Mass/Vol] 98.6 mg/dL Normal [facility] Comment on above: Performed By: #### V AGINT #### [facility] [address] [address] [address] Kobe Fabian Cholesterol.total/C holesterol in HDL [Mass ratio] 3.8 {ratio} Normal [facility] Comment on above: Performed By: #### V AGINT #### [facility] [address] [address] [address] Kobe Fabian HDL NORMAL > or = 60 mg/dl - LOW CARDIOVASCULAR RISK <40 mg/dl - HIGH CARDIOVASCULAR RISK Normal [facility] Comment on above: Performed By: #### V AGINT #### [facility] [address] [address] [address] Kobe Fabian LDL CALC NORMAL SEE BELOW Normal [facility] Comment on above: Result Comment: <100 mg/dl OPTIMAL 100 - 129 mg/dl NEAR OR ABOVE OPTIMAL 130 - 159 mg/dl BORDERLINE HIGH 160 - 189 mg/dl HIGH >190 mg/dl VERY HIGH Performed By: #### V AGINT #### [facility] [address] [address] [address] Kobe Fabian Triglyceride [Mass/Vol] 172 mg/dL Critically high <=150 [facility] Comment on above: Performed By: #### V AGINT #### [facility] [address] [address] [address] Kobe Fabian VLDL CALC 34.4 mg/dL Normal [facility] Comment on above: Performed By: #### V AGINT #### [facility] [address] [place] [address] Dr. Kobe Fabian PROF 14(COMP METB)on 023 Albumin [Mass/Vol] 4.0 g/dL Normal 3.4-5.0 [facility] Comment on above: Performed By: #### V AGINT #### [facility] [address] [place] [address] Dr. Kobe Fabian Albumin/Globulin [Mass ratio] 1.1 {ratio} Normal [facility] Comment on above: Performed By: #### V AGINT #### [facility] [address] [place] [address] Dr. Kobe Fabian ALP [Catalytic activity/Vol] 51 U/L Normal 46-116 [facility] Comment on above: Performed By: #### V AGINT #### [facility] [address] [place] [address] Dr. Kobe Fabian ALT [Catalytic activity/Vol] 32 U/L Normal 14-59 [facility] Comment on above: Performed By: #### V AGINT #### [facility] [address] [place] [address] Dr. Kobe Fabian Anion gap [Moles/Vol] 8.9 mmol/L Normal [facility] Comment on above: Performed By: #### V AGINT #### [facility] [address] [place] [address] Dr. Kobe Fabian AST [Catalytic activity/Vol] 16 U/L Normal 15-37 [facility] Comment on above: Performed By: #### V AGINT #### [facility] [address] [place] [address] Dr. Kobe Fabian Bilirubin [Mass/Vol] 0.6 mg/dL Normal 0.2-1.0 [facility] Comment on above: Performed By: #### V AGINT #### [facility] [address] [place] [address] Dr. Kobe Fabian Calcium [Mass/Vol] 9.4 mg/dL Normal 8.5-10.1 [facility] Comment on above: Performed By: #### V AGINT #### [facility] [address] [place] [address] Dr. Kobe Fabian Chloride [Moles/Vol] 104 mmol/L Normal 98-107 [facility] Comment on above: Performed By: #### V AGINT #### [facility] [address] [place] [address] Dr. Kobe Fabian CO2 [Moles/Vol] 30.0 mmol/L Normal 21.0-32.0 [facility] Comment on above: Performed By: #### V AGINT #### [facility] [address] [place] [address] Dr. Kobe Fabian Creatinine [Mass/Vol] 0.75 mg/dL Normal 0.55-1.02 [facility] Comment on above: Performed By: #### V AGINT #### [facility] [address] [place] [address] Dr. Kobe Fabian EGFR-AF NAMIBIAN >60 Normal >=60 [facility] Comment on above: Performed By: #### V AGINT #### [facility] [address] [place] [address] Dr. Kobe Fabian EGFR-NON AF NAMIBIAN >60 Normal >=60 [facility] Comment on above: Performed By: #### V AGINT #### [facility] [address] [place] [address] Dr. Kobe Fabian Globulin (S) [Mass/Vol] 3.5 g/dL Normal [facility] Comment on above: Performed By: #### V AGINT #### [facility] [address] [place] [address] Dr. Koeb Fabian Glucose [Mass/Vol] 99 mg/dL Normal 74-106 [facility] Comment on above: Performed By: #### V AGINT #### [facility] [address] [place] [address] Dr. Kobe Fabian Potassium [Moles/Vol] 3.9 mmol/L Normal 3.5-5.1 [facility] Comment on above: Performed By: #### V AGINT #### [facility] [address] [address] [address] Kobe Fabian Protein [Mass/Vol] 7.5 g/dL Normal 6.4-8.2 [facility] Comment on above: Performed By: #### V AGINT #### [facility] [address] [address] [address] Kobe Fabian Sodium [Moles/Vol] 139 mmol/L Normal 136-145 [facility] Comment on above: Performed By: #### V AGINT #### [facility] [address] [address] [address] Kobe Fabian Urea nitrogen [Mass/Vol] 20.0 mg/dL Critically high 7.0-18.0 [facility] Comment on above: Performed By: #### V AGINT #### [facility] [address] [address] [address] Kobe Fabian Urea nitrogen/Creatinine [Mass ratio] 26.7 mg/mg Normal [facility] Comment on above: Performed By: #### V AGINT #### [facility] [address] [address] [address] Kobe Fabian PAP ACOG PANEL 2: 30 to 65on 08-01-2022 . . Normal [facility] Comment on above: Result Comment: Perf ormed at: WB Performed By: #### [id number] #### [facility] [address] [address] [address] Kobe Fabian Age Gdln ACOG Testing - Normal [facility] Comment on above: Performed By: #### [id number] #### [facility] [address] [address] [address] Kobe Fabian DIAGNOSIS: Comment Normal [facility] Comment on above: Result Comment: NEGA TIVE FOR INTRAEPITHELIAL LESION OR MALIGNANCY. Performed at: WB Performed By: #### [id number] #### [facility] [address] [address] [address] Kobe Fabian HPV Aptima Negative Normal Negative [facility] Comment on above: Result Comment: This nucleic acid amplification test detects fourteen high-risk HPV types (16,18,31,33,35,39,45,51,52,56,58,59,66,68) without differentiation. Performed at: =G Performed By: #### [id number] #### [facility] [address] [place] [address] Dr. Kobe Fabian HPV Genotype Reflex Comment Normal [facility] Comment on above: Result Comment: Crit eria not met, HPV Genotype not performed. Performed at: WB Performed By: #### [id number] #### [facility] [address] [place] [address] Dr. Kobe Fabian Methodology: Comment Normal [facility] Comment on above: Result Comment: This liquid based ThinPrep(R) pap test was screened with the use of an image guided system. Performed at: WB Performed By: #### [id number] #### [facility] [address] [place] [address] Dr. Kobe Fabian Note: Comment Normal [facility] Comment on above: Result Comment: The Pap smear is a screening test designed to aid in the detection of premalignant and malignant conditions of the uterine cervix. It is not a diagnostic procedure and should not be used as the sole means of detecting cervical cancer. Both false-positive and false-negative reports do occur. . Performed at: WB Performed By: #### [id number] #### [facility] [address] [place] [address] Dr. Kobe Fabian Performed by: Comment Normal [facility] Comment on above: Result Comment: Darrick Zayas Chief Business Development Officer (ASCP) Performed at: WB Performed By: #### [id number] #### [facility] [address] [place] [address] Dr. Kobe Fabian Specimen adequacy: Comment Normal [facility] Comment on above: Result Comment: Sati sfactory for evaluation. No endocervical component is identified. Performed at: WB Performed By: #### [id number] #### [facility] [address] [place] [address] Dr. Kobe Fabian CHLAMYDIA/GONOCOCCUS JOSE (SW AB/URINE/PAPon 07-29-2022 Chlamydia trachomatis, JOSE Negative Normal Negative [facility] Comment on above: Performed By: #### V AGINT #### [facility] [address] [place] [address] Dr. Kobe Fabian Neisseria gonorrhoeae, JOSE Negative Normal Negative [facility] Comment on above: Performed By: #### V AGINT #### [facility] [address] [place] [address] Dr. Kobe Fabian ESTRADIOLon 07-27-2022 Estradiol 21.3 pg/mL Normal [facility] Comment on above: Result Comment: Adul t Female: Follicular phase 12.5 - 166.0 Ovulation phase 85.8 - 498.0 Luteal phase 43.8 - 211.0 Postmenopausal <6.0 - 54.7 1st trimester 215.0 - >4300.0 Jacob ECLIA methodology Performed By: #### E STRADI #### [facility] [address] [place] [address] Dr. Kobe Fabian FSHon 07-27-2022 FSH 74.7 mIU/mL Normal [facility] Comment on above: Result Comment: Adul t Female: Follicular phase 3.5 - 12.5 Ovulation phase 4.7 - 21.5 Luteal phase 1.7 - 7.7 Postmenopausal 25.8 - 134.8 Performed By: #### C MP #### [facility] [address] [place] [address] Dr. Kobe Fabian LUTEINIZING HORMONE (LH)on 0 07-27-2022 LH 39.7 mIU/mL Normal [facility] Comment on above: Result Comment: Adul t Female: Follicular phase 2.4 - 12.6 Ovulation phase 14.0 - 95.6 Luteal phase 1.0 - 11.4 Postmenopausal 7.7 - 58.5 Performed By: #### C MP #### [facility] [address] [place] [address] Dr. Kobe Fabian PROGESTERONEon 07-27-2022 Progesterone 0.1 ng/mL Normal [facility] Comment on above: Result Comment: Foll icular phase 0.1 - 0.9 Luteal phase 1.8 - 23.9 Ovulation phase 0.1 - 12.0 First trimester 11.0 - 44.3 Second trimester 25.4 - 83.3 Third trimester 58.7 - 214.0 Postmenopausal 0.0 - 0.1 Performed By: #### P SHAYY #### [facility] [address] [place] [address] Dr. Kobe Fabian VAGINITIS/VAGINOSIS DNA PROB Jassi 07-27-2022 Saida species Negative Normal Negative [facility] Comment on above: Performed By: #### V AGINT #### [facility] [address] [place] [address] Dr. Kobe Fabian Gardnerella vaginalis Negative Normal Negative [facility] Comment on above: Performed By: #### V AGINT #### [facility] [address] [place] [address] Dr. Kobe Fabian Trichomonas vaginalis Negative Normal Negative [facility] Comment on above: Performed By: #### V AGINT #### [facility] [address] [place] [address] Dr. Kobe Fabian CBC AUTO DIFFon 07-26-2022 BASO # 0.0 103/ul Normal 0.0-0.1 [facility] Comment on above: Performed By: #### V AGINT #### [facility] [address] [place] [address] Dr. Kobe Fabian Basophils/100 WBC (Bld) 0.4 % Normal 0.2-2.0 [facility] Comment on above: Performed By: #### V AGINT #### [facility] [address] [place] [address] Dr. Kobe Fabian EO # 0.3 103/ul Normal 0.0-0.7 [facility] Comment on above: Performed By: #### V AGINT #### [facility] [address] [place] [address] Dr. Kobe Fabian Eosinophils/100 WBC (Bld) 3.9 % Normal 0.9-7.0 [facility] Comment on above: Performed By: #### V AGINT #### [facility] [address] [place] [address] Dr. Kobe Fabian Erythrocyte distribution width (RBC) [Ratio] 11.9 % Normal 11.0-15.0 [facility] Comment on above: Performed By: #### V AGINT #### [facility] [address] [place] [address] Dr. Kobe Fabian Hematocrit (Bld) [Volume fraction] 41.0 % Normal 36.0-48.0 [facility] Comment on above: Performed By: #### V AGINT #### [facility] [address] [place] [address] Dr. Kobe Fabian Hemoglobin (Bld) [Mass/Vol] 14.4 g/dL Normal 12.0-16.0 [facility] Comment on above: Performed By: #### V AGINT #### [facility] [address] [place] [address] Dr. Kobe Fabian IG # 0.03 10e3/ul Normal 0.00-0.03 [facility] Comment on above: Performed By: #### V AGINT #### [facility] [address] [place] [address] Dr. Kobe Fabian IG % 0.4 % Normal 0.0-0.5 [facility] Comment on above: Performed By: #### V AGINT #### [facility] [address] [place] [address] Dr. Kobe Fabian LYMPH # 1.7 103/ul Normal 1.2-3.8 [facility] Comment on above: Performed By: #### V AGINT #### [facility] [address] [place] [address] Dr. Kobe Fabian Lymphocytes/100 WBC (Bld) 24.7 % Normal 20.5-60.0 [facility] Comment on above: Performed By: #### V AGINT #### [facility] [address] [place] [address] Dr. Kobe Fabian MANUAL DIFF REQ NO Normal [facility] Comment on above: Performed By: #### V AGINT #### [facility] [address] [place] [address] Dr. Kobe Fabian MCH (RBC) [Entitic mass] 29.1 pg Normal 26.7-34.0 [facility] Comment on above: Performed By: #### V AGINT #### [facility] [address] [place] [address] Dr. Kobe Fabian MCHC (RBC) [Mass/Vol] 35.1 g/dL Normal 29.9-35.2 [facility] Comment on above: Performed By: #### V AGINT #### [facility] [address] [place] [address] Dr. Kobe Fabian MCV (RBC) [Entitic vol] 83.0 fL Normal 81.0-99.0 [facility] Comment on above: Performed By: #### V AGINT #### [facility] [address] [place] [address] Dr. Kobe Fabian MONO # 0.3 103/ul Normal 0.3-0.8 [facility] Comment on above: Performed By: #### V AGINT #### [facility] [address] [place] [address] Dr. Kobe Fabian Monocytes/100 WBC (Bld) 4.5 % Normal 1.7-12.0 [facility] Comment on above: Performed By: #### V AGINT #### [facility] [address] [place] [address] Dr. Kobe Fabian NEUT # 4.5 103/ul Normal 1.4-6.5 [facility] Comment on above: Performed By: #### V AGINT #### [facility] [address] [place] [address] Dr. Kobe Fabian Neutrophils/100 WBC (Bld) 66.1 % Normal 43.0-75.0 [facility] Comment on above: Performed By: #### V AGINT #### [facility] [address] [place] [address] Dr. Kobe Fabian Platelet mean volume (Bld) [Entitic vol] 10.1 fL Normal 9.5-13.5 [facility] Comment on above: Performed By: #### V AGINT #### [facility] [address] [address] [address] Kobe Fabian PLT 184 103/ul Normal 150-450 [facility] Comment on above: Performed By: #### V AGINT #### [facility] [address] [address] [address] Kobe Fabian RBC 4.94 106/ul Normal 4.20-5.40 [facility] Comment on above: Performed By: #### V AGINT #### [facility] [address] [address] [address] Kobe Fabian WBC 6.9 103/ul Normal 4.0-11.0 [facility] Comment on above: Performed By: #### V AGINT #### [facility] [address] [place] [address] Dr. Kobe Fabian GLYCOHEMOGLOBIN A1Con 2022 ADA RECOMMENDATION SEE BELOW Normal [facility] Comment on above: Result Comment: ADA RECOMMENDED LIMIT 4.0 - 6.0 ADA THERAPEUTIC TARGET < 7.0 ACTION SUGGESTED > 7.0 Performed By: #### V AGINT #### [facility] [address] [place] [address] Dr. Kobe Fabian Glucose [Mass/Vol] 97 mg/dL Normal [facility] Comment on above: Performed By: #### V AGINT #### [facility] [address] [place] [address] Dr. Kobe Fabian HbA1c (Bld) [Mass fraction] 5.0 % Normal 4.5-6.2 [facility] Comment on above: Performed By: #### V AGINT #### [facility] [address] [place] [address] Dr. Kobe Fabian LIPID PROFILEon 07-26-2022 CHOL-HDL RATIO NORM SEE BELOW Normal [facility] Comment on above: Result Comment: 3.3 - 4.4 LOW RISK 4.4 - 7.1 AVERAGE RISK 7.1 - 11.0 MODERATE RISK >11.0 HIGH RISK Performed By: #### V AGINT #### [facility] [address] [place] [address] Dr. Kobe Fabian Cholesterol [Mass/Vol] 196 mg/dL Normal <=200 [facility] Comment on above: Performed By: #### V AGINT #### [facility] [address] [address] [address] Kobe Fabian Cholesterol in HDL [Mass/Vol] 51 mg/dL Normal 40-60 [facility] Comment on above: Performed By: #### V AGINT #### [facility] [address] [address] [address] Kobe Fabian Cholesterol in LDL [Mass/Vol] 110.6 mg/dL Normal [facility] [facility] Comment on above: Performed By: #### V AGINT #### [facility] [address] [place] [address] Dr. Kobe Fabian Cholesterol.total/C holesterol in HDL [Mass ratio] 3.8 {ratio} Normal [facility] Comment on above: Performed By: #### V AGINT #### [facility] [address] [place] [address] Dr. Kobe Fabian HDL NORMAL > or = 60 mg/dl - LOW CARDIOVASCULAR RISK <40 mg/dl - HIGH CARDIOVASCULAR RISK Normal [facility] Comment on above: Performed By: #### V AGINT #### [facility] [address] [place] [address] Dr. Kobe Fabian LDL CALC NORMAL SEE BELOW Normal [facility] Comment on above: Result Comment: <100 mg/dl OPTIMAL 100 - 129 mg/dl NEAR OR ABOVE OPTIMAL 130 - 159 mg/dl BORDERLINE HIGH 160 - 189 mg/dl HIGH >190 mg/dl VERY HIGH Performed By: #### V AGINT #### [facility] [address] [place] [address] Dr. Kobe Fabian Triglyceride [Mass/Vol] 172 mg/dL Critically high <=150 [facility] Comment on above: Performed By: #### V AGINT #### [facility] [address] [place] [address] Dr. Kobe Fabian VLDL CALC 34.4 mg/dL Normal [facility] Comment on above: Performed By: #### V AGINT #### [facility] [address] [place] [address] Dr. Kobe Fabian PROF 14(COMP METB)on 023 Albumin [Mass/Vol] 4.3 g/dL Normal 3.4-5.0 [facility] Comment on above: Performed By: #### C MP #### [facility] [address] [place] [address] Dr. Kobe Fabian Albumin/Globulin [Mass ratio] 1.2 {ratio} Normal [facility] Comment on above: Performed By: #### C MP #### [facility] [address] [place] [address] Dr. Kobe Fabian ALP [Catalytic activity/Vol] 54 U/L Normal 46-116 [facility] Comment on above: Performed By: #### C MP #### [facility] [address] [place] [address] Dr. Kobe Fabian ALT [Catalytic activity/Vol] 68 U/L Critically high 14-59 [facility] Comment on above: Performed By: #### C MP #### [facility] [address] [place] [address] Dr. Kobe Fabian Anion gap [Moles/Vol] 11.5 mmol/L Normal [facility] Comment on above: Performed By: #### C MP #### [facility] [address] [place] [address] Dr. Kobe Fabian AST [Catalytic activity/Vol] 28 U/L Normal 15-37 [facility] Comment on above: Performed By: #### C MP #### [facility] [address] [place] [address] Dr. Kobe Fabian Bilirubin [Mass/Vol] 0.6 mg/dL Normal 0.2-1.0 [facility] Comment on above: Performed By: #### C MP #### [facility] [address] [place] [address] Dr. Kobe Fabian Calcium [Mass/Vol] 9.6 mg/dL Normal 8.5-10.1 [facility] Comment on above: Performed By: #### C MP #### [facility] [address] [place] [address] Dr. Kobe Fabian Chloride [Moles/Vol] 106 mmol/L Normal 98-107 [facility] Comment on above: Performed By: #### C MP #### [facility] [address] [address] [address] Kobe Fabian CO2 [Moles/Vol] 28.3 mmol/L Normal 21.0-32.0 [facility] Comment on above: Performed By: #### C MP #### [facility] [address] [address] [address] Kobe Fabian Creatinine [Mass/Vol] 0.72 mg/dL Normal 0.55-1.02 [facility] Comment on above: Performed By: #### C MP #### [facility] [address] [place] [address] Dr. Kobe Fabian EGFR-AF NAMIBIAN >60 Normal >=60 [facility] Comment on above: Performed By: #### C MP #### [facility] [address] [place] [address] Dr. Kobe Fabian EGFR-NON AF NAMIBIAN >60 Normal >=60 [facility] Comment on above: Performed By: #### C MP #### [facility] [address] [address] [address] Kobe Fabian Globulin (S) [Mass/Vol] 3.7 g/dL Normal [facility] Comment on above: Performed By: #### C MP #### [facility] [address] [place] [address] Dr. Kobe Fabian Glucose [Mass/Vol] 89 mg/dL Normal 74-106 [facility] Comment on above: Performed By: #### C MP #### [facility] [address] [place] [address] Dr. Kobe Fabian Potassium [Moles/Vol] 3.8 mmol/L Normal 3.5-5.1 [facility] Comment on above: Performed By: #### C MP #### [facility] [address] [place] [address] Dr. Kobe Fabian Protein [Mass/Vol] 8.0 g/dL Normal 6.4-8.2 [facility] Comment on above: Performed By: #### C MP #### [facility] [address] [address] [address] Kobe Fabian Sodium [Moles/Vol] 142 mmol/L Normal 136-145 [facility] Comment on above: Performed By: #### C MP #### [facility] [address] [place], [place] [address] Dr. Kobe Fabian Urea nitrogen [Mass/Vol] 17.0 mg/dL Normal 7.0-18.0 [facility] Comment on above: Performed By: #### C MP #### [facility] [address] [address] [address] Kobe Fabian Urea nitrogen/Creatinine [Mass ratio] 23.6 mg/mg Normal [facility] Comment on above: Performed By: #### C MP #### [facility] [address] [address] [address] Kobe Fabian TSHon 07-26-2022 TSH 1.819 uIU/mL Normal 0.358-3.740 [facility] Comment on above: Performed By: #### V AGINT #### [facility] [address] [place] [address] Dr. Kobe Fabian MG MAMM SCREEN 3D YUDI CADon 06-19-2022 MG MAMM SCREEN 3D YUDI CAD Patient: AFRICA PRAHAM Exam Date: 06/19/2022 : 1980 Gender:F Ordering : DR JIAN ROYAL . Admission #: [id number] Family : Order #: [id number] CLICK HERE TO VIEW EXAM RADIOLOGY REPORT PROCEDURE: MAMMOGRAM SCREENING 3D BILATERAL CAD COMPARISON: None. INDICATIONS: Screening mammography Calculator Name NCI Breast Cancer Risk Assessment Tool 5 Year Breast Cancer Risk 0.70% Lifetime Breast Cancer Risk 11.00% Personal Breast Cancer No Personal Ovarian Cancer No Treatments None Family Cancers None LOCATION: [facility] BREAST COMPOSITION: Heterogeneously dense,which may obscure small [...] M.D. on 06/21/2022 at 08:56 Normal [facility] GROUP A STREP CULTUREon 05-09 S. pyogenes Ag Ql (Unsp spec) Culture Observations: NEGATIVE FOR GROUP A STREPTOCOCCUS. Normal [facility] Comment on above: Performed By: #### G RASTCX, SSCRN #### [facility] [address] [place] [address] Dr. Kobe Fabian STREPT SCREENon 05-26-2022 STREP SCREEN A Negative Normal NEGATIVE [facility] Comment on above: Performed By: #### G RASTCX, SSCRN #### [facility] [address] [place] [address] Dr. Kobe Fabian CBC AUTO DIFFon 10-23-2021 BASO # 0.0 103/ul Normal 0.0-0.1 [facility] Comment on above: Performed By: #### V AGINT #### [facility] [address] [place] [address] Dr. Kobe Fabian Basophils/100 WBC (Bld) 0.5 % Normal 0.2-2.0 [facility] Comment on above: Performed By: #### V AGINT #### [facility] [address] [place] [address] Dr. Kobe Fabian EO # 0.3 103/ul Normal 0.0-0.7 [facility] Comment on above: Performed By: #### V AGINT #### [facility] [address] [place] [address] Dr. Kobe Fabian Eosinophils/100 WBC (Bld) 5.3 % Normal 0.9-7.0 [facility] Comment on above: Performed By: #### V AGINT #### [facility] [address] [place] [address] Dr. Kobe Fabian Erythrocyte distribution width (RBC) [Ratio] 12.4 % Normal 11.0-15.0 [facility] Comment on above: Performed By: #### V AGINT #### [facility] [address] [address] [address] Kobe Fabian Hematocrit (Bld) [Volume fraction] 41.1 % Normal 36.0-48.0 [facility] Comment on above: Performed By: #### V AGINT #### [facility] [address] [place] [address] Dr. Kobe Fabian Hemoglobin (Bld) [Mass/Vol] 13.6 g/dL Normal 12.0-16.0 [facility] Comment on above: Performed By: #### V AGINT #### [facility] [address] [place] [address] Dr. Kobe Fabian IG # 0.02 10e3/ul Normal 0.00-0.03 [facility] Comment on above: Performed By: #### V AGINT #### [facility] [address] [place] [address] Dr. Kobe Fabian IG % 0.3 % Normal 0.0-0.5 [facility] Comment on above: Performed By: #### V AGINT #### [facility] [address] [place] [address] Dr. Kobe Fabian LYMPH # 1.5 103/ul Normal 1.2-3.8 [facility] Comment on above: Performed By: #### V AGINT #### [facility] [address] [place] [address] Dr. Kobe Fabian Lymphocytes/100 WBC (Bld) 24.8 % Normal 20.5-60.0 [facility] Comment on above: Performed By: #### V AGINT #### [facility] [address] [place] [address] Dr. Kobe Fabian MANUAL DIFF REQ NO Normal [facility] Comment on above: Performed By: #### V AGINT #### [facility] [address] [place] [address] Dr. Kobe Fabian MCH (RBC) [Entitic mass] 29.2 pg Normal 26.7-34.0 [facility] Comment on above: Performed By: #### V AGINT #### [facility] [address] [place] [address] Dr. Kobe Fabian MCHC (RBC) [Mass/Vol] 33.1 g/dL Normal 29.9-35.2 [facility] Comment on above: Performed By: #### V AGINT #### [facility] [address] [place] [address] Dr. Kobe Fabian MCV (RBC) [Entitic vol] 88.2 fL Normal 81.0-99.0 [facility] Comment on above: Performed By: #### V AGINT #### [facility] [address] [place] [address] Dr. Kobe Fabian MONO # 0.3 103/ul Normal 0.3-0.8 [facility] Comment on above: Performed By: #### V AGINT #### [facility] [address] [place] [address] Dr. Kobe Fabian Monocytes/100 WBC (Bld) 5.4 % Normal 1.7-12.0 [facility] Comment on above: Performed By: #### V AGINT #### [facility] [address] [place] [address] Dr. Kobe Fabian NEUT # 3.9 103/ul Normal 1.4-6.5 [facility] Comment on above: Performed By: #### V AGINT #### [facility] [address] [place] [address] Dr. Kobe Fabian Neutrophils/100 WBC (Bld) 63.7 % Normal 43.0-75.0 [facility] Comment on above: Performed By: #### V AGINT #### [facility] [address] [place] [address] Dr. Kobe Fabian Platelet mean volume (Bld) [Entitic vol] 10.4 fL Normal 9.5-13.5 [facility] Comment on above: Performed By: #### V AGINT #### [facility] [address] [place] [address] Dr. Kobe Fabian PLT 203 103/ul Normal 150-450 [facility] Comment on above: Performed By: #### V AGINT #### [facility] [address] [place] [address] Dr. Kobe Fabian RBC 4.66 106/ul Normal 4.20-5.40 [facility] Comment on above: Performed By: #### V AGINT #### [facility] [address] [address] [address] Kobe Fabian WBC 6.1 103/ul Normal 4.0-11.0 [facility] Comment on above: Performed By: #### V AGINT #### [facility] [address] [place] [address] Dr. Koeb Fabian PROF 14(COMP METB)on 022 Albumin [Mass/Vol] 3.7 g/dL Normal 3.4-5.0 [facility] Comment on above: Performed By: #### C MP #### [facility] [address] [place] [address] Dr. Kobe Fabian Albumin/Globulin [Mass ratio] 1.1 {ratio} Normal [facility] Comment on above: Performed By: #### C MP #### [facility] [address] [place] [address] Dr. Kobe Fabian ALP [Catalytic activity/Vol] 60 U/L Normal 46-116 [facility] Comment on above: Performed By: #### C MP #### [facility] [address] [place] [address] Dr. Kobe Fabian ALT [Catalytic activity/Vol] 42 U/L Normal 14-59 [facility] Comment on above: Performed By: #### C MP #### [facility] [address] [place] [address] Dr. Kobe Fabian Anion gap [Moles/Vol] 12.0 mmol/L Normal [facility] Comment on above: Performed By: #### C MP #### [facility] [address] [place] [address] Dr. Kobe Fabian AST [Catalytic activity/Vol] 28 U/L Normal 15-37 [facility] Comment on above: Performed By: #### C MP #### [facility] [address] [address] [address] Kobe Fabian Bilirubin [Mass/Vol] 0.4 mg/dL Normal 0.2-1.0 [facility] Comment on above: Performed By: #### C MP #### [facility] [address] [address] [address] Kobe Fabian Calcium [Mass/Vol] 8.6 mg/dL Normal 8.5-10.1 [facility] Comment on above: Performed By: #### C MP #### [facility] [address] [address] [address] Kobe Fabian Chloride [Moles/Vol] 106 mmol/L Normal 98-107 [facility] Comment on above: Performed By: #### C MP #### [facility] [address] [place] [address] Dr. Kobe Fabian CO2 [Moles/Vol] 28.4 mmol/L Normal 21.0-32.0 [facility] Comment on above: Performed By: #### C MP #### [facility] [address] [address] [address] Kobe Fabian Creatinine [Mass/Vol] 0.81 mg/dL Normal 0.55-1.02 [facility] Comment on above: Performed By: #### C MP #### [facility] [address] [place] [address] Dr. Kobe Fabian EGFR-AF NAMIBIAN >60 Normal >=60 [facility] Comment on above: Performed By: #### C MP #### [facility] [address] [address] [address] Kobe Fabian EGFR-NON AF NAMIBIAN >60 Normal >=60 [facility] Comment on above: Performed By: #### C MP #### [facility] [address] [place] [address] Dr. Kobe Fabian Globulin (S) [Mass/Vol] 3.5 g/dL Normal [facility] Comment on above: Performed By: #### C MP #### [facility] [address] [address] [address] Kobe Fabian Glucose [Mass/Vol] 94 mg/dL Normal 74-106 [facility] Comment on above: Performed By: #### C MP #### [facility] [address] [address] [address] Kobe Fabian Potassium [Moles/Vol] 4.4 mmol/L Normal 3.5-5.1 [facility] Comment on above: Performed By: #### C MP #### [facility] [address] [address] [address] Kobe Fabian Protein [Mass/Vol] 7.2 g/dL Normal 6.4-8.2 [facility] Comment on above: Performed By: #### C MP #### [facility] [address] [place] [address] Dr. Kobe Fabian Sodium [Moles/Vol] 142 mmol/L Normal 136-145 [facility] Comment on above: Performed By: #### C MP #### [facility] [address] [place] [address] Dr. Kobe Fabian Urea nitrogen [Mass/Vol] 13.0 mg/dL Normal 7.0-18.0 [facility] Comment on above: Performed By: #### C MP #### [facility] [address] [place] [address] Dr. Kobe Fabian Urea nitrogen/Creatinine [Mass ratio] 16.0 mg/mg Normal [facility] Comment on above: Performed By: #### C MP #### [facility] [address] [place] [address] Dr. Kobe Fabian SED RATE [facility] 2021 SED RATE 7 mm/hr Normal <=20 [facility] Comment on above: Performed By: #### V AGINT #### [facility] [address] [place] [address] Dr. Kobe Fabian Vital Signs Date Time Vital Sign Value Performing Clinician Facility 06-17-2024 13:09-0500 Body height 160.02 cm Gino Liang DO Work Phone: [facility] 06-17-2024 13:090500 Body mass index (BMI) [Ratio] 30.4 kg/m2 Gino Kuns DO Work Phone: [facility] 06-17-2024 13:09-0500 Body weight 78.01 kg Gino Kuns DO Work Phone: [facility] 09-16-2022 10:39-0400 Body height 160.02 cm Gino R Kuns Work Phone: [facility] Work Phone: 09-16-2022 10:39-0400 Body mass index (BMI) [Ratio] 36.49 kg/m2 Gino R Kuns Work Phone: [facility] Work Phone: 09-16-2022 10:39-0400 Body surface area Derived from formula 1.96 m2 Gino R Kuns Work Phone: [facility] Work Phone: 09-16-2022 10:39-0400 Body weight 93.44 kg Gino R Kuns Work Phone: [facility] Work Phone: 07-25-2022 13:30-0500 Body height 160.02 cm Gino Kuns Other [facility] Other 07-25-2022 13:30-0500 Body mass index (BMI) [Ratio] 36.49 kg/m2 Gino Kuns Other [facility] Other 07-25-2022 13:30-0500 Body weight 93.44 kg Gino Kuns Other [facility] Other 07-25-2022 13:30-0500 Diastolic blood pressure 80 mm[Hg] Gino Kuns Other [facility] Other 07-25-2022 13:30-0500 Respiratory rate 18 /min Gino Kuns Other [facility] Other 07-25-2022 13:30-0500 SaO2% (BldA) [Mass fraction] 99 % Gino Kuns Other [facility] Other 07-25-2022 13:30-0500 Systolic blood pressure 118 mm[Hg] Gino Kuns Other [facility] Other 10-26-2021 13:45-0400 Body height 160.02 cm Gino Kuns Other [facility] Other 10-26-2021 13:45-0400 Body mass index (BMI) [Ratio] 36.49 kg/m2 Gino Kuns Other [facility] Other 10-26-2021 13:45-0400 Body weight 93.44 kg Gino Kuns Other [facility] Other 10-26-2021 13:45-0400 Diastolic blood pressure 60 mm[Hg] Gino Kuns Other [facility] Other 10-26-2021 13:45-0400 Respiratory rate 16 /min Gino Kuns Other [facility] Other 10-26-2021 13:45-0400 SaO2% (BldA) [Mass fraction] 99 % Gino Kuns Other [facility] Other 10-26-2021 13:45-0400 Systolic blood pressure 110 mm[Hg] Gino Kuns Other [facility] Other 10-16-2021 14:30-0400 Body height 160.02 cm Gino Kuns Other [facility] Other 10-16-2021 14:30-0400 Body mass index (BMI) [Ratio] 36.49 kg/m2 Gino Kuns Other [facility] Other 10-16-2021 14:30-0400 Body weight 93.44 kg Gino Kuns Other [facility] Other 10-16-2021 14:30-0400 Diastolic blood pressure 82 mm[Hg] Gino Kuns Other [facility] Other 10-16-2021 14:30-0400 Respiratory rate 18 /min Gino Kuns Other [facility] Other 10-16-2021 14:30-0400 SaO2% (BldA) [Mass fraction] 98 % Gino Kuns Other [facility] Other 10-16-2021 14:30-0400 Systolic blood pressure 126 mm[Hg] Gino Kuns Other [facility] Other 04-16-2021 12:00-0500 Body height 160.02 cm Gino Kuns Other [facility] Other 03-26-2021 11:15-0400 Body height 160.02 cm Gino Kuns Other [facility] Other 03-26-2021 11:15-0400 Body mass index (BMI) [Ratio] 35.25 kg/m2 Gino Kuns Other [facility] Other 03-26-2021 11:15-0400 Body weight 90.27 kg Gino Zachariahs Other [facility] Other 03-26-2021 11:15-0400 Diastolic blood pressure 80 mm[Hg] Gino Zachariahs Other [facility] Other 03-26-2021 11:15-0400 Respiratory rate 18 /min Ginolaura Sonis Other [facility] Other 03-26-2021 11:15-0400 SaO2% (BldA) [Mass fraction] 98 % Ginolaura Sonis Other [facility] Other 03-26-2021 11:15-0400 Systolic blood pressure 124 mm[Hg] Gino Zachariahs Other [facility] Other Encounters Encounter Date Encounter Type Care Provider Facility Start: 10-25-2024 ambulatory Nabila L Ana Laura Facility: [facility] Start: 09-24-2024 End: 09-24-2024 Primo Round [facility] Work Phone: [facility] Start: 09-24-2024 End: 09-24-2024 Bamboo flowsheet [facility] Work Phone: [facility] Start: 09-24-2024 End: 09-24-2024 Office outpatient new 45 minutes [facility] Work Phone: [facility] Comment on above: Other rosacea; Psoriasis vulgaris (CMS/HCC); High risk medication use Start: 09-24-2024 End: 09-24-2024 ambulatory [facility] Not Available Start: 07-28-2024 End: 07-28-2024 ambulatory Nabila L Ana Laura Facility:[facility] Start: 07-14-2024 End: 07-14-2024 ambulatory Nabila L Ana Laura Facility:[facility] Start: 06-17-2024 End: 06-17-2024 ambulatory Gino Kuns DO Work Phone: [facility] Work Phone: Start: 06-17-2024 End: 06-17-2024 Patient encounter procedure Gino Kuns DO Work Phone: [facility] Work Phone: Start: 04-15-2024 End: 04-15-2024 ambulatory Nabila L Ana Laura Facility:[facility] Start: 04-05-2024 End: 04-05-2024 ambulatory Nabila L Ana Laura Facility:[facility] Start: 02-03-2024 End: 02-03-2024 ambulatory Nabila L Ana Laura Facility:[facility] Start: 11-06-2023 End: 11-06-2023 ambulatory Nabila L Ana Laura Facility:[facility] Start: 11-06-2023 End: 11-06-2023 Lab Drop off Nabila L Ana Laura [facility] Start: 11-06-2023 End: 11-06-2023 ambulatory Nabila L Ana Laura Facility:[facility] Start: 11-04-2023 End: 11-04-2023 ambulatory Nabila L Ana Laura Facility:[facility] Start: 09-08-2023 End: 09-08-2023 ambulatory Nabila L Ana Laura Facility:[facility] Start: 08-07-2023 End: 08-07-2023 ambulatory Nabila L Ana Laura Facility:[facility] Start: 05-20-2023 End: 05-20-2023 ambulatory Nabila L Ana Laura Facility:[facility] Start: 04-22-2023 End: 04-22-2023 ambulatory Nabila L Ana Laura Facility:[facility] Start: 03-25-2023 End: 03-25-2023 ambulatory Nabila L Ana Laura Facility:[facility] Start: 02-25-2023 End: 02-25-2023 ambulatory Nabila L Ana Laura Facility:[facility] Start: 09-16-2022 Office consultation new/estab patient 30 min Gino Liang Work Phone: [facility] Work Phone: Start: 09-16-[address] Gino Liang Facility:[id number] Start: 09-09-2022 End: 09-10-2022 ambulatory NELL PELAEZ Facility:[facility] Start: 07-29-2022 Encounter for gynecological examination (general) (routine) without abnormal findings DR JIAN ROYAL . [facility] Start: 07-26-2022 End: 07-27-[address] GINO LIANG Facility:[facility] Start: 07-25-2022 End: 07-25-[address] JIAN ROYAL . [facility] Other Start: 07-25-2022 Office outpatient vi sit 25 minutes Gino Liang [facility] Start: 06-19-2022 End: 06-20-[address] JIAN ROYAL . Facility:[facility] Start: 05-26-2022 End: 05-27-[address] MICAH MALDONADO Facility:[facility] Start: 03-18-2022 End: 03-18-2022 ambulatory Gino Liang Other [facility] Other Start: 03-18-2022 Telephone encounter Gino Liang [facility] [place] Start: 03-08-2022 End: 03-08-[address] GINO LIANG Facility:[facility] Start: 11-07-2021 End: 11-07-2021 ambulatory Gino Liang Other [facility] Other Start: 11-07-2021 Telephone encounter [facility] Start: 10-26-2021 End: 10-26-2021 ambulatory Gino Liang Other [facility] Other Start: 10-26-2021 Office outpatient vi sit 15 minutes Gino Liang [facility] Start: 10-23-2021 End: 10-24-[address] GINO LIANG Facility: Start: 10-16-2021 End: 10-16-2021 ambulatory Gino Liang Other [facility] Other Start: 10-16-2021 Office outpatient vi sit 25 minutes Ginolaura Sonis [facility] Start: 04-16-2021 End: 04-16-2021 ambulatory Gino Liang Other [facility] Other Start: 04-16-2021 Office outpatient vi sit 15 minutes Gino Zachariahs [facility] Start: 03-28-2021 Encounter for genera l adult medical examination without abnormal findings Gino Zachariahs [facility] Start: 03-28-2021 Telephone encounter Gino Zachariahs [facility] Start: 03-26-2021 Encounter for genera l adult medical examination without abnormal findings Gino Zachariahs [facility] Start: 03-26-2021 Periodic preventive med est patient 18-39 yrs Gino Liang [facility] Procedures Date Procedure Procedure Detail Performing Clinician Start: 06-17-2024 Plain X-ray of left shoulder Gino Liang DO Work Phone: Start: 06-09-2018 Hysterectomy Nabila Schwa b Start: 10-08-2015 Surgical procedure Nabila Ana Laura Comment on above: D and C x2 Start: 06-09-2011 Laser assisted in si tu keratomileusis Nabila Ana Laura Start: 06-09-2008 Cholecystectomy Nabila Sc hwab H/O: hysterectomy Gino Liang Other Plan of Treatment Date Care Activity Detail Author Start: 01-04-2025 End: 01-04-2025 Patient encounter procedure 01/04/2025 9:30 AM EDT Office Visit [facility] [address] [place] [address] Aparna Jo PA [address] [place] [address] [facility] Start: 09-24-2024 End: 09-24-2025 Alanine aminotransferase [Enzymatic activity/volume] in Serum or Plasma ALT Lab Routine High risk medication use Expected: 09/24/2024 (Approximate), Expires: 09/24/2025 [facility] Comment on above: Expected: 09/24/2024 (Approximate), Expires: 09/24/2025 Start: 09-24-2024 End: 09-24-2025 Aspartate aminotransferase [Enzymatic activity/volume] in Serum or Plasma AST Lab Routine High risk medication use Expected: 09/24/2024 (Approximate), Expires: 09/24/2025 [facility] Comment on above: Expected: 09/24/2024 (Approximate), Expires: 09/24/2025 Start: 09-24-2024 End: 09-24-2025 CBC W Auto Differential panel - Blood CBC and differential Lab Routine High risk medication use Expected: 09/24/2024 (Approximate), Expires: 09/24/2025 [facility] Comment on above: Expected: 09/24/2024 (Approximate), Expires: 09/24/2025 Start: 09-24-2024 End: 09-24-2025 Hepatitis B virus surface Ag [Presence] in Serum or Plasma by Immunoassay Hepatitis B surface antigen Lab Routine High risk medication use Expected: 09/24/2024 (Approximate), Expires: 09/24/2025 [facility] Comment on above: Expected: 09/24/2024 (Approximate), Expires: 09/24/2025 Start: 09-24-2024 End: 09-24-2025 Hepatitis C virus Ab [Presence] in Serum or Plasma by Immunoassay Hepatitis C antibody Lab Routine High risk medication use Expected: 09/24/2024 (Approximate), Expires: 09/24/2025 [facility] Comment on above: Expected: 09/24/2024 (Approximate), Expires: 09/24/2025 Start: 09-24-2024 End: 09-24-2025 Hiv-1 rna, quantitative by pcr Hiv-1 rna, quantitative by pcr Lab Routine High risk medication use Expected: 09/24/2024 (Approximate), Expires: 09/24/2025 [facility] Comment on above: Expected: 09/24/2024 (Approximate), Expires: 09/24/2025 Start: 09-24-2024 End: 09-24-2025 TB test, cell immune measure TB test, cell immune measure Lab Routine High risk medication use Expected: 09/24/2024 (Approximate), Expires: 09/24/2025 [facility] Work Phone: Comment on above: Expected: 09/24/2024 (Approximate), Expires: 09/24/2025 Start: 09-24-2024 End: 09-24-2024 Patient encounter procedure 09/24/2024 9:20 AM EDT Office Visit [facility] [address] [place] [phone] Aparna Jo PA [address] [place] [address] Arrived [facility] Comment on above: Arrived Start: 06-17-2024 Plain X-ray of left shoulder XR shoulder LT min 2V* [facility] Start: 06-17-2024 XR Shoulder - left Views [facility] Immunizations Immunization Date Immunization Notes Care Provider Fa cili 04-22-2023 influenza, injectable, quadrivalent, preservative free Nabila Ana Laura [facility] 04-06-2021 influenza virus vaccine, unspecified formulation Nabila Ana Laura [facility] 02-16-2020 influenza virus vaccine, unspecified formulation Nabila Ana Laura [facility] 03-23-2019 influenza virus vaccine, unspecified formulation Nabila Ana Laura [facility] 03-23-2019 influenza, injectable, quadrivalent, preservative free Gino Kuns Other [facility] 03-24-2018 influenza virus vaccine, unspecified formulation Nabila Ana Laura [facility] 02-28-2017 tetanus toxoid, reduced diphtheria toxoid, and acellular pertussis vaccine, adsorbed Gino Kuns Other [facility] 02-28-2017 influenza virus vaccine, unspecified formulation Nabila Ana Laura [facility] 03-01-2016 influenza, injectable, quadrivalent, contains preservative Gino Kuns Other [facility] Other 03-01-2016 influenza virus vaccine, unspecified formulation Nabila Ana Laura [facility] 03-01-2016 influenza, injectable, quadrivalent, preservative free Gino Kuns DO Work Phone: [facility] NEGATED: Highlighted row has not occurred!03-25-2023 influenza virus vaccine, unspecified formulation Nabila Ana Laura [facility] Payers Date Payer Category Payer Self-pay 2011 [facility] [id number] 1981 Unknown [id number] 2.16.840.1.759089.3.579.2 .593 1981 Unknown [id number] 2.16.840.1.344915.3.579.2 .593 1981 Unknown [id number] 2.16.840.1.238115.3.579.2 .593 1981 Unknown [id number] 2.16.840.1.677432.3.579.2 .593 1981 Unknown [id number] 2.16.840.1.900755.3.579.2 .593 1981 Unknown [id number] 2.16.840.1.639823.3.579.2 .593 1981 Unknown [id number] 2.16.840.1.296930.3.579.2 .593 1981 Unknown [id number] 2.16.840.1.717003.3.579.2 .593 1981 Unknown [id number] 2.16.840.1.139559.3.579.2 .356 1981 Unknown [id number] 2.16.840.1.388723.3.579.2 .727 1981 Unknown [id number] 2.16.840.1.402679.3.579.2 .727 1981 Unknown [id number] 2.16.840.1.949845.3.579.2 .727 1981 Unknown [id number] 2.16.840.1.486948.3.579.2 .727 1981 Unknown [id number] 2.16.840.1.862051.3.579.2 .727 1981 Unknown [id number] 2.16.840.1.900205.3.579.2 .727 1981 Unknown [id number] 2.16.840.1.606933.3.579.2 .727 1981 Unknown [id number] 2.16.840.1.420239.3.579.2 .727 1981 Unknown [id number] 2.16.840.1.717555.3.579.2 .727 1981 Unknown [id number] 2.16.840.1.252127.3.579.2 .727 1981 Unknown [id number] 2.16.840.1.431744.3.579.2 .727 1981 Unknown [id number] 2.16.840.1.695563.3.579.2 .727 1981 Unknown [id number] 2.16.840.1.089633.3.579.2 .727 1981 Unknown [id number] 2.16.840.1.622172.3.579.2 .727 1981 Unknown [id number] 2.16.840.1.159759.3.579.2 .727 1981 Unknown [id number] 2.16.840.1.457740.3.579.2 .1259 1959 [facility]80 [id number] 2.16.840.1.703831.19 Unknown ANTHEM Unknown [id number] 2.16.840.1.199679.3.579.2 .531 Social History Date Type Detail Facility Start: 09-24-2024 Sex Assigned At [facility] Start: 09-24-2024 Never smoker Never smoker [facility] Work Phone: Start: 11-06-2023 End: 09-24-2024 Tobacco smoking status Never smoked tobacco [facility]finding) [facility] Tobacco smoking status Never [facility] Start: 06-17-2024 End: 06-18-2024 Sex Female (finding) [facility] Start: 1980 Sex Assigned At Female F [facility] Tobacco smoking stat us NHIS Tobacco smoking consumption unknown [facility] Start: 1980 Sex assigned at Not on file N [facility] Start: 09-24-2024 Tobacco use and exposure Smokeless tobacco non-user [facility] Start: 09-27-2024 Alcoholic beverage intake Lifetime non-drinker (finding) [facility] Clinical Notes 09-16-2012 to 09-24-2024 E[facility] - 09/24/2024 9:20 AM EDT Note Date & Type Note Facility 09-24-2024 History of Presen t illness Narrative Images from the original note were not included. Rash Location: scalp Duration: years Severity: severe Quality: itchy, lowe Modifying Factors: worse with picking Associated symptoms: scaly Treatments tried: Taltz(6-8 months), sotyktu (3 months)-too expensive for both, clobetasol ointment, Otzela (made her sick) Current treatments: none, was with DP New patient Rash # 2 Location: face Duration: years Severity: moderate Quality: denies itch, denies burning Modifying Factors: none Associated symptoms: redness Treatments tried: Metronidazole Current treatments: none All pertinent medical history, medications, and allergies were reviewed. General Exam: alert, oriented to person, place, and time, normal affect, well appearing Unaccompanied A focused exam completed based on patient reported problems, see below: Skin Exam 1. OTHER ROSACEA Head - Anterior (Face) Mid face erythema with telangiectasias +/- scattered inflammatory papules/pustules. Flaring today The patient was informed that rosacea a chronic condition that can be controlled but not cured. The appearance of redness and pimples can often be improved with a low dose antibiotic or topical medications. The patient was informed that telangiectasia is common and can be improved with laser treatment. Recommended patient get OTC Azelaic acid-The Ordinary use once a day. Patient can contact us if she would like a referral for laser treatments to help with telangectasia. 2. PSORIASIS VULGARIS (CMS/HCC) Scalp Well-marginated erythematous papules/plaques with silvery scale. Flaring today BSA 10%. sPGA3 The patient was informed that psoriasis is a chronic condition that can be controlled but not cured. Patient has tried and failed the following: Otezla (side effects including GI), Taltz (used for 6-8 months, worked well until insurance wouldn't cover this), Sotyktu (ineffective, used for 3 months), Clobetasol ointment and solution. The patient was informed that psoriasis is chronic in nature with periods of remissions and flares. Flares can be triggered by infections, stress, certain medications, and alcohol. Phototherapy is not a feasible option due to patient's work schedule and not within a reasonable driving distance. buttermaker use of topical steroids are also not advised due to potential side effects of glaucoma and skin thinning. Since patient was stable on Taltz, will submit for cosentyx once lab work is completed. Specialty medication form given to Nena Forbes LPN. Instructed to contact office if psoriasis worsens or fails to improve despite treatment. Biologics labs ordered and given to patient. Follow up in 3 months. Dosing for Cosentyx would include 300 mg loading dose on week 0, 1, 2, 3, 4 followed by 300 mg every 4 weeks. Clobetasol Propionate 0.05 % shampoo - Scalp Apply to scalp, leave on 5 min the rinse, 2-3 x week, 30 day supply 3. HIGH RISK MEDICATION USE Related Procedures TB test, cell immune measure Hiv-1 rna, quantitative by pcr Hepatitis C antibody Hepatitis B surface antigen ALT AST CBC and differential Next Visit: 3 months documented in this encounter [facility] 06-17-2024 Evaluation note Diagnosis Onset Date Resolution Bicipital tendinitis, left shoulder acute June 17 12:45pm Rotator cuff syndrome of left shoulder acute June 17 12:45pm [facility] Work Phone: [phone] 610-625710-28-2024 NotePatient Education Orthopedics Shoulder Range of Motion [...] your feet. 2. Lif (more content not included)...[facility]02-16-2023 Evaluation note* Encounter Date Diagnosis Assessment Notes [...] ENT for further evaluation. Encouraged her to waste picker OTC prilosec or nexium to try in the meantime. [facility] Other 05-20-2022 Evaluation note* Encounter Date Diagnosis [...] - M25.522) We will continue to monitor. [facility] Other 05-10-2022 Evaluation note* Encounter Date Diagnosis Assessment Notes Treatment Notes Treatment Clinical Notes October, Fall (ICD-10 - W19.XXXA) recent fall October, Left elbow pain (ICD-10 - M25.522) Left elbow pain since fall. Will get imaging and follow up October, Frontal headache (ICD-10 - R51.9) Patient reports she gets sharp, jolty pains in the right mu-ism area since her recent fall. Patient states [...] been having sharp pain in the right mu-ism area. This could be a concussion and [...] head has been ordered. Will follow up [facility] Other 11-08-2021 Evaluation note* Encounter Date Diagnosis Assessment Notes Treatment Notes Treatment Clinical Notes Apr, Hypertriglyceridemia (ICD-10 - E78.1) Reviewed blood work with patient. Cholesterol triglycerides continue to be elevated but has improved from last check. We will continue to monitor. [facility] Other 10-20-2021 Evaluation note* Encounter Date Diagnosis Assessment Notes Treatment Notes Treatment Clinical Notes Mar, Wellness examination (ICD-10 - Z00.00) [facility] Other 10-18-2021 Evaluation note* Encounter Date Diagnosis [...] any positively answered questions as noted above. [facility] Other 04-10-2013 History general Narrative - Reported* Type Description Date Medical History 09/16/12 Left foot x-ray [facility] Medical History 09/08/14 Chest X-ray Surgical History D & C 2006 Surgical History cholecystectomy Surgical History D&C 2015 Surgical History Hysterectomy (still has ovaries ) 05/2019 Hospitalization History Vaginal x1 (male)/ Gestational Diabetes 03/22/14 Hospitalization History Vaginal x1 (female ) 06/03/06 Hospitalization History Vaginal X1 (male) gestational diabetes 03/2017 [facility] Other Evaluation + Plan note Future Appointments Appointment Date:02/03/2024 10:00:00 AM Scheduled Provider:Nabila Farley Location:[facility] Appointment Type: Open Diagnostic Tests Pending * PAP [id number] w/ HPV and Genotype rflx [facility]06/23 [facility] note[facility] InformationNort [employer] Other Evaluation note* Diagnosis Onset Date Resolution Status Admit Date Bicipital tendinitis, left shoulder acute June 17 12:45pm Rotator cuff syndrome of lef t shoulder acute June 17 12:45pm [facility] Work Phone: Evaluation note* Diagnosis Other rosacea Psoriasis vulgaris (CMS/HCC) Other psoriasis High risk medication use [facility] this [facility] N[facility]* Patient is a [...] date and entered into the EMR system. [facility] Work Phone: Hospital course Narrative No data available for this section [facility] Discharge instructions No data available for this section [facility] No data available for this section [facility] Reason for Referral Reason * 08/23 consult and treat;; feeling of lump in throat worse with swallowing reflux Diagnosis 1 Dysphagia, unspecifi ed type (R13.10) Referral Organization [facility] Family Quan Pearson Referring Provider First Name Gino Referring Provider Last Name Rock Referring Provider Specialty Family Prac saqib Referred Organization [facility] Referred Provider OJ VELEZ Referred Address [address] [place] [address] [place] Referred Provider Specialty Otolaryngolo Referral Priority Routine General Notes Desire Rivas 023 10:57:19 AM >Received today and fax referral. The Central Team at will call patient and schedule Desire 08/02/2022 09:02:19 AM >Fax letter for appt update [facility] Desire 08/02/2022 12:10:39 PM >Received letter back and they have the referral but patient is not scheduled yet Desire 08/08/2022 09:59:37 AM >[facility] 08/08[facility]22 11:54:00 AM >Received letter back and patient is not scheduled yet [facility], Desire Sarkar 08/16/2022 07:28:30 AM >Fax letter for appt update Clinical Notes Office [phone] Summary Purpose Family History Relationship Condition Age at Onset Recorded Date/T fabriec father Diabetes mellitus Unknown Advance Directives Advance Directive Response Recorded Date/ Time Advance [...] and content) DATE CREATED AUTHOR 09/14/2022 [facility] DATE CREATED AUTHOR AUTHOR'S ORGANIZ ATION 09/17/2022 [facility] DATE CREATED AUTHOR AUTHOR'S ORGANIZ ATION 09/18/2022 [facility] DATE CREATED AUTHOR AUTHOR'S ORGANIZ ATION 02/04/2024 [facility] DATE CREATED AUTHOR AUTHOR'S ORGANIZ ATION 06/22/2024 [facility] DATE CREATED AUTHOR AUTHOR'S ORGANIZ ATION 07/30/2024 [facility] DATE CREATED AUTHOR AUTHOR'S ORGANIZ ATION 09/26/2024 [facility] EPIC Patient Care team informatio n (unrecognized section [...] Status: Active Member Role Status Dates Gino Kuns , DO Primary Care Provider Active Sta rt: June 17, 2024 Sahil Dahl , DO Attending Provider Active St art: June [...] BE BASED ON THE PRIMARY CLINICAL RECORDS. [facility] [employer] provides no warranty or guarantee of the accuracy or completeness of information in this document.
[2024-10-16 07:57] LABS: Basophils Percent Auto 0.4 % (0.2-2.0); Eosinophils Absolute Auto 0.2 10^3/uL (0.0-0.7); Eosinophils Percent Auto 3.1 % (0.9-7.0); Hematocrit 40.9 % (36.0-48.0); Hemoglobin 13.8 g/dL (12.0-16.0); Immature Granulocytes Abs Auto 0.03 10^3/uL (0.00-0.03); Immature Granulocytes Pct Auto 0.4 % (0.0-0.5); Lymphocytes Absolute Auto 2.2 10^3/uL (1.2-3.8); Lymphocytes Percent Auto 27.6 % (20.5-60.0); Mean Corpuscular HGB Conc 33.7 g/dL (29.9-35.2); Mean Corpuscular Hemoglobin 29.3 pg (26.7-34.0); Mean Corpuscular Volume 86.8 fL (81.0-99.0); Monocytes Absolute Auto 0.4 10^3/uL (0.3-0.8); Monocytes Percent Auto 4.7 % (1.7-12.0); Neutrophils Percent Auto 63.8 % (43.0-75.0); Platelet Count 169 10^3/uL (150-450); Red Blood Count 4.71 10^6/uL (4.20-5.40); Red Cell Distribution Width 11.9 % (11.0-15.0); White Blood Count 7.8 10^3/uL (4.0-11.0)
[2024-10-17 08:08] LABS: HBsAg Screen Negative (Negative); HCV Antibody Non Reactive (Non Reactive); HIV Ab/p24 Ag Screen Non Reactive (Non Reactive)
== END 2024-10-16 07:32 | disposition home or self-care (01) ==
LOC: LAB 07:32
PROVIDERS: PCP Nurse Practitioner; Visit Provider Student in an Organized Health Care Education/Training Program
DX: Z79.899 Other long term (current) drug therapy (principal)
CPT/HCPCS: 36415; 85025; 86803; 87340; 87389

== ENCOUNTER 2024-12-06 10:58 | Outpatient (OUT) | payer BC, SELFPAY ==
--- OUTSIDE RECORDS SUMMARY | 2024-12-06 11:02 | XMS_ITS | Clinical Summary ---
Author Organization [facility] Address [address] [place] [address] Care Team Providers Care Industrial Maintenance [employer] Name Role Phone Unavailable Primary Care Provider Unavailabl e Allergies No known active allergies Medications semaglutide (Ozempic) 4 MG/3ML solution pen-injector Inject 1 mg under the skin Active Clobetasol Propionate 0.05 % shampooIndicati ons:Psoriasis vulgaris Apply to scalp, leave on 5 min the rinse, 2-3 x week, 30 day supply 118 mL 11 5 Active Cosentyx UnoReady 300 MG/2ML solution auto-injectorIn dications:Psori asis vulgaris Inject 300 mg under the skin 1 (one) time per week Inject 300 mg (contents of ONE pen) under the skin at weeks 0,1,2 and 3 8 mL 5 Active Cosentyx UnoReady 300 MG/2ML solution auto-injectorIn dications:Psori asis vulgaris Inject 300 mg under the skin every 28 (twenty-eight) days Inject 300 mg (contents of ONE pen) under the skin at week 4 and every 4 weeks thereafter 2 mL 11 5 Active Active Problems No known active problems Encounters Date Type Department Care Team Description 10/19/2024 Results Follow-Up [facility] [address] [place] [address] Maegan Jo PA 09/27/2024 Telephone [facility] [address] [place] [address] Elizabeth De Santiago LPN Prior Authorization 09/27/2024 Abstract [facility] [address] [place] [phone] Elizabeth De Santiago LPN 09/24/2024 9:20 AM EDT Office Visit [facility] [address] [place] [phone] Maegan Jo PA Other rosacea; Psoriasis vulgaris ; High risk medication use 09/24/2024 Bamboo flowsheet [facility] [address] [place] [address] Maegan Jo PA 09/24/2024 Travel from Last 3 Months Social History Tobacco Use Types Packs/Day Years Used Date Smoking Tobacco: Never Smokeless Tobacco: Never Tobacco Cessation:Counseling Given: Not Answered Alcohol Use Standard Drinks/Week Comments Never 0 (1 standard drink = 0.6 oz pur e alcohol) Comments Unknown Sex and Gender Information Value Date Recorded Sex Assigned at Not on file Legal Sex Female 11:47 PM EDT Gender Identity Not on file Sexual Orientation Not on file Last Filed Vital Signs Vital Sign Reading Time Taken Comments Blood Pressure 110/78 09/24/2022 12:00 PM EDT Pulse - - Temperature - - Respiratory Rate - - Oxygen Saturation - - Inhaled Oxygen Concentration - - Weight 94.3 kg (207 lb 12.8 oz) 023 12:00 PM EDT Height 160 cm (5' 3 ) 09/24/2022 12:00 PM EDT Body Mass Index 36.81 09/24/2022 12:00 PM EDT Plan of Treatment Upcoming Encounters Date Type Department Care Team (Late st Contact Info) Description 01/04/2025 9:30 AM EDT Office Visit [facility] [address] [place] [address] Maegan Jo PA [address] [place] [phone] Procedures Procedure Name Priority Date/Time Associated Diagnosis Comments CBC (INCLUDES DIFF/PLT) Routine 10/18/2024 10:30 AM EDT High risk medication use HEPATITIS B SURFACE ANTIGEN W/REFL CONFIRM Routine 10/18/2024 10:30 AM EDT High risk medication use HEPATITIS C ANTIBODY Routine 10/18/2024 10:30 AM EDT High risk medication use HIV-1 RNA, QUANTITATIVE BY PCR Routine 10/18/2024 10:30 AM EDT High risk medication use from Last 3 Months Results * Hiv-1 rna, quantitative by pcr (10/18/2024 10:30 AM EDT) Blood Venous blood specimen / Unknown [facility] [employer] LAB BLOOD ORDERABLES Final Res ult Performing Organization Address [facility] de Phone Number [email or web address] * Hepatitis C antibody (10/18/2024 10:30 AM EDT) Blood Venous blood specimen / Unknown [facility] [employer] LAB BLOOD ORDERABLES Final Res ult Performing Organization Address [facility] de Phone Number EXTERNAL LAB * Hepatitis B surface antigen (10/18/2024 10:30 AM EDT) Blood Venous blood specimen / Unknown [facility] LAB BLOOD ORDERABLES Final Res ult Performing Organization Address [facility] de Phone Number EXTERNAL LAB * CBC and differential (10/18/2024 10:30 AM EDT) Blood Venous blood specimen / Unknown [facility] LAB BLOOD ORDERABLES Final Res ult Performing Organization Address [facility] de Phone Number EXTERNAL LAB from Last 3 Months Insurance [facility]
--- OUTSIDE RECORDS SUMMARY | 2024-12-06 11:02 | XMS_ITS | Encounter Summary ---
Author Organization [facility] Address [address] [place] [address] Care Team Providers Care Side Panel Padder Name Role Phone Unavailable Primary Care Provider Unavailabl e Encounter Details Date Type Department Care Team (Late st Contact Info) Description 10/19/2024 Results Follow-Up [facility] [address] [place] [address] Maegan Jo PA [address] [place] [address] Social History Tobacco Use Types Packs/Day Years Used Date Smoking Tobacco: Never Smokeless Tobacco: Never Alcohol Use Standard Drinks/Week Comments Never 0 (1 standard drink = 0.6 oz pur e alcohol) Comments Unknown Sex and Gender Information Value Date Recorded Sex Assigned at Not on file Legal Sex Female 11:47 PM EDT Gender Identity Not on file Sexual Orientation Not on file documented as of this encounter Plan of Treatment Upcoming Encounters Date Type Department Care Team (Late st Contact Info) Description 01/04/2025 9:30 AM EDT Office Visit [facility] [address] [place] [address] Maegan Jo PA [address] [place] [address] documented as of this encounter Visit Diagnoses Not on filedocumented in this encounter
--- OUTSIDE RECORDS SUMMARY | 2024-12-06 11:02 | XMS_ITS | Encounter Summary ---
Author Organization [facility] Address [address] [place] [address] Care Team Providers Care Or Nurse Manager Name Role Phone Unavailable Primary Care Provider Unavailabl e Encounter Details Date Type Department Care Team (Late st Contact Info) Description 09/27/2024 Abstract [facility] [address] [place] [address] Elizabeth De Santiago LPN [address] [place] [address] Social History Tobacco Use Types Packs/Day Years [...] DERM [address] [place] [address] Maegan Jo PA [address] [place] [address] documented as of this encounter Visit Diagnoses Not on filedocumented in this encounter
--- NOTE | 2024-12-06 11:36 | XR_ITS ---
The [address] [address] Patient Name: AFRICA DHILLON MRN: [id number] date: 1980 Sex: F Assigned Patient Location: [facility] Current Patient Location: [facility] Accession/Order Number: [id number] Exam Date: 12/06/2024 11:57 Report Date: 12/06/2024 11:59 At the request of: JACQUES CAMERON DPMello Procedure: XR foot LT min 3V LEFT FOOT - 3 views CLINICAL DATA: Left lateral foot pain and lump for the past month. No reported injury. COMPARISON: None Weightbearing AP, lateral and oblique views were obtained. There is no evidence of fracture or dislocation. There are no significant soft tissue abnormalities. XR/XR foot LT min 3V IMPRESSION: NO ACUTE BONY FINDINGS. Impression dictated by: Kalina Williamson M.D. 12/06/2024 11:59 AM Dictation Location: [place] [address] Electronically authenticated by: [id number] Y Date: 12/06/2024 11:59
== END 2024-12-06 10:59 | disposition home or self-care (01) ==
LOC: RAD 11:00
PROVIDERS: PCP Nurse Practitioner; Visit Provider Podiatrist Foot & Ankle Surgery
DX: M79.672 Pain in left foot (principal)
CPT/HCPCS: 73630

== ENCOUNTER 2025-01-05 20:09 | Outpatient (REF) | payer BC, SELFPAY ==
--- OUTSIDE RECORDS SUMMARY | 2025-01-05 20:14 | XMS_ITS | CCD ---
Author Organization [facility] Care Team Providers Care Fabrication Machine Operator Name Role Phone Gino Liang Unavailable AZUL, DR CHRISTIAN Attending Unavailable KUNJenny, DR CHRISTIAN [...] ., DR VILLAR Attending Unavailable ZIEBER, DR HARSHIL [employer] Consulting Unavailable AZUL, DR CHRISTIAN Consulting Unavailable AZUL, DR CHRISTIAN Primary Care Unavailable AZUL, DR CHRISTIAN Admitting Unavailable AZUL, DR CHRISTIAN Attending Unavailable JOEL, DR MICAH [facility] Admitting Unavailable JOEL, DR MICAH Sanford Attending Unavailable JOEL, DR MICAH [employer] Consulting Unavailable AZUL, DR CHRISTIAN Primary Care Unavailable AZUL, DR CHRISTIAN Primary Care Unavailable MATHEUS ., DR BLACK Attending Unavailable MATHEUS ., DR BLACK Consulting Unavailable MATHEUS ., DR BLACK Admitting Unavailable NELL PELAEZ Admitting Unavailable NELL PELAEZ Attending Unavailable AZUL, DR CHRISTIAN Primary Care Unavailable NELL PELAEZ Consulting Unavailable Gino Liang Unavailable Unavailable Unavailable Azul, Dr. Gino Sánchez Referring Unavailselene e Azul, Dr. Gino Sánchez Primary Care Unavailselene Velez, Dr. Oj Kuhn Attending Unavailable Reji Dunaway Primary Care Physician Ana Laura, Reji L Attending Unavailable Ana Laura, Reji L Attending Unavailable Ana Laura, Reji L Attending Unavailable Ana Laura, Reji L Attending Unavailable Ana Laura, Reji L Attending Unavailable Ana Laura, Reji L Attending Unavailable Ana Laura, Reji L Attending Unavailable Ana Laura, Reji L Attending Unavailable Ana Laura, Reji L Attending Unavailable Ana Laura, Reji L Admitting Unavailable Ana Laura, Reji L Attending Unavailable Gino Liang DO Primary Care Provider [phone] Sahil Dahl DO Attending Provider [phone] Gino Liang Primary Care Unavailable Sahil Dahl Attending Unavailable Sahil Dahl Admitting Unavailable Unavailable Primary Care Provider Unavailabl e Ana Laura, MEDICAL APPOINTMENT SCHEDULER Reji L Attending Unavailable Ana Laura, MEDICAL APPOINTMENT SCHEDULER Reji L Attending Unavailable Ana Laura, MEDICAL APPOINTMENT SCHEDULER Reji L Attending Unavailable Ana Laura, MEDICAL APPOINTMENT SCHEDULER Reji L Attending Unavailable Ana Laura, MEDICAL APPOINTMENT SCHEDULER Reji L Attending Unavailable Ana Laura, MEDICAL APPOINTMENT SCHEDULER Reji L Attending Unavailable APARNA JO Attending Unavailable MERI TAVAREZ Attending Unavailable JACQUES BEGUM Referring Unavailable Allergies Allergy Classification Reported Allergen(s) Allergy Type Date of Onset Reaction(s) Facility (2 sources) No Known Medication Allergies; Translations: [No Known Medication Allergies] Propensity to adverse reactions (disorder) [facility] Repository (1 source) Unable to Assess Drug allergy (disorder) [address] [place] [address] Repository Medications Current Medications Medication Drug Class(es) Dates Sig (Normalized) Sig (Original) amoxicillin 875 mg / clavulanate 125 mg oral tablet (2 sources) Penicillin-class Antibacterial Start: 11-07-2021 take 1 tablet by mouth every twelve hours Amoxicillin-Pot Clavulanate 875-125 MG 1 tablet Orally every 12 hrs for 10 day(s) Nov, Active clobetasol propionate 0.5 mg/ml medicated shampoo (7 sources) Corticosteroid Start: 09-24-2024 Clobetasol Propionate 0.05 % shampoo Indications: Psoriasis vulgaris Apply to scalp, leave on 5 min the rinse, 2-3 x week, 30 day supply 118 mL 11 09/24/2024 Active Cosentyx UnoReady 300 MG/2ML solution auto-injector (10 sources) Start: 11-02-2024 Cosentyx UnoReady 300 MG/2ML solution auto-injector Indications: Psoriasis vulgaris Inject 300 mg under the skin 1 (one) time per week Inject 300 mg (contents of ONE pen) under the skin at weeks 0,1,2 and 3 8 mL 11/02/2024 Active Start: 11-02-2024 Cosentyx UnoRe karuna 300 MG/2ML solution auto-injector Indications: Psoriasis vulgaris Inject 300 mg under the skin every 28 (twenty-eight) days Inject 300 mg (contents of ONE pen) under the skin at week 4 and every 4 weeks thereafter 2 mL 11 11/02/2024 Active Deucravacitinib (2 sources) Start: 06-17-2024 take 1 tablet by mouth once daily Deucravacitinib (Sotyktu) 6 mg tablet Active 6 MG PO Daily June 17, 2024 12:00am estradiol 0.1 mg/ml vaginal cream (4 sources) Estrogen Start: 01-05-2025 End: 01-05-2026 estradiol (Climara) 0.025 MG/24HR Indications: Postmenopausal HRT (hormone replacement therapy) Place 1 patch over 7 days on the skin 1 (one) time per week 12 patch 3 01/05/2025 01/05/2026 Active Start: 01-05-2025 estradiol (Est race) 0.1 MG/GM vaginal cream Indications: Postmenopausal HRT (hormone replacement therapy) 2g vaginal daily for 2 weeks, then 2 times weekly following initial 2 weeks 42.5 g 01/05/2025 Active Start: 01-05-2025 estradiol (Est race) 0.1 MG/GM vaginal cream Indications: Postmenopausal HRT (hormone replacement therapy) 2g vaginal daily for 2 weeks, then 2 times weekly following initial 2 weeks 42.5 g 01/05/2025 Active fluconazole 150 mg oral tablet (5 sources) Azole Antifungal Start: 01-05-2025 End: 01-05-2025 take 1 tablet by mouth once, then take 1 tablet by mouth once fluconazole (Diflucan) 150 MG tablet Indications: Yeast infection Take 1 tablet (150 mg) by mouth 1 (one) time for 1 dose This is a 1 time dose, take single tablet by mouth. 1 tablet 1 01/05/2025 01/05/2025 Active Start: 11-04-2023 take 1 tablet by mouth once fl uconazole 150 mg Tab 150 mg = 1 tab(s), Oral, Once, # 1 tab(s), Refills(s) 1, Pharmacy: [facility]/pharmacy #[id number], 159, cm, 11/04/23 8:43:00 EDT, [...] mg tablet Active 15 MG PO Daily 30 June 17, 2024 12:00am Ozempic (1 mg [...] weeks semaglutide (Ozempic) 4 MG/3ML solution pen-injector (7 sources) semaglutide (Ozempic) 4 MG/3ML solution pen-injector [...] transmitteddisease) (1 source) Allergic conjunctivitis 11-29-2022 Episodic Menopausal disorders (2 sources) Postmenopausal state; Translations: [Hormone replacement therapy] 01-05-2025 Episodic Mycoses (3 sources) Candidiasis of vagina; Translations: [Mycosis] 03-25-2023 Episodic Other aftercare (2 sources) Taking high risk medication; Translations: [Other ad terminal makeup operator (current) drug therapy] 09-24-2024 Episodic Other circulatory [...] in shoulder region, unspecified] 06-17-2024 Episodic Other connective tissue disease (1 source) Pain in left foot; Translations: [Pain in left foot] 12-16-2024 Episodic Other female genital disorders (1 source) [...] conditions (not mental disorders or infectious disease) (10 sources) Encounter for screening for malignant neoplasm [...] Reference Range Facil ity Ambulatory Visit Summaryon 0 10-25-2024 Ambulatory Visit Summary Ambulatory Visit Summary ALLA PARHAM :1980 Visit Date:10/25/2024 Ambulatory Visit Instructions Your Diagnosis BMI 30.0-30.9,adult Your Care Team Attending Physician - Reji Farley Primary Care Physician - Reji Farley This Is Your Medications List semaglutide (Ozempic (1 mg dose)) Procedures Performed Hysterectomy (2019), Surgery (10/2015), LASIK (2012), Cholecystectomy (2009). Discharge Vitals Heart Rate (Peripheral) 68 Respiratory Rate 16 Blood Pressure 120/76 Height 160 cm Height 63 in Weight 78.10 kg Weight 172.181 lb BMI 30.51 What to do next Scheduled Follow-Up Appointments Friday 9:40 AM EDT With: Reji Farley Where: [address] [phone]- Medications What How Much When Instructions Unchanged semaglutide (Ozempic (1 mg dose)) See [...] for your care. Normal [facility] Family Medicine Office/Clini c Noteon 10-25-2024 Family Medicine Office/Clinic Note Family Medicine Office/Clinic Note HPI Staff Alla is a 44 year old female presenting for 3 month follow up Weight management: semaglutide Sleeping well:Yes, 6-8 hours Chest pain:No Tremors:No Headaches:No Heart fluttering:No Blurred Vision:No Beginning weight: 212.31 Previous weight: 171.07 Today's weight: 172 Questions/Concerns: non History of Present Illness pt presents today for weight management. also having issues with a lump on left foot Review of Systems PHQ Score Initial Depression Screen Score: 0 SCORE Physical Exam Vitals & Measurements HR: 68(Peripheral) RR: 16 BP: 120/76 SpO2: 99% HT: 63 in HT: 160 cm WT: 172.181 lb WT: 78.10 kg BMI: 30.51 General: alert, no acute distress ENMT: oral mucosa moist, no pharyngeal erythema or exudate Cardiovascular: regular rate and rhythm, normal peripheral perfusion Respiratory: Lungs CTA, respirations non labored Extremities: no deformity, no trauma Neurological: oriented x 4, LOC appropriate for age, CN II-XII intact, motor strength equal & normal bilaterally, speech normal left lateral side of foot has what appear to be a bone spur Assessment/Plan 1. Encounter for weight management (Z76.89: Persons encountering health services in other specified circumstances) pt is maintaining weight at current does. does not need refill at this time. just faxed new order with new formula to [facility]. [place] [facility] [place] 2. Bone spur of left foot (M77.52: Other enthesopathy of left foot and ankle) protrusion noted on lateral side of left foot. will send referral to Dr. Begum Ordered[place] [facility] [place] 3. BMI 30.0-30.9,adult (Z68.30: Body mass index [BMI] 30.0-30.9, adult) BMI education given Ordered[place] [facility] [place] Orders: fluconazole, 150 mg = 1 tab(s), Oral, Once, take 1 tab on day one and 1 tabon day four, # 2 tab(s), Refills(s) 1, Pharmacy: [facility]/pharmacy #[id number], 160, cm, 07/28/24 16:44:00 EST, Height/Length Dosing, 77.6, kg, 07/28/24 16:44:00 EST, Weight Dosing Follow-up No qualifying data available Problem List/Past Medical History Ongoing Allergic conjunctivitis, left eye BMI 33.0-33.9,adult Bone spur of left foot Breast cancer screening by mammogram Cervical cancer [...] virus vaccine, inactivated 03/01/2016 Recorded Normal [facility] Comment on above: Result Comment: Elec tronically Signed By: Reji Farley\.br\Date and Time Signed: 10/25/24 12:21 EDT Family Medicine Office/Clini c Noteon 07-29-2024 Family Medicine Office/Clinic Note Family Medicine Office/Clinic Note HPI Staff Alla is a 44 year old female presenting for 3 month follow up Weight management: Started Phentermine on Sleeping well:Yes, 6-8 hours Chest pain:No Tremors:No Headaches:No Heart fluttering:No Blurred Vision:No Beginning weight: 212.31 Previous weight: 175 Today's weight: 171 Questions/Concerns: wants to talk about lab results, had labs done through dermatology in May 2024 at [facility] History of Present Illness get labs from [facility]. send consult to [facility]. does not need refill on ozempic at [...] virus vaccine, inactivated 03/01/2016 Recorded Normal [facility] Comment on above: Result Comment: Elec tronically Signed By: Reji Farley\.br\Date and Time Signed: 07/29/24 13:23 EST X-ray reportOrdered By: Donell Sue on 06-17-2024 Study report [facility] [address] [place] [address] XRay Report Signed Patient: Alla Parham MR#: [id number] : 1980 Acct:[id number] Age/Sex: 44 / F ADM Date: 5 Loc: SOXD Room: Type: REG CLI Attending Dr: Sahil Dahl DO Copies [...] Sue Jr., D.O.06/17/2024 4:20 PM Dictation Location: [place] [address] Transcribed By: [facility] 06/17/24 1620 Dictated By: Hola Sue Jr, DO 06/17/24 1619 Signed By: 06/17/[address] [facility] XR shoulder LT min 2V*on XR shoulder LT min 2V* [facility] [place] [address] XRay Report Signed Patient: Alla Parham MR#: [id number] : 1980 Acct:[id number] Age/Sex: 44 / F ADM Date: 06/17/24 Loc: SOXD Room: Type: REG CLI Attending Dr: Sahil Dahl DO Copies [...] Sue Jr., D.ORivera06/17/2024 4:20 PM Dictation Location: [facility]-- Transcribed By: [facility] 06/17/24 1620 Dictated By: Hola Sue Jr, DO 06/17/24 1619 Signed By: 06/17/24 1620 Normal [facility] Ambulatory Visit Summaryon 1 06-15-2023 Ambulatory Visit Summary Ambulatory Visit Summary ALLA PARHAM :1980 Visit Date:04/15/2024 Ambulatory Visit Instructions Your Diagnosis Encounter for weight management BMI 31.0-31.9,adult Non-smoker Obesity (BMI 30-39.9) Your Care Team Attending Physician - Reji Farley Primary Care Physician - Reji Farley This Is Your Medications List fluconazole [...] Follow-Up Appointments Friday 4:40 PM EST With: Reji Farley Where: [place] [phone]- Medications What How Much When Instructions Unchanged [...] choosing us for your care. [facility] Family Medicine Office/Clini c Noteon 04-15-2024 Family [...] up to highest dose. will send to [facility] 3 months Ordered: fluconazole, 150 mg = 1 tab(s), Oral, Once, take 1 tab on day one and 1 tab on day four, # 2 tab(s), Refills(s) 2, Pharmacy: [id number], 160, cm, 02/03/24 9:52:00 EDT, Height/Length [...] four, # 2 tab(s), Refills(s) 2, Pharmacy: [facility]/pharmacy #[id number], 160, cm, 02/03/24 9:52:00 EDT, Height/Length Dosing, 81.6, kg, 02/03/24 9:52:00 EDT, Weight Dosing 5. Non-smoker (Z78.9: Other specified health status) continue not smoking Ordered: fluconazole, 150 mg = 1 tab(s), Oral, Once, take 1 tab on day one and 1 tab on day four, # 2 tab(s), Refills(s) 2, Pharmacy: [facility]/pharmacy #[id number], 160, cm, 02/03/24 9:52:00 EDT, Height/Length [...] at last visit. will order MRI at [facility] 8. Neck pain (M54.2: Cervicalgia) reviewed [...] virus vaccine, inactivated 03/01/2016 Recorded Normal [facility] Comment on above: Result Comment: Elec tronically Signed By: Reji Farley\.tanya\Date and Time Signed: 04/15/24 14:14 EST Ambulatory Visit Summaryon 1 Ambulatory Visit Summary Ambulatory Visit Summary ALLA PARHAM :1980 Visit Date:04/05/2024 Ambulatory Visit Instructions Your Diagnosis Non-smoker BMI 30.0-30.9,adult Exogenous obesity Your Care Team Attending Physician - Reji Farley Primary Care Physician - Reji Farley This Is Your Medications List azithromycin [...] Follow-Up Appointments Friday 8:40 AM EST With: Reji Farley Where: [place] [phone]- Medications What How Much When Why Instructions [...] for choosing us for your care. Normal [facility] Medicine Office/Clini c Noteon 04-05-2024 Family Medicine Office/Clinic Note Family Medicine Office/Clinic Note HPI Staff Alla is a 43 year old female presenting [...] office today. x ray order sent to [facility] for shoulder and cervical spine. pt [...] virus vaccine, inactivated 03/01/2016 Recorded Normal [facility] Comment on above: Result Comment: Elec tronically Signed By: Ana Laura العراقي, Reji Wilks\.br\Date and Time Signed: 04/05/24 13:09 EDT Family Medicine Office/Clini c Noteon 02-03-2024 Family Medicine Office/Clinic Note Family Medicine Office/Clinic Note HPI Staff Alla is a 43 year old female presenting [...] denies needs. will send new rx to [facility] 3 months Ordered: fluconazole, 150 mg = 1 tab(s), Oral, Once, take 1 tab on day one and 1 tab on day four, # 2 tab(s), Refills(s) 2, Pharmacy: [facility]/pharmacy #[id number], 160, cm, 02/03/24 9:52:00 EDT, Height/Length Dosing, 81.6, kg, 02/03/24 9:52:00 EDT, Weight Dosing 2. Vaginal yeast infection (B37.31: Acute candidiasis of vulva and vagina) diflucan sent to pharmacy Ordered: fluconazole, 150 mg = 1 tab(s), Oral, Once, take 1 tab on day one and 1 tab on day four, # 2 tab(s), Refills(s) 2, Pharmacy: [facility]/pharmacy #[id number], 160, cm, 02/03/24 9:52:00 EDT, Height/Length Dosing, 81.6, kg, 02/03/24 9:52:00 EDT, Weight Dosing 3. Non-smoker (Z78.9: Other specified health status) continue not smoking Ordered: fluconazole, 150 mg = 1 tab(s), Oral, Once, take 1 tab on day one and 1 tab on day four, # 2 tab(s), Refills(s) 2, Pharmacy: [facility]/pharmacy #[id number], 160, cm, 02/03/24 9:52:00 EDT, Height/Length Dosing, 81.6, kg, 02/03/24 9:52:00 EDT, Weight Dosing 4. BMI 31.0-31.9,adult (Z68.31: Body mass index [BMI] 31.0-31.9, adult) BMI education given Ordered: fluconazole, 150 mg = 1 tab(s), Oral, Once, take 1 tab on day one and 1 tab on day four, # 2 tab(s), Refills(s) 2, Pharmacy: [facility]/pharmacy #[id number], 160, cm, 02/03/24 9:52:00 EDT, Height/Length Dosing, 81.6, kg, 02/03/24 9:52:00 EDT, Weight Dosing 5. Class 1 obesity due to excess calories in adult (E66.09: Other obesity due to excess calories) see above Ordered: fluconazole, 150 mg = 1 tab(s), Oral, Once, take 1 tab on day one and 1 tab on day four, # 2 tab(s), Refills(s) 2, Pharmacy: [facility]/pharmacy #[id number], 160, cm, 02/03/24 9:52:00 EDT, [...] influenza virus vaccine, inactivated 03/01/2016 Recorded Normal [facility] Comment on above: Result Comment: Elec tronically Signed By: Reji Farley\Date and Time Signed: 02/03/24 11:05 EDT PAP [id number] 11-11-2023 Cytology report Cyto stain Doc (Cvx/Vag) Note Invalid Interpretation Code [facility] Comment on above: Result Comment: TEST S RESULT FLAG UNITS REF RANGE LAB Clinician Provided Cytology Information Source.............Cervix No. of containers..01 ThinPrep Vial DIAGNOSIS: 01 NEGATIVE FOR INTRAEPITHELIAL LESION OR MALIGNANCY. FUNGAL ORGANISMS MORPHOLOGICALLY CONSISTENT WITH ANATOLY SPECIES ARE PRESENT. Specimen adequacy: 01 Satisfactory for evaluation. No endocervical component is identified. Performed by: Brennen Campbell, Mold Cleaner (ASCP) . 01 Note: Note 01 The [...] <-Panic Low,>-Panic High,A-Abnormal,AA-Critical Abnormal Performed at: [address] [facility] [id number] Enid Miller MD, Performed By: #### 1 [id number] #### [facility] [address] [place] [address] HPV 16+18+31+33+35+39+4 5+51+52+56+58+59+66 +68 DNA Probe+sig amp Ql (Cvx) Negative Invalid Interpretation Code Negative [facility] Comment on above: Result Comment: This nucleic acid amplification test detects fourteen high-risk HPV types (16,18,31,33,35,39,45,51,52,56,58,59,66,68) without differentiation. Performed at: [facility] [id number] MD Paul Rossi Performed at: = [facility] [id number] MD Paul Rossi Performed By: #### 1 [id number] #### [facility] [address] [place] [address] Reminderson 11-11-2023 Reminders - From: Reji Farley To: [facility] - Clinical; Sent: 11/11/2023 10:40:29 EDT Show up: 11/11/2023 10:41:00 EDT Subject: Ambulatory Reminder Due Date/Time: 11/12/2023 10:40:00 EDT Pap was negative. it did show yeast, which we are treating her for Results: Date Result Name Value Ref Range 11/06/2023 9:50 HPV Aptima Negative (Negative - ) 11/06/2023 9:50 PAP [id number] Note left detailed message for patient of message below Normal [facility] Ambulatory Visit Summaryon 0 11-06-2023 Ambulatory Visit Summary ALLA PARHAM :1980 Visit Date:11/06/2023 Ambulatory Visit Instructions Your Diagnosis Well woman exam Breast cancer screening by mammogram Cervical cancer screening BMI 33.0-33.9,adult Your Care Team Attending Physician - Reji Farley Primary Care Physician - Reji Farley This Is Your Medications List fluconazole [...] Follow-Up Appointments Friday 10:00 AM EDT With: Reji Farley Where: [facility] Family Medicine [employer] Normal Cervical cancer screening, Print Label By [...] for your care.\.br\ \.br\ [facility] Family Medicine Office/Clini c Noteon 11-06-2023 Family Medicine Office/Clinic Note Chief Complaint PAP HPI Staff Alla is a 43 year old female presenting [...] blood pressure <80 mm Hg 3078F PAP [id number] w/ HPV and Genotype rflx Patient screen [...] influenza virus vaccine, inactivated 03/01/2016 Recorded Normal [facility] Comment on above: Result Comment: Elec tronically Signed By: Reji Farley.tanya\Date and Time Signed: 11/06/23 11:13 EDT PAP [id number] 11-06-2023 Gynecological Body Site CERVIX Normal [facility] Comment on above: Performed By: #### 1 [id number] #### [facility] [address] [place] [address] Family Medicine Office/Clini c Noteon 11-04-2023 Family Medicine Office/Clinic Note HPI Staff Alla is a 43 year old female presenting [...] with her weight. [facility] [place] 3 [facility] 2. Vaginal yeast infection (B37.31: Acute candidiasis of vulva and vagina) Diflucan sent to pharmacy 3. BMI 33.0-33.9,adult (Z68.33: Body mass index [BMI] 33.0-33.9, adult) bmi education complete 4. Non-smoker (Z78.9: Other specified health status) continue not smoking Ordered: fluconazole, 150 mg = 1 tab(s), Oral, Once, # 1 tab(s), Refills(s) 0, Pharmacy: [facility]/pharmacy #[id number], 159, cm, 09/08/23 11:39:00 EDT, Height/Length Dosing, 83.3, kg, 09/08/23 11:39:00 EDT, Weight Dosing Orders: fluconazole, 150 mg = 1 tab(s), Oral, Once, # 1 tab(s), Refills(s) 1, Pharmacy: [facility]/pharmacy #[id number], 159, cm, 11/04/23 8:43:00 EDT, [...] influenza virus vaccine, inactivated 03/01/2016 Recorded Normal [facility] Comment on above: Result Comment: Elec tronically Signed By: Reji Farley.tanya\Date and Time Signed: 11/04/23 09:11 EDT Retail - Clinical Noteon Retail - Clinical Note [id number] #1.00TIFF Normal [facility] [place] 09-08-2023 Consent [id number] #1.00TIFF Normal [facility] Family Medicine Office/Clini c Noteon 09-08-2023 Family Medicine Office/Clinic Note HPI Staff Alla is a 43 year old female presenting [...] day(s), # 140 mL, Refills(s) 0, [id number] 159, cm, 09/08/23 11:39:00 EDT, Height/Length Dosing, 83.3, kg, 09/08/23 11:39:00 EDT, Weight Dosing fluconazole, 150 mg = 1 tab(s), Oral, Once, # 1 tab(s), Refills(s) 0, [id number], 159, cm, 09/08/23 11:39:00 EDT, [...] day(s), # 140 mL, Refills(s) 0, [id number], 159, cm, 09/08/23 11:39:00 EDT, Height/Length Dosing, 83.3, kg, 09/08/23 11:39:00 EDT, Weight Dosing fluconazole, 150 mg = 1 tab(s), Oral, Once, # 1 tab(s), Refills(s) 0, [id number], 159, cm, 09/08/23 11:39:00 EDT, [...] day(s), # 140 mL, Refills(s) 0, [id number], 159, cm, 09/08/23 11:39:00 EDT, Height/Length Dosing, 83.3, kg, 09/08/23 11:39:00 EDT, Weight Dosing fluconazole, 150 mg = 1 tab(s), Oral, Once, # 1 tab(s), Refills(s) 0, [id number], 159, cm, 09/08/23 11:39:00 EDT, [...] day(s), # 140 mL, Refills(s) 0, [id number], 159, cm, 09/08/23 11:39:00 EDT, Height/Length Dosing, 83.3, kg, 09/08/23 11:39:00 EDT, Weight Dosing fluconazole, 150 mg = 1 tab(s), Oral, Once, # 1 tab(s), Refills(s) 0, [id number], 159, cm, 09/08/23 11:39:00 EDT, Height/Length Dosing, 83.3, kg, 09/08/23 11:39:00 EDT, Weight Dosing triamcinolone, 40 mg = 1 mL, Injection, IntraMuscular, Once, Stop date 09/08/23 12:36:00 EDT, Routine, Start date 09/08/23 12:36:00 EDT, 09/08/23 12:36:00 EDT Orders: fluconazole, 150 mg = 1 tab(s), Oral, Once, # 1 tab(s), Refills(s) 0, Pharmacy: [facility]/pharmacy #[id number], 159, cm, 05/20/23 10:45:00 EST, [...] Oral Li (more content not included)... Normal [facility] Comment on above: Result Comment: Elec tronically Signed By: Reji Farley\.br\Date and Time Signed: 09/08/23 12:39 EDT Ambulatory Visit Summaryon 0 08-07-2023 Ambulatory Visit Summary ALLA PARHAM :1980 Visit Date:08/07/2023 Ambulatory Visit Instructions Your Diagnosis Encounter for weight management BMI 33.0-33.9,adult Non-smoker Your Care Team Attending Physician - Reji Farley Primary Care Physician - Reji Farley This Is Your Medications List fluconazole [...] Follow-Up Appointments Friday 8:40 AM EDT With: Reji Farley Where: [facility] Family Medicine Ernesto Normal [facility] Family Medicine Office/Clini c Noteon 08-07-2023 Family Medicine Office/Clinic Note HPI Staff Alla is a 43 year old female presenting [...] Procedure/Surgical History Hysterectomy (2019), Surgery (10/2015), LASIK (2012), Cholecystectomy (2009). Medications [...] influenza virus vaccine, inactivated 03/01/2016 Recorded Normal [facility] Comment on above: Result Comment: Elec tronically Signed By: Reji Farley\.br\Date and Time Signed: 08/07/23 10:36 EST Retail - Clinical Noteon Retail - Clinical Note [id number] #1.00TIFF Normal [facility] Family Medicine Office/Clini c Noteon 05-20-2023 Family Medicine Office/Clinic Note HPI Staff Alla is a 42 year old female presenting for 1 month follow up Weight management: Started Ozempic on 11/29/22 , SARAH 04/22/23 dose increased to 1.8mg [facility] Sleeping well:Yes, 6-8 hours Chest pain:No Tremors:No [...] send 3 months worth of refills to [facility]. all questions answered . RTC as needed [...] Recorded influenza virus vaccine, inactivated 03/01/2016 Recorded [facility] Comment on above: Result Comment: Elec tronically Signed By: Reji Farley\.br\Date and Time Signed: 05/20/23 10:59 EST Physician Orderon 05-20-2023 Physician Order [id number] #1.00TIFF [facility] Retail - Clinical Noteon Retail - Clinical Note [id number] #1.00TIFF [facility] Ambulatory Visit Summaryon 1 06-22-2022 Ambulatory Visit Summary ALLA PARHAM :1980 Visit Date:04/22/2023 Ambulatory Visit Instructions Your Diagnosis BMI 35.0-35.9,adult Non-smoker Your Care Team Attending Physician - Reji Farley Primary Care Physician - Reji Farley This Is Your Medications List semaglutide (Ozempic (1 mg dose)) Procedures Performed Hysterectomy (2018), Surgery (10/2015), LASIK (2011), Cholecystectomy (2008). Discharge Vitals Heart Rate (Peripheral) 68 Respiratory Rate 18 Blood Pressure 122/72 Height 159 cm Height 63 in Weight 88.90 kg Weight 195.58 lb BMI 35.16 What to do next Scheduled Follow-Up Appointments Friday 11:00 AM EST With: Reji Farley Where: [facility] Consent for Flu Vaccineon Consent for Flu Vaccine [id number]# 1.00TIFF [facility] Family Medicine Office/Clini c Noteon 04-22-2023 Family Medicine Office/Clinic Note HPI Staff Alla is a 42yo f presenting for a [...] Once, # 1 tab(s), Refills(s) 0, Pharmacy: [facility]/pharmacy #[id number], 159, cm, 03/25/23 8:53:00 EDT, [...] flu vaccine given Ordered: FIRST VACCINE w/o Anthropologist Physical Admin Charge 97937 Follow-up No qualifying data available Problem List/Past [...] influenza virus vaccine, inactivated 03/01/2016 Recorded Normal [facility] Comment on above: Result Comment: Elec tronically Signed By: Reji Farley\.br\Date and Time Signed: 04/22/23 10:42 EST Retail - Clinical Noteon Retail - Clinical Note [id number]# 1.00TIFF [facility] Ambulatory Visit Summaryon 1 Ambulatory Visit Summary ALLA PARHAM :1980 Visit Date:03/25/2023 Ambulatory Visit Instructions Your Diagnosis BMI 35.0-35.9,adult Class 1 obesity due to excess calories in adult Your Care Team Attending Physician - Reji Farley Primary Care Physician - Reji Farley This Is Your Medications List semaglutide (Ozempic (1 mg dose)) Procedures Performed Hysterectomy (2018), Surgery (10/2015), LASIK (2011), Cholecystectomy (2008). Discharge Vitals Temperature (Oral) 36.6 ?C Heart Rate (Peripheral) 72 Respiratory Rate 14 Blood Pressure 122/80 Height 159 cm Height 63 in Weight 89.4 kg Weight 196.68 lb BMI 35.36 What to do next Scheduled Follow-Up Appointments Friday 9:00 AM EST With: Reji Farley Where: [facility] Consenton 03-25-2023 Consent [id number] #1.00TIFF [facility] Family Medicine Office/Clini c Noteon 03-25-2023 Family Medicine Office/Clinic Note HPI Staff Alla is a 42 year old female presenting [...] will send order to [facility] pharmacy. RTC 4 weeks 2. Vaginal yeast infection (B37.31: Acute candidiasis of vulva and vagina) diflucan sent to pharmacy 3. BMI 35.0-35.9,adult (Z68.35: Body mass index [BMI] 35.0-35.9, adult) BMI education complete Ordered: fluconazole, 150 mg = 1 tab(s), Oral, Once, # 1 tab(s), Refills(s) 0, Pharmacy: [id number], 159, cm, 03/25/23 8:53:00 EDT, Height/Length [...] Once, # 1 tab(s), Refills(s) 0, Pharmacy: [facility] #[id number], 159, cm, 03/25/23 8:53:00 EDT, Height/Length [...] Directed, # 6 tab(s), Refills(s) 0, Pharmacy: [facility]/pharmacy #[id number], 159, cm, 02/25/23 8:58:00 EDT, [...] virus vaccine, inactivated 03/01/2016 Recorded Normal [facility] Comment on above: Result Comment: Elec tronically Signed By: Ana Laura العراقي, Reji Wilks\.br\Date and Time Signed: 03/25/23 11:01 EDT Retail - Clinical Noteon Retail - Clinical Note [id number] #1.00TIFF Normal [facility] Ambulatory Visit Summaryon 0 02-25-2023 Ambulatory Visit Summary ALLA PARHAM :1980 Visit Date:02/25/2023 Ambulatory Visit Instructions Your Diagnosis BMI 36.0-36.9,adult Non-smoker Your Care Team Attending Physician - Reji Farley Primary Care Physician - Reji Farley This Is Your Medications List semaglutide (Ozempic (1 mg dose)) Procedures Performed Hysterectomy (2018), Surgery (10/2015), LASIK (2011), Cholecystectomy (2008). Discharge Vitals Heart Rate (Peripheral) 70 Respiratory Rate 18 Blood Pressure 124/72 Height 159 cm Height 63 in Weight 91.6 kg Weight 201.52 lb BMI 36.23 What to do next Scheduled Follow-Up Appointments Friday 9:00 AM EDT With: Reji Farley Where: [facility] Medicine [employer] Normal [facility] Family Medicine Office/Clini c Noteon 02-25-2023 Family Medicine Office/Clinic Note HPI Staff Alla is a 42 year old female presenting [...] Mother. Diabetes mellitus type 2: Father. Normal [facility] Comment on above: Result Comment: Ingris sageally Signed By: Reji Farley\Date and Time Signed: 02/25/23 09:47 EDT Retail - Clinical Noteon Retail - Clinical Note [id number] #1.00CD:127 Normal [facility] Initial Visit (Otolaryngolog y)on 09-16-2022 Initial [...] Recorded: 16Sep2022 10:39AM Height5 ft 3 in Omzviv813 lb BMI Zshkbsrvfu47.49 kg/m2 BSA Calculated1.96 Tobacco Useb) No Physical [...] Sep 16 2022 1:14PM EST (Author) Normal [employer] Tobacco Screening.on 023 Tobacco use status [facility] b) No MP-Otolaryngo [facility] Work Phone: QUANTIFERON TB GOLD PLUSon 0 09-11-2022 QuantiFERON Criteria Comment Normal [facility] Comment on above: Result Comment: Kirk [...] test. Performed By: #### Q NTTB #### [facility] [address] [place] [address] Dr. Kobe Fabian QuantiFERON Incubation Incubation performed. Normal [facility] Comment on above: Performed By: #### Q NTTB #### [facility] [address] [place] [address] Dr. Kobe Fabian QuantiFERON Mitogen Value 4.81 IU/mL Normal [facility] Comment on above: Performed By: #### Q NTTB #### [facility] [address] [place] [address] Dr. Kobe Fabian QuantiFERON Nil Value 0.01 IU/mL Normal [facility] Comment on above: Performed By: #### Q NTTB #### [facility] [address] [place] [address] Dr. Kobe Fabian QuantiFERON TB1 Ag Value 0.01 IU/mL Normal [facility] Comment on above: Performed By: #### Q NTTB #### [facility] [address] [place] [address] Dr. Kobe Fabian QuantiFERON TB2 Ag Value 0.01 IU/mL Normal [facility] Comment on above: Performed By: #### Q NTTB #### [facility] [address] [place] [address] Dr. Kobe Fabian QuantiFERON-TB Gold Plus Negative Normal Negative [facility] Comment on above: Result Comment: No r esponse to M tuberculosis antigens detected. Infection with M tuberculosis is unlikely, but high risk individuals should be considered for additional testing (ATS/IDSA/CDC Clinical Practice Guidelines, 2017). The reference range is an Antigen minus Nil result of <0.35 IU/mL. Chemiluminescence immunoassay methodology Performed By: #### Q NTTB #### [facility] [address] [place] [address] Dr. Kobe Fabian CBC AUTO DIFFon 09-09-2022 BASO # 0.0 103/ul Normal 0.0-0.1 [facility] Comment on above: Performed By: #### C BC #### [facility] [address] [place] [address] Dr. Kobe Fabian Basophils/100 WBC (Bld) 0.5 % Normal 0.2-2.0 [facility] Comment on above: Performed By: #### C BC #### [facility] [address] [place] [address] Dr. Kobe Fabian EO # 0.3 103/ul Normal 0.0-0.7 [facility] Comment on above: Performed By: #### C BC #### [facility] [address] [place] [address] Dr. Kobe Fabian Eosinophils/100 WBC (Bld) 4.0 % Normal 0.9-7.0 [facility] Comment on above: Performed By: #### C BC #### [facility] [address] [place] [address] Dr. Kobe Fabian Erythrocyte distribution width (RBC) [Ratio] 12.3 % Normal 11.0-15.0 [facility] Comment on above: Performed By: #### C BC #### [facility] [address] [place] [address] Dr. Kobe Fabian Hematocrit (Bld) [Volume fraction] 40.9 % Normal 36.0-48.0 [facility] Comment on above: Performed By: #### C BC #### [facility] [address] [place] [address] Dr. Kobe Fabian Hemoglobin (Bld) [Mass/Vol] 14.1 g/dL Normal 12.0-16.0 [facility] Comment on above: Performed By: #### C BC #### [facility] [address] [place] [address] Dr. Kobe Fabian IG # 0.03 10e3/ul Normal 0.00-0.03 [facility] Comment on above: Performed By: #### C BC #### [facility] [address] [place] [address] Dr. Kobe Fabian IG % 0.5 % Normal 0.0-0.5 [facility] Comment on above: Performed By: #### C BC #### [facility] [address] [place] [address] Dr. Kobe Fabian LYMPH # 1.8 103/ul Normal 1.2-3.8 [facility] Comment on above: Performed By: #### C BC #### [facility] [address] [place] [address] Dr. Kobe Fabian Lymphocytes/100 WBC (Bld) 27.9 % Normal 20.5-60.0 [facility] Comment on above: Performed By: #### C BC #### [facility] [address] [place] [address] Dr. Kobe Fabian MANUAL DIFF REQ NO Normal [facility] Comment on above: Performed By: #### C BC #### [facility] [address] [place] [address] Dr. Kobe Fabian MCH (RBC) [Entitic mass] 28.8 pg Normal 26.7-34.0 [facility] Comment on above: Performed By: #### C BC #### [facility] [address] [place] [address] Dr. Kobe Fabian MCHC (RBC) [Mass/Vol] 34.5 g/dL Normal 29.9-35.2 [facility] Comment on above: Performed By: #### C BC #### [facility] [address] [place] [address] Dr. Kobe Fabian MCV (RBC) [Entitic vol] 83.5 fL Normal 81.0-99.0 [facility] Comment on above: Performed By: #### C BC #### [facility] [address] [place] [address] Dr. Kobe Fabian MONO # 0.3 103/ul Normal 0.3-0.8 [facility] Comment on above: Performed By: #### C BC #### [facility] [address] [place] [address] Dr. Kobe Fabian Monocytes/100 WBC (Bld) 5.2 % Normal 1.7-12.0 [facility] Comment on above: Performed By: #### C BC #### [facility] [address] [place] [address] Dr. Kobe Fabian NEUT # 4.0 103/ul Normal 1.4-6.5 [facility] Comment on above: Performed By: #### C BC #### [facility] [address] [place] [address] Dr. Kobe Fabian Neutrophils/100 WBC (Bld) 61.9 % Normal 43.0-75.0 [facility] Comment on above: Performed By: #### C BC #### [facility] [address] [place] [address] Dr. Kobe Fabian Platelet mean volume (Bld) [Entitic vol] 9.9 fL Normal 9.5-13.5 [facility] Comment on above: Performed By: #### C BC #### [facility] [address] [place] [address] Dr. Kobe Fabian PLT 176 103/ul Normal 150-450 [facility] Comment on above: Performed By: #### C BC #### [facility] [address] [place] [address] Dr. Kobe Fabian RBC 4.90 106/ul Normal 4.20-5.40 [facility] Comment on above: Performed By: #### C BC #### [facility] [address] [place] [address] Dr. Kobe Fabian WBC 6.5 103/ul Normal 4.0-11.0 [facility] Comment on above: Performed By: #### C BC #### [facility] [address] [place] [address] Dr. Kobe Fabian LIPID PROFILEon 09-09-2022 CHOL-HDL RATIO NORM SEE BELOW Normal [facility] Comment on above: Result Comment: 3.3 - 4.4 LOW RISK 4.4 - 7.1 AVERAGE RISK 7.1 - 11.0 MODERATE RISK >11.0 HIGH RISK Performed By: #### V AGINT #### [facility] [address] [place] [address] Dr. Kobe Fabian Cholesterol [Mass/Vol] 180 mg/dL Normal <=200 [facility] Comment on above: Performed By: #### V AGINT #### [facility] [address] [place] [address] Dr. Kobe Fabian Cholesterol in HDL [Mass/Vol] 47 mg/dL Normal 40-60 [facility] Comment on above: Performed By: #### V AGINT #### [facility] [address] [address] [address] Kobe Fabian Cholesterol in LDL [Mass/Vol] 98.6 mg/dL Normal [facility] Comment on above: Performed By: #### V AGINT #### [facility] [address] [address] [address] Kobe Fabian Cholesterol.total/C holesterol in HDL [Mass ratio] 3.8 {ratio} Normal [facility] Comment on above: Performed By: #### V AGINT #### [facility] [address] [address] [address] Kobe Fabian HDL NORMAL > or = 60 mg/dl - LOW CARDIOVASCULAR RISK <40 mg/dl - HIGH CARDIOVASCULAR RISK Normal [facility] Comment on above: Performed By: #### V AGINT #### [facility] [address] [address] [address] Kobe Fabian LDL CALC NORMAL SEE BELOW Normal [facility] Comment on above: Result Comment: <100 mg/dl OPTIMAL 100 - 129 mg/dl NEAR OR ABOVE OPTIMAL 130 - 159 mg/dl BORDERLINE HIGH 160 - 189 mg/dl HIGH >190 mg/dl VERY HIGH Performed By: #### V AGINT #### [facility] [address] [place] [address] Dr. Kobe Fabian Triglyceride [Mass/Vol] 172 mg/dL Critically high <=150 [facility] Comment on above: Performed By: #### V AGINT #### [facility] [address] [address] [address] Kobe Fabian VLDL CALC 34.4 mg/dL Normal [facility] Comment on above: Performed By: #### V AGINT #### [facility] [address] [address] [address] Kobe Fabian PROF 14(COMP METB)on 023 Albumin [Mass/Vol] 4.0 g/dL Normal 3.4-5.0 [facility] Comment on above: Performed By: #### V AGINT #### [facility] [address] [place] [address] Dr. Kobe Fabian Albumin/Globulin [Mass ratio] 1.1 {ratio} Normal [facility] Comment on above: Performed By: #### V AGINT #### [facility] [address] [place] [address] Dr. Kobe Fabian ALP [Catalytic activity/Vol] 51 U/L Normal 46-116 [facility] Comment on above: Performed By: #### V AGINT #### [facility] [address] [place] [address] Dr. Kobe Fabian ALT [Catalytic activity/Vol] 32 U/L Normal 14-59 [facility] Comment on above: Performed By: #### V AGINT #### [facility] [address] [place] [address] Dr. Kobe Fabian Anion gap [Moles/Vol] 8.9 mmol/L Normal [facility] Comment on above: Performed By: #### V AGINT #### [facility] [address] [place] [address] Dr. Kobe Fabian AST [Catalytic activity/Vol] 16 U/L Normal 15-37 [facility] Comment on above: Performed By: #### V AGINT #### [facility] [address] [place] [address] Dr. Kobe Fabian Bilirubin [Mass/Vol] 0.6 mg/dL Normal 0.2-1.0 [facility] Comment on above: Performed By: #### V AGINT #### [facility] [address] [place] [address] Dr. Kobe Fabian Calcium [Mass/Vol] 9.4 mg/dL Normal 8.5-10.1 [facility] Comment on above: Performed By: #### V AGINT #### [facility] [address] [place] [address] Dr. Kobe Fabian Chloride [Moles/Vol] 104 mmol/L Normal 98-107 [facility] Comment on above: Performed By: #### V AGINT #### [facility] [address] [place] [address] Dr. Kobe Fabian CO2 [Moles/Vol] 30.0 mmol/L Normal 21.0-32.0 [facility] Comment on above: Performed By: #### V AGINT #### [facility] [address] [place] [address] Dr. Kobe Fabian Creatinine [Mass/Vol] 0.75 mg/dL Normal 0.55-1.02 [facility] Comment on above: Performed By: #### V AGINT #### [facility] [address] [address] [address] Kobe Fabian EGFR-AF [place] >60 Normal >=60 [facility] Comment on above: Performed By: #### V AGINT #### [facility] [address] [place] [address] Dr. Kobe Fabian EGFR-NON AF [place] >60 Normal >=60 [facility] Comment on above: Performed By: #### V AGINT #### [facility] [address] [place] [address] Dr. Kobe Fabian Globulin (S) [Mass/Vol] 3.5 g/dL Normal [facility] Comment on above: Performed By: #### V AGINT #### [facility] [address] [place] [address] Dr. Kobe Fabian Glucose [Mass/Vol] 99 mg/dL Normal 74-106 [facility] Comment on above: Performed By: #### V AGINT #### [facility] [address] [place] [address] Dr. Kobe Fabian Potassium [Moles/Vol] 3.9 mmol/L Normal 3.5-5.1 [facility] Comment on above: Performed By: #### V AGINT #### [facility] [address] [place] [address] Dr. Kobe Fabian Protein [Mass/Vol] 7.5 g/dL Normal 6.4-8.[address] [facility] Comment on above: Performed By: #### V AGINT #### [facility] [address] [place] [address] Dr. Kobe Fabian Sodium [Moles/Vol] 139 mmol/L Normal 136-[address] [facility] Comment on above: Performed By: #### V AGINT #### [facility] [address] [address] [address] Kobe Fabian Urea nitrogen [Mass/Vol] 20.0 mg/dL Critically high 7.0-18.0 [facility] Comment on above: Performed By: #### V AGINT #### [facility] [address] [address] [address] Kobe Fabian Urea nitrogen/Creatinine [Mass ratio] 26.7 mg/mg Normal [facility] Comment on above: Performed By: #### V AGINT #### [facility] [address] [place] [address] Dr. Kobe Fabian PAP ACOG PANEL 2: 30 to 65on 08-01-2022 . . Normal [facility] Comment on above: Result Comment: Perf ormed at: WB Performed By: #### [id number] #### [facility] [address] [place] [address] Dr. Kobe Fabian Age Gdln ACOG Testing - Normal [facility] Comment on above: Performed By: #### [id number] #### [facility] [address] [place] [address] Dr. Kobe Fabian DIAGNOSIS: Comment Normal [facility] Comment on above: Result Comment: NEGA TIVE FOR INTRAEPITHELIAL LESION OR MALIGNANCY. Performed at: WB Performed By: #### [id number] #### [facility] [address] [place] [address] Dr. Koeb Fabian HPV Aptima Negative Normal Negative [facility] Comment on above: Result Comment: This nucleic acid amplification test detects fourteen high-risk HPV types (16,18,31,33,35,39,45,51,52,56,58,59,66,68) without differentiation. Performed at: =G Performed By: #### [id number] #### [facility] [address] [place] [address] Dr. Kobe Fabian HPV Genotype Reflex Comment Normal [facility] Comment on above: Result Comment: Crit eria not met, HPV Genotype not performed. Performed at: WB Performed By: #### [id number] #### [facility] [address] [place] [address] Dr. Kobe Fabian Methodology: Comment Normal [facility] Comment on above: Result Comment: This liquid based ThinPrep(R) pap test was screened with the use of an image guided system. Performed at: WB Performed By: #### [id number] #### [facility] [address] [place] [address] Dr. Kobe Fabian Note: Comment Normal [facility] Comment on above: Result Comment: The Pap smear is a screening test designed to aid in the detection of premalignant and malignant conditions of the uterine cervix. It is not a diagnostic procedure and should not be used as the sole means of detecting cervical cancer. Both false-positive and false-negative reports do occur. . Performed at: WB Performed By: #### [id number] #### [facility] [address] [place] [address] Dr. Kobe Fabian Performed by: Comment Normal [facility] Comment on above: Result Comment: Darrick Zayas Mold Cleaner (ASCP) Performed at: WB Performed By: #### [id number] #### [facility] [address] [place] [address] Dr. Kobe Fabian Specimen adequacy: Comment Normal [facility] Comment on above: Result Comment: Sati sfactory for evaluation. No endocervical component is identified. Performed at: WB Performed By: #### [id number] #### [facility] [address] [place] [address] Dr. Kobe Fabian CHLAMYDIA/GONOCOCCUS JOSE (SW AB/URINE/PAPon 07-29-2022 Chlamydia trachomatis, JOSE Negative Normal Negative [facility] Comment on above: Performed By: #### V AGINT #### [facility] [address] [place] [address] Dr. Kobe Fabian Neisseria gonorrhoeae, JOSE Negative Normal Negative [facility] Comment on above: Performed By: #### V AGINT #### [facility] [address] [place] [address] Dr. Kobe Fabian ESTRADIOLon 07-27-2022 Estradiol 21.3 pg/mL Normal [facility] Comment on above: Result Comment: Adul t Female: Follicular phase 12.5 - 166.0 Ovulation phase 85.8 - 498.0 Luteal phase 43.8 - 211.0 Postmenopausal <6.0 - 54.7 1st trimester 215.0 - >4300.0 Jacob ECLIA methodology Performed By: #### E LEIGH #### [facility] [address] [address] [address] Kobe Fabian FSHon 07-27-2022 FSH 74.7 mIU/mL Normal [facility] Comment on above: Result Comment: Adul t Female: Follicular phase 3.5 - 12.5 Ovulation phase 4.7 - 21.5 Luteal phase 1.7 - 7.7 Postmenopausal 25.8 - 134.8 Performed By: #### C MP #### [facility] [address] [place] [address] Dr. Kobe Fabian LUTEINIZING HORMONE (LH)on 0 07-27-2022 LH 39.7 mIU/mL Normal [facility] Comment on above: Result Comment: Adul t Female: Follicular phase 2.4 - 12.6 Ovulation phase 14.0 - 95.6 Luteal phase 1.0 - 11.4 Postmenopausal 7.7 - 58.5 Performed By: #### C MP #### [facility] [address] [place] [address] Dr. Kobe Fabian PROGESTERONEon 07-27-2022 Progesterone 0.1 ng/mL Normal [facility] Comment on above: Result Comment: Foll icular phase 0.1 - 0.9 Luteal phase 1.8 - 23.9 Ovulation phase 0.1 - 12.0 First trimester 11.0 - 44.3 Second trimester 25.4 - 83.3 Third trimester 58.7 - 214.0 Postmenopausal 0.0 - 0.1 Performed By: #### P SHAYY #### [facility] [address] [place] [address] Dr. Kobe Fabian VAGINITIS/VAGINOSIS DNA PROB Jassi 07-27-2022 Anatoly species Negative Normal Negative [facility] Comment on above: Performed By: #### V AGINT #### [facility] [address] [place] [address] Dr. Kobe Fabian Gardnerella vaginalis Negative Normal Negative [facility] Comment on above: Performed By: #### V AGINT #### [facility] [address] [place] [address] Dr. Kobe Fabian Trichomonas vaginalis Negative Normal Negative [facility] Comment on above: Performed By: #### V AGINT #### [facility] [address] [place] [address] Dr. Kobe Fabian CBC AUTO DIFFon 07-26-2022 BASO # 0.0 103/ul Normal 0.0-0.1 [facility] Comment on above: Performed By: #### V AGINT #### [facility] [address] [place] [address] Dr. Kobe Fabian Basophils/100 WBC (Bld) 0.4 % Normal 0.2-2.0 [facility] Comment on above: Performed By: #### V AGINT #### [facility] [address] [place] [address] Dr. Kobe Fabian EO # 0.3 103/ul Normal 0.0-0.7 [facility] Comment on above: Performed By: #### V AGINT #### [facility] [address] [place] [address] Dr. Kobe Fabian Eosinophils/100 WBC (Bld) 3.9 % Normal 0.9-7.0 [facility] Comment on above: Performed By: #### V AGINT #### [facility] [address] [place] [address] Dr. Kobe Fabian Erythrocyte distribution width (RBC) [Ratio] 11.9 % Normal 11.0-15.0 [facility] Comment on above: Performed By: #### V AGINT #### [facility] [address] [place] [address] Dr. Kobe Fabian Hematocrit (Bld) [Volume fraction] 41.0 % Normal 36.0-48.0 [facility] Comment on above: Performed By: #### V AGINT #### [facility] [address] [place] [address] Dr. Kobe Fabian Hemoglobin (Bld) [Mass/Vol] 14.4 g/dL Normal 12.0-16.0 [facility] Comment on above: Performed By: #### V AGINT #### [facility] [address] [place] [address] Dr. Kobe Fabian IG # 0.03 10e3/ul Normal 0.00-0.03 [facility] Comment on above: Performed By: #### V AGINT #### [facility] [address] [place] [address] Dr. Kobe Fabian IG % 0.4 % Normal 0.0-0.5 [facility] Comment on above: Performed By: #### V AGINT #### [facility] [address] [place] [address] Dr. Kobe Fabian LYMPH # 1.7 103/ul Normal 1.2-3.8 [facility] Comment on above: Performed By: #### V AGINT #### [facility] [address] [place] [address] Dr. Kobe Fabian Lymphocytes/100 WBC (Bld) 24.7 % Normal 20.5-60.0 [facility] Comment on above: Performed By: #### V AGINT #### [facility] [address] [place] [address] Dr. Kobe Fabian MANUAL DIFF REQ NO Normal [facility] Comment on above: Performed By: #### V AGINT #### [facility] [address] [place] [address] Dr. Kobe Fabian MCH (RBC) [Entitic mass] 29.1 pg Normal 26.7-34.0 [facility] Comment on above: Performed By: #### V AGINT #### [facility] [address] [place] [address] Dr. Kobe Fabian MCHC (RBC) [Mass/Vol] 35.1 g/dL Normal 29.9-35.2 [facility] Comment on above: Performed By: #### V AGINT #### [facility] [address] [place] [address] Dr. Kobe Fabian MCV (RBC) [Entitic vol] 83.0 fL Normal 81.0-99.0 [facility] Comment on above: Performed By: #### V AGINT #### [facility] [address] [place] [address] Dr. Kobe Fabian MONO # 0.3 103/ul Normal 0.3-0.8 [facility] Comment on above: Performed By: #### V AGINT #### [facility] [address] [place] [address] Dr. Kobe Fabian Monocytes/100 WBC (Bld) 4.5 % Normal 1.7-12.0 [facility] Comment on above: Performed By: #### V AGINT #### [facility] [address] [place] [address] Dr. Kobe Fabian NEUT # 4.5 103/ul Normal 1.4-6.5 [facility] Comment on above: Performed By: #### V AGINT #### [facility] [address] [place] [address] Dr. Kobe Fabian Neutrophils/100 WBC (Bld) 66.1 % Normal 43.0-75.0 [facility] Comment on above: Performed By: #### V AGINT #### [facility] [address] [place] [address] Dr. Kobe Fabian Platelet mean volume (Bld) [Entitic vol] 10.1 fL Normal 9.5-13.5 [facility] Comment on above: Performed By: #### V AGINT #### [facility] [address] [place] [address] Dr. Kobe Fabian PLT 184 103/ul Normal 150-450 [facility] Comment on above: Performed By: #### V AGINT #### [facility] [address] [place] [address] Dr. Kobe Fabian RBC 4.94 106/ul Normal 4.20-5.40 [facility] Comment on above: Performed By: #### V AGINT #### [facility] [address] [place] [address] Dr. Kobe Fabian WBC 6.9 103/ul Normal 4.0-11.0 [facility] Comment on above: Performed By: #### V AGINT #### [facility] [address] [address] [address] Kobe Fabian GLYCOHEMOGLOBIN A1Con 2022 ADA RECOMMENDATION SEE BELOW Normal [facility] Comment on above: Result Comment: ADA RECOMMENDED LIMIT 4.0 - 6.0 ADA THERAPEUTIC TARGET < 7.0 ACTION SUGGESTED > 7.0 Performed By: #### V AGINT #### [facility] [address] [address] [address] Kobe Fabian Glucose [Mass/Vol] 97 mg/dL Normal [facility] Comment on above: Performed By: #### V AGINT #### [facility] [address] [place] [address] Dr. Kobe Fabian HbA1c (Bld) [Mass fraction] 5.0 % Normal 4.5-6.2 [facility] Comment on above: Performed By: #### V AGINT #### [facility] [address] [place] [address] Dr. Kobe Fabian LIPID PROFILEon 07-26-2022 CHOL-HDL RATIO NORM SEE BELOW Normal [facility] Comment on above: Result Comment: 3.3 - 4.4 LOW RISK 4.4 - 7.1 AVERAGE RISK 7.1 - 11.0 MODERATE RISK >11.0 HIGH RISK Performed By: #### V AGINT #### [facility] [address] [place] [address] Dr. Kobe Fabian Cholesterol [Mass/Vol] 196 mg/dL Normal <=200 [facility] Comment on above: Performed By: #### V AGINT #### [facility] [address] [address] [address] Kobe Fabian Cholesterol in HDL [Mass/Vol] 51 mg/dL Normal 40-60 [facility] Comment on above: Performed By: #### V AGINT #### [facility] [address] [address] [address] Kobe Fabian Cholesterol in LDL [Mass/Vol] 110.6 mg/dL Normal [facility] Comment on above: Performed By: #### V AGINT #### [facility] [address] [address] [address] Kobe Fabian Cholesterol.total/C holesterol in HDL [Mass ratio] 3.8 {ratio} Normal [facility] Comment on above: Performed By: #### V AGINT #### [facility] [address] [address] [address] Kobe Fabian HDL NORMAL > or = 60 mg/dl - LOW CARDIOVASCULAR RISK <40 mg/dl - HIGH CARDIOVASCULAR RISK Normal [facility] Comment on above: Performed By: #### V AGINT #### [facility] [address] [place] [address] Dr. Kobe Fabian LDL CALC NORMAL SEE BELOW Normal [facility] Comment on above: Result Comment: <100 mg/dl OPTIMAL 100 - 129 mg/dl NEAR OR ABOVE OPTIMAL 130 - 159 mg/dl BORDERLINE HIGH 160 - 189 mg/dl HIGH >190 mg/dl VERY HIGH Performed By: #### V AGINT #### [facility] [address] [place] [address] Dr. Kobe Fabian Triglyceride [Mass/Vol] 172 mg/dL Critically high <=150 [facility] Comment on above: Performed By: #### V AGINT #### [facility] [address] [place] [address] Dr. Kobe Fabian VLDL CALC 34.4 mg/dL Normal [facility] Comment on above: Performed By: #### V AGINT #### [facility] [address] [address] [address] Kobe Fabian PROF 14(COMP METB)on 023 Albumin [Mass/Vol] 4.3 g/dL Normal 3.4-5.0 [facility] Comment on above: Performed By: #### C MP #### [facility] [address] [place] [address] Dr. Kobe Fabian Albumin/Globulin [Mass ratio] 1.2 {ratio} Normal [facility] Comment on above: Performed By: #### C MP #### [facility] [address] [place], [place] [id number] Dr. Kobe Fabian ALP [Catalytic activity/Vol] 54 U/L Normal 46-116 [facility] Comment on above: Performed By: #### C MP #### [facility] [address] [address] [address] Kobe Fabian ALT [Catalytic activity/Vol] 68 U/L Critically high 14-59 [facility] Comment on above: Performed By: #### C MP #### [facility] [address] [address] [address] Kobe Fabian Anion gap [Moles/Vol] 11.5 mmol/L Normal [facility] Comment on above: Performed By: #### C MP #### [facility] [address] [place] [address] Dr. Kobe Fabian AST [Catalytic activity/Vol] 28 U/L Normal 15-37 [facility] Comment on above: Performed By: #### C MP #### [facility] [address] [place] [address] Dr. Kobe Fabian Bilirubin [Mass/Vol] 0.6 mg/dL Normal 0.2-1.0 [facility] Comment on above: Performed By: #### C MP #### [facility] [address] [place] [address] Dr. Kobe Fabian Calcium [Mass/Vol] 9.6 mg/dL Normal 8.5-10.1 [facility] Comment on above: Performed By: #### C MP #### [facility] [address] [address] [address] Kobe Fabian Chloride [Moles/Vol] 106 mmol/L Normal 98-107 [facility] Comment on above: Performed By: #### C MP #### [facility] [address] [place] [address] Dr. Kobe Fabian CO2 [Moles/Vol] 28.3 mmol/L Normal 21.0-32.0 [facility] Comment on above: Performed By: #### C MP #### [facility] [address] [place] [address] Dr. Kobe Fabian Creatinine [Mass/Vol] 0.72 mg/dL Normal 0.55-1.02 [facility] Comment on above: Performed By: #### C MP #### [facility] [address] [address] [address] Kobe Fabian EGFR-AF [place] >60 Normal >=60 [facility] Comment on above: Performed By: #### C MP #### [facility] [address] [address] [address] Kobe Fabian EGFR-NON AF [place] >60 Normal >=60 [facility] Comment on above: Performed By: #### C MP #### [facility] [address] [address] [address] Kobe Fabian Globulin (S) [Mass/Vol] 3.7 g/dL Normal [facility] Comment on above: Performed By: #### C MP #### [facility] [address] [address] [address] Kobe Fabian Glucose [Mass/Vol] 89 mg/dL Normal 74-[address] [facility] Comment on above: Performed By: #### C MP #### [facility] [address] [address] [address] Kobe Fabian Potassium [Moles/Vol] 3.8 mmol/L Normal 3.5-5.1 [facility] Comment on above: Performed By: #### C MP #### [facility] [address] [address] [address] Kobe Fabian Protein [Mass/Vol] 8.0 g/dL Normal 6.4-8.[address] [facility] Comment on above: Performed By: #### C MP #### [facility] [address] [address] [address] Kobe Fabian Sodium [Moles/Vol] 142 mmol/L Normal 136-[address] [facility] Comment on above: Performed By: #### C MP #### [facility] [address] [address] [address] Kobe Fabian Urea nitrogen [Mass/Vol] 17.0 mg/dL Normal 7.0-18.0 [facility] Comment on above: Performed By: #### C MP #### [facility] [address] [address] [address] Kobe Fabian Urea nitrogen/Creatinine [Mass ratio] 23.6 mg/mg Normal [facility] Comment on above: Performed By: #### C MP #### [facility] [address] [address] [address] Kobe Fabian TSHon 07-26-2022 TSH 1.819 uIU/mL Normal 0.358-3.740 [facility] Comment on above: Performed By: #### V AGINT #### [facility] [address] [address] [address] Kobe Fabian Cytology Cervical or vaginal smear or scraping studyon 07-25-2022 [facility] MG MAMM SCREEN 3D YUDI CADon 06-19-2022 MG MAMM SCREEN 3D YUDI CAD Patient: ALLA PARHAM Exam Date: 06/19/2022 : 1980 Gender:F Ordering : DR SERGO ROYAL . Admission #: [id number] Family : Order #: [id number] CLICK HERE TO VIEW EXAM RADIOLOGY REPORT PROCEDURE: MAMMOGRAM SCREENING 3D BILATERAL CAD COMPARISON: None. INDICATIONS: Screening mammography Calculator Name NCI Breast Cancer Risk Assessment Tool 5 Year Breast Cancer Risk 0.70% Lifetime Breast Cancer Risk 11.00% Personal Breast Cancer No Personal Ovarian Cancer No Treatments None Family Cancers None LOCATION: [facility] BREAST COMPOSITION: Heterogeneously dense,which may obscure small masses. FINDINGS: DIAGNOSTIC CATEGORY 1--NEGATIVE. RIGHT BREAST: No significant suspicious finding. LEFT BREAST: No significant suspicious finding. RECOMMENDATIONS: ROUTINE MAMMOGRAM AND CLINICAL EVALUATION IN 12 MONTHS. PLEASE NOTE: A NORMAL MAMMOGRAM DOES NOT EXCLUDE THE POSSIBILITY OF BREAST CANCER. A CLINICALLY SUSPICIOUS PALPABLE LUMP SHOULD BE BIOPSIED. Dictated by: Harshil Cooper M.D. on 06/21/2022 at 08:54 Approved by: Harshil Cooper M.D. on 06/21/2022 at 08:56 Normal [facility] GROUP A STREP CULTUREon 12- S. pyogenes Ag Ql (Unsp spec) Culture Observations: NEGATIVE FOR GROUP A STREPTOCOCCUS. Normal [facility] Comment on above: Performed By: #### G RASTCX, SSCRN #### [facility] [address] [place] [address] Dr. Kobe Fabian STREPT SCREENon 05-26-2022 STREP SCREEN A Negative Normal NEGATIVE [facility] Comment on above: Performed By: #### G RASTCX, SSCRN #### [facility] [address] [place] [address] Dr. Kobe Fabian CBC AUTO DIFFon 10-23-2021 BASO # 0.0 103/ul Normal 0.0-0.1 [facility] Comment on above: Performed By: #### V AGINT #### [facility] [address] [place] [address] Dr. Kobe Fabian Basophils/100 WBC (Bld) 0.5 % Normal 0.2-2.0 [facility] Comment on above: Performed By: #### V AGINT #### [facility] [address] [place] [address] Dr. Kobe Fabian EO # 0.3 103/ul Normal 0.0-0.7 [facility] Comment on above: Performed By: #### V AGINT #### [facility] [address] [place] [address] Dr. Kobe Fabian Eosinophils/100 WBC (Bld) 5.3 % Normal 0.9-7.0 [facility] Comment on above: Performed By: #### V AGINT #### [facility] [address] [place] [address] Dr. Kobe Fabian Erythrocyte distribution width (RBC) [Ratio] 12.4 % Normal 11.0-15.0 [facility] Comment on above: Performed By: #### V AGINT #### [facility] [address] [place] [address] Dr. Kobe Fabian Hematocrit (Bld) [Volume fraction] 41.1 % Normal 36.0-48.0 [facility] Comment on above: Performed By: #### V AGINT #### [facility] [address] [place] [address] Dr. Kobe Fabian Hemoglobin (Bld) [Mass/Vol] 13.6 g/dL Normal 12.0-16.0 [facility] Comment on above: Performed By: #### V AGINT #### [facility] [address] [place] [address] Dr. Kobe Fabian IG # 0.02 10e3/ul Normal 0.00-0.03 [facility] Comment on above: Performed By: #### V AGINT #### [facility] [address] [place] [address] Dr. Kobe Fabian IG % 0.3 % Normal 0.0-0.5 [facility] Comment on above: Performed By: #### V AGINT #### [facility] [address] [place] [address] Dr. Kobe Fabian LYMPH # 1.5 103/ul Normal 1.2-3.8 [facility] Comment on above: Performed By: #### V AGINT #### [facility] [address] [place] [address] Dr. Kobe Fabian Lymphocytes/100 WBC (Bld) 24.8 % Normal 20.5-60.0 [facility] Comment on above: Performed By: #### V AGINT #### [facility] [address] [place] [address] Dr. Kobe Fabian MANUAL DIFF REQ NO Normal [facility] Comment on above: Performed By: #### V AGINT #### [facility] [address] [place] [address] Dr. Kobe Fabian MCH (RBC) [Entitic mass] 29.2 pg Normal 26.7-34.0 [facility] Comment on above: Performed By: #### V AGINT #### [facility] [address] [place] [address] Dr. Kobe Fabian MCHC (RBC) [Mass/Vol] 33.1 g/dL Normal 29.9-35.2 [facility] Comment on above: Performed By: #### V AGINT #### [facility] [address] [place] [address] Dr. Kobe Fabian MCV (RBC) [Entitic vol] 88.2 fL Normal 81.0-99.0 [facility] Comment on above: Performed By: #### V AGINT #### [facility] [address] [place] [address] Dr. Kobe Fabian MONO # 0.3 103/ul Normal 0.3-0.8 [facility] Comment on above: Performed By: #### V AGINT #### [facility] [address] [place] [address] Dr. Kobe Fabian Monocytes/100 WBC (Bld) 5.4 % Normal 1.7-12.0 [facility] Comment on above: Performed By: #### V AGINT #### [facility] [address] [place] [address] Dr. Kobe aFbian NEUT # 3.9 103/ul Normal 1.4-6.5 [facility] Comment on above: Performed By: #### V AGINT #### [facility] [address] [place] [address] Dr. Kobe Fabian Neutrophils/100 WBC (Bld) 63.7 % Normal 43.0-75.0 [facility] Comment on above: Performed By: #### V AGINT #### [facility] [address] [place] [address] Dr. Kobe Fabian Platelet mean volume (Bld) [Entitic vol] 10.4 fL Normal 9.5-13.5 [facility] Comment on above: Performed By: #### V AGINT #### [facility] [address] [place] [address] Dr. Kobe Fabian PLT 203 103/ul Normal 150-450 [facility] Comment on above: Performed By: #### V AGINT #### [facility] [address] [place] [address] Dr. Kobe Fabian RBC 4.66 106/ul Normal 4.20-5.40 [facility] Comment on above: Performed By: #### V AGINT #### [facility] [address] [place] [address] Dr. Kobe Fabian WBC 6.1 103/ul Normal 4.0-11.0 [facility] Comment on above: Performed By: #### V AGINT #### [facility] [address] [address] [address] Kobe Fabian PROF 14(COMP METB)on 022 Albumin [Mass/Vol] 3.7 g/dL Normal 3.4-5.0 [facility] Comment on above: Performed By: #### C MP #### [facility] [address] [place] [address] Dr. Kobe Fabian Albumin/Globulin [Mass ratio] 1.1 {ratio} Normal [facility] Comment on above: Performed By: #### C MP #### [facility] [address] [place] [address] Dr. Kobe Fabian ALP [Catalytic activity/Vol] 60 U/L Normal 46-116 [facility] Comment on above: Performed By: #### C MP #### [facility] [address] [place] [address] Dr. Kobe Fabian ALT [Catalytic activity/Vol] 42 U/L Normal 14-59 [facility] Comment on above: Performed By: #### C MP #### [facility] [address] [place] [address] Dr. Kobe Fabian Anion gap [Moles/Vol] 12.0 mmol/L Normal [facility] [facility] Comment on above: Performed By: #### C MP #### [facility] [address] [place] [address] Dr. Kobe Fabian AST [Catalytic activity/Vol] 28 U/L Normal 15-37 [facility] Comment on above: Performed By: #### C MP #### [facility] [address] [place] [address] Dr. Kobe Fabian Bilirubin [Mass/Vol] 0.4 mg/dL Normal 0.2-1.0 [facility] Comment on above: Performed By: #### C MP #### [facility] [address] [place] [address] Dr. Kobe Fabian Calcium [Mass/Vol] 8.6 mg/dL Normal 8.5-10.[address] [facility] Comment on above: Performed By: #### C MP #### [facility] [address] [address] [address] Kobe Fabian Chloride [Moles/Vol] 106 mmol/L Normal 98-107 [facility] Comment on above: Performed By: #### C MP #### [facility] [address] [address] [address] Kobe Fabian CO2 [Moles/Vol] 28.4 mmol/L Normal 21.0-32.0 [facility] Comment on above: Performed By: #### C MP #### [facility] [address] [address] [address] Kobe Fabian Creatinine [Mass/Vol] 0.81 mg/dL Normal 0.55-1.02 [facility] Comment on above: Performed By: #### C MP #### [facility] [address] [place] [address] Dr. Kobe Fabian EGFR-AF [place] >60 Normal >=60 [facility] Comment on above: Performed By: #### C MP #### [facility] [address] [place] [address] Dr. Kobe Fabian EGFR-NON AF [place] >60 Normal >=60 [facility] Comment on above: Performed By: #### C MP #### [facility] [address] [address] [address] Kobe Fabian Globulin (S) [Mass/Vol] 3.5 g/dL Normal [facility] Comment on above: Performed By: #### C MP #### [facility] [address] [address] [address] Kobe Fabian Glucose [Mass/Vol] 94 mg/dL Normal 74-106 [facility] Comment on above: Performed By: #### C MP #### [facility] [address] [address] [address] Kobe Fabian Potassium [Moles/Vol] 4.4 mmol/L Normal 3.5-5.1 [facility] Comment on above: Performed By: #### C MP #### [facility] [address] [address] [address] Kobe Fabian Protein [Mass/Vol] 7.2 g/dL Normal 6.4-8.2 [facility] Comment on above: Performed By: #### C MP #### [facility] [address] [address] [address] Kobe Fabian Sodium [Moles/Vol] 142 mmol/L Normal 136-145 [facility] Comment on above: Performed By: #### C MP #### [facility] [address] [address] [address] Kobe Fabian Urea nitrogen [Mass/Vol] 13.0 mg/dL Normal 7.0-18.0 [facility] Comment on above: Performed By: #### C MP #### [facility] [address] [address] [address] Kobe Fabian Urea nitrogen/Creatinine [Mass ratio] 16.0 mg/mg Normal [facility] Comment on above: Performed By: #### C MP #### [facility] [address] [address] [address] Kobe Fabian SED RATE [facility] 2021 SED RATE 7 mm/hr Normal <=20 [facility] Comment on above: Performed By: #### V AGINT #### [facility] [address] [place] [address] Dr. Kobe Fabian Vital Signs Date Time Vital Sign Value Performing Clinician Facility 01-05-2025 09:02-0400 Body mass index (BMI) [Ratio] 30.65 kg/m2 Yary Etienne MAPPING TECHNICIAN Work Phone: [facility] 01-05-2025 09:02-0400 Body weight 78.47 kg Yary Etienne MAPPING TECHNICIAN Work Phone: [facility] 01-05-2025 09:02-0400 Diastolic blood pressure 72 mm[Hg] Yary Etienne MAPPING TECHNICIAN Work Phone: [facility] 01-05-2025 09:02-0400 Systolic blood pressure 120 mm[Hg] Yary Etienne MAPPING TECHNICIAN Work Phone: [facility] 06-17-2024 13:09-0500 Body height 160.02 cm Gino Kuns DO Work Phone: [facility] 06-17-2024 13:09-0500 Body mass index (BMI) [Ratio] 30.4 kg/m2 Gino Kuns DO Work Phone: [facility] 06-17-2024 13:09-0500 Body weight 78.01 kg Gino Kuns DO Work Phone: [facility] 09-16-2022 10:39-0400 Body height 160.02 cm Gino R Kuns Work Phone: [facility] [employer] Work Phone: 09-16-2022 10:39-0400 Body mass index (BMI) [Ratio] 36.49 kg/m2 Gino R Kuns Work Phone: [facility] [employer] Work Phone: 09-16-2022 10:39-0400 Body surface area Derived from formula 1.96 m2 Gino R Kuns Work Phone: [facility] [employer] Work Phone: 09-16-2022 10:39-0400 Body weight 93.44 kg Gino R Kuns Work Phone: [facility] [employer] Work Phone: 07-25-2022 13:30-0500 Body height 160.02 cm Gino Zachariahs Other [employer] Other 07-25-2022 13:30-0500 Body mass index (BMI) [Ratio] 36.49 kg/m2 Gino Kuns Other [facility] Other 07-25-2022 13:30-0500 Body weight 93.44 kg Gino Kuns Other [employer] Other 07-25-2022 13:30-0500 Diastolic blood pressure 80 mm[Hg] Gino Kuns Other [employer] Other 07-25-2022 13:30-0500 Respiratory rate 18 /min Gino Kuns Other [employer] Other 07-25-2022 13:30-0500 SaO2% (BldA) [Mass fraction] 99 % Gino Kuns Other [employer] Other 07-25-2022 13:30-0500 Systolic blood pressure 118 mm[Hg] Gino Kuns Other [employer] Other 10-26-2021 13:45-0400 Body height 160.02 cm Gino Kuns Other [employer] Other 10-26-2021 13:45-0400 Body mass index (BMI) [Ratio] 36.49 kg/m2 Gino Kuns Other [employer] Other 10-26-2021 13:45-0400 Body weight 93.44 kg Gino Kuns Other [employer] Other 10-26-2021 13:45-0400 Diastolic blood pressure 60 mm[Hg] Gino Kuns Other [employer] Other 10-26-2021 13:45-0400 Respiratory rate 16 /min Gino Kuns Other [employer] Other 10-26-2021 13:45-0400 SaO2% (BldA) [Mass fraction] 99 % Gino Kuns Other [employer] Other 10-26-2021 13:45-0400 Systolic blood pressure 110 mm[Hg] Gino Kuns Other [employer] Other 10-16-2021 14:30-0400 Body height 160.02 cm Gino Kuns Other [employer] Other 10-16-2021 14:30-0400 Body mass index (BMI) [Ratio] 36.49 kg/m2 Gino Kuns Other [employer] Other 10-16-2021 14:30-0400 Body weight 93.44 kg Gino Kuns Other [employer] Other 10-16-2021 14:30-0400 Diastolic blood pressure 82 mm[Hg] Gino Kuns Other [employer] Other 10-16-2021 14:30-0400 Respiratory rate 18 /min Gino Kuns Other [employer] Other 10-16-2021 14:30-0400 SaO2% (BldA) [Mass fraction] 98 % Gino Kuns Other [employer] Other 10-16-2021 14:30-0400 Systolic blood pressure 126 mm[Hg] Gino Kuns Other [employer] Other 04-16-2021 12:00-0500 Body height 160.02 cm Gino Kuns Other [employer] Other 03-26-2021 11:15-0400 Body height 160.02 cm Gino Liang Other [employer] Other 03-26-2021 11:15-0400 Body mass index (BMI) [Ratio] 35.25 kg/m2 Ginolaura Sonis Other [employer] Other 03-26-2021 11:15-0400 Body weight 90.27 kg Ginolaura Sonis Other [employer] Other 03-26-2021 11:15-0400 Diastolic blood pressure 80 mm[Hg] Ginolaura Sonis Other [employer] Other 03-26-2021 11:15-0400 Respiratory rate 18 /min Gino Liang Other [employer] Other 03-26-2021 11:15-0400 SaO2% (BldA) [Mass fraction] 98 % Ginolaura Liang Other [employer] Other 03-26-2021 11:15-0400 Systolic blood pressure 124 mm[Hg] Ginolaura Liang Other [employer] Other Encounters Encounter Date Encounter Type Care Provider Facility Start: 01-24-2025 ambulatory MEDICAL APPOINTMENT SCHEDULER Reji Beebe ity:[facility] Start: 01-05-2025 End: 01-05-2025 Bamboo flowsheet Yary Etienne MAPPING TECHNICIAN Work Phone: [facility] Start: 01-05-2025 End: 01-05-2025 Bamboo flowsheet Yary Etienne MAPPING TECHNICIAN Work Phone: [facility] Start: 01-05-2025 End: 01-05-2025 Patient encounter procedure Yary Etienne MAPPING TECHNICIAN Work Phone: [facility] Work Phone: Start: 01-05-2025 End: 01-05-2025 Periodic preventive med est patient 40-64yrs Yary Etienne MAPPING TECHNICIAN Work Phone: [facility] Comment on above: Yeast infection (Darline lalo Dx); Well woman exam with routine gynecological exam; H/O: hysterectomy; Breast cancer screening by mammogram; Postmenopausal HRT (hormone replacement therapy) Start: 12-16-2024 End: 12-16-2024 Bamboo flowsheet Meri Tavarez PT [facility] Start: 12-16-2024 End: 12-16-2024 Bamboo flowsheet Meri Tavarez PT [facility] Start: 12-16-2024 End: 12-16-2024 ambulatory Meri Tavarez PT [facility] Comment on above: Left foot pain (Prim rahat Dx) Start: 10-25-2024 End: 10-25-2024 ambulatory MEDICAL APPOINTMENT SCHEDULER Reji L Ana Laura Facility:[facility] [place] [facility] Start: 09-24-2024 End: 09-24-2024 [facility] Start: 09-24-2024 End: 09-24-2024 [facility] Start: 09-24-2024 End: 09-24-2024 Office outpatient new [facility] Comment on above: Other rosacea; Psoriasis vulgaris (CMS/HCC); High risk medication use Start: 09-24-2024 End: 09-24-2024 ambulatory APARNA NORTHM Not Available Start: 07-28-2024 End: 07-28-2024 ambulatory MEDICAL APPOINTMENT SCHEDULER Reji L Ana Laura Facility:[facility] [place] [facility] Start: 07-14-2024 End: 07-14-2024 ambulatory MEDICAL APPOINTMENT SCHEDULER Reji L Ana Laura Facility:[facility] [place] [facility] Start: 06-17-2024 End: 06-17-2024 ambulatory Gino Kuns DO Work Phone: [facility] Work Phone: Start: 06-17-2024 End: 06-17-2024 Patient encounter procedure Gino Kuns DO Work Phone: [facility] Work Phone: Start: 04-15-2024 End: 04-15-2024 ambulatory MEDICAL APPOINTMENT SCHEDULER Reji L Ana Laura Facility:[facility] [place] [facility] Start: 04-05-2024 End: 04-05-2024 ambulatory MEDICAL APPOINTMENT SCHEDULER Reji L Ana Laura Facility:[facility] [place] [facility] Start: 02-03-2024 End: 02-03-2024 ambulatory Reji L Ana Laura Facility:[facility] [place] [facility] Start: 11-06-2023 End: 11-06-2023 ambulatory Reji L Ana Laura [place] [place] Start: 11-06-2023 End: 11-06-2023 Lab Drop off Reji L Ana Laura [facility] Start: 11-06-2023 End: 11-06-2023 ambulatory Reji L Ana Laura Facility:[facility] [place] [facility] Start: 11-04-2023 End: 11-04-2023 ambulatory Reji L Ana Laura Facility:[facility] [place] [facility] Start: 09-08-2023 End: 09-08-2023 ambulatory Reji L Ana Laura Facility:[facility] [place] [facility] Start: 08-07-2023 End: 08-07-2023 ambulatory Reji L Ana Laura Facility:[facility] [facility] Start: 05-20-2023 End: 05-20-2023 ambulatory Reji L Ana Laura Facility:[facility] [facility] Start: 04-22-2023 End: 04-22-2023 ambulatory Reji L Ana Laura Facility:[facility] [facility] Start: 03-25-2023 End: 03-25-2023 ambulatory Reji L Ana Laura Facility:[facility] [facility] Start: 02-25-2023 End: 02-25-2023 ambulatory Reji L Ana Laura Facility:[facility] [place] [facility] Start: 09-16-2022 Office consultation new/estab patient 30 min Gino Liang Work Phone: [facility] Work Phone: Start: 09-16-[address] Gino Liang Fa cility:[id number] Start: 09-09-2022 End: 09-10-2022 ambulatory NELL PELAEZ Facility:[facility] Start: 07-29-2022 Encounter for gynecological examination (general) (routine) without abnormal findings DR SERGO ROYAL . [facility] Start: 07-26-2022 End: 07-27-[address] GINO LIANG Facility:[facility] Start: 07-25-2022 End: 07-25-[address] SERGO ROYAL . [employer] Other Start: 07-25-2022 Office outpatient vi sit 25 minutes Gino Liang [facility] Start: 06-19-2022 End: 06-20-[address] SERGO ROYAL . Facility:[facility] Start: 05-26-2022 End: 05-27-[address] MICAH MALDONADO Facility:[facility] Start: 03-18-2022 End: 03-18-2022 ambulatory Gino Liang Other [employer] Other Start: 03-18-2022 Telephone encounter Gino STEARNS [facility] Start: 03-08-2022 End: 03-08-[address] GINO LIANG Facility:[facility] Start: 11-07-2021 End: 11-07-2021 ambulatory Gino Liang Other [employer] Other Start: 11-07-2021 Telephone encounter Gino STEARNS [facility] Start: 10-26-2021 End: 10-26-2021 ambulatory Gino Liang Other [employer] Other Start: 10-26-2021 Office outpatient vi sit [address] [facility] Start: 10-23-2021 End: 10-24-[address] GINO LIANG Facility:[facility] Start: 10-16-2021 End: 10-16-2021 ambulatory Gino Liang Other [employer] Other Start: 10-16-2021 Office outpatient vi sit [address] [facility] Start: 04-16-2021 End: 04-16-2021 ambulatory Gino Liang Other [employer] Other Start: 04-16-2021 Office outpatient vi sit [address] [facility] Start: 03-28-2021 Encounter for genera l adult medical examination without abnormal findings Gino Liang [facility] Start: 03-28-2021 [address] Gino Liang [facility] Start: 03-26-2021 Encounter for genera l adult medical examination without abnormal findings Gino Liang [facility] Start: 03-26-2021 Periodic preventive med est patient 18-[address] [facility] Procedures Date Procedure Procedure Detail Performing Clinician Start: 06-17-2024 Plain X-ray of left shoulder Gino Liang DO Work Phone: Start: 07-25-2022 Cytp cerv/vag auto t hin layer prep mnl screen Yary Etienne NP Work Phone: Start: 06-09-2018 Hysterectomy Reji Schwa b Start: 10-08-2015 Surgical procedure Reji Ana Laura Comment on above: D and C x2 Start: 06-09-2011 Laser assisted in si tu keratomileusis Reji Ana Laura Start: 06-09-2008 Cholecystectomy Reji Sc hwab H/O: hysterectomy Gino Liang Other H/O: hysterectomy H/O: hysterectomy Santos Etienne NP Work Phone: Plan of Treatment Date Care Activity Detail Author Start: 01-10-2026 End: 01-10-2026 Patient encounter procedure 01/10/2026 9:00 AM EDT Procedure Visit [facility] [address] [id number] Sergo Royal DO [address] [place] [address] [facility] Start: 01-31-2025 End: 01-31-2025 Patient encounter procedure 01/31/2025 8:50 AM EDT Office Visit [facility] [address] [place] [address] Aparna Jo PA [address] [place] [address] [facility] Start: 01-06-2025 End: 01-06-2025 ambulatory 01/06/2025 10:30 AM EDT Treatment [facility] [address] [place] [id number] Meri Tavarez PT [facility] Start: 01-05-2025 End: 03-08-2026 MG Breast - bilateral Screening Bilateral screening mammogram Imaging Routine Breast cancer screening by mammogram Expected: 01/05/2025 (Approximate), Expires: 03/08/2026 [facility] Work Phone: Comment on above: Expected: 01/05/2025 (Approximate), Expires: 03/08/2026 Start: 01-05-2025 End: 01-05-2025 Patient encounter procedure [facility] Comment on above: Arrived Start: 01-04-2025 End: 01-04-2025 ambulatory 01/04/2025 2:00 PM EDT Treatment [facility] [address] [place] [id number] Kelbley, Natacha, BODY ARTIST [facility] Start: 01-04-2025 End: 01-04-2025 Patient encounter procedure 01/04/2025 9:30 AM EDT Office Visit [facility] [address] [place] [id number] Brandy JoeEUNICE [address] [place] [id number] [facility] Start: 12-31-2024 End: 12-31-2024 ambulatory 12/31/2024 12:30 PM EDT Treatment [facility] [address] [place] [address] [place] Riley, BODY ARTIST [facility] Start: 12-23-2024 End: 12-23-2024 ambulatory 12/23/2024 8:00 AM EDT Treatment [facility] [address] [place] [address] Meri Tavarez, PT [facility] Start: 12-20-2024 End: 12-20-2024 ambulatory 12/20/2024 12:00 PM EDT Treatment [facility] [address] [place] [address] Natacha Hall, BODY ARTIST [facility] Start: 12-16-2024 End: 12-16-2024 ambulatory 12/16/2024 1:30 PM EDT Evaluation [facility] [address] [place] [address] Meri Tavarez, PT Arrived [facility] Comment on above: Arrived Start: 09-24-2024 End: 09-24-2025 Alanine aminotransferase [Enzymatic activity/volume] in Serum or Plasma ALT Lab Routine High risk medication use Expected: 09/24/2024 (Approximate), Expires: 09/24/2025 [facility] Comment on above: Expected: 09/24/2024 (Approximate), Expires: 09/24/2025 Start: 09-24-2024 End: 09-24-2025 Aspartate aminotransferase [Enzymatic activity/volume] in Serum or Plasma AST Lab Routine High risk medication use Expected: 09/24/2024 (Approximate), Expires: 09/24/2025 [facility] Comment on above: Expected: 09/24/2024 (Approximate), Expires: 09/24/2025 Start: 09-24-2024 End: 09-24-2025 CBC W Auto Differential panel - Blood CBC and differential Lab Routine High risk medication use Expected: 09/24/2024 (Approximate), Expires: 09/24/2025 [facility] Comment on above: Expected: 09/24/2024 (Approximate), Expires: 09/24/2025 Start: 09-24-2024 End: 09-24-2025 Hepatitis B virus surface Ag [Presence] in Serum or Plasma by Immunoassay Hepatitis B surface antigen Lab Routine High risk medication use Expected: 09/24/2024 (Approximate), Expires: 09/24/2025 [facility] Comment on above: Expected: 09/24/2024 (Approximate), Expires: 09/24/2025 Start: 09-24-2024 End: 09-24-2025 Hepatitis C virus Ab [Presence] in Serum or Plasma by Immunoassay Hepatitis C antibody Lab Routine High risk medication use Expected: 09/24/2024 (Approximate), Expires: 09/24/2025 [facility] Comment on above: Expected: 09/24/2024 (Approximate), Expires: 09/24/2025 Start: 09-24-2024 End: 09-24-2025 Hiv-1 rna, quantitative by pcr Hiv-1 rna, quantitative by pcr Lab Routine High risk medication use Expected: 09/24/2024 (Approximate), Expires: 09/24/2025 [facility] Comment on above: Expected: 09/24/2024 (Approximate), Expires: 09/24/2025 Start: 09-24-2024 End: 09-24-2025 TB test, cell immune measure TB test, cell immune measure Lab Routine High risk medication use Expected: 09/24/2024 (Approximate), Expires: 09/24/2025 [facility] Work Phone: Comment on above: Expected: 09/24/2024 (Approximate), Expires: 09/24/2025 Start: 09-24-2024 End: 09-24-2024 Patient encounter procedure 09/24/2024 9:20 AM EDT Office Visit [facility] [address] [place] [address] Aparna Jo PA [address] [place] [address] Arrived [facility] Comment on above: Arrived Start: 06-17-2024 Plain X-ray of left shoulder XR shoulder LT min 2V* [facility] Start: 06-17-2024 XR Shoulder - left Views [facility] CHLAMYDIA TRACHOMATI S (GENITO/STI) CHLAMYDIA TRACHOMATIS (GENITO/STI) Lab Routine Yeast infection Ordered: 01/05/2025 [facility] Comment on above: Ordered: 01/05/2025 Neisseria gonorrhoea e DNA [Presence] in Unspecified specimen by JOSE with probe detection Neisseria gonorrhea DNA probe, direct Lab Routine Yeast infection Ordered: 01/05/2025 [facility] Comment on above: Ordered: 01/05/2025 SURESWAB(R) ADVANCED VAGINITIS PLUS, TMA SURESWAB(R) ADVANCED VAGINITIS PLUS, TMA Pathology and Cytology Routine Yeast infection Ordered: 01/05/2025 [facility] Comment on above: Ordered: 01/05/2025 THIN PREP TIS PAP AN D HR HPV DNA THIN PREP TIS PAP AND HR HPV DNA Pathology and Cytology Routine Well woman exam with routine gynecological exam Ordered: 01/05/2025 [facility] Comment on above: Ordered: 01/05/2025 Immunizations Immunization Date Immunization Notes Care Provider Fa cili 04-22-2023 influenza, injectable, quadrivalent, preservative free Reji Ana Laura [facility] 04-06-2021 influenza virus vaccine, unspecified formulation Reji Ana Laura [facility] 02-16-2020 influenza virus vaccine, unspecified formulation Reji Ana Laura [facility] 03-23-2019 influenza virus vaccine, unspecified formulation Reji Ana Laura [facility] 03-23-2019 influenza, injectable, quadrivalent, preservative free Gino Kuns Other [facility] 03-24-2018 influenza virus vaccine, unspecified formulation Reji Ana Laura [facility] 02-28-2017 tetanus toxoid, reduced diphtheria toxoid, and acellular pertussis vaccine, adsorbed Gino Kuns Other [facility] 02-28-2017 influenza virus vaccine, unspecified formulation Reji Ana Laura [facility] 03-01-2016 influenza, injectable, quadrivalent, contains preservative Gino Kuns Other [employer] Other 03-01-2016 influenza virus vaccine, unspecified formulation Reji Ana Laura [facility] 03-01-2016 influenza, injectable, quadrivalent, preservative free Gino Kuns DO Work Phone: [facility] NEGATED: Highlighted row has not occurred!03-25-2023 influenza virus vaccine, unspecified formulation Reji Ana Laura [facility] Payers Date Payer Category Payer Self-pay 2011 [facility] [id number] 1981 Unknown [id number] 2.16.840.1.704226.3.579.2 .593 1981 Unknown [id number] 2.16.840.1.707760.3.579.2 .593 1981 Unknown [id number] 2.16.840.1.692482.3.579.2 .593 1981 Unknown [id number] 2.16.840.1.631227.3.579.2 .593 1981 Unknown [id number] 2.16.840.1.508138.3.579.2 .593 1981 Unknown [id number] 2.16.840.1.663626.3.579.2 .593 1981 Unknown [id number] 2.16.840.1.591695.3.579.2 .593 1981 Unknown [id number] 2.16.840.1.355070.3.579.2 .593 1981 Unknown [id number] 2.16.840.1.759781.3.579.2 .356 1981 Unknown [id number] 2.16.840.1.991369.3.579.2 .727 1981 Unknown [id number] 2.16.840.1.577504.3.579.2 .727 1981 Unknown [id number] 2.16.840.1.141782.3.579.2 .727 1981 Unknown [id number] 2.16.840.1.835208.3.579.2 .727 1981 Unknown [id number] 2.16.840.1.976144.3.579.2 .727 1981 Unknown [id number] 2.16.840.1.273573.3.579.2 .72 1981 Unknown [id number] 2.16.840.1.664079.3.579.2 .1981 Unknown [id number] 2.16.840.1.687147.3.579.2 .1981 Unknown [id number] 2.16.840.1.457094.3.579.2 .1981 Unknown [id number] 2.16.840.1.503008.3.579.2 .1981 Unknown [id number] 2.16.840.1.386438.3.579.2 .1981 Unknown [id number] 2.16.840.1.363252.3.579.2 .1981 Unknown [id number] 2.16.840.1.806743.3.579.2 .1981 Unknown [id number] 2.16.840.1.022298.3.579.2 .1981 Unknown [id number] 2.16.840.1.842702.3.579.2 .1981 Unknown [id number] 2.16.840.1.990348.3.579.2 .1981 Unknown [id number] 2.16.840.1.310082.3.579.2 .9 1981 Unknown [id number] 2.16.840.1.786079.3.579.2 .1259 1958 [employer] [id number] 2.16840.1.914746.19 Unknown ANTHEM Unknown [id number] 2.16840.1.592824.3.579.2 .531 Social History Date Type Detail Facility Start: 09-24-2024 End: 09-27-2024 Sex Assigned At [facility] Start: 09-24-2024 End: 09-27-2024 Never smoker Never smoker ED-Cuxnyfsopgfxcd-Tf ef field Work Phone: Start: 11-06-2023 End: 09-24-2024 Tobacco smoking status [facility]finding[facility] Start: 06-17-2024 End: 06-18-2024 Sex Female (finding) [facility] Start: 1980 Sex Assigned At Female F [facility] consumption unknown [facility] Start: 1980 Sex assigned at Not on file [facility] Start: 09-24-2024 Tobacco use and exposure Smokeless tobacco non-user [facility] Start: 09-27-2024 End: 01-05-2025 Alcoholic beverage intake Lifetime non-drinker (finding) [facility] Clinical Notes 09-16-2012 to 01-05-2025 Yary Etienne MAPPING TECHNICIAN - 01/05/2025 9:00 AM Miguel Angel Tavarez PT - 12/16/2024 1:30 PM EUNICE Castaneda - 09/24/2024 9:20 AM EDT Note Date & Type Note Facility 01-05-2025 History of Presen t illness Narrative Reason for Appointment: Patient ID: Alla Parham is a 44 y.o. female who presents for Gynecologic Exam Patient presents today for Annual Exam. MEDICATIONS Current Outpatient Medications Medication Instructions Clobetasol Propionate 0.05 % shampoo Apply to scalp, leave on 5 min the rinse, 2-3 x week, 30 day supply Cosentyx UnoReady 300 mg, Subcutaneous, Weekly, Inject 300 mg (contents of ONE pen) under the skin at weeks 0,1,2 and 3 Cosentyx UnoReady 300 mg, Subcutaneous, Every 28 days, Inject 300 mg (contents of ONE pen) under the skin at week 4 and every 4 weeks thereafter estradiol (Climara) 0.025 MG/24HR 1 patch, Transdermal, Weekly estradiol (Estrace) 0.1 MG/GM vaginal cream 2g vaginal daily for 2 weeks, then 2 times weekly following initial 2 weeks fluconazole (DIFLUCAN) 150 mg, Oral, Once, This is a 1 time dose, take single tablet by mouth. semaglutide (OZEMPIC) 1 mg, Subcutaneous ALLERGIES No Known Allergies PROBLEMS Active Ambulatory Problems Diagnosis Date Noted No Active Ambulatory Problems Resolved Ambulatory Problems Diagnosis Date Noted No Resolved Ambulatory Problems No Additional Past Medical History HISTORY PAST MEDICAL HISTORY SOCIAL HISTORY No past medical history on file. Social History Tobacco Use Smoking status: Never Smokeless tobacco: Never Substance Use Topics Alcohol use: Never Drug use: Not on file FAMILY HISTORY No family history on file. SURGICAL HISTORY Past Surgical History: Procedure Laterality Date DILATION AND CURETTAGE OF UTERUS 2016 DILATION AND CURETTAGE OF UTERUS 2006 GALLBLADDER SURGERY 2009 TOTAL ABDOMINAL HYSTERECTOMY 05/2019 dr. arceo REVIEW OF SYSTEMS Review of Systems: Review of Systems Constitutional: Positive for night sweats and hot flashes. Insomnia All other systems reviewed and are negative. OBJECTIVE Objective: Physical Exam Constitutional: Appearance: Normal appearance. She is well-developed. Genitourinary: Vulva normal. Breasts: Breasts are soft. Right: Normal. Left: Normal. Cardiovascular: Rate and Rhythm: Normal rate and regular rhythm. Pulmonary: Effort: Pulmonary effort is normal. Breath sounds: Normal breath sounds. Abdominal: General: Bowel sounds are normal. There is no distension. Palpations: Abdomen is soft. Tenderness: There is no abdominal tenderness. There is no guarding or rebound. Musculoskeletal: General: No swelling. Normal range of motion. Right lower leg: No edema. Left lower leg: No edema. Neurological: Mental Status: She is alert and oriented to person, place, and time. Skin: General: Skin is warm and dry. Psychiatric: Mood and Affect: Mood normal. Behavior: Behavior normal. Vitals and nursing note reviewed. Exam conducted with a packing and stamping machine operator present. Vitals: Estimated body mass index is 30.65 kg/m as calculated from the following: Height as of 09/24/22: 5' 3 . Weight as of this encounter: 173 lb. BP: 120/72 No LMP recorded. Patient has had a hysterectomy. ASSESSMENT & PLAN ICD-10-CM 1. Yeast infection B37.9 fluconazole (Diflucan) 150 MG tablet 2. Well woman exam with routine gynecological exam Z01.419 THIN PREP TIS PAP AND HR HPV DNA 3. Breast cancer screening by mammogram Z12.31 Bilateral screening mammogram Bilateral screening mammogram 4. Postmenopausal HRT (hormone replacement therapy) Z79.890 estradiol (Estrace) 0.1 MG/GM vaginal cream estradiol (Climara) 0.025 MG/24HR Annual: Patient presents today for an annual exam. Patient states she is doing well and has complaints of chronic yeast infections. Patient states she has been on Diflucan a number of times due to the yeast infections, and no change. Patient reports she has Diflucan at home 150 mg x 2. She can take 1 tablet now and repeat in 1 week for up to 4 weeks. Pap was obtained without difficulty and patient given mammogram order to have scheduled/obtained. Patient with complaints of hormonal changes to include vasomotor symptoms including hot flashes, night sweats, vaginal dryness and insomnia. Patient with history of hysterectomy and desire to trial climara patch and vaginal estrogen. Orders Placed This Encounter Procedures Bilateral screening mammogram Follow Up: Patient is to return in one year for annual unless needed otherwise. Documented by Maria Esther White MA on behalf of: Yary Etienne NP documented in this encounter [facility] 12-16-2024 History of Presen t illness Narrative Images from the original note were not included. Physical Therapy Evaluation Visit Patient Name: Alla Parham Today's Date: 12/16/2024 Encounter Diagnoses Name Primary? Left foot pain Yes Visit number: 1 Timed Code Treatment Minutes: 45 minutes Total Treatment Time: 45 minutes Time In: 1330 Time Out: 1417 History: Pt states she has been dealing with pain in lateral portion of left foot since about September. Pt states she was seen by category specialist. Was put on daily Meloxicam, start therapy, and was told to wear ankle brace. Precautions: [place] Subjective: left lateral foot Pain: 07/19 Objective: PT Evaluation (12/16/2024) Left ANKLE AROM: -10 degrees DF from neutral with knee extended, neutral DF with knee flexed, 28 degrees inversion, 5 degrees eversion PROM: 5 degrees DF from neutral with knee extended, 11 DF with knee flexed Joint play: no significant laxity Strength: left ankle 4+/5 without complaints of pain with resistance Muscle length: tightness noted left gastroc Palpation: no tenderness noted with palpation Special Test: ant and post drawer testing are negative Treatment: Education: HEP education with demonstration, Educated on Eval Findings and POC Manual Therapy: Passive ROM, Joint mobilization, Soft Tissue Mobilization, Myofascial Release, Muscle Energy Technique, Neural Mobilization, Myofascial Cupping, Dry Needling, IASTM, and Scar mobilization as needed. Therapeutic Exercise: (12 minutes) Strength, Endurance, Flexibility, ROM, HEP, Neural Mobilization, Power, and Core Stability as needed. Pt performed and instructed in home program this date; written instructions and pictures issued with good pt understanding. Therapeutic Activity: Exercises to improve dynamic activities, functional tasks, functional mobility to return to prior activity level as needed. Neuromuscular re-education: Balance Training, Muscle Facilitation, Dynamic Stability, Core Stabilization, and Blood Flow Restriction Training (BFRT) as needed. Modalities: Heat, Ice, Electrical Stimulation, Ultrasound, Cervical Mechanical Traction, Lumbar Mechanical Traction, Iontophoresis, and Fluidotherapy as needed. Assessment: Pt is 44 y/o female with complaints of previous left foot pain. Pt is not reporting tenderness with palpation. Strength left ankle in all planes 4+/5. Pt instructed in home program to address tightness left calf. Will re-assess in 3 weeks unless pain presents prior. Outcome Measure: Lower Extremity Functional Scale (LEFS): 79/80 Rehab Diagnosis: Short Term Goal: To be met in 2 weeks Goal 1: Pt to be instructed in home exercise program. Senior Living Goals: To be met in 10 weeks Goal 1: Pt to report independence and compliance with home program. Goal 2: Pt to achieve 5/5 strength left ankle PF to assist with functional mobility and stairs. Goal 3: Pt to achieve 20 degrees of left ankle DF to assist with functional tasks such as squatting. Goal 4: Pt to score no less than 80/80 on LEFS indicating improved QOL. Pt will benefit from skilled PT for 1-2x/week from 12/16/2024 to 03/10/2025 to address the above impairments. I hereby deem this POC medically necessary. Please sign below. Date: documented in this encounter [facility] 09-24-2024 History of Presen t illness Narrative [...] and not within a reasonable driving distance. [facility] use of topical steroids are also not [...] Visit: 3 months documented in this encounter [facility] 06-17-2024 Evaluation note Diagnosis Onset Date Resolution Bicipital tendinitis, left shoulder acute June 17 12:45pm Rotator cuff syndrome of left shoulder acute June 17 12:45pm [facility] Work Phone: [phone] 107-241610-28-2024 NotePatient Education Orthopedics Shoulder Range of Motion [...] your feet. 2. Lif (more content not included)...[facility]02-16-2023 Evaluation note* Encounter Date Diagnosis Assessment [...] ENT for further evaluation. Encouraged her to grape picker OTC prilosec or nexium to try in the meantime. [employer] Other 05-20-2022 Evaluation note* Encounter Date Diagnosis [...] - M25.522) We will continue to monitor. [employer] Other 05-10-2022 Evaluation note* Encounter Date Diagnosis Assessment Notes Treatment Notes Treatment Clinical Notes October, Fall (ICD-10 - W19.XXXA) recent fall October, Left elbow pain (ICD-10 - M25.522) Left elbow pain since fall. Will get imaging and follow up October, Frontal headache (ICD-10 - R51.9) Patient reports she gets sharp, jolty pains in the right buddhist area since her recent fall. Patient states [...] been having sharp pain in the right buddhist area. This could be a concussion and [...] head has been ordered. Will follow up [employer] Other 11-08-2021 Evaluation note* Encounter Date Diagnosis Assessment Notes Treatment Notes Treatment Clinical Notes Apr, Hypertriglyceridemia (ICD-10 - E78.1) Reviewed blood work with patient. Cholesterol triglycerides continue to be elevated but has improved from last check. We will continue to monitor. [employer] Other 10-20-2021 Evaluation note* Encounter Date Diagnosis Assessment Notes Treatment Notes Treatment Clinical Notes Mar, Wellness examination (ICD-10 - Z00.00) [employer] Other 10-18-2021 Evaluation note* Encounter Date Diagnosis [...] any positively answered questions as noted above. [employer] Other 04-10-2013 History general Narrative - Reported* Type Description Date Medical History 09/16/12 Left foot x-ray [facility] Medical History 09/08/14 Chest X-ray Surgical History D & C 2006 Surgical History cholecystectomy Surgical History D&C 2015 Surgical History Hysterectomy (still has ovaries ) 05/2019 Hospitalization History Vaginal x1 (male)/ Gestational Diabetes 03/22/14 Hospitalization History Vaginal x1 (female ) 06/03/06 Hospitalization History Vaginal X1 (male) gestational diabetes 03/2017 [employer] Other Evaluation + Plan note Future Appointments Appointment Date:02/03/2024 10:00:00 AM Scheduled Provider:Reji Farley Location:[facility] Appointment Type: Open Diagnostic Tests Pending * PAP [id number] w/ HPV and Genotype rflx 11/06/23 [facility] note[facility] InformationN[facility] [employer] Other Evaluation note* Diagnosis Onset Date Resolution Status Admit Date Bicipital tendinitis, left shoulder acute June 17 12:45pm Rotator cuff syndrome of lef t shoulder acute June 17 12:45pm [facility] Work Phone: Evaluation note* Diagnosis Other rosacea Psoriasis vulgaris (CMS/HCC) Other psoriasis High risk medication use [facility] Diagnosis Left foot pain- Primary Pain in soft tissues of limb [facility] Diagnosis Yeast infection- Primary Well woman exam with routine gynecological exam Routine gynecological examination H/O: hysterectomy Acquired absence of both cervix and uterus Breast cancer screening by mammogram Postmenopausal HRT (hormone replacement therapy) Need for prophylactic hormone replacement therapy (postmenopausal) documented [facility] this encounter [facility] [...] date and entered into the EMR system. [facility] Work Phone: Hospital course Narrative No data available for this section [facility] Discharge instructions No data available for this section [facility] No data available for this section [facility] Narrative* Rehabilitation - Outpatient (Routine) - Authorized Specialty Diagnoses / Procedures Referred By Carol Ann rodriguez Referred To Contact Physical Therapy Diagnoses INSERTIONAL PERONEAL BREVIS TENDONITIS, Left Procedures NC PHYSICAL THERAPY EVALUATION LOW COMPLEX 20 MINS NC OFFICE/OUTPATIENT NEW HIGH MDM 60 MINUTES Jacques Begum MD [address] [place] [address] [place] [address] Phone: tel: fax: Meri Tavarez PT Referral ID Status Reason Start Date Expiration Date V isits Requested Visits Authorized [id number] Authorized 12/16/2024 06/14/2025 99 99 [facility] Reason for Referral Reason * 08/23 consult and treat;; feeling of lump in throat worse with swallowing reflux Diagnosis 1 Dysphagia, unspecifi ed type (R13.10) Referral Organization [facility] Referring Provider First Name Gino Referring Provider Last Name Azul Referring Provider Specialty Family Prac saqib Referred Organization [facility] Referred Provider OJ VELEZ [place] [address] [place] Referred Provider Specialty Otolaryngolo gy Referral Priority Routine General Notes Desire Rivas 023 10:57:19 AM >Received today and fax referral. The Central Team at will call patient and schedule Desire Rivas M 08/02/2022 09:02:19 AM >Fax letter for appt [...] letter for appt update Clinical Notes Office [phone] Summary Purpose Family History Relationship Condition Age at Onset Recorded Date/T fabrice father Diabetes mellitus Unknown Advance Directives Advance Directive Response Recorded Date/ Time Advance Directives No December 14 3:59pm Chief Complaint * DYSPHAGIA * DR. GINO GONZALES Chief Complaint and Reason for Visit Chief Complaint Admit Date CONSULT REJI DUNAWAY LT SHOULDER PAIN, WX June 17, 2024 12:45pm M25.512 - Pain in left shoulder June 17, 2024 12:48pm Reason for Visit Admit Date Bicipital tendinitis, left shoulder Johnny rahat 2024 12:45pm Rotator cuff syndrome of left shoulder J anuary 2024 12:45pm Additional Source Comments REASON FOR VISIT (unrecogniz ed section and content) Reason Comments Gynecologic Exam INFORMATION SOURCE (unrecogn ized section and content) DATE CREATED AUTHOR 09/14/2022 [facility] DATE CREATED AUTHOR AUTHOR'S ORGANIZ ATION 09/17/2022 [facility] DATE CREATED AUTHOR AUTHOR'S ORGANIZ ATION 09/18/2022 [employer] DATE CREATED AUTHOR AUTHOR'S ORGANIZ ATION 02/04/2024 [facility] DATE CREATED AUTHOR AUTHOR'S ORGANIZ ATION 06/22/2024 [facility] DATE CREATED AUTHOR AUTHOR'S ORGANIZ ATION 10/27/2024 [facility] DATE CREATED AUTHOR AUTHOR'S ORGANIZ ATION 12/20/2024 [facility] EPIC Patient Care team informatio [...] rt: June 17, 2024 Sahil Dahl , Attending Provider Active St art: June 17, [...] BE BASED ON THE PRIMARY CLINICAL RECORDS. [employer] provides no warranty or guarantee of the accuracy or completeness of information in this document.
[2025-01-10 11:08] LABS: Age Gdln ACOG Testing Note (.); IGP, Aptima HPV, rfx 16/18,45 Note (.)
== END 2025-01-05 20:10 | disposition home or self-care (01) ==
LOC: LAB 20:09
PROVIDERS: PCP Nurse Practitioner; Visit Provider Nurse Practitioner Family
DX: Z01.419 Encounter for gynecological examination (general) (routine) without abnormal findings (principal)
CPT/HCPCS: 87624; 88175